=== PATIENT | male | born 1965 | race Caucasian/White ===

== ENCOUNTER 2020-04-14 11:29 | Outpatient (REF) | payer OTHER, SELFPAY ==
--- NOTE | 2020-04-14 12:11 | XR_ITS ---
EXAMINATION: XR LUMBOSACRAL SPINE WITH OBLIQUES CLINICAL INFORMATION: Lumbar spondylosis. COMPARISON: None. TECHNIQUE: AP, both oblique, and lateral views of the lumbar spine. Lateral view of the lumbosacral junction. FINDINGS: There is mild straightening of the lumbar lordosis. The vertebral heights and alignment is normal. There is significant loss of L3-L4 and L4-L5 disc heights with moderate ventral spondylosis. No lytic process seen. Visualized bilateral SI joints are normal. The paravertebral soft tissues are normal. XR/XR lumbar spine 4V min IMPRESSION: Degenerative disc changes L3-L4 and L4-L5 disc levels with moderate ventral spondylosis. No visible acute fracture, dislocation or lytic process seen.
[2020-04-14 13:00] LABS: MANUAL DIFF FLAG NO
[2020-04-14 13:06] LABS: Basophils Absolute Auto 0.1 X10*3/uL (0.0-0.2); Basophils Percent Auto 0.8 % (0-2); Eosinophils Absolute Auto 0.3 X10*3/uL (0.0-0.4); Eosinophils Percent Auto 4.2 % (0-4); Hemoglobin 15.2 g/dl (14.0-18.0); Imm Gran Abs Auto 0.03 X10*3/uL (0.00-0.03); Imm Gran Pct Auto 0.5 % (0.0-0.4); Lymphocytes Absolute Auto 2.9 X10*3/uL (1.2-4.9); Lymphocytes Percent Auto 49.2 % (20-40); Mean Corpuscular HGB Conc 33.8 g/dl (31.0-36.0); Mean Corpuscular Hemoglobin 29.8 pg (27.0-33.0); Mean Corpuscular Volume 88.2 fL (80-98); Mean Platelet Volume 10.3 fL (9.4-12.4); Monocytes Absolute Auto 0.6 X10*3/uL (0.1-1.2); Monocytes Percent Auto 10.8 % (2-11); Neutrophils Percent Auto 34.5 % (45-73); Platelet Count 147 X10*3/uL (160-400); Red Cell Distribution Width 13.1 % (11.0-16.0); White Blood Count 5.9 X10*3/uL (4.8-10.8)
[2020-04-14 13:41] LABS: Alanine Aminotransferase 33 U/L (0-40); Albumin Level 4.4 g/dL (3.5-5.0); Alkaline Phosphatase 61 U/L (39-117); Anion Gap 12 (12-20); Aspartate Amino Transferase 23 U/L (5-37); Bilirubin Total 0.8 mg/dL (0.0-1.0); Blood Urea Nitrogen 15 mg/dL (9-16); C Reactive Protein 0.02 mg/dL (< or = 0.50); Carbon Dioxide 30 mmol/L (22-29); Chloride 105 mmol/L (96-108); Estimated Glomerular Filt Rate > 60; Glucose Random 107 mg/dL (60-115); Potassium 4.8 mmol/l (3.3-5.1); Sodium 142 mmol/L (135-145); Total Protein 6.6 g/dL (6.5-8.0)
[2020-04-14 13:46] LABS: Erythrocyte Sedimentation Rate 1 MM/HR (0-15)
== END 2020-04-14 11:30 | disposition home or self-care (01) ==
LOC: HO.LAB 11:29
PROVIDERS: PCP Internal Medicine; Visit Provider Student in an Organized Health Care Education/Training Program
DX: M05.9 Rheumatoid arthritis with rheumatoid factor, unspecified (principal); M47.816 Spondylosis without myelopathy or radiculopathy, lumbar region
CPT/HCPCS: 36415; 72110; 80053; 85025; 85652; 86140

== ENCOUNTER → 2020-04-16 14:16 | Outpatient (BNVA) | payer OTHER, SELFPAY | PROVIDERS: PCP Internal Medicine; Visit Provider Anesthesiology | DX: M47.816 Spondylosis without myelopathy or radiculopathy, lumbar region (principal); M06.9 Rheumatoid arthritis, unspecified; M19.90 Unspecified osteoarthritis, unspecified site; Z79.899 Other long term (current) drug therapy | CPT/HCPCS: 99202 ==

== ENCOUNTER → 2020-04-23 09:42 | Outpatient (BNVA) | payer OTHER, SELFPAY | PROVIDERS: PCP Internal Medicine; Referring Provider Internal Medicine; Visit Provider Student in an Organized Health Care Education/Training Program | DX: M05.9 Rheumatoid arthritis with rheumatoid factor, unspecified (principal); M47.816 Spondylosis without myelopathy or radiculopathy, lumbar region; Z79.899 Other long term (current) drug therapy | CPT/HCPCS: 99212 ==

== ENCOUNTER → 2020-07-02 08:54 | Outpatient (BNVA) | payer OTHER, SELFPAY | PROVIDERS: Visit Provider Orthopaedic Surgery | DX: M67.919 Unspecified disorder of synovium and tendon, unspecified shoulder (principal) | CPT/HCPCS: 20610; 99212; J1100 ==

== ENCOUNTER 2020-07-22 08:36 | Outpatient (REF) | payer OTHER, SELFPAY ==
--- NOTE | ~2020-07-22 | MR_ITS ---
EXAMINATION: MRI LEFT SHOULDER WITHOUT CONTRAST CLINICAL INFORMATION: Left shoulder pain. Decreased range of motion. COMPARISON: 08/24/2018 TECHNIQUE: MR images of the shoulder were obtained on a 1.5 Lizzie high-field strength scanner without intravenous contrast material. FINDINGS: ROTATOR CUFF: A full-thickness tear of the supraspinatus tendon measures 1.9 cm AP with retraction of the torn fibers by 2.1 cm, corresponding to a U-shaped tear. This involves the far anterior fibers of the infraspinatus tendon with propagation of fluid medially along the myotendinous junction of the infraspinatus, though the majority of the infraspinatus tendon is intact. A few of the far anterior fibers of the supraspinatus tendon are intact. Subscapularis and teres minor are normal. No muscle atrophy or fatty infiltration. BICEPS: Mild biceps tendinosis. No tears or subluxation. CORACOACROMIAL ARCH: The undersurface of the acromion is curved with no subacromial spur. Moderate acromioclavicular osteoarthritis. Fluid in the subacromial-subdeltoid bursa and subcoracoid bursa likely extends from the glenohumeral joint through the full-thickness defect in the rotator cuff. LABRUM/CAPSULE: A tear of the glenoid labrum appears near-circumferential, potentially sparing a portion of the posterior labrum. There is significant degeneration of the labrum inferiorly. The joint capsule is intact with mild capsular edema. GLENOHUMERAL JOINT/MARROW: Moderate-sized glenoid osteophytes. A 1.5 x 1.3 cm area of articular cartilage loss is present at the anterior aspect of the glenoid with articular cortical irregularity and subchondral edema. No fracture or malalignment. Small glenohumeral joint effusion. MR/MR shoulder LT wo con IMPRESSION: 1. A 1.9 x 2.1 cm full-thickness insertional tear of the supraspinatus tendon with involvement of the anterior fibers of the infraspinatus. No muscle atrophy. 2. Moderate acromioclavicular osteoarthritis. 3. Mild glenohumeral osteoarthritis with a focal high-grade chondral defect of the anterior half of the glenoid and a near-circumferential tear of the glenoid labrum. 4. Mild biceps tendinosis.
--- NOTE | ~2020-07-22 | XR_ITS ---
EXAMINATION: XR SHOULDER, LEFT CLINICAL INFORMATION: Pain COMPARISON: None TECHNIQUE: AP external rotation, Grashey, scapular Y, and axillary views of the left shoulder. FINDINGS: Bone alignment is normal. No fracture or dislocation is seen. There is arthritis at the acromioclavicular joint with joint space narrowing and osteophyte formation. There is a small osteophyte at the inferior glenoid. There are degenerative changes of the greater tuberosity. Soft tissues are unremarkable. XR/XR shoulder LT min 2V IMPRESSION: Degenerative changes
[2020-07-22 10:27] LABS: Basophils Percent Auto 0.9 % (0-2); Hematocrit 41.3 % (42-52); Hemoglobin 13.9 g/dl (14.0-18.0); Imm Gran Abs Auto 0.01 X10*3/uL (0.00-0.03); Imm Gran Pct Auto 0.2 % (0.0-0.4); MANUAL DIFF FLAG SCAN; Mean Corpuscular HGB Conc 33.7 g/dl (31.0-36.0); Mean Corpuscular Hemoglobin 29.8 pg (27.0-33.0); Mean Corpuscular Volume 88.4 fL (80-98); PLT CLUMP 1; Red Blood Count 4.67 X10*6/uL (4.60-5.80); SCAN SMEAR FLAG 1
[2020-07-22 10:30] LABS: Eosinophils Absolute Auto 0.2 X10*3/uL (0.0-0.4); Eosinophils Percent Auto 3.5 % (0-4); Lymphocytes Absolute Auto 2.3 X10*3/uL (1.2-4.9); Lymphocytes Percent Auto 50.2 % (20-40); Monocytes Absolute Auto 0.5 X10*3/uL (0.1-1.2); Monocytes Percent Auto 10.6 % (2-11); Neutrophils Absolute Auto 1.6 X10*3/uL (2.0-8.3); Neutrophils Percent Auto 34.6 % (45-73); Platelet Count 124 X10*3/uL (160-400); Red Cell Distribution Width 12.9 % (11.0-16.0); White Blood Count 4.6 X10*3/uL (4.8-10.8)
[2020-07-22 10:51] LABS: Alanine Aminotransferase 25 U/L (0-40); Albumin Level 4.2 g/dL (3.5-5.0); Alkaline Phosphatase 54 U/L (39-117); Anion Gap 11 (12-20); Aspartate Amino Transferase 24 U/L (5-37); Bilirubin Total 0.6 mg/dL (0.0-1.0); Blood Urea Nitrogen 15 mg/dL (9-16); C Reactive Protein < 0.02 mg/dL (< or = 0.50); Calcium 8.7 mg/dL (8.4-10.2); Carbon Dioxide 30 mmol/L (22-29); Chloride 108 mmol/L (96-108); Cholesterol 119 mg/dL; Estimated Glomerular Filt Rate > 60; Glucose Random 104 mg/dL (60-115); HDL Cholesterol 48 mg/dL; LDL Cholesterol Calculated 56 mg/dl; Potassium 4.8 mmol/L (3.3-5.1); Sodium 144 mmol/L (135-145); Total Protein 6.2 g/dL (6.5-8.0); Triglycerides 77 mg/dL
[2020-07-22 11:04] LABS: Reflex LDLD? No
[2020-07-22 12:04] LABS: Erythrocyte Sedimentation Rate 2 MM/HR (0-15)
[2020-07-22 12:16] LABS: SLIDE REVIEW VERIFIED
== END 2020-07-22 08:37 | disposition home or self-care (01) ==
LOC: HO.MRI 08:36
PROVIDERS: Absent Provider Student in an Organized Health Care Education/Training Program; PCP Internal Medicine; Visit Provider Orthopaedic Surgery
DX: M25.512 Pain in left shoulder (principal); M05.9 Rheumatoid arthritis with rheumatoid factor, unspecified; M67.919 Unspecified disorder of synovium and tendon, unspecified shoulder
CPT/HCPCS: 36415; 73030; 73221; 80053; 80061; 85025; 85652; 86140

== ENCOUNTER → 2020-07-24 08:51 | Outpatient (BNVA) | payer OTHER, SELFPAY | PROVIDERS: PCP Internal Medicine; Visit Provider Orthopaedic Surgery | DX: M75.122 Complete rotator cuff tear or rupture of left shoulder, not specified as traumatic (principal) | CPT/HCPCS: 99212 ==

== ENCOUNTER → 2020-07-30 10:17 | Outpatient (BNVA) | payer OTHER, SELFPAY | PROVIDERS: PCP Internal Medicine; Referring Provider Internal Medicine; Visit Provider Student in an Organized Health Care Education/Training Program | DX: M05.9 Rheumatoid arthritis with rheumatoid factor, unspecified (principal); M47.816 Spondylosis without myelopathy or radiculopathy, lumbar region | CPT/HCPCS: 99212 ==

== ENCOUNTER 2020-08-12 06:10 | Day surgery (SDC) | payer OTHER, SELFPAY ==
[2020-08-06 12:17] VITALS: BMI 26.9
--- NOTE | 2020-08-11 08:34 | P.CONAN_ITS ---
Documented by User: Ernestina Chavez 08/11/20 11:09 HPI - Anesthesia Eval Consult details Narrative: 54yo M for L Shoulder Rotator Cuff Repair PMFSH Active Problems Active Problems: All Active Problems (Updated 08/06/20 @ 12:14 by Neda Snow) Gastritis determined by endoscopy (Acute) Constipation (Acute) Insomnia (Acute) Left rotator cuff tear (Acute) Anxiety (Acute) Coronary artery disease (Acute) GERD (gastroesophageal reflux disease) (Acute) Hypercholesterolemia (Acute) Hypertension (Acute) Impaired glucose tolerance (Acute) Seropositive rheumatoid arthritis (Acute) Spondylosis of lumbar region without myelopathy or radiculopathy (Acute) Osteoarthritis (Acute) Past Medical History Medical History Anxiety Atherosclerotic cardiovascular disease Cervical radiculopathy Coronary artery disease Degenerative disc disease, lumbar Erectile dysfunction GERD (gastroesophageal reflux disease) Horseshoe kidney Hypercholesterolemia Hypertension Impaired glucose tolerance Left rotator cuff tear Lip cancer Osteoarthritis 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 Family History Family History Father Lung cancer CAD (coronary artery disease) CVD (cardiovascular disease) Hx of CABG Mother Colon cancer Maternal Uncle Lung cancer Surgical History Surgical History H/O left knee surgery History of cervical spinal surgery History of coronary artery stent placement History of lip cancer History of shoulder surgery History of tonsillectomy Hx of colonoscopy Social History Social History Housing Other:: Rents a room in a house Are you a primary healthcare interpreter to a significant other at home: No Do you presently have visiting nurse or other home services: No Alcohol intake: current Alcohol intake frequency: holidays/special occasions only Alcohol type: beer and hard liquor Smoking Status: Former smoker Smoking Quit Date: 2004 Use of substances other than those prescribed or required for medical reasons: Yes Substance Use Type: Marijuana Substance Use Frequency: Occasionally Have you been hit, kicked, punched, or otherwise hurt by someone within the past year? If so, by whom?: No Advance Directives: No Advance Directives Information Provided: No Advance Directives on File: No Recently lost weight without trying: No Current occupational status: unemployed Current occupation: right handed Narrative Narrative: Per cardiac note 01/2020 - stable CAD with 1 year f/u Meds Allergies Allergy/AdvReac Type Severity Reaction Status Date / Time penicillin V Allergy Severe rash Verified 08/06/20 11:40 atorvastatin Allergy Intermediate leg pain Verified 08/06/20 11:40 Home Medications Medication Instructions Recorded Confirmed Last Taken Type aspirin 81 mg tablet,delayed 81 mg PO DAILY 04/23/20 08/12/20 08/10/20 History release sennosides 8.6 mg capsule 8.6 mg PO BEDTIME 04/23/20 08/06/20 Unknown History pantoprazole 40 mg tablet,delayed 40 mg PO DAILY 04/27/20 08/06/20 Unknown History release Exam Exam Date and Time: August 11, 2020 0834 Height,Weight and Vital Signs: Height 5 ft 10 in Weight 85.275 kg Pertinent Lab Results Pertinent Lab Results: Laboratory Tests 07/22/20 07/22/20 09:48 09:48 WBC 4.6 L Hgb 13.9 L Hct 41.3 L Plt Count 124 L Sodium 144 Potassium 4.8 Chloride 108 Carbon Dioxide 30 H BUN 15 Creatinine 0.85 Narrative Narrative: EKG 07/2019 (repeat DOS) NSR @ 72 ECHO 03/2018: LVEF 60-65%, No RWMA, No valve path MIBI 07/2019: Nml perfusion Gated EF 74% No transient ischemic dilation EKG nondiagnostic for ischemia Assessment and Plan Assessment Anesthesia Assessment: Chart Reviewed Documented by User: Eufemia Elizondo 08/12/20 08:16 [facility] Past Medical History Medical History Anxiety Atherosclerotic cardiovascular disease Cervical radiculopathy Coronary artery disease Degenerative disc disease, lumbar Erectile dysfunction GERD (gastroesophageal reflux disease) Horseshoe kidney Hypercholesterolemia Hypertension Impaired glucose tolerance Left rotator cuff tear Lip cancer Osteoarthritis 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 Family History Family History Father Lung cancer CAD (coronary artery disease) CVD (cardiovascular disease) Hx of CABG Mother Colon cancer Maternal Uncle Lung cancer Surgical History Surgical History H/O left knee surgery History of cervical spinal surgery History of coronary artery stent placement History of lip cancer History of shoulder surgery History of tonsillectomy Hx of colonoscopy Social History Social History Housing Other:: Rents a room in a house Are you a primary healthcare interpreter to a significant other at home: No Do you presently have visiting nurse or other home services: No Alcohol intake: current Alcohol intake frequency: holidays/special occasions only Alcohol type: beer and hard liquor Smoking Status: Former smoker Smoking Quit Date: 2004 Use of substances other than those prescribed or required for medical reasons: Yes Substance Use Type: Marijuana Substance Use Frequency: Occasionally Have you been hit, kicked, punched, or otherwise hurt by someone within the past year? If so, by whom?: No Advance Directives: No Advance Directives Information Provided: No Advance Directives on File: No Recently lost weight without trying: No Current occupational status: unemployed Current occupation: right handed Meds Allergies Allergy/AdvReac Type Severity Reaction Status Date / Time penicillin V Allergy Severe rash Verified 08/06/20 11:40 atorvastatin Allergy Intermediate leg pain Verified 08/06/20 11:40 Home Medications Medication Instructions Recorded Confirmed Last Taken Type aspirin 81 mg tablet,delayed 81 mg PO DAILY 04/23/20 08/12/20 08/10/20 History release sennosides 8.6 mg capsule 8.6 mg PO BEDTIME 04/23/20 08/06/20 Unknown History pantoprazole 40 mg tablet,delayed 40 mg PO DAILY 04/27/20 08/06/20 Unknown History release Exam Pertinent Lab Results Pertinent Lab Results: ecg normal 08/12/20 Airway Mallampati Class: II TM Dist: >3cm Neck ROM: Full Denture: Upper and Lower Assessment and Plan Assessment Anesthesia Assessment: Anesthesia Plan Discussed and Chart Reviewed Final Anesthetic Review NPO: Yes ASA Class: III Final Preanesthetic Review: No Changes in Pt Med Stat, Meds/Allgs Chart Reviewed, Consent Obtained/Reviewed and Anes Risks/Benef Reviewed Patient Risk: Intermediate Procedure Risk: Intermediate Assessment/Block/Sedation in SS: Assess/Block/Sedation-SS Anesthetic Plan Anesthetic Plan: GA and Regional Block Disposition: Standard PACU
[2020-08-12] VITALS (8 sets, daily range): BP systolic 123–142; BP diastolic 78–89; PULSE 58–67; RESP 16–18; TEMP 36.6; O2SAT 95–99
--- NOTE | 2020-08-12 | ECG_ITS ---
Test Reason : CAD s/p stenting Blood Pressure : / mmHG Vent. Rate : 059 BPM Atrial Rate : 059 BPM P-R Int : 146 ms QRS Dur : 096 ms QT Int : 412 ms P-R-T Axes : 011 -16 009 degrees QTc Int : 407 ms Sinus bradycardia Otherwise normal ECG When compared with ECG of 20-OCT-2017 06:47, No significant change was found Referred By: Ernestina Chavez Electronically Signed By:ROXANA FIELD
[2020-08-12] MEDS: Lactated Ringers 1,000 ML 100 ML IVCONT (06:52)
--- NOTE | 2020-08-12 07:38 | MHC.SHP ---
Pre-Procedural Eval Section A The patient is an INPATIENT: No Changes since office visit: Yes Patient answered all questions; No Cold of Flu in the past 2 weeks, No New Medical Problems and No Changes in Medication The History & Physical has been completed within 30 days and I have reviewed it.: Yes Section B Chief Complaint: Disorder of synovium and tendon Allergies: Allergies Allergy/AdvReac Type Severity Reaction Status Date / Time penicillin V Allergy Severe rash Verified 08/06/20 11:40 atorvastatin Allergy Intermediate leg pain Verified 08/06/20 11:40 Plan I have reviewed the history and physical and performed a pertinent physical examination on my patient. No changes have occurred unless specified.
--- NOTE | 2020-08-12 09:28 | PM.OP ---
Brief Operative Note Date of Service: 08/12/20 Pre-op diagnosis: left shoulder rtc tear Post-op diagnosis: other (1) same 2) gh OA 3) SLAP tear) Procedure: rtc repair with biceps tenotomy and chondroplasty Implants: romano and nephsebastián helacoil x4 Surgeon: Alex Bernal MD Anesthesia: GETA Induction Machine Setter: Ivette Pinto Estimated blood loss (mL): 25 IV fluids (mL): 700 Pathology: none sent Condition: stable Disposition: PACU
--- NOTE | 2020-08-12 09:51 | P.OP_ITS ---
Operative Note Operative Note Date of Service: 08/12/20 Narrative: Pre-op diagnosis: right rotator cuff tear Post-op diagnosis: same Procedure: right rotator cuff repair with sub-acromial decompression and biceps tenotomy Machine Tool Technician Instructor: Ivette Pinto___ Implants: Ying [employer] Nephew helacoil x4 Anesthesia: GETA and regional Estimated blood loss (mL): 20 IV fluids (mL): 700 Complications: none Condition: stable Disposition: PACU Indications: This is a 54 yo M with a full thickness right rtc tear consented to undergo repair Procedure in detail: Patient was brought to the operating room and placed the the beach chair position. All bony prominences were well padded and he was prepped and draped in standard sterile fashion. A time out was called to identify proper site, proper procedure and proper surgeon. IV antibiotics per weight were administered. I began by making a posterolateral stab incision with a 15 blade. A blunt trochar was placed into the glenohumeral joint and I insufflated the joint with saline and a 30 degree arthroscope was placed. I established an outside- in anterior portal just distal to the biceps tendon. I then began my inspection of the glenohumeral joint. The gutter was clean and there was g3 wear in the central and anterior protion of the glenoid. There was a large SLAP tear with intact bicpes anchor. There was full thickness RTC tear and a low grade partial thickness tear of the superior subscapularis at the humeral insertion. I de brided the labrum and tenotomized the biceps. I entered the subacromial space via a posterior portal and established 2 lateral portals under direct visualization. There was a tear of the supraspinatus and the infraspinatus that was full thickness without retraction. I began by placing 2 double loaded helacoil suture anchors medially, just adjacent to the humeral cartilage. I then passed these through the cuff tear and brought them to two lateral knotless anchor. There was excellent compression of the cuff and restorationist of the normal anatomy. Prior to this I burred the footprint down to bleeding bone. I also placed an additional looped suture anteriorly and brought it to the anterior lateral anchor. I was happy with th repair and turned my attention to the acromion. I performed a 6mm decompression. I removed all instrumentation. Portals were closed with nylon and sterile dressings were applied. Patient was extubated and brought to the recovery room is stable condition.
== END 2020-08-12 11:45 | disposition home or self-care (01) ==
PROVIDERS: PCP Internal Medicine; Visit Provider Orthopaedic Surgery
PROC: (CPT 29827; principal; 2020-08-12 07:30)
DX: M75.122 Complete rotator cuff tear or rupture of left shoulder, not specified as traumatic (principal); S43.432A Superior glenoid labrum lesion of left shoulder, initial encounter; X58.XXXA Exposure to other specified factors, initial encounter; Y93.9 Activity, unspecified; Y92.9 Unspecified place or not applicable; Y99.8 Other external cause status; M67.912 Unspecified disorder of synovium and tendon, left shoulder; M05.9 Rheumatoid arthritis with rheumatoid factor, unspecified; M19.90 Unspecified osteoarthritis, unspecified site; I25.10 Atherosclerotic heart disease of native coronary artery without angina pectoris; Z95.5 Presence of coronary angioplasty implant and graft; I10 Essential (primary) hypertension; R73.02 Impaired glucose tolerance (oral); F12.90 Cannabis use, unspecified, uncomplicated; Z79.82 Long term (current) use of aspirin; Z79.899 Other long term (current) drug therapy; Z88.0 Allergy status to penicillin; Z88.8 Allergy status to other drugs, medicaments and biological substances; Z87.891 Personal history of nicotine dependence
CPT/HCPCS: 29827; 29826; 29822; 93005; C1713; J0171; J0690; J1100; J2250; J2405; J3010

== ENCOUNTER → 2020-08-27 09:51 | Outpatient (BNVA) | payer OTHER, SELFPAY | PROVIDERS: PCP Internal Medicine; Visit Provider Physician Assistant | DX: Z98.890 Other specified postprocedural states (principal) | CPT/HCPCS: 99212 ==

== ENCOUNTER 2020-09-24 08:02 | Outpatient (REF) | payer OTHER, SELFPAY ==
--- NOTE | ~2020-09-24 | XR_ITS ---
EXAMINATION: XR SHOULDER, LEFT CLINICAL INFORMATION: Pain shoulder COMPARISON: X-ray left shoulder August 2018 TECHNIQUE: grashy AP projection of the shoulder.. FINDINGS: There are postoperative changes with metallic suture anchors noted within the humerus. There is arthrosis of glenohumeral joint with marginal osteophytes overall mild. Coracoclavicular joint not clearly assessed on this projection. XR/XR shoulder LT 1V IMPRESSION: Postoperative changes left shoulder. Stable arthrosis of glenohumeral joint.
== END 2020-09-24 08:03 | disposition home or self-care (01) ==
LOC: HO.HOSX 08:02
PROVIDERS: Visit Provider Orthopaedic Surgery
DX: M25.512 Pain in left shoulder (principal); Z98.890 Other specified postprocedural states
CPT/HCPCS: 73020; 99212

== ENCOUNTER 2020-10-14 09:11 | Outpatient (REF) | payer OTHER, SELFPAY ==
[2020-10-14 10:37] LABS: MANUAL DIFF FLAG NO
[2020-10-14 11:03] LABS: Basophils Absolute Auto 0.1 X10*3/uL (0.0-0.2); Basophils Percent Auto 0.7 % (0-2); Eosinophils Absolute Auto 0.2 X10*3/uL (0.0-0.4); Eosinophils Percent Auto 2.8 % (0-4); Hematocrit 42.6 % (42-52); Hemoglobin 13.9 g/dl (14.0-18.0); Imm Gran Abs Auto 0.02 X10*3/uL (0.00-0.03); Imm Gran Pct Auto 0.3 % (0.0-0.4); Lymphocytes Absolute Auto 2.9 X10*3/uL (1.2-4.9); Lymphocytes Percent Auto 37.9 % (20-40); Mean Corpuscular HGB Conc 32.6 g/dl (31.0-36.0); Mean Corpuscular Hemoglobin 29.1 pg (27.0-33.0); Mean Corpuscular Volume 89.3 fL (80-98); Monocytes Absolute Auto 0.5 X10*3/uL (0.1-1.2); Monocytes Percent Auto 7.1 % (2-11); Neutrophils Absolute Auto 3.9 X10*3/uL (2.0-8.3); Neutrophils Percent Auto 51.2 % (45-73); Platelet Count 190 X10*3/uL (160-400); Red Blood Count 4.77 X10*6/uL (4.60-5.80); Red Cell Distribution Width 12.6 % (11.0-16.0); White Blood Count 7.6 X10*3/uL (4.8-10.8)
[2020-10-14 11:05] LABS: Alanine Aminotransferase 17 U/L (0-40); Alkaline Phosphatase 81 U/L (39-117); Anion Gap 11 (12-20); Aspartate Amino Transferase 17 U/L (5-37); Bilirubin Total 0.5 mg/dL (0.0-1.0); Blood Urea Nitrogen 14 mg/dL (9-16); C Reactive Protein 0.14 mg/dL (< or = 0.50); Calcium 9.1 mg/dL (8.4-10.2); Carbon Dioxide 28 mmol/L (22-29); Chloride 108 mmol/L (96-108); Estimated Glomerular Filt Rate > 60; Glucose Random 111 mg/dL (60-115); Potassium 4.5 mmol/L (3.3-5.1); Sodium 142 mmol/L (135-145); Total Protein 6.4 g/dL (6.5-8.0)
[2020-10-14 12:30] LABS: Erythrocyte Sedimentation Rate 7 MM/HR (0-15)
== END 2020-10-14 09:12 | disposition home or self-care (01) ==
LOC: HO.LAB 09:11
PROVIDERS: Absent Provider Internal Medicine; PCP Internal Medicine; Visit Provider Student in an Organized Health Care Education/Training Program
DX: M05.9 Rheumatoid arthritis with rheumatoid factor, unspecified (principal); R73.02 Impaired glucose tolerance (oral)
CPT/HCPCS: 36415; 80053; 85025; 85652; 86140

== ENCOUNTER → 2020-10-29 08:45 | Outpatient (BNVA) | payer OTHER, SELFPAY | PROVIDERS: PCP Internal Medicine; Visit Provider Nurse Practitioner | DX: Z13.89 Encounter for screening for other disorder (principal) | CPT/HCPCS: Q3014 ==

== ENCOUNTER → 2020-11-05 09:04 | Outpatient (BNVA) | payer OTHER, SELFPAY | PROVIDERS: Visit Provider Orthopaedic Surgery | DX: Z98.890 Other specified postprocedural states (principal) | CPT/HCPCS: 99212 ==

== ENCOUNTER → 2020-12-10 15:14 | Outpatient (BNVA) | payer OTHER, SELFPAY | PROVIDERS: PCP Internal Medicine; Visit Provider Student in an Organized Health Care Education/Training Program | DX: M05.9 Rheumatoid arthritis with rheumatoid factor, unspecified (principal); M47.816 Spondylosis without myelopathy or radiculopathy, lumbar region | CPT/HCPCS: 99212 ==

== ENCOUNTER 2020-12-24 10:00 | Outpatient (RCR) | payer OTHER, SELFPAY ==
--- NOTE | 2020-09-08 19:58 | MHC.PT.EP ---
[facility] [place] Office [place] Office [place] Office [address] Cuong Lombardi [address] [phone] F: [phone] F: [phone] F: [phone] F: [phone] Physical Therapy Plan of Care Date of Evaluation: 09/08/20 Date of Surgery: 08/12/20 Diagnosis: s/p L RTC repair with biceps tenotomy. Assessment: Pt is a 54 y/o male referred to PT s/p L RTC repair with biceps tenotomy for management of long Hx of L shoulder pain performed on 08/12/20 resulting in decreased ability for reaching high shelves, carrying objects of weight, dressing pullovers, performing heavy HH chores secondary to decreased L shoulder ROM and strength, decreased posture, healing process and pain. Pt is deemed an appropriate candidate to receive skilled PT in order to address his physical limitations to improve his functional ability. Frequency and Duration: The patient will be seen 2 x / wk x 10 wks. Short Term Goals: in 2 weeks: initiate HEP with evidence of compliance. In 7 weeks: full ROM achieved. Long-Term Goals: In 10 weeks: I with HEP. In 10 weeks: Pt will be able top place objects on high shelf with managed Sx. Treatment Plan: Modalities to reduce pain, spasms and effusion. Manual therapy to restore motion and function. Therapeutic exercise to improve strength and flexibility. Neuromuscular re-education for posture and balance. Therapeutic activities to return to functional activities of daily living. Electronically signed by: Milton Jones PT. Please sign and return to therapist. Thank you for your referral.
--- NOTE | 2020-12-24 19:14 | MHC.PT.DC ---
[facility] [place] Office [place] Office [place] Office [address] Cuong Lombardi [address] [phone] F: [phone] F: [phone] F: [phone] F: [phone] Physical Therapy Discharge Report Diagnosis: s/p L RTC repair with biceps tenotomy. Date of Surgery: 08/12/20 Date of Evaluation: 09/08/20 Date of Discharge: Treatments to Date: 27 Cancellations to Date: 0 No Shows to Date: 0 Discharge Status: Discharge Summary: Issa has been an active participant in his therapy in his therapy in and out of the clinic. He has achieved all of his therapeutic goals and is in agreement with Dc at this time. Pt's AROM is roughly 90% compared to contra-lateral side. Electronically signed by: Milton Jones PT. Please sign and return to therapist. Thank you for your referral.
--- NOTE | 2020-12-24 19:16 | MHC.PT.DC ---
[facility] [place] Office [place] Office [place] Office [address] Cuong Lombardi [address] [phone] F: [phone] F: [phone] F: [phone] F: [phone] Physical Therapy Discharge Report Diagnosis: s/p L RTC repair with biceps tenotomy. Date of Surgery: 08/12/20 Date of Evaluation: 09/08/20 Date of Discharge: 12/24/20 Treatments to Date: 27 Cancellations to Date: 0 No Shows to Date: 0 Discharge Status: Achieved Goals Improved Function Independent with HEP Discharge Summary: Issa has been an active participant in his therapy in his therapy in and out of the clinic. He has achieved all of his therapeutic goals and is in agreement with Dc at this time. Pt's AROM is roughly 90% compared to contra-lateral side. Electronically signed by: Milton Jones PT. Please sign and return to therapist. Thank you for your referral.
== END 2020-12-24 19:17 | disposition home or self-care (01) ==
LOC: HO.PTCHIC 10:00
PROVIDERS: PCP Internal Medicine; Visit Provider Physician Assistant
DX: Z98.890 Other specified postprocedural states (principal)
CPT/HCPCS: 97110; 97140; 97161

== ENCOUNTER 2021-01-18 08:22 | Outpatient (REF) | payer OTHER, SELFPAY ==
[2021-01-18 09:44] LABS: MANUAL DIFF FLAG NO
[2021-01-18 09:55] LABS: Basophils Percent Auto 0.7 % (0-2); Eosinophils Absolute Auto 0.2 X10*3/uL (0.0-0.4); Eosinophils Percent Auto 2.7 % (0-4); Hematocrit 40.7 % (42-52); Hemoglobin 13.5 g/dl (14.0-18.0); Imm Gran Abs Auto 0.02 X10*3/uL (0.00-0.03); Imm Gran Pct Auto 0.4 % (0.0-0.4); Lymphocytes Absolute Auto 2.3 X10*3/uL (1.2-4.9); Lymphocytes Percent Auto 40.4 % (20-40); Mean Corpuscular HGB Conc 33.2 g/dl (31.0-36.0); Mean Corpuscular Volume 87.3 fL (80-98); Mean Platelet Volume 10.2 fL (9.4-12.4); Monocytes Absolute Auto 0.6 X10*3/uL (0.1-1.2); Monocytes Percent Auto 10.7 % (2-11); Neutrophils Absolute Auto 2.5 X10*3/uL (2.0-8.3); Neutrophils Percent Auto 45.1 % (45-73); Platelet Count 149 X10*3/uL (160-400); Red Blood Count 4.66 X10*6/uL (4.60-5.80); Red Cell Distribution Width 13.7 % (11.0-16.0); White Blood Count 5.6 X10*3/uL (4.8-10.8)
[2021-01-18 10:06] LABS: Alanine Aminotransferase 18 U/L (0-40); Albumin Level 4.1 g/dL (3.5-5.0); Alkaline Phosphatase 76 U/L (39-117); Anion Gap 14 (12-20); Aspartate Amino Transferase 25 U/L (5-37); Bilirubin Total 0.3 mg/dL (0.0-1.0); Blood Urea Nitrogen 16 mg/dL (9-16); C Reactive Protein 0.27 mg/dL (< or = 0.50); Calcium 8.9 mg/dL (8.4-10.2); Carbon Dioxide 26 mmol/L (22-29); Chloride 108 mmol/L (96-108); Estimated Glomerular Filt Rate > 60; Glucose Random 96 mg/dL (60-115); Potassium 4.6 mmol/L (3.3-5.1); Sodium 143 mmol/L (135-145); Total Protein 6.4 g/dL (6.5-8.0)
[2021-01-18 10:55] LABS: Erythrocyte Sedimentation Rate 6 MM/HR (0-15)
== END 2021-01-18 08:23 | disposition home or self-care (01) ==
LOC: HO.LAB 08:22
PROVIDERS: PCP Internal Medicine; Visit Provider Student in an Organized Health Care Education/Training Program
DX: M05.9 Rheumatoid arthritis with rheumatoid factor, unspecified (principal)
CPT/HCPCS: 36415; 80053; 85025; 85652; 86140

== ENCOUNTER → 2021-01-19 09:29 | Outpatient (BNVA) | payer OTHER, SELFPAY | PROVIDERS: PCP Internal Medicine; Referring Provider Internal Medicine; Visit Provider Internal Medicine | DX: I25.10 Atherosclerotic heart disease of native coronary artery without angina pectoris (principal); I10 Essential (primary) hypertension | CPT/HCPCS: 93005; 99212 ==

== ENCOUNTER 2021-02-01 13:41 | Outpatient (REF) | payer OTHER, SELFPAY | END 2021-02-01 13:42 | disposition home or self-care (01) | LOC: HO.LNP 13:41 | PROVIDERS: Visit Provider Hospitalist | DX: Z20.822 Contact with and (suspected) exposure to COVID-19 (principal); J01.90 Acute sinusitis, unspecified | CPT/HCPCS: U0003; U0005 ==

== ENCOUNTER 2021-03-18 14:05 | Outpatient (REF) | payer OTHER, SELFPAY ==
--- NOTE | ~2021-03-18 | XR_ITS ---
EXAMINATION: XR HIP, RIGHT CLINICAL INFORMATION: Right hip pain. COMPARISON: 04/29/2018 TECHNIQUE: Two views of the right hip. FINDINGS: There is no evidence of acute fracture or dislocation of the right hip. Right hip joint space is maintained. There is minimal superior marginal spurring present about the acetabulum and femoral head with some superior femoral neck sclerosis which may be related to impingement. XR/XR hip RT min 2V IMPRESSION: Mild degenerative change of the right hip as described.
== END 2021-03-18 14:06 | disposition home or self-care (01) ==
LOC: HO.XRAY 14:05
PROVIDERS: PCP Internal Medicine; Visit Provider Nurse Practitioner Family
DX: M05.9 Rheumatoid arthritis with rheumatoid factor, unspecified (principal); M25.551 Pain in right hip; M47.816 Spondylosis without myelopathy or radiculopathy, lumbar region; F41.9 Anxiety disorder, unspecified
CPT/HCPCS: 73502; 99212

== ENCOUNTER 2021-04-09 05:09 | Outpatient (REF) | payer OTHER, SELFPAY | END 2021-04-09 05:10 | disposition home or self-care (01) | LOC: HO.HOSX 05:09 | PROVIDERS: Visit Provider Physician Assistant | DX: Z13.89 Encounter for screening for other disorder (principal) ==

== ENCOUNTER 2021-04-15 08:59 | Outpatient (REF) | payer OTHER, SELFPAY ==
[2021-04-15 09:12] LABS: MANUAL DIFF FLAG NO
[2021-04-15 10:09] LABS: Basophils Absolute Auto 0.1 X10*3/uL (0.0-0.2); Basophils Percent Auto 0.9 % (0-2); Eosinophils Absolute Auto 0.1 X10*3/uL (0.0-0.4); Eosinophils Percent Auto 2.6 % (0-4); Hematocrit 41.6 % (42.0-52.0); Imm Gran Abs Auto 0.01 X10*3/uL (0.00-0.03); Imm Gran Pct Auto 0.2 % (0.0-0.4); Immature Retic Fraction 12.2 % (2.3-13.4); Lymphocytes Absolute Auto 2.4 X10*3/uL (1.2-4.9); Lymphocytes Percent Auto 43.4 % (20-40); Mean Corpuscular HGB Conc 33.7 g/dl (31.0-36.0); Mean Corpuscular Hemoglobin 29.6 pg (27.0-33.0); Mean Corpuscular Volume 87.9 fL (80.0-98.0); Mean Platelet Volume 9.7 fL (9.4-12.4); Monocytes Absolute Auto 0.5 X10*3/uL (0.1-1.2); Monocytes Percent Auto 8.9 % (2-11); Neutrophils Absolute Auto 2.41 x10*3/uL (2.0-8.3); Platelet Count 167 X10*3/uL (160-400); Red Blood Count 4.73 X10*6/uL (4.60-5.80); Red Cell Distribution Width 13.2 % (11.0-16.0); Retic HGB Equivalent 33.7 pg (30.0-35.0); Reticulocyte Percent 1.8 % (0.5-1.8); Reticulocytes Absolute 0.083 X10*6/uL (0.026-0.095); White Blood Count 5.5 X10*3/uL (4.8-10.8)
[2021-04-15 10:26] LABS: Estimated Average Glucose 123 mg/dL; Hemoglobin A1c % 5.9 %
[2021-04-15 10:42] LABS: Alanine Aminotransferase 16 U/L (0-40); Alkaline Phosphatase 75 U/L (39-117); Anion Gap 10 (12-20); Aspartate Amino Transferase 16 U/L (5-37); Bilirubin Total 0.2 mg/dL (0.0-1.0); Blood Urea Nitrogen 11 mg/dL (9-16); Calcium 8.7 mg/dL (8.4-10.2); Carbon Dioxide 29 mmol/L (22-29); Chloride 108 mmol/L (96-108); Cholesterol 120 mg/dL; Estimated Glomerular Filt Rate > 60; Glucose Random 122 mg/dL (60-115); HDL Cholesterol 55 mg/dL; Iron 84 mcg/dL (45-160); LDL Cholesterol Calculated 54 mg/dl; Percent Iron Saturation 27 % (15-50); Potassium 4.7 mmol/L (3.3-5.1); Sodium 142 mmol/L (135-145); Total Iron Binding Capacity 314 mcg/dL (228-428); Total Protein 6.3 g/dL (6.5-8.0); Triglycerides 58 mg/dL; Unsaturated Iron Binding 230 ug/dL
[2021-04-15 10:56] LABS: Ferritin 112 ng/mL (20-250); Prostate Specific Antigen Scr 0.29 ng/mL (<0.05-4.0); Thyroid Stimulating Hormone 1.19 uIU/mL (0.32-4.0)
[2021-04-15 11:43] LABS: Free T4 (Free Thyroxine) 0.86 ng/dL (0.71-1.85)
[2021-04-15 13:17] LABS: Folate 7.3 ng/mL (> or = 4.0); Vitamin B12 345 pg/mL (200-900)
== END 2021-04-15 09:00 | disposition home or self-care (01) ==
LOC: HO.LAB 08:59
PROVIDERS: PCP Internal Medicine; Visit Provider Internal Medicine
DX: Z12.5 Encounter for screening for malignant neoplasm of prostate (principal); I25.10 Atherosclerotic heart disease of native coronary artery without angina pectoris; E78.00 Pure hypercholesterolemia, unspecified; R73.02 Impaired glucose tolerance (oral)
CPT/HCPCS: 36415; 80053; 80061; 82607; 82728; 82746; 83036; 83540; 84153; 84439; 84443; 85025; 85045

== ENCOUNTER → 2021-04-22 15:34 | Outpatient (BNVA) | payer OTHER, SELFPAY | PROVIDERS: Visit Provider Orthopaedic Surgery | DX: M24.559 Contracture, unspecified hip (principal) | CPT/HCPCS: 99212 ==

== ENCOUNTER → 2021-04-27 09:36 | Outpatient (BNVA) | payer OTHER, SELFPAY | PROVIDERS: PCP Internal Medicine; Referring Provider Internal Medicine; Visit Provider Internal Medicine | DX: I25.10 Atherosclerotic heart disease of native coronary artery without angina pectoris (principal); I10 Essential (primary) hypertension; R07.2 Precordial pain; E78.00 Pure hypercholesterolemia, unspecified; Z87.891 Personal history of nicotine dependence; Z95.5 Presence of coronary angioplasty implant and graft; Z98.890 Other specified postprocedural states; Z82.49 Family history of ischemic heart disease and other diseases of the circulatory system; Z80.0 Family history of malignant neoplasm of digestive organs; Z80.1 Family history of malignant neoplasm of trachea, bronchus and lung; Z88.1 Allergy status to other antibiotic agents; Z88.0 Allergy status to penicillin; Z88.8 Allergy status to other drugs, medicaments and biological substances; Z79.899 Other long term (current) drug therapy | CPT/HCPCS: 93005; 99212 ==

== ENCOUNTER → 2021-04-30 11:57 | Outpatient (BNVA) | payer OTHER, SELFPAY | PROVIDERS: PCP Internal Medicine; Visit Provider Nurse Practitioner ==

== ENCOUNTER → 2021-05-14 08:03 | Outpatient (BNVA) | payer OTHER, SELFPAY | PROVIDERS: PCP Internal Medicine; Visit Provider Nurse Practitioner | CPT/HCPCS: Q3014 ==

== ENCOUNTER 2021-05-20 07:51 | Outpatient (RCR) | payer OTHER, SELFPAY ==
--- NOTE | 2021-05-20 14:26 | MHC.PT.EP ---
[facility] [place] Office [place] Office [place] Office [address] Cuong Lombardi [address] [phone] F: [phone] F: [phone] F: [phone] F: [phone] Physical Therapy Plan of Care Date of Evaluation: Date of Surgery: n/a Diagnosis: R hip contracture - hip flex stretching, gluteal/core strengthening Assessment: Patient is a 55 year old R handed male who presents with s/s consistent with R hip contracture, R hip pain. He does not work but does enjoy being active and taking care of grandkids. Patient past medical history includes includes rotator cuff surgery this calendar year, GERD, CAD, knee surgery and cervical surgery. Current impairments include pain, ROM, strength, balance, independence, activity tolerance and functional mobility. Functional limitations include decreased ability to walk, transfer, stand, negotiate stairs, and perform more strenuous activities, and perform weight bearing activities.. Patient is motivated with good rehab potential. Skilled PT will address impairments and functional limitations in order to achieve goals. Frequency and Duration: The patient will be seen 2x/week for 5 weeks Short Term Goals: I with HEP -2 weeks Hip flex flex normal - 3 weeks ER to 44 on R - 3 weeks Driver Recruiter Goals: 90/90 lacking < 20 - 5 weeks Hip strength 4+/5 grossly - 5 weeks LEFS 62/80 - 5 weeks Treatment Plan: Modalities to reduce pain, spasms and effusion. Manual therapy to restore motion and function. Therapeutic exercise to improve strength and flexibility. Neuromuscular re-education for posture and balance. Therapeutic activities to return to functional activities of daily living. Electronically signed by: Please sign and return to therapist. Thank you for your referral.
--- NOTE | 2021-07-16 09:28 | MHC.PT.DC ---
[facility] [place] Office [place] Office [place] Office [address] [phone] F: [phone] F: [phone] F: [phone] F: [phone] Physical Therapy Discharge Report Diagnosis: R hip contracture - hip flex stretching, gluteal/core strengthening Date of Surgery: n/a Date of Evaluation: 05/20/21 Date of Discharge: 05/22/21 Treatments to Date: 1 Cancellations to Date: No Shows to Date: Discharge Status: Patient Elected to Stop Discharge Summary: Patient is a 55 year old R handed male who presents with s/s consistent with R hip contracture, R hip pain. He does not work but does enjoy being active and taking care of grandkids. Patient past medical history includes includes rotator cuff surgery this calendar year, GERD, CAD, knee surgery and cervical surgery. Current impairments include pain, ROM, strength, balance, independence, activity tolerance and functional mobility. Functional limitations include decreased ability to walk, transfer, stand, negotiate stairs, and perform more strenuous activities, and perform weight bearing activities.. Patient is motivated with good rehab potential. Skilled PT will address impairments and functional limitations in order to achieve goals. Electronically signed by: Mikael Moore, PT Please sign and return to therapist. Thank you for your referral.
== END 2021-05-22 07:00 | disposition home or self-care (01) ==
LOC: HO.PTCHIC 07:51
PROVIDERS: PCP Internal Medicine; Visit Provider Orthopaedic Surgery
DX: M24.551 Contracture, right hip (principal)
CPT/HCPCS: 97110; 97163

== ENCOUNTER → 2021-06-21 13:52 | Outpatient (BNVA) | payer OTHER, SELFPAY | PROVIDERS: PCP Internal Medicine; Visit Provider Nurse Practitioner Family | DX: M05.9 Rheumatoid arthritis with rheumatoid factor, unspecified (principal); M47.816 Spondylosis without myelopathy or radiculopathy, lumbar region | CPT/HCPCS: 99212 ==

== ENCOUNTER 2021-06-22 11:02 | Outpatient (REF) | payer OTHER, SELFPAY ==
--- NOTE | ~2021-06-22 | XR_ITS ---
EXAMINATION: XR HAND, RIGHT CLINICAL INFORMATION: Rheumatoid arthritis COMPARISON: Right hand radiograph on 10/21/2019 TECHNIQUE: PA, lateral, and oblique views of the right hand. FINDINGS: The bones and soft tissues are normal. No fracture. Joint spaces are maintained. Redemonstration of small bony fragment adjacent to the ulnar styloid. There is joint space narrowing and osteophyte formation at the first proximal interphalangeal joint, second distal interphalangeal joint, and fifth distal interphalangeal joint. There is osteophyte formation at the third distal metacarpal. XR/XR hand RT min 3V IMPRESSION: Redemonstration of osteoarthritic degenerative changes.
--- NOTE | ~2021-06-22 | XR_ITS ---
EXAMINATION: XR HAND, LEFT CLINICAL INFORMATION: Rheumatoid arthritis COMPARISON: Left hand radiograph on 10/21/2019 TECHNIQUE: PA, lateral, and oblique views of the left hand. FINDINGS: The bones and soft tissues are normal. No fracture. Joint spaces are maintained. Redemonstration of small bony fragment adjacent to the ulnar styloid. There is joint space narrowing and osteophyte formation at the first proximal interphalangeal joint, third proximal interphalangeal joint, and fifth distal interphalangeal joint. There is osteophyte formation at the third distal metacarpal. XR/XR hand LT min 3V IMPRESSION: Redemonstration of osteoarthritic degenerative changes of the left hand.
[2021-06-22 11:32] LABS: MANUAL DIFF FLAG NO
[2021-06-22 11:53] LABS: Basophils Percent Auto 0.5 % (0-2); Eosinophils Absolute Auto 0.1 X10*3/uL (0.0-0.4); Eosinophils Percent Auto 2.1 % (0-4); Hematocrit 43.2 % (42.0-52.0); Hemoglobin 14.2 g/dl (14.0-18.0); Imm Gran Abs Auto 0.03 X10*3/uL (0.00-0.03); Imm Gran Pct Auto 0.5 % (0.0-0.4); Lymphocytes Absolute Auto 2.2 X10*3/uL (1.2-4.9); Lymphocytes Percent Auto 37.2 % (20-40); Mean Corpuscular HGB Conc 32.9 g/dl (31.0-36.0); Mean Corpuscular Volume 88.3 fL (80.0-98.0); Mean Platelet Volume 9.6 fL (9.4-12.4); Monocytes Absolute Auto 0.4 X10*3/uL (0.1-1.2); Monocytes Percent Auto 7.6 % (2-11); Neutrophils Percent Auto 52.1 % (45-73); Platelet Count 170 X10*3/uL (160-400); Red Blood Count 4.89 X10*6/uL (4.60-5.80); Red Cell Distribution Width 12.5 % (11.0-16.0); White Blood Count 5.8 X10*3/uL (4.8-10.8)
[2021-06-22 12:26] LABS: Alanine Aminotransferase 18 U/L (0-40); Albumin Level 3.9 g/dL (3.5-5.0); Alkaline Phosphatase 73 U/L (39-117); Anion Gap 9 (12-20); Aspartate Amino Transferase 15 U/L (5-37); Bilirubin Total 0.5 mg/dL (0.0-1.0); Blood Urea Nitrogen 21 mg/dL (9-16); C Reactive Protein 0.21 mg/dL (< or = 0.50); Calcium 9.2 mg/dL (8.4-10.2); Carbon Dioxide 29 mmol/L (22-29); Chloride 107 mmol/L (96-108); Estimated Glomerular Filt Rate > 60; Glucose Random 174 mg/dL (60-115); Potassium 4.8 mmol/L (3.3-5.1); Sodium 140 mmol/L (135-145); Total Protein 6.4 g/dL (6.5-8.0)
[2021-06-22 13:00] LABS: Erythrocyte Sedimentation Rate 4 MM/HR (0-15)
== END 2021-06-22 11:03 | disposition home or self-care (01) ==
LOC: HO.XRAY 11:02
PROVIDERS: PCP Internal Medicine; Visit Provider Nurse Practitioner Family
DX: M05.9 Rheumatoid arthritis with rheumatoid factor, unspecified (principal)
CPT/HCPCS: 36415; 73130; 80053; 85025; 85652; 86140

== ENCOUNTER 2021-07-29 14:30 | Outpatient (RCR) | payer OTHER, SELFPAY ==
--- NOTE | 2021-07-02 15:21 | MHC.OT.OEV ---
[address] [phone] F: [phone] Occupational Therapy Evaluation Diagnosis: B/L hand pain Date of Onset: 06/12/18 Attending Provider: CHHAYA Escalona Prescribed Treatment: Eval and Treat History of Current Condition: 55 yo male w/ hx of OA and RA, presents w/ persistent pain in both hands. He reports pain in hands has gotten some what worse since starting medications for RA. X-RAY FINDINGS: The bones and soft tissues are normal. No fracture. Joint spaces are maintained. Redemonstration of small bony fragment adjacent to the ulnar styloid. There is joint space narrowing and osteophyte formation at the first proximal interphalangeal joint, second distal interphalangeal joint, and fifth distal interphalangeal joint. There is osteophyte formation at the third distal metacarpal. IMPRESSION: Redemonstration of osteoarthritic degenerative changes. 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 Enjoys watching music videos, attempts to play guitar but very limited and get discouraged Sleep: Some difficulties, occasional relief w/ Ambien Difficulty due to cervical pain and numbness in hands Pain Assessment Pain Score: 3 Pain Scale Used: Numeric (0 - 10) Pain Location and Description: 3-4/10 resting pain 10/10 occasionally in digits and thumb base, hot searing/burning pain unbearing locks up and you can't move them Aggravating Factors: Any movement/use/activity Alleviating Factors: Aleve at times w/ some relief Has prefab B/L resting wrist orthoses Skin and Soft Tissue Assessment Skin and Soft Tissue: Comments: Several Gloria's and Herberden's nodes through both hands Nerve assessment Ulnar Nerve: B/L Impaired Median Nerve: B/L Impaired Radial Nerve: B/L Impaired Comments: Grossly 3/5 for nerve assessments Sensory Assessment Temperature: WFL Light Touch: WFL Proprioception: WFL Edema Assessment Comments: No significant edema at time of assessment, pt reports intermittent edema in hands/wrists Dexterity Assessment Comments: Frequently drops items Special Tests Comments: (+) Grind test B/L'ly AROM(PROM) Strength Cervical Cervical Flexion: Cervical Extension: Cervical Lateral Flexion: Cervical Rotation: Comments: Pt w/ hx of c-spine fusion w/ limited AROM Shoulder Flexion: Extension: Abduction: Internal Rotation: External Rotation: Comments: Grossly WFL, impaired internal rotation Flexion: Extension: Abduction: Internal Rotation: External Rotation: Comments: Elbow Flexion: Extension: Pronation: Supination: Comments: WFL, decreased end range R elbow ext due to old injury Flexion: Extension: Pronation: Supination: Comments: Wrist Flexion: Extension: Ulnar Deviation: Radial Deviation: Comments: Flexion: R 74 L 70 Extension: R 70 L 70 Ulnar Deviation: Radial Deviation: Comments: Thumb Thumb CMC Flexion: Thumb MCP Flexion: Thumb IP Flexion: Radial Abduction: Palmar Abduction: [place] (Kapandji 0-10): Comments: WFL Digits Index MCP: PIP: DIP: Long MCP: PIP: DIP: Ring MCP: PIP: DIP: Small MCP: PIP: DIP: Comments: Grossly WFL, with decreased end range and intrinsic tightness B/L. Gross Grasp: R 36lb L 38lb Lateral Pinch: Two-Point Pinch: Three-Jaw Milo: Comments: Increasing pain at end of aging room hand Patient Education Primary Language: Montenegrin Installation Technician Required: No Current Knowledge: Understands information with skills for self-management Teaching Method: Demonstration Handouts Verbal Education Needs Identified on Evaluation: ADL's Disease Information Equipment Use Exercise Pain How did patient/family demonstrate learning? Patient demonstrates Patient verbalizes Barriers to Learning: None Readiness for Learning: Accepting Who was educated? Patient Comments: Flat affect, receptive to education Plan of Care Assessment: 55 yo male w/ hx of rheumatoid arthritis and osteoarthritis, with worsening hand pain over the past couple years. 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 He reports intermittent hand edema, worse at nighttime, and fluctuating hand pain, ranging 3/10 to 10/10 w/ occasional locking of digits in extension. On assessment, he has several nodules on PIPs/DIPs and (+) CMC grind test, also noting tenderness in MCPs. He has low, but functional, aging room hand strength and decreased end range in D2-D4. He will benefit from cont'd therapy services to address pain, range, strength and modification for joint protection. STG Duration: 1 week Short Term Goals: Ind w/ HEP for AROM Ind w/ use of warm modalities for comfort Pt to report good understanding of adaptive strategies for pain management w/ sleep and every day tasks LTG Duration: 3 weeks Field Trainer Goals: Full active tip-prox palmar crease Pt to report <3/10 w/ light daily activities Quickdash score <40 Frequency and Duration: The patient will be seen 2x/wk for 3 weeks Treatment Plan: Therapeutic Exercise Therapeutic Activity Home Exercise Program Splinting Patient Education Edema Control ADL Training Paraffin Fluidotherapy MHP Cold Packs Joint Mobilization Soft Tissue Mobilization Kinesiotaping ? resting hand orthosis Electronically Signed By: Vero Ruiz OTR/L CHT Please sign and return to therapist, Thank you for your referral.
--- NOTE | 2021-07-29 15:12 | MHC.OT.DC ---
[address] [phone] F: [phone] Occupational Therapy Discharge Note Provider: CHHAYA Gann Diagnosis: B/L hand pain Date of Evaluation: 07/02/21 Date of Discharge: 07/29/21 Treatments to Date: 6 Discharge Status: Improved Function Independent with HEP Discharge Summary: Issa presents w/ hx of arthritis and B/L hand pain w/ impaired function. He has good understanding of HEP, remains interested in purchase of home paraffin unit for self management strategies. Pt has had decreased pain in general since initial OT assessment and has increased daily activities, including starting to play guitar again. Today has more pain again after playing his guitar, but overall Ind w/ self management. Electronically Signed By: Vero Ruiz OTR/L CHT Reviewed/agree with student documentation: N/A Therapist: Please Sign and return to therapist, thank you for your referral.
== END 2021-07-29 15:12 | disposition home or self-care (01) ==
LOC: HO.OT 14:30
PROVIDERS: PCP Internal Medicine; Visit Provider Nurse Practitioner Family
DX: M79.641 Pain in right hand (principal); M79.642 Pain in left hand
CPT/HCPCS: 97110; 97140; 97166

== ENCOUNTER → 2021-09-22 14:29 | Outpatient (BNVA) | payer OTHER, SELFPAY | PROVIDERS: PCP Internal Medicine; Visit Provider Nurse Practitioner Family | DX: M05.9 Rheumatoid arthritis with rheumatoid factor, unspecified (principal); M47.816 Spondylosis without myelopathy or radiculopathy, lumbar region; Z79.899 Other long term (current) drug therapy | CPT/HCPCS: 99212 ==

== ENCOUNTER 2021-12-01 14:12 | Outpatient (REF) | payer OTHER, SELFPAY ==
[2021-12-01 14:24] LABS: MANUAL DIFF FLAG NO
[2021-12-01 14:53] LABS: Basophils Absolute Auto 0.1 X10*3/uL (0.0-0.2); Basophils Percent Auto 0.7 % (0-2); Eosinophils Absolute Auto 0.2 X10*3/uL (0.0-0.4); Eosinophils Percent Auto 2.2 % (0-4); Hematocrit 38.3 % (42.0-52.0); Hemoglobin 12.4 g/dl (14.0-18.0); Imm Gran Abs Auto 0.03 X10*3/uL (0.00-0.03); Imm Gran Pct Auto 0.4 % (0.0-0.4); Lymphocytes Percent Auto 44.7 % (20-40); Mean Corpuscular HGB Conc 32.4 g/dl (31.0-36.0); Mean Corpuscular Hemoglobin 28.3 pg (27.0-33.0); Mean Corpuscular Volume 87.4 fL (80.0-98.0); Mean Platelet Volume 9.9 fL (9.4-12.4); Monocytes Absolute Auto 0.6 X10*3/uL (0.1-1.2); Monocytes Percent Auto 8.5 % (2-11); Neutrophils Absolute Auto 2.9 x10*3/uL (2.0-8.3); Neutrophils Percent Auto 43.5 % (45-73); Platelet Count 154 X10*3/uL (160-400); Red Blood Count 4.38 X10*6/uL (4.60-5.80); White Blood Count 6.7 X10*3/uL (4.8-10.8)
[2021-12-01 15:37] LABS: Alanine Aminotransferase 23 U/L (0-40); Albumin Level 3.9 g/dL (3.5-5.0); Alkaline Phosphatase 67 U/L (39-117); Anion Gap 9 (12-20); Aspartate Amino Transferase 23 U/L (5-37); Bilirubin Total 0.4 mg/dL (0.0-1.0); Blood Urea Nitrogen 17 mg/dL (9-16); C Reactive Protein 0.09 mg/dL (< or = 0.50); Carbon Dioxide 31 mmol/L (22-29); Chloride 106 mmol/L (96-108); Estimated Glomerular Filt Rate > 60; Glucose Random 115 mg/dL (60-115); Potassium 4.5 mmol/L (3.3-5.1); Sodium 141 mmol/L (135-145); Total Protein 6.1 g/dL (6.5-8.0)
[2021-12-01 15:43] LABS: Erythrocyte Sedimentation Rate 6 MM/HR (0-15)
== END 2021-12-01 14:13 | disposition home or self-care (01) ==
LOC: HO.LAB 14:12
PROVIDERS: PCP Internal Medicine; Visit Provider Nurse Practitioner Family
DX: M05.9 Rheumatoid arthritis with rheumatoid factor, unspecified (principal)
CPT/HCPCS: 36415; 80053; 85025; 85652; 86140

== ENCOUNTER → 2021-12-16 14:03 | Outpatient (BNVA) | payer OTHER, SELFPAY | PROVIDERS: PCP Internal Medicine; Visit Provider Internal Medicine | DX: I25.10 Atherosclerotic heart disease of native coronary artery without angina pectoris (principal); I10 Essential (primary) hypertension; R07.2 Precordial pain; E11.65 Type 2 diabetes mellitus with hyperglycemia; Z79.84 Long term (current) use of oral hypoglycemic drugs; Z79.899 Other long term (current) drug therapy; Z95.5 Presence of coronary angioplasty implant and graft | CPT/HCPCS: 93005; 99212 ==

== ENCOUNTER → 2021-12-24 14:23 | Outpatient (BNVA) | payer OTHER, SELFPAY | PROVIDERS: PCP Internal Medicine; Visit Provider Nurse Practitioner Family | DX: M05.9 Rheumatoid arthritis with rheumatoid factor, unspecified (principal); M47.816 Spondylosis without myelopathy or radiculopathy, lumbar region | CPT/HCPCS: 99212 ==

== ENCOUNTER 2022-01-28 11:26 | Outpatient (REF) | payer OTHER, SELFPAY ==
[2022-01-28 11:57] LABS: MANUAL DIFF FLAG NO
[2022-01-28 12:43] LABS: Basophils Percent Auto 0.8 % (0-2); Eosinophils Absolute Auto 0.1 X10*3/uL (0.0-0.4); Eosinophils Percent Auto 1.7 % (0-4); Hematocrit 40.7 % (42.0-52.0); Hemoglobin 13.9 g/dl (14.0-18.0); Imm Gran Abs Auto 0.02 X10*3/uL (0.00-0.03); Imm Gran Pct Auto 0.4 % (0.0-0.4); Lymphocytes Absolute Auto 2.1 X10*3/uL (1.2-4.9); Lymphocytes Percent Auto 40.2 % (20-40); Mean Corpuscular HGB Conc 34.2 g/dl (31.0-36.0); Mean Corpuscular Hemoglobin 29.8 pg (27.0-33.0); Mean Corpuscular Volume 87.2 fL (80.0-98.0); Mean Platelet Volume 9.8 fL (9.4-12.4); Monocytes Absolute Auto 0.4 X10*3/uL (0.1-1.2); Monocytes Percent Auto 7.2 % (2-11); Neutrophils Absolute Auto 2.6 x10*3/uL (2.0-8.3); Neutrophils Percent Auto 49.7 % (45-73); Platelet Count 181 X10*3/uL (160-400); Red Blood Count 4.67 X10*6/uL (4.60-5.80); Red Cell Distribution Width 13.9 % (11.0-16.0); White Blood Count 5.2 X10*3/uL (4.8-10.8)
[2022-01-28 13:04] LABS: Alanine Aminotransferase 19 U/L (0-40); Albumin Level 3.9 g/dL (3.5-5.0); Alkaline Phosphatase 76 U/L (39-117); Anion Gap 14 (12-20); Aspartate Amino Transferase 18 U/L (5-37); Bilirubin Total 0.6 mg/dL (0.0-1.0); Blood Urea Nitrogen 12 mg/dL (9-16); C Reactive Protein 0.27 mg/dL (< or = 0.50); Calcium 8.9 mg/dL (8.4-10.2); Carbon Dioxide 27 mmol/L (22-29); Chloride 105 mmol/L (96-108); Cholesterol 144 mg/dL; Estimated Glomerular Filt Rate > 60; Glucose Fasting 123 mg/dL (60-99); HDL Cholesterol 41 mg/dL; LDL Cholesterol Calculated 82 mg/dl; Potassium 4.3 mmol/L (3.3-5.1); Sodium 142 mmol/L (135-145); Total Protein 6.4 g/dL (6.5-8.0); Triglycerides 108 mg/dL
[2022-01-28 13:24] LABS: Creatinine Urine 211.83 mg/dL; Microalbum/Creatinine Ratio Ur 3.3 ug/mg cr
[2022-01-28 13:26] LABS: Prostate Specific Antigen 0.36 ng/mL (<0.05-4.0); Vitamin D 25-OH Total 22.5 ng/mL (>30)
[2022-01-28 13:33] LABS: Folate 9.6 ng/mL (> or = 4.0); Vitamin B12 277 pg/mL (200-900)
[2022-01-28 13:59] LABS: Erythrocyte Sedimentation Rate 8 MM/HR (0-15)
== END 2022-01-28 11:27 | disposition home or self-care (01) ==
LOC: HO.LAB 11:26
PROVIDERS: Absent Provider Nurse Practitioner Family; PCP Internal Medicine; Visit Provider Nurse Practitioner Family
DX: Z00.00 Encounter for general adult medical examination without abnormal findings (principal); Z12.5 Encounter for screening for malignant neoplasm of prostate; E11.9 Type 2 diabetes mellitus without complications; E78.00 Pure hypercholesterolemia, unspecified; M05.9 Rheumatoid arthritis with rheumatoid factor, unspecified; Z79.899 Other long term (current) drug therapy
CPT/HCPCS: 36415; 80053; 80061; 82043; 82306; 82607; 82746; 84153; 85025; 85652; 86140

== ENCOUNTER → 2022-02-04 07:20 | Outpatient (REF) | payer OTHER, SELFPAY ==
--- NOTE | 2022-02-04 07:24 | CA_ITS ---
Transthoracic Echocardiogram Patient (Last, First, Middle): Issa Cerna L Gender: Male Date of : 1965 Age: 56 Procedure Date: 02/04/2022 Procedure Type: Transthoracic Echocardiogram Location: OP Height: 177.8 cm Weight: 98.88 kg BSA: 2.17 m2 Heart Rate: 62 bpm BP: 150 / 90 mmHg Shelver: EMILIE Referring MD: Fernando Goins MD Symptoms: I25.10 - Atherosclerotic heart disease of [place] coronary artery without... Study Quality: Adequate ECG Rhythm: Sinus Conclusions: - The left ventricular systolic function is normal. The calculated ejection fraction is 67% by biplane method. - No obvious valvular pathology seen on this study. Findings Left Ventricle Normal left ventricular cavity size. The left ventricular systolic function is normal. The calculated ejection fraction is 67% by biplane method. There is no evidence of regional wall motion abnormalities. Diastolic function is normal for age. There is mild septal asymmetric hypertrophy. Right Ventricle Normal right ventricular cavity size and systolic function. Atria Both atria are normal in size. Aortic Valve There is a normal trileaflet aortic valve. There is no aortic valve stenosis. There is no aortic valve regurgitation. Mitral Valve The mitral valve appears normal. There is mild mitral annular calcification. There is no mitral valve regurgitation. There is no mitral valve stenosis. Pulmonic Valve The pulmonic valve is likely normal. Tricuspid Valve There is no tricuspid valve regurgitation. Tricuspid regurgitation envelope is inadequate for calculation of right ventricular systolic pressure. Great Vessels The aortic annulus, sinuses of valsalva, and asc aorta are normal in size. Venous The inferior vena cava is normal in size and collapses greater than 50% with inspiration. Pericardium/Pleural There is no evidence of pericardial effusion. Prior Study Comparison No significant change compared to prior study dated: 08/02/2019. Recommendations, Care & Conclusions No obvious valvular pathology seen on this study. Measurements 2D Linear Measurements IVSd: 1.28 0.6-0.9/0.6-1.0 cm LVIDd: 4.73 3.9-5.3/4.2-5.9 cm LVIDd Index: 2.18 2.4-3.2/2.2-3.1 cm/m2 LVIDs: 2.83 2.0-3.6 cm LVPWd: 0.93 0.7-1.1 cm LA Diam: 3.60 2.7-3.8/3.0-4.0 cm LAIDs Index: 1.66 1.5-2.3 cm/m2 LV Mass: 237.12 67-162/88-224 g LV Mass Index: 109.27 43-95/49-115 g/m2 LVOT Diam: 2.10 3.0+(-)1.3 cm 2D Systolic Function EF 4C: 67.60 >55% EF 2C: 63.10 >55% EF BiP: 67.10 >55% Mitral Valve MV Pk E: 0.84 MV PK A: 1.08 MV Decel Time: 252.00 E/A: 0.80 E'Lateral: 10.80 E'Medial: 6.74 E/E' Med: 12.50 E/E' Lat: 7.80 PHT: 74.00 MVA PHT: 2.97 Decel [place]: 3.33 Aortic Valve AoV Pk Gabe: 1.52 AoV Mn Gabe: 1.01 AoV VTI: 0.35 AoV Pk Grad: 9.00 Aov Mn Grad: 5.00 ANNIE Cont.VTI: 2.28 LVOT LVOT Pk Gabe: 1.06 LVOT Mn Gabe: 0.68 LVOT VTI: 0.23 LVOT Pk Grad: 4.00 LVOT Mn Grad: 2.00 LVOT Diam: 2.10 LVOT Area: 3.46 Diastolic Function MV Pk E: 0.84 MV Pk A: 1.08 E/A: 0.80 E'Medial: 6.74 E/E' Med: 12.50 E' Laterial: 10.80 E/E' Lat: 7.80 Right Ventricle TAPSE (mm): 22.30 TVS' Gabe: 11.20 Tricuspid Valve TR Pk Gabe: 2.00 TR Pk Grad: 16.00 RA Press: 3.00 Great Vessels Aorta Sinus of Valsalva: 3.20 2.0-3.5 cm Ao Asc: 3.30 2.1-3.4 cm Pulmonary Valve PV Pk Gabe: 0.98 Peak PV Grad: 4.00 Updated in Other Vendor System with Status of Final Fernando Goins MD electronically signed on 02/06/2022 12:53:06 PM with status of Final
== END ==
LOC: HO.CARD 07:20
PROVIDERS: Visit Provider Internal Medicine
DX: I25.10 Atherosclerotic heart disease of native coronary artery without angina pectoris (principal)
CPT/HCPCS: 93306

== ENCOUNTER → 2022-02-08 07:47 | Outpatient (REF) | payer OTHER, SELFPAY ==
--- NOTE | ~2022-02-08 | NM_ITS ---
Lexiscan Myocardial perfusion study Indication: Chest pain, coronary artery disease, assess for ischemia Technique: The patient was brought in for a Lexiscan perfusion study on 02/08/2022 and was injected 0.4 mg of Lexiscan intravenously. Within a minute of this injection 35 mCi of sestamibi was given intravenously. Images were obtained using the SPECT gamma camera interlaced with the gating device. Images were obtained in supine position. Resting perfusion study was performed on 02/09/2022. Patient was administered 35 mCi of sestamibi intravenously at rest. Images were then obtained in supine position. Total DLP 96mGy-cm. Images were processed with the software and compared side to side in short axis, horizontal long axis and vertical long axis views. Findings: Raw acquisition reviewed. The stress perfusion study showed mildly diminished tracer uptake along the inferior wall. There is improvement with CT attenuation correction and hence suggestive of diaphragmatic attenuation artifact. The gated study shows normal LV systolic function with calculated LVEF of 57%. LV cavity is normal in size. The gated study shows normal wall thickening and contraction of segments. Resting study shows mildly diminished tracer uptake along the inferior wall. There is improvement with CT attenuation correction and hence suggestive of diaphragmatic attenuation artifact. Gating at rest reveals normal wall motion with ejection fraction at 66%. The findings are consistent with no clear reversible or fixed perfusion defects. NM/NM cardiolite stress test Impression: 1. Myocardial perfusion imaging study shows likely normal myocardial perfusion. No clear evidence of any ischemia or infarction. 2. Gated LVEF is 57% during stress and 66% during rest. 3. Transient ischemic dilatation not present. EKG component of the test reported separately.
--- NOTE | 2022-02-08 07:51 | CA_ITS ---
Acquisition Time: 2022-02-08 08:05:30 Total Exercise Time: 00:02:05 Test Indications: CP Medications: SEE CHART Protocol: ARNOLDO Max HR: 112 BPM 69% of Pred: 162 BPM Max BP: 200/090 mmHG Max Work Load: 4.6 METS Exercise stress test with exercise 2 min 5 sec of Arnoldo protocol, with report of back pain and need to stop exercise, with BP max 200/90. Pt assisted to sitting position and when BP improved, testing changed to pharmacological stress test with Lexiscan injection, without anginal symptoms, with isolated PAC, with nondiagnostic EKG for ischemia. Post injection and in recovery he had shortness of breath, headache, nausea, vomiting which was treated with Aminophylline 75mg IVP to reverse Lexiscan with gradual improvement in symptoms. Nuclear images pending. Test reviewed with Dr Archibald. Referred By: Fernando Goins Overread By: MAGDALENA HAWKINS
== END ==
LOC: HO.CARD 07:47
PROVIDERS: Visit Provider Internal Medicine
DX: I25.10 Atherosclerotic heart disease of native coronary artery without angina pectoris (principal); R07.2 Precordial pain
CPT/HCPCS: 78452; 93017; A9500; J0280; J2785

== ENCOUNTER → 2022-02-17 13:12 | Outpatient (BNVA) | payer OTHER, SELFPAY | PROVIDERS: PCP Internal Medicine; Referring Provider Internal Medicine; Visit Provider Internal Medicine | DX: I25.10 Atherosclerotic heart disease of native coronary artery without angina pectoris (principal); I10 Essential (primary) hypertension; E11.65 Type 2 diabetes mellitus with hyperglycemia | CPT/HCPCS: 99212 ==

== ENCOUNTER → 2022-03-24 11:54 | Outpatient (BNVA) | payer OTHER, SELFPAY | PROVIDERS: PCP Internal Medicine; Visit Provider Nurse Practitioner Family | DX: M47.816 Spondylosis without myelopathy or radiculopathy, lumbar region (principal); M05.9 Rheumatoid arthritis with rheumatoid factor, unspecified; R20.0 Anesthesia of skin; R20.2 Paresthesia of skin | CPT/HCPCS: 99212 ==

== ENCOUNTER 2022-04-11 09:14 | Outpatient (REF) | payer OTHER, SELFPAY ==
[2022-04-11 09:22] LABS: MANUAL DIFF FLAG NO
[2022-04-11 09:39] LABS: Basophils Percent Auto 0.6 % (0-2); Eosinophils Absolute Auto 0.1 X10*3/uL (0.0-0.4); Eosinophils Percent Auto 2.1 % (0-4); Hematocrit 42.7 % (42.0-52.0); Hemoglobin 14.1 g/dl (14.0-18.0); Imm Gran Abs Auto 0.01 X10*3/uL (0.00-0.03); Imm Gran Pct Auto 0.2 % (0.0-0.4); Lymphocytes Absolute Auto 2.6 X10*3/uL (1.2-4.9); Lymphocytes Percent Auto 41.9 % (20-40); Mean Corpuscular Hemoglobin 29.1 pg (27.0-33.0); Mean Platelet Volume 9.4 fL (9.4-12.4); Monocytes Absolute Auto 0.6 X10*3/uL (0.1-1.2); Monocytes Percent Auto 8.9 % (2-11); Neutrophils Absolute Auto 2.9 x10*3/uL (2.0-8.3); Neutrophils Percent Auto 46.3 % (45-73); Platelet Count 177 X10*3/uL (160-400); Red Blood Count 4.85 X10*6/uL (4.60-5.80); Red Cell Distribution Width 13.1 % (11.0-16.0); White Blood Count 6.2 X10*3/uL (4.8-10.8)
[2022-04-11 10:09] LABS: Alanine Aminotransferase 19 U/L (0-40); Aspartate Amino Transferase 18 U/L (5-37); Blood Urea Nitrogen 15 mg/dL (9-16); C Reactive Protein 0.15 mg/dL (< or = 0.50); Estimated Glomerular Filt Rate > 60
[2022-04-11 10:26] LABS: Erythrocyte Sedimentation Rate 7 MM/HR (0-15)
== END 2022-04-11 09:15 | disposition home or self-care (01) ==
LOC: HO.LAB 09:14
PROVIDERS: Absent Provider Internal Medicine; PCP Internal Medicine; Visit Provider Nurse Practitioner Family
DX: M05.9 Rheumatoid arthritis with rheumatoid factor, unspecified (principal); Z79.899 Other long term (current) drug therapy
CPT/HCPCS: 36415; 82565; 84450; 84460; 84520; 85025; 85652; 86140

== ENCOUNTER → 2022-05-23 10:51 | Outpatient (BNVA) | payer OTHER, SELFPAY | PROVIDERS: PCP Internal Medicine; Visit Provider Internal Medicine | DX: M47.816 Spondylosis without myelopathy or radiculopathy, lumbar region (principal); M25.851 Other specified joint disorders, right hip | CPT/HCPCS: 99212 ==

== ENCOUNTER 2022-05-26 10:38 | Outpatient (REF) | payer OTHER, SELFPAY ==
--- NOTE | 2022-05-26 08:00 | EMG_ITS ---
Bilateral median and ulnar motor and sensory studies were performed. Bilateral radial sensory studies were performed, and paraspinal muscles were tested with a needle. Needle examination also was quite difficult for him. IMPRESSION: 1. [id number] bilateral ulnar neuropathy across cubital tunnel. 2. [id number] bilateral median neuropathy across carpal tunnel. 3. No obvious indication of cervical radiculopathy. MD FELA Das/DEIDRA / [id number]
== END 2022-05-26 10:39 | disposition home or self-care (01) ==
LOC: HO.NEURO 10:38
PROVIDERS: Visit Provider Nurse Practitioner Family
DX: R20.0 Anesthesia of skin (principal); R20.2 Paresthesia of skin
CPT/HCPCS: 95886; 95911

== ENCOUNTER → 2022-06-24 11:54 | Outpatient (BNVA) | payer OTHER, SELFPAY | PROVIDERS: PCP Internal Medicine; Visit Provider Nurse Practitioner Family | DX: M05.9 Rheumatoid arthritis with rheumatoid factor, unspecified (principal); G56.03 Carpal tunnel syndrome, bilateral upper limbs; M47.816 Spondylosis without myelopathy or radiculopathy, lumbar region; Z79.899 Other long term (current) drug therapy | CPT/HCPCS: 99212 ==

== ENCOUNTER 2022-07-05 16:57 | Outpatient (REF) | payer OTHER, SELFPAY ==
--- NOTE | ~2022-07-05 | XR_ITS ---
EXAMINATION: XR CHEST CLINICAL INFORMATION: Chest pain COMPARISON: 10/19/2017 TECHNIQUE: 2 views of the chest were obtained. FINDINGS: No significant abnormality is noted involving the heart, lungs, mediastinum, bony thorax or soft tissues. Cervical spine hardware is present and there is an old healed right clavicular fracture XR/XR chest 2V IMPRESSION: No acute intrathoracic disease.
== END 2022-07-05 16:58 | disposition home or self-care (01) ==
LOC: HO.HMGCX 16:57
PROVIDERS: PCP Internal Medicine; Visit Provider Internal Medicine
DX: R07.9 Chest pain, unspecified (principal)
CPT/HCPCS: 71046

== ENCOUNTER 2022-07-05 17:55 | Emergency (ER) | payer OTHER, SELFPAY ==
--- NOTE | ~2022-07-05 | CT_ITS ---
EXAMINATION: CT ANGIOGRAM OF THE CHEST WITH AND WITHOUT CONTRAST (CT PULMONARY ANGIOGRAM FOR PE) CLINICAL INFORMATION: Reason for Exam Left-sided pain etiology?? COMPARISON: CT abdomen pelvis 04/24/2018 TECHNIQUE: Prior to contrast administration, noncontrast localization images were obtained. Subsequently, multidetector volumetric imaging was performed from the thoracic inlet to below the diaphragms following the administration of 65 mL Omnipaque 350 intravenous contrast. No contrast reaction reported Sagittal, coronal, and MIP oblique sagittal reformatted images were obtained on the CT workstation, uploaded to PACS, and reviewed. This CT examination was performed using dose optimization techniques as appropriate, variously including the following: *Automated exposure control *Adjustment of mA and/or kV according to patient size (this includes techniques or standardized protocols for targeted exams where dose is matched to indication/reason for exam; i.e. extremities or head) *Use of iterative reconstruction technique Total exam dose-length product 378 mGy-cm FINDINGS: QUALITY OF STUDY/CONTRAST BOLUS: Satisfactory. PULMONARY ARTERIES: No central pulmonary embolus. Slightly limited assessment of a few segmental pulmonary arterial branches in the lingula and left lower lobe due to mild motion artifact. Allowing for this, no segmental pulmonary embolus is identified. Linear hypoattenuation within a segmental branch of the left lower lobe on image 290/562 is favored artifactual. THORACIC AORTA: No aneurysm or dissection. LUNG: No airspace consolidation. There are couple small 4 mm subpleural pulmonary nodules in the right lower lobe on image 347/562 and image 325, unchanged since abdomen CT 04/24/2018 consistent with benign etiology. 4 mm pleural-based nodule in the posterior right lower lobe on image 256, area not imaged on the comparison CT. No other pulmonary nodules. Central airways are clear. PLEURA: No pleural effusion or pneumothorax. MEDIASTINUM: Normal heart size. No pericardial effusion. No hilar or mediastinal lymphadenopathy. No evidence of septal bowing or right heart strain. CORONARY ARTERY CALCIFICATION: None visualized on this study. CHEST WALL/AXILLA: No axillary or internal mammary lymphadenopathy. OSSEOUS STRUCTURES: No acute or suspicious osseous abnormality. Mild multilevel degenerative disc disease. Status post ACDF in the visualized lower cervical spine with plate and screw fixation. UPPER ABDOMEN: Unremarkable. No reflux of contrast into the hepatic veins to suggest elevated right heart pressures. CT/CT angio chest PE protocol IMPRESSION: 1. No evidence of central or segmental pulmonary embolus allowing for slight limitation as above. 2. No airspace consolidation or effusions. 3. There are couple small 4 mm subpleural pulmonary nodules in the right lower lobe, 2 of which are unchanged since 2018 consistent with benign etiology. If the patient is high risk for primary pulmonary malignancy, suggest optional follow-up CT in 12 months per Fleischner Society guidelines. If low risk, no further follow-up required. VTE: Negative with slight limitation as above.
--- NOTE | ~2022-07-05 | XR_ITS ---
EXAMINATION: XR CHEST CLINICAL INFORMATION: Chest pain COMPARISON: Chest x-ray on 07/05/2022 TECHNIQUE: 2 views of the chest were obtained. FINDINGS: No significant abnormality is noted involving the heart, lungs, mediastinum, bony thorax or soft tissues. XR/XR chest 2V IMPRESSION: Unremarkable examination.
--- NOTE | 2022-07-05 18:02 | ECG_ITS ---
Test Reason : ABNORMAL EKG Blood Pressure : / mmHG Vent. Rate : 065 BPM Atrial Rate : 065 BPM P-R Int : 124 ms QRS Dur : 100 ms QT Int : 408 ms P-R-T Axes : 030 -17 029 degrees QTc Int : 424 ms Normal sinus rhythm Normal ECG When compared with ECG of 12-AUG-2020 06:27, No significant change was found Referred By: Generic ED Physician Electronically Signed By:ROXANA FIELD
--- NOTE | 2022-07-05 18:05 | ED_ITS ---
HPI - Chest Pain General Chief Complaint: Chest Pain <UMM Hunter - Last Filed: 07/05/22 18:11> Stated Complaint: ?Abnormal EKG at urgent care <UMM Hunter - Last Filed: 07/05/22 18:11> Time Seen by Provider: 07/05/22 21:27 <UMM Hunter - Last Filed: 07/05/22 18:11> Source: patient <Ruben Black MD - Last Filed: 07/06/22 00:34> Mode of arrival: ambulatory <Ruben Black MD - Last Filed: 07/06/22 00:34> Limitations: no limitations <Ruben Black MD - Last Filed: 07/06/22 00:34> History of Present Illness HPI narrative: Patient 56 years old with history of coronary disease status post PTCA 2018 in [facility], diabetes, hypertension complaining of left shoulder blade pain for last 3 weeks and left breast tenderness radiate to the right side patient had the lab workup done during triage which showed normal high sensitive troponin and EKG without any ischemic changes. Patient feels sharp pain increases on local palpation no rash noticed no shortness of breath no leg swelling or pain <Ruben Black MD - Last Filed: 07/06/22 00:34> Related Data Home Medications: Home Medications Medication Instructions Recorded Confirmed aspirin 81 mg tablet,delayed 81 mg PO DAILY 04/23/20 06/24/22 release sennosides 8.6 mg capsule (senna) 8.6 mg PO BEDTIME 04/23/20 06/24/22 sertraline 100 mg tablet 100 mg PO DAILY 06/24/22 06/24/22 Previous Rx's Medication Instructions Recorded diclofenac sodium 1 % topical gel 2 g topical QID #100 grams 04/23/20 (Voltaren) nitroglycerin 0.4 mg sublingual 0.4 mg sublingual Q5M PRN chest 04/27/21 tablet pain #30 tabs blood sugar diagnostic (FreeStyle #100 ea 12/10/21 Lite Strips) blood-glucose meter (FreeStyle #1 ea 12/10/21 Lite Meter kit) lancets 28 gauge (FreeStyle #100 ea 12/10/21 Lancets) carvedilol 6.25 mg tablet 6.25 mg PO BID #180 tabs 02/08/22 rosuvastatin 40 mg tablet 40 mg PO DAILY #90 tabs 02/08/22 zolpidem 10 mg tablet (Ambien) 10 mg PO BEDTIME PRN sleep #14 tabs 03/03/22 pregabalin 75 mg capsule (Lyrica) 75 mg PO BID #180 caps 04/06/22 abatacept 125 mg/mL subcutaneous 125 mg subcut QWEEK #4 mL 05/11/22 auto-injector (Orencia ClickJect) wrist cock up splint #2 ea 06/24/22 cyclobenzaprine 10 mg tablet 10 mg PO Q8H #20 tabs 07/06/22 ibuprofen 600 mg tablet 600 mg PO Q6H PRN fever or pain 07/06/22 #30 tabs <UMM Hunter - Last Filed: 07/05/22 18:11> Allergies/Adverse Reactions: Allergies Allergy/AdvReac Type Severity Reaction Status Date / Time penicillin V Allergy Severe rash Verified 07/05/22 16:41 adalimumab [From Humira] Allergy Intermediate leg pain Verified 07/05/22 16:41 atorvastatin Allergy Intermediate leg pain Verified 07/05/22 16:41 leflunomide Allergy Intermediate kidney Verified 07/05/22 16:41 failure tocilizumab [From Actemra] Allergy Intermediate frequent Verified 07/05/22 16:41 nail infection <UMM Hunter - Last Filed: 07/05/22 18:11> Review of Systems Review of Systems: Yes all other systems are reviewed and are negative <Ruben Black MD - Last Filed: 07/06/22 00:34> [facility] Past Medical History Medical History: Medical History Acute sinusitis Adult general medical exam Annual physical exam Anxiety Atherosclerotic cardiovascular disease Cervical radiculopathy Coronary artery disease Degenerative disc disease, lumbar Depression Erectile dysfunction Gastritis determined by endoscopy GERD (gastroesophageal reflux disease) Horseshoe kidney Hypercholesterolemia Left rotator cuff tear Lip cancer New onset type 2 diabetes mellitus Osteoarthritis Precordial chest pain Right hip pain Right rotator cuff tear Screening for colon cancer Screening for prostate cancer 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 <UMM Hunter - Last Filed: 07/05/22 18:11> Surgical History: Surgical History H/O left knee surgery History of cervical spinal surgery History of coronary artery stent placement History of lip cancer History of rotator cuff surgery History of shoulder surgery History of tonsillectomy Hx of colonoscopy S/P left rotator cuff repair <UMM Hunter - Last Filed: 07/05/22 18:11> Family History Family History: Family History Father Lung cancer CAD (coronary artery disease) CVD (cardiovascular disease) Hx of CABG Mother Colon cancer Mental health disorder Maternal Uncle Lung cancer Maternal Uncle Substance abuse Substance use disorder <UMM Hunter - Last Filed: 07/05/22 18:11> Social History Social History: Social History Housing: Other Housing Other:: Rents a room in a house Are you a primary farm or ranch animal caretaker to a significant other at home: No Do you presently have visiting nurse or other home services: No Alcohol intake: current Alcohol intake frequency: holidays/special occasions only Alcohol type: beer and hard liquor Patient Tobacco Use Status: Former Tobacco user Tobacco use type: Cigarette Smoked in Last 30 Days: No e-Cigarette/Vaping Use: Never Used Second Hand Smoke Exposure: No Use of substances other than those prescribed or required for medical reasons: No Substance Use Type: Marijuana Advance Directives: No Advance Directives Information Provided: No service: No Current occupational status: unemployed Current occupation: right handed Cognitive needs: No Hearing needs: No Vision needs: Yes <UMM Hunter - Last Filed: 07/05/22 18:11> Physical Exam Vital Signs: Vital Signs: Last Vital Signs Temp 97.8 F 07/05/22 23:31 Pulse 58 07/05/22 23:31 Resp 13 07/05/22 23:31 BP 130/65 07/05/22 23:31 Pulse Ox 98 07/05/22 23:31 O2 Del Method 07/05/22 23:31 BMI result Body Mass Index 29.0 <UMM Hunter - Last Filed: 07/05/22 18:11> Vital Signs: Last Vital Signs Temp 97.8 F 07/05/22 23:31 Pulse 58 07/05/22 23:31 Resp 13 07/05/22 23:31 BP 130/65 07/05/22 23:31 Pulse Ox 98 07/05/22 23:31 O2 Del Method 07/05/22 23:31 BMI result Body Mass Index 29.0 <Ruben Black MD - Last Filed: 07/06/22 00:34> Appearance: Alert. Oriented X3. No acute distress. Eyes: No pallor or icterus ENT: Pharynx normal. Oral Mucosa moist Neck: Normal inspection. Neck supple. CVS: Normal heart rate and rhythm. Pulses normal. Respiratory: No respiratory distress. Equal air entry bilateral, no wheezing/rales/rhonchi local tenderness at left rhomboids Abdomen: Soft and nontender. Bowel sounds are present, no mass palpable, no CVA tenderness Skin: Skin warm and dry. Normal skin color. Normal skin turgor. No rash Extremities: No lower extremity edema. No calf tenderness Neuro: Oriented X 3. No motor deficit. No sensory deficit.No cerebellar signs , cranial nerves II-XII intact <Ruben Black MD - Last Filed: 07/06/22 00:34> Course Course Course Narrative: RME - 56 yo male with history of CAD s/p stent, HTN, DM2, RA, esophageal dysphagia, constipation, insomnia, arthritis presenting with left sided chest pain that radiates to the right side. Pain initially started out a knot in my left upper back 3 weeks ago. Now soreness and tenderness of the skin that radiates under the axilla, left breast to the right chest. No rashes or skin c hanges. He states area is swollen. Seen at Urgent Care today and had abnormal EKG told to come to the ER. Does have left breast swelling on exam, he reports improved from prior. No rash. Hypertensive 180/90 in triage, HR 60s and saturating well. CXR, EKG, labs ordered. <UMM Hunter - Last Filed: 07/05/22 18:11> Hypertensive 180/90 in triage, HR 60s and saturating well. CXR, EKG, labs ordered. <Ruben Black MD - Last Filed: 07/06/22 00:34> Medications Administered Discontinued Medications Generic Name Dose Route Start Last Admin Trade Name Freq PRN Reason Stop Dose Admin Iohexol 100 ml 07/05/22 22:45 07/05/22 22:46 Iohexol 350 Mg/Ml 100 Ml Infus..Btl IV 07/05/22 22:46 65 ml ONCE ONE Administration Ketorolac Tromethamine 30 mg 07/05/22 21:59 07/05/22 22:17 Ketorolac Tromethamine 30 Mg/Ml Vial IVPUSH 07/05/22 22:00 30 mg ONCE ONE Administration <UMM Hunter - Last Filed: 07/05/22 18:11> Medications Administered Discontinued Medications Generic Name Dose Route Start Last Admin Trade Name Freq PRN Reason Stop Dose Admin Iohexol 100 ml 07/05/22 22:45 07/05/22 22:46 Iohexol 350 Mg/Ml 100 Ml Infus..Btl IV 07/05/22 22:46 65 ml ONCE ONE Administration Ketorolac Tromethamine 30 mg 07/05/22 21:59 07/05/22 22:17 Ketorolac Tromethamine 30 Mg/Ml Vial IVPUSH 07/05/22 22:00 30 mg ONCE ONE Administration <Ruben Black MD - Last Filed: 07/06/22 00:34> Medical Decision Making Medical Decision Making [facility] Narrative: Patient with local muscular pain left rhomboids area CTA chest was done to rule out PE which was negative discharge patient home on ibuprofen and Flexeril labs are stable <Ruben Black MD - Last Filed: 07/06/22 00:34> Lab Data [facility] Lab Attestation statement: I reviewed the patient's lab results. <Ruben Black MD - Last Filed: 07/06/22 00:34> Result Diagrams: 07/05/22 18:29 07/05/22 18:29 <UMM Hunter - Last Filed: 07/05/22 18:11> Labs: Lab Results 07/05/22 07/05/22 07/05/22 Range/Units 18:29 18:29 18:29 WBC 6.9 (4.8-10.8) X10*3/uL RBC 4.55 L (4.60-5.80) X10*6/uL Hgb 13.3 L (14.0-18.0) g/dl Hct 39.9 L (42.0-52.0) % MCV 87.7 (80.0-98.0) fL MCH 29.2 (27.0-33.0) pg MCHC 33.3 (31.0-36.0) g/dl RDW 13.2 (11.0-16.0) % Plt Count 172 (160-400) X10*3/uL MPV 9.7 (9.4-12.4) fL Immature Gran % (Auto) 0.3 (0.0-0.4) % Neut % (Auto) 47.0 (45-73) % Lymph % (Auto) 41.9 H (20-40) % [place] % (Auto) 8.3 (2-11) % Eos % (Auto) 1.9 (0-4) % Baso % (Auto) 0.6 (0-2) % Lymph # (Auto) 2.9 (1.2-4.9) X10*3/uL [place] # (Auto) 0.6 (0.1-1.2) X10*3/uL Eos # (Auto) 0.1 (0.0-0.4) X10*3/uL Baso # (Auto) 0.0 (0.0-0.2) X10*3/uL Abs Immat Gran (auto) 0.02 (0.00-0.03) X10*3/uL Absolute Neuts (auto) 3.2 (2.0-8.3) x10*3/uL Absolute Nucleated RBC 0.000 (0.0-0.012) X10*3/uL Nucleated RBC % (auto) 0.0 (0.0-0.2) /100WBC Sodium 141 (135-145) mmol/L Potassium 4.1 (3.3-5.1) mmol/L Chloride 105 (96-108) mmol/L Carbon Dioxide 28 (22-29) mmol/L Anion Gap 12 (12-20) BUN 14 (9-16) mg/dL Creatinine 0.85 (0.5-1.4) mg/dL Estim Creat Clear Calc 107.7 Estimated GFR > 60 Random Glucose 118 H (60-115) mg/dL Calcium 8.7 (8.4-10.2) mg/dL Magnesium 2.2 (1.6-2.6) mg/dL Total Bilirubin 0.3 (0.0-1.0) mg/dL Direct Bilirubin < 0.2 (0.0-0.5) mg/dL AST 18 (5-37) U/L ALT 15 (0-40) U/L Alkaline Phosphatase 87 (39-117) U/L Troponin I High Sens < 3.5 (<3.5-35.0) ng/L Total Protein 6.2 L (6.5-8.0) g/dL Albumin 3.9 (3.5-5.0) g/dL COVID-19 ([facility]) (Negative) COVID-19 Clin Com 07/05/22 Range/Units 18:29 WBC (4.8-10.8) X10*3/uL RBC (4.60-5.80) X10*6/uL Hgb (14.0-18.0) g/dl Hct (42.0-52.0) % MCV (80.0-98.0) fL MCH (27.0-33.0) pg MCHC (31.0-36.0) g/dl RDW (11.0-16.0) % Plt Count (160-400) X10*3/uL MPV (9.4-12.4) fL Immature Gran % (Auto) (0.0-0.4) % Neut % (Auto) (45-73) % Lymph % (Auto) (20-40) % [place] % (Auto) (2-11) % Eos % (Auto) (0-4) % Baso % (Auto) (0-2) % Lymph # (Auto) (1.2-4.9) X10*3/uL [place] # (Auto) (0.1-1.2) X10*3/uL Eos # (Auto) (0.0-0.4) X10*3/uL Baso # (Auto) (0.0-0.2) X10*3/uL Abs Immat Gran (auto) (0.00-0.03) X10*3/uL Absolute Neuts (auto) (2.0-8.3) x10*3/uL Absolute Nucleated RBC (0.0-0.012) X10*3/uL Nucleated RBC % (auto) (0.0-0.2) /100WBC Sodium (135-145) mmol/L Potassium (3.3-5.1) mmol/L Chloride (96-108) mmol/L Carbon Dioxide (22-29) mmol/L Anion Gap (12-20) BUN (9-16) mg/dL Creatinine (0.5-1.4) mg/dL Estim Creat Clear Calc Estimated GFR Random Glucose (60-115) mg/dL Calcium (8.4-10.2) mg/dL Magnesium (1.6-2.6) mg/dL Total Bilirubin (0.0-1.0) mg/dL Direct Bilirubin (0.0-0.5) mg/dL AST (5-37) U/L ALT (0-40) U/L Alkaline Phosphatase (39-117) U/L Troponin I High Sens (<3.5-35.0) ng/L Total Protein (6.5-8.0) g/dL Albumin (3.5-5.0) g/dL COVID-19 ([facility]) Negative (Negative) COVID-19 Clin Com See Note <UMM Hunter - Last Filed: 07/05/22 18:11> Lab Results 07/05/22 07/05/22 07/05/22 Range/Units 18:29 18:29 18:29 WBC 6.9 (4.8-10.8) X10*3/uL RBC 4.55 L (4.60-5.80) X10*6/uL Hgb 13.3 L (14.0-18.0) g/dl Hct 39.9 L (42.0-52.0) % MCV 87.7 (80.0-98.0) fL MCH 29.2 (27.0-33.0) pg MCHC 33.3 (31.0-36.0) g/dl RDW 13.2 (11.0-16.0) % Plt Count 172 (160-400) X10*3/uL MPV 9.7 (9.4-12.4) fL Immature Gran % (Auto) 0.3 (0.0-0.4) % Neut % (Auto) 47.0 (45-73) % Lymph % (Auto) 41.9 H (20-40) % [place] % (Auto) 8.3 (2-11) % Eos % (Auto) 1.9 (0-4) % Baso % (Auto) 0.6 (0-2) % Lymph # (Auto) 2.9 (1.2-4.9) X10*3/uL [place] # (Auto) 0.6 (0.1-1.2) X10*3/uL Eos # (Auto) 0.1 (0.0-0.4) X10*3/uL Baso # (Auto) 0.0 (0.0-0.2) X10*3/uL Abs Immat Gran (auto) 0.02 (0.00-0.03) X10*3/uL Absolute Neuts (auto) 3.2 (2.0-8.3) x10*3/uL Absolute Nucleated RBC 0.000 (0.0-0.012) X10*3/uL Nucleated RBC % (auto) 0.0 (0.0-0.2) /100WBC Sodium 141 (135-145) mmol/L Potassium 4.1 (3.3-5.1) mmol/L Chloride 105 (96-108) mmol/L Carbon Dioxide 28 (22-29) mmol/L Anion Gap 12 (12-20) BUN 14 (9-16) mg/dL Creatinine 0.85 (0.5-1.4) mg/dL Estim Creat Clear Calc 107.7 Estimated GFR > 60 Random Glucose 118 H (60-115) mg/dL Calcium 8.7 (8.4-10.2) mg/dL Magnesium 2.2 (1.6-2.6) mg/dL Total Bilirubin 0.3 (0.0-1.0) mg/dL Direct Bilirubin < 0.2 (0.0-0.5) mg/dL AST 18 (5-37) U/L ALT 15 (0-40) U/L Alkaline Phosphatase 87 (39-117) U/L Troponin I High Sens < 3.5 (<3.5-35.0) ng/L Total Protein 6.2 L (6.5-8.0) g/dL Albumin 3.9 (3.5-5.0) g/dL COVID-19 ([facility]) (Negative) COVID-19 Clin Com 07/05/22 Range/Units 18:29 WBC (4.8-10.8) X10*3/uL RBC (4.60-5.80) X10*6/uL Hgb (14.0-18.0) g/dl Hct (42.0-52.0) % MCV (80.0-98.0) fL MCH (27.0-33.0) pg MCHC (31.0-36.0) g/dl RDW (11.0-16.0) % Plt Count (160-400) X10*3/uL MPV (9.4-12.4) fL Immature Gran % (Auto) (0.0-0.4) % Neut % (Auto) (45-73) % Lymph % (Auto) (20-40) % [place] % (Auto) (2-11) % Eos % (Auto) (0-4) % Baso % (Auto) (0-2) % Lymph # (Auto) (1.2-4.9) X10*3/uL [place] # (Auto) (0.1-1.2) X10*3/uL Eos # (Auto) (0.0-0.4) X10*3/uL Baso # (Auto) (0.0-0.2) X10*3/uL Abs Immat Gran (auto) (0.00-0.03) X10*3/uL Absolute Neuts (auto) (2.0-8.3) x10*3/uL Absolute Nucleated RBC (0.0-0.012) X10*3/uL Nucleated RBC % (auto) (0.0-0.2) /100WBC Sodium (135-145) mmol/L Potassium (3.3-5.1) mmol/L Chloride (96-108) mmol/L Carbon Dioxide (22-29) mmol/L Anion Gap (12-20) BUN (9-16) mg/dL Creatinine (0.5-1.4) mg/dL Estim Creat Clear Calc Estimated GFR Random Glucose (60-115) mg/dL Calcium (8.4-10.2) mg/dL Magnesium (1.6-2.6) mg/dL Total Bilirubin (0.0-1.0) mg/dL Direct Bilirubin (0.0-0.5) mg/dL AST (5-37) U/L ALT (0-40) U/L Alkaline Phosphatase (39-117) U/L Troponin I High Sens (<3.5-35.0) ng/L Total Protein (6.5-8.0) g/dL Albumin (3.5-5.0) g/dL COVID-19 ([facility]) Negative (Negative) COVID-19 Clin Com See Note <Ruben Black MD - Last Filed: 07/06/22 00:34> Independent Interpretation I performed an independent interpretation of an: EKG <Ruben Black MD - Last Filed: 07/06/22 00:34> Interpretation: Normal sinus rhythm heart rate 65 beats per minute normal interval normal axis no acute ST T wave changes no acute ischemia <Ruben Black MD - Last Filed: 07/06/22 00:34> Discharge Plan Discharge Clinical Impression: Acute thoracic back pain <UMM Hunter - Last Filed: 07/05/22 18:11> Patient Disposition: Home, Self-Care <UMM Hunter - Last Filed: 07/05/22 18:11> Instructions: Thoracic Pain (ED) <UMM Hunter - Last Filed: 07/05/22 18:11> Additional Instructions: Cause of pain is not very clear likely musculoskeletal Take pain medication and muscle relaxant as advised Apply ice pack Report to the ER/PCP if you notice any rash <UMM Hunter Last Filed: 07/05/22 18:11> Prescriptions: New cyclobenzaprine 10 mg tablet 10 mg PO Q8H Qty: 20 0RF ibuprofen 600 mg tablet 600 mg PO Q6H PRN (Reason: fever or pain) Qty: 30 0RF No Action rosuvastatin 40 mg tablet 40 mg PO DAILY Qty: 90 2RF carvedilol 6.25 mg tablet 6.25 mg PO BID Qty: 180 2RF pregabalin [Lyrica] 75 mg capsule 75 mg PO BID Qty: 180 0RF Orencia ClickJect 125 mg/mL auto-injector 125 mg subcut QWEEK Qty: 4 2RF (DME) lancets [FreeStyle Lancets] 28 gauge misc See Rx Instructions .MEDSUPPLY Qty: 100 2RF Rx Instructions: test daily (DME) FreeStyle Lite Strips Strip See Rx Instructions .MEDSUPPLY Qty: 100 2RF Rx Instructions: test daily (DME) blood-glucose meter [FreeStyle Lite Meter] Kit See Rx Instructions .MEDSUPPLY Qty: 1 0RF Rx Instructions: test daily zolpidem [Ambien] 10 mg tablet 10 mg PO BEDTIME PRN (Reason: sleep) Qty: 14 1RF senna 8.6 mg capsule 8.6 mg PO BEDTIME aspirin 81 mg tablet,delayed release (DR/EC) 81 mg PO DAILY diclofenac sodium [Voltaren] 1 % gel 2 g topical QID Qty: 100 3RF Rx Instructions: apply to single elbow, wrist or hand; for hand includes palm/fingers/back of hand nitroglycerin 0.4 mg tablet, sublingual 0.4 mg sublingual Q5M PRN (Reason: chest pain) Qty: 30 5RF Rx Instructions: do not exceed 3 doses per episode sertraline 100 mg tablet 100 mg PO DAILY (DME) wrist cock up splint See Rx Instructions .Route .MEDSUPPLY Qty: 2 0RF Rx Instructions: Wear on each wrist at night. <UMM Hunter - Last Filed: 07/05/22 18:11>
[2022-07-05 18:07] VITALS: BP 180/86; PULSE 65; RESP 20; TEMP 36.1; O2SAT 95; BMI 29.0
[2022-07-05 18:36] LABS: MANUAL DIFF FLAG NO
[2022-07-05 18:37] LABS: Basophils Percent Auto 0.6 % (0-2); Eosinophils Absolute Auto 0.1 X10*3/uL (0.0-0.4); Eosinophils Percent Auto 1.9 % (0-4); Hematocrit 39.9 % (42.0-52.0); Hemoglobin 13.3 g/dl (14.0-18.0); Imm Gran Abs Auto 0.02 X10*3/uL (0.00-0.03); Imm Gran Pct Auto 0.3 % (0.0-0.4); Lymphocytes Absolute Auto 2.9 X10*3/uL (1.2-4.9); Lymphocytes Percent Auto 41.9 % (20-40); Mean Corpuscular HGB Conc 33.3 g/dl (31.0-36.0); Mean Corpuscular Hemoglobin 29.2 pg (27.0-33.0); Mean Corpuscular Volume 87.7 fL (80.0-98.0); Mean Platelet Volume 9.7 fL (9.4-12.4); Monocytes Absolute Auto 0.6 X10*3/uL (0.1-1.2); Monocytes Percent Auto 8.3 % (2-11); Neutrophils Absolute Auto 3.2 x10*3/uL (2.0-8.3); Platelet Count 172 X10*3/uL (160-400); Red Blood Count 4.55 X10*6/uL (4.60-5.80); Red Cell Distribution Width 13.2 % (11.0-16.0); White Blood Count 6.9 X10*3/uL (4.8-10.8)
[2022-07-05 18:50] LABS: COVID-19 Test Negative (Negative); IDNOW Serial# 9DB6401D
[2022-07-05 18:58] LABS: Alanine Aminotransferase 15 U/L (0-40); Albumin Level 3.9 g/dL (3.5-5.0); Alkaline Phosphatase 87 U/L (39-117); Anion Gap 12 (12-20); Aspartate Amino Transferase 18 U/L (5-37); Bilirubin Direct < 0.2 mg/dL (0.0-0.5); Bilirubin Total 0.3 mg/dL (0.0-1.0); Blood Urea Nitrogen 14 mg/dL (9-16); Calcium 8.7 mg/dL (8.4-10.2); Carbon Dioxide 28 mmol/L (22-29); Chloride 105 mmol/L (96-108); Creatinine Clr Calc Pharmacy 107.7; Estimated Glomerular Filt Rate > 60; Glucose Random 118 mg/dL (60-115); Magnesium 2.2 mg/dL (1.6-2.6); Potassium 4.1 mmol/L (3.3-5.1); Sodium 141 mmol/L (135-145); Total Protein 6.2 g/dL (6.5-8.0)
[2022-07-05 19:04] LABS: Troponin-I High Sensitivity < 3.5 ng/L (<3.5-35.0)
[2022-07-05 21:07] VITALS: BP 144/79; PULSE 56; RESP 17; TEMP 36.7; O2SAT 97
[2022-07-05] MEDS: Ketorolac Tromethamine 30 MG/ML VIAL IVPUSH (22:17)
--- NOTE | 2022-07-05 22:23 | PC.NURSE ---
IV access 20 g to L forearm est; CT to be done ketorolac administered per mAR no apparent distress urine obtained
[2022-07-05] MEDS: iohexoL 350 MG/ML 100 ML INFUS..BTL IV (22:46)
[2022-07-05 23:31] VITALS: BP 130/65; PULSE 58; RESP 13; TEMP 36.6; O2SAT 98
--- NOTE | 2022-07-06 00:41 | PC.NURSE ---
d/c instructions given, no sob, no respiratory distress, ambulates safely/independently IV cath tip intact upon removal, all questions answered
== END 2022-07-06 00:41 | disposition home or self-care (01) ==
PROVIDERS: Physician Assistant; Emergency Provider Internal Medicine; PCP Internal Medicine
DX: R07.89 Other chest pain (principal); M54.6 Pain in thoracic spine; Z20.822 Contact with and (suspected) exposure to COVID-19; Z20.828 Contact with and (suspected) exposure to other viral communicable diseases; Z79.899 Other long term (current) drug therapy
CPT/HCPCS: 71046; 71275; 80048; 80076; 83735; 84484; 85025; 87635; 93005; 96374; 99284; 99285; J1885; Q9967

== ENCOUNTER 2022-07-06 09:00 | Outpatient (RCR) | payer OTHER, SELFPAY ==
--- NOTE | 2022-06-15 09:55 | MHC.PT.EP ---
[facility] [place] Office [place] Office [place] [facility] [address] [phone] F: [phone] F: [phone] F: [phone] F: [phone] Physical Therapy Plan of Care Date of Evaluation: Date of Surgery: n/a Diagnosis: lumbar spondylosis, R hip pain Assessment: Patient is a 56 year old male presenting to PT with complaints of pain in his low back and R hip. Pt reports onset of pain began 6-7 months ago due to insidious onset. He presents today with impairments in pain, lumbar ROM, hip strength, core strength, posture. Pt's current occupation is none, with baseline physical activities including ADLs, bending, lifting, sitting. Pt expresses fpc goal of strengthening, and is motivated to work towards this in PT. Clinical presentation today is most consistent with signs and sx associated with chronic low back and R hip pain and pt will benefit from skilled PT to address the following problems and impairments noted upon evaluation: pain, lumbar ROM, hip strength, core strength, posture. These problems limit the patient with the following functional activities: ADLs, bending, lifting, sitting. The prescribed treatment plan of care is medically necessary. Co-morbidities of rheumatoid arthritis, T2DM, hx lip cancer, CAD were identified and taken into considerations of plan of care. Pt was educated on HEP, role of PT, prognosis, POC. Frequency and Duration: The patient will be seen 2 x week x 4 weeks Short Term Goals: Pt will demonstrate hip MMT strength at least 4/5 B in 2 weeks to demonstrate good lumbopelvic stability. Pt will demonstrate ability to perform PPT with good TA recruitment in 2 weeks for improved core strength. Pt will demonstrate improved postural awareness by sitting with biomechanically correct posture without cues throughout session to improve overall postural function in 2 weeks. American History Professor Goals: Pt will demonstrate improved LEFI score by 9 points in 4 weeks for improved functional mobility. Pt will demonstrate improved Zay score by 10% in 4 weeks for improved functional mobility. Pt will demonstrate ability to transition in out of various positions with less spasm and pain in 4 weeks for return to PLOF. Treatment Plan: Modalities to reduce pain, spasms and effusion. Manual therapy to restore motion and function. Therapeutic exercise to improve strength and flexibility. Neuromuscular re-education for posture and balance. Therapeutic activities to return to functional activities of daily living. Electronically signed by: Usha Ellington PT, DPT, ATC Please sign and return to therapist. Thank you for your referral.
--- NOTE | 2022-07-08 08:26 | MHC.PT.DC ---
[facility] [place] Office [place] Office [place] Office [address] Cuong Lombardi [address] [phone] F: [phone] F: [phone] F: [phone] F: [phone] Physical Therapy Discharge Report Diagnosis: lumbar spondylosis, R hip pain Date of Surgery: n/a Date of Evaluation: 06/15/22 Date of Discharge: 07/08/22 Treatments to Date: 6 Cancellations to Date: 1 No Shows to Date: 1 Discharge Status: Recommend MD Follow-up Discharge Summary: Pt called to cancel his last scheduled appointment due to too much pain. This was planned to be his last visit as he is not making progress with skilled PT. Max benefits of PT have been provided and pt still with very high pain levels. Recommend he follows up with MD. Electronically signed by: Usha Ellington, PT, DPT, ATC Please sign and return to therapist. Thank you for your referral.
== END 2022-07-08 08:27 | disposition home or self-care (01) ==
LOC: HO.PTCHIC 09:00
PROVIDERS: PCP Internal Medicine; Visit Provider Internal Medicine
DX: M25.851 Other specified joint disorders, right hip (principal); M47.816 Spondylosis without myelopathy or radiculopathy, lumbar region
CPT/HCPCS: 97110; 97162

== ENCOUNTER → 2022-07-08 12:51 | Outpatient (BNVA) | payer OTHER, SELFPAY | PROVIDERS: Visit Provider Orthopaedic Surgery | DX: G56.03 Carpal tunnel syndrome, bilateral upper limbs (principal); G56.23 Lesion of ulnar nerve, bilateral upper limbs; M25.531 Pain in right wrist; M51.36 Other intervertebral disc degeneration, lumbar region; E11.65 Type 2 diabetes mellitus with hyperglycemia | CPT/HCPCS: 99202 ==

== ENCOUNTER 2022-08-15 08:51 | Day surgery (SDC) | payer OTHER, SELFPAY ==
[2022-08-15 10:24] VITALS: BMI 29.0
--- NOTE | 2022-08-15 12:22 | MHC.SHP ---
Pre-Procedural Eval Section A Date of Service: 08/15/22 The patient is an INPATIENT: No Changes since office visit: No Cold of Flu in the past 2 weeks, No New Medical Problems, No Changes in Medication and No Patient answered all questions The History & Physical has been completed within 30 days and I have reviewed it.: Yes Section B Chief Complaint: Carpal tunnel syndrome, right upper limb Allergies: Allergies Allergy/AdvReac Type Severity Reaction Status Date / Time penicillin V Allergy Severe rash Verified 07/08/22 13:06 adalimumab [From Humira] Allergy Intermediate leg pain Verified 07/08/22 13:06 atorvastatin Allergy Intermediate leg pain Verified 07/08/22 13:06 leflunomide Allergy Intermediate kidney Verified 07/08/22 13:06 failure tocilizumab [From Actemra] Allergy Intermediate frequent Verified 07/08/22 13:06 nail infection Plan I have reviewed the history and physical and performed a pertinent physical examination on my patient. No changes have occurred unless specified. Time Spent With Patient Time: Total time managing care of this patient today ____ minutes.
--- NOTE | 2022-08-15 12:22 | W.PM.OPN ---
Operative Note Operative Note Date of Service: 08/15/22 Narrative: Preop diagnosis: 1. Right Carpal tunnel syndrome Postop diagnosis: same Procedure: 1. Right Carpal tunnel release Surgeon: Tia Huynh MD Anesthesia: local block using 1% lidocaine with epinephrine Findings: Thickened transverse carpal ligament. EBL: Less than 5 mL Specimens: None Complications: None Disposition: Brought to recovery room in stable condition Plan: Follow-up for 10-14 days for wound check and suture removal Indications: The patient is 56 years old, with right carpal tunnel syndrome that has been unresponsive to nonoperative management. The risks and benefits of operative treatment including but not limited to risk of damage to blood vessels, nerves, tendons, infection, persistent pain, persistent symptoms, or possible need for additional surgery were discussed with the patient and the patient wishes to proceed with surgery. Procedure: Once consent was obtained a local block was performed using a combination of 1% lidocaine with epinephrine. The patient was then brought back to the operating suite and placed on the operative table in supine position. The right upper extremity was prepped and draped in a standard surgical fashion. Once assured that we had a good block, a 2.0 cm longitudinal incision was made centered over the carpal tunnel. The incision was made through the skin to the subcutaneous tissues using a #15 blade. Dissection was made down to the level of the transverse carpal ligament with care being taken to protect the palmar cutaneous nerve. Once the transverse carpal ligament was clearly visualized, a longitudinal incision was made in the transverse carpal ligament 1st using a #15 blade, then using tenotomy scissors under direct visualization. Care was taken to look for and protect the motor branch of the median nerve when seen in this area. Once satisfied with our carpal tunnel release the wound was copiously irrigated with normal saline and hemostasis was obtained with a brief period of local pressure. The skin edges were reapproximated with some 5.0 nylon suture material and a sterile dressing was applied. The patient appears to have tolerated the procedure well and with no complications. All digits were well vascularized at the conclusion of the case.
== END 2022-08-15 13:00 | disposition home or self-care (01) ==
PROVIDERS: PCP Internal Medicine; Visit Provider Orthopaedic Surgery
PROC: (CPT 64721; principal; 2022-08-15 10:30)
DX: G56.01 Carpal tunnel syndrome, right upper limb (principal); R20.0 Anesthesia of skin; R20.2 Paresthesia of skin; M25.531 Pain in right wrist; M05.9 Rheumatoid arthritis with rheumatoid factor, unspecified; M15.1 Heberden's nodes (with arthropathy); K21.9 Gastro-esophageal reflux disease without esophagitis; I25.10 Atherosclerotic heart disease of native coronary artery without angina pectoris; Z95.5 Presence of coronary angioplasty implant and graft; E11.65 Type 2 diabetes mellitus with hyperglycemia; Z79.84 Long term (current) use of oral hypoglycemic drugs; Z79.899 Other long term (current) drug therapy; Z88.0 Allergy status to penicillin; Z88.8 Allergy status to other drugs, medicaments and biological substances; Z98.890 Other specified postprocedural states; Z87.891 Personal history of nicotine dependence
CPT/HCPCS: 64721; J0171

== ENCOUNTER → 2022-08-30 09:23 | Outpatient (BNVA) | payer OTHER, SELFPAY | PROVIDERS: PCP Internal Medicine; Visit Provider Orthopaedic Surgery | DX: G56.02 Carpal tunnel syndrome, left upper limb (principal); G56.23 Lesion of ulnar nerve, bilateral upper limbs; Z86.69 Personal history of other diseases of the nervous system and sense organs; E11.65 Type 2 diabetes mellitus with hyperglycemia; M25.531 Pain in right wrist | CPT/HCPCS: 99212 ==

== ENCOUNTER → 2022-10-05 13:13 | Outpatient (BNVA) | payer OTHER, SELFPAY | PROVIDERS: PCP Internal Medicine; Referring Provider Internal Medicine; Visit Provider Internal Medicine | DX: I25.10 Atherosclerotic heart disease of native coronary artery without angina pectoris (principal); I10 Essential (primary) hypertension; E11.65 Type 2 diabetes mellitus with hyperglycemia | CPT/HCPCS: 99212 ==

== ENCOUNTER → 2022-10-20 11:22 | Outpatient (BNVA) | payer OTHER, SELFPAY | PROVIDERS: PCP Internal Medicine; Visit Provider Nurse Practitioner Family | DX: M05.9 Rheumatoid arthritis with rheumatoid factor, unspecified (principal); M47.816 Spondylosis without myelopathy or radiculopathy, lumbar region | CPT/HCPCS: 99212 ==

== ENCOUNTER 2022-10-20 12:39 | Outpatient (REF) | payer OTHER, SELFPAY ==
[2022-10-20 13:30] LABS: MANUAL DIFF FLAG NO
[2022-10-20 13:39] LABS: Basophils Percent Auto 0.4 % (0-2); Eosinophils Absolute Auto 0.2 X10*3/uL (0.0-0.4); Eosinophils Percent Auto 2.5 % (0-4); Hematocrit 39.3 % (42.0-52.0); Hemoglobin 13.3 g/dl (14.0-18.0); Imm Gran Abs Auto 0.03 X10*3/uL (0.00-0.03); Imm Gran Pct Auto 0.4 % (0.0-0.4); Lymphocytes Absolute Auto 2.5 X10*3/uL (1.2-4.9); Lymphocytes Percent Auto 36.4 % (20-40); Mean Corpuscular HGB Conc 33.8 g/dl (31.0-36.0); Mean Corpuscular Hemoglobin 29.3 pg (27.0-33.0); Mean Corpuscular Volume 86.6 fL (80.0-98.0); Monocytes Absolute Auto 0.6 X10*3/uL (0.1-1.2); Monocytes Percent Auto 8.7 % (2-11); Neutrophils Absolute Auto 3.5 x10*3/uL (2.0-8.3); Neutrophils Percent Auto 51.6 % (45-73); Platelet Count 191 X10*3/uL (160-400); Red Blood Count 4.54 X10*6/uL (4.60-5.80); Red Cell Distribution Width 13.5 % (11.0-16.0); White Blood Count 6.8 X10*3/uL (4.8-10.8)
[2022-10-20 14:24] LABS: Erythrocyte Sedimentation Rate 7 MM/HR (0-15)
[2022-10-20 14:28] LABS: Alanine Aminotransferase 18 U/L (0-40); Albumin Level 3.9 g/dL (3.5-5.0); Alkaline Phosphatase 82 U/L (39-117); Anion Gap 13 (12-20); Aspartate Amino Transferase 19 U/L (5-37); Bilirubin Total 0.4 mg/dL (0.0-1.0); Blood Urea Nitrogen 11 mg/dL (9-16); C Reactive Protein 0.33 mg/dL (< or = 0.50); Calcium 8.8 mg/dL (8.4-10.2); Carbon Dioxide 28 mmol/L (22-29); Chloride 107 mmol/L (96-108); Estimated Glomerular Filt Rate > 60; Glucose Random 94 mg/dL (60-115); Potassium 4.5 mmol/L (3.3-5.1); Sodium 143 mmol/L (135-145)
== END 2022-10-20 12:40 | disposition home or self-care (01) ==
LOC: HO.10HDL 12:39
PROVIDERS: Visit Provider Nurse Practitioner Family
DX: M05.9 Rheumatoid arthritis with rheumatoid factor, unspecified (principal); M47.816 Spondylosis without myelopathy or radiculopathy, lumbar region
CPT/HCPCS: 36415; 80053; 85025; 85652; 86140

== ENCOUNTER 2023-01-24 09:36 | Outpatient (REF) | payer OTHER, SELFPAY ==
[2023-01-24 09:58] LABS: MANUAL DIFF FLAG NO
[2023-01-24 10:16] LABS: Basophils Percent Auto 0.6 % (0-2); Eosinophils Absolute Auto 0.1 X10*3/uL (0.0-0.4); Eosinophils Percent Auto 1.8 % (0-4); Hematocrit 42.4 % (42.0-52.0); Hemoglobin 14.2 g/dl (14.0-18.0); Imm Gran Abs Auto 0.02 X10*3/uL (0.00-0.03); Imm Gran Pct Auto 0.3 % (0.0-0.4); Lymphocytes Absolute Auto 2.5 X10*3/uL (1.2-4.9); Lymphocytes Percent Auto 36.6 % (20-40); Mean Corpuscular HGB Conc 33.5 g/dl (31.0-36.0); Mean Corpuscular Hemoglobin 29.4 pg (27.0-33.0); Mean Corpuscular Volume 87.8 fL (80.0-98.0); Mean Platelet Volume 9.8 fL (9.4-12.4); Monocytes Absolute Auto 0.5 X10*3/uL (0.1-1.2); Monocytes Percent Auto 7.9 % (2-11); Neutrophils Absolute Auto 3.6 x10*3/uL (2.0-8.3); Neutrophils Percent Auto 52.8 % (45-73); Platelet Count 190 X10*3/uL (160-400); Red Blood Count 4.83 X10*6/uL (4.60-5.80); Red Cell Distribution Width 13.4 % (11.0-16.0); White Blood Count 6.8 X10*3/uL (4.8-10.8)
[2023-01-24 10:41] LABS: Estimated Average Glucose 126 mg/dL
[2023-01-24 11:11] LABS: Alanine Aminotransferase 20 U/L (0-40); Albumin Level 4.1 g/dL (3.5-5.0); Alkaline Phosphatase 81 U/L (39-117); Anion Gap 9 (12-20); Aspartate Amino Transferase 22 U/L (5-37); Bilirubin Total 0.4 mg/dL (0.0-1.0); Blood Urea Nitrogen 15 mg/dL (9-16); Calcium 9.3 mg/dL (8.4-10.2); Carbon Dioxide 29 mmol/L (22-29); Chloride 108 mmol/L (96-108); Cholesterol 108 mg/dL; Estimated Glomerular Filt Rate > 60; Glucose Random 115 mg/dL (60-115); HDL Cholesterol 38 mg/dL; LDL Cholesterol Calculated 51 mg/dl; Potassium 4.3 mmol/L (3.3-5.1); Sodium 142 mmol/L (135-145); Total Protein 6.8 g/dL (6.5-8.0); Triglycerides 97 mg/dL
[2023-01-24 11:22] LABS: Creatinine Urine 168.69 mg/dL; Microalbum/Creatinine Ratio Ur 3.5 ug/mg cr
[2023-01-24 11:27] LABS: Folate 8.8 ng/mL (> or = 4.0); Prostate Specific Antigen Scr 0.26 ng/mL (<0.05-4.0); Vitamin B12 315 pg/mL (200-900)
[2023-01-24 11:33] LABS: Free T4 (Free Thyroxine) 0.91 ng/dL (0.71-1.85); Thyroid Stimulating Hormone 0.77 uIU/mL (0.32-4.0)
== END 2023-01-24 09:37 | disposition home or self-care (01) ==
LOC: HO.LAB 09:36
PROVIDERS: Absent Provider Internal Medicine; PCP Internal Medicine; Visit Provider Nurse Practitioner Family
DX: Z12.5 Encounter for screening for malignant neoplasm of prostate (principal); E11.65 Type 2 diabetes mellitus with hyperglycemia; E78.00 Pure hypercholesterolemia, unspecified
CPT/HCPCS: 36415; 80053; 80061; 82043; 82607; 82746; 83036; 84153; 84439; 84443; 85025

== ENCOUNTER 2023-01-25 12:04 | Outpatient (AMB) | payer OTHER, SELFPAY ==
--- NOTE | 2023-01-25 12:12 | A.OFFVIS_ITS ---
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: No Allergies penicillin V Allergy (Severe, Verified 01/25/23 12:13) rash adalimumab [From Humira] Allergy (Intermediate, Verified 01/25/23 12:13) leg pain atorvastatin Allergy (Intermediate, Verified 01/25/23 12:13) leg pain leflunomide Allergy (Intermediate, Verified 01/25/23 12:13) kidney failure tocilizumab [From Actemra] Allergy (Intermediate, Verified 01/25/23 12:13) frequent nail infection Medication List - Last Reconciled 01/25/23 by Jaylene Liang MD abatacept (Orencia ClickJect) 125 mg subcut QWEEK aspirin 81 mg PO DAILY blood sugar diagnostic (FreeStyle Lite Strips) test daily blood-glucose meter (FreeStyle Lite Meter kit) test daily carvedilol 6.25 mg PO BID cyclobenzaprine 10 mg PO Q8H diclofenac sodium 1% (Voltaren) 2 grams topical QID lancets (FreeStyle Lancets) test daily nitroglycerin 0.4 mg sublingual Q5M PRN pregabalin (Lyrica) 75 mg PO BID rosuvastatin 40 mg PO DAILY sennosides (senna) 8.6 mg PO BEDTIME sertraline 100 mg PO DAILY [wrist cock up splint Wear on each wrist at night. ] HPI HPI Comments History of Present Illness Details 57 year old male presents for follow-up of seropositive rheumatoid arthritis (RF++ CCP-). Last seen by Tia Manzano 11/01 Continues to take Orencia 125 mg subcutaneous every week. Patient underwent right carpal tunnel release on 08/15/2022. Mentions that carpal tunnel symptoms of his right hand are better and he is now considering doing the surgery for the left hand. Continues to have generalized body stiffness. He has stiffness on his fingers. Difficulty bending them. He also has alternating low back pain with intermittent sciatica. [facility] Medical History Acute sinusitis Adult general medical exam Annual physical exam Anxiety Atherosclerotic cardiovascular disease Bilateral carpal tunnel syndrome Cervical radiculopathy Coronary artery disease Degenerative disc disease, lumbar Depression Erectile dysfunction Gastritis determined by endoscopy GERD (gastroesophageal reflux disease) Horseshoe kidney Hypercholesterolemia Left rotator cuff tear Lip cancer New onset type 2 diabetes mellitus Osteoarthritis Precordial chest pain Right hip pain Right rotator cuff tear Screening for colon cancer Screening for prostate cancer 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 Surgical History H/O left knee surgery History of carpal tunnel surgery of right wrist History of cervical spinal surgery History of coronary artery stent placement History of lip cancer History of rotator cuff surgery History of shoulder surgery History of tonsillectomy Hx of colonoscopy S/P left rotator cuff repair Family History Father Lung cancer CAD (coronary artery disease) CVD (cardiovascular disease) Hx of CABG Mother Colon cancer Mental health disorder Maternal Uncle Lung cancer Maternal Uncle Substance abuse Substance use disorder Social History Housing: Other Housing Other:: Rents a room in a house Are you a primary field care advocate to a significant other at home: No Do you presently have visiting nurse or other home services: No Alcohol intake: current Alcohol intake frequency: holidays/special occasions only Alcohol type: beer and hard liquor Patient Tobacco Use Status: Former Tobacco user Years Smoked: quit 2004 e-Cigarette/Vaping Use: Never Used Second Hand Smoke Exposure: No Substance Use Type: Marijuana service: No Current occupational status: unemployed Current occupation: right handed Cognitive needs: No Hearing needs: No Vision needs: Yes Review of Systems Musc Reports back pain, Reports arthralgias, Reports numbness and Reports stiffness Neuro Reports numbness Physical Exam Vital Signs: Last Vital Signs Temp 97 F 01/25/23 12:13 Pulse 76 01/25/23 12:13 BP 134/78 01/25/23 12:13 Pulse Ox 98 01/25/23 12:13 Oxygen Delivery Method Room Air 01/25/23 12:13 BMI result Body Mass Index 27.1 Const General: cooperative, healthy appearing and comfortable Nutritional Appearance: overweight Orientation/consciousness: patient oriented x3 Limitations: no limitations HEENT Head: Yes normocephalic and Yes atraumatic Mouth: moist mucous membranes Resp Effort & Inspection: normal respiratory effort and able to speak in complete sentences Auscultation: clear to auscultation bilaterally Cardio Rate: regular rate Neuro General: patient oriented x3 Extrem Other: Osteoarthritic changes of both hands with no active synovitis Few fibromyalgia tender points Assessment & Plan Assessment & Plan (1) Seropositive rheumatoid arthritis: Comment: ++RF -ve CCP Orenica: March 2021- present Leflunomide: December 2020 - March 2021 urinary frequency Actemra: January 2020- December 2020 -Had surgery did not want to restart after, frequent nail infections. Enbrel: January- denied by insurance Humira: October 2019- January 2020 - active disease on exam/ listed with allergy leg pain Code(s): M05.9 - Rheumatoid arthritis with rheumatoid factor, unspecified Plan: Patient with seropositive rheumatoid arthritis (RF++ CCP-). ? Patient's rheumatoid arthritis is well controlled on Orencia. Patient's symptoms are likely a combination of osteoarthritis and fibromyalgia. Continue Orencia 125 mg subcutaneously once weekly. Advised patient to hold Orencia 1 month before carpal tunnel release surgery if he decides to go through with the surgery Labs before next visit in 3 months Plan I spent 26 minutes reviewing patient's chart, evaluating patient, ordering diagnostic workup, counseling patient and documenting in the chart Orders: Orders Comprehensive Met. Panel 3 Months M05.9 - Rheumatoid arthritis with rheumatoid factor, unspecified C Reactive Protein 3 Months M05.9 - Rheumatoid arthritis with rheumatoid factor, unspecified Complete Blood Count Auto Diff 3 Months M05.9 - Rheumatoid arthritis with rheumatoid factor, unspecified Erythrocyte Sedimentation Rate 3 Months M05.9 - Rheumatoid arthritis with rheumatoid factor, unspecified Hepatitis A,B,C Profile 3 Months Z11.59 - Encounter for screening for other viral diseases T Spot TB 3 Months Z11.7 - Encounter for testing for latent tuberculosis infection Coding Level of Care Code Est Pt Level 4 (33233) Diagnoses Seropositive rheumatoid arthritis M05.9
[2023-01-25 12:13] VITALS: BP 134/78; PULSE 76; TEMP 36.1; O2SAT 98; BMI 27.1
== END 2023-01-25 12:43 | disposition home or self-care (01) ==
PROVIDERS: PCP Internal Medicine; Visit Provider Student in an Organized Health Care Education/Training Program
DX: M05.89 Other rheumatoid arthritis with rheumatoid factor of multiple sites (principal)
CPT/HCPCS: 99214

== ENCOUNTER → 2023-01-25 12:04 | Outpatient (BNVA) | payer OTHER, SELFPAY | PROVIDERS: PCP Internal Medicine; Visit Provider Student in an Organized Health Care Education/Training Program | DX: M05.9 Rheumatoid arthritis with rheumatoid factor, unspecified (principal); M19.90 Unspecified osteoarthritis, unspecified site; M79.7 Fibromyalgia | CPT/HCPCS: 99212 ==

== ENCOUNTER 2023-04-03 11:17 | Outpatient (AMB) | payer OTHER, SELFPAY ==
[2023-04-03 11:22] VITALS: BP 134/82; PULSE 63; O2SAT 98; BMI 27.0
--- NOTE | 2023-04-03 11:22 | A.OFFPC_ITS ---
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 Allergies penicillin V Allergy (Severe, Verified 04/03/23 11:23) rash adalimumab [From Humira] Allergy (Intermediate, Verified 04/03/23 11:23) leg pain atorvastatin Allergy (Intermediate, Verified 04/03/23 11:23) leg pain leflunomide Allergy (Intermediate, Verified 04/03/23 11:23) kidney failure tocilizumab [From Actemra] Allergy (Intermediate, Verified 04/03/23 11:23) frequent nail infection Tobacco use date assessed: 04/03/23 Dental Screening Dental Screen Date: 04/03/23 Did you have a dental visit in the last 12 months?: Yes Did you have a dental problem in the last 6 months where you did not have access to dental care?: No Was dental information given to patient?: Patient has dentist HPI f/u CAD HPI Details 57-year-old overweight male with control led diabetes mellitus hypertension coronary artery disease GERD hypercholesterolemia rheumatoid arthritis lumbar radiculopathy coming in for follow-up. Last seen in December 2022. Patient's colonoscopy is up-to-date 2018. Patient continues to follow-up with Rheumatology on Orencia 125 mg subcutaneous every week. Patient is being bothered by the carpal tunnel syndrome on the left hand. has frequency no fevers, no nausea and no vomiting. sees dermatology, pending podiatry schedule [facility] Medical History Acute sinusitis Adult general medical exam Annual physical exam Anxiety Atherosclerotic cardiovascular disease Bilateral carpal tunnel syndrome Cervical radiculopathy Coronary artery disease Degenerative disc disease, lumbar Depression Erectile dysfunction Gastritis determined by endoscopy GERD (gastroesophageal reflux disease) Horseshoe kidney Hypercholesterolemia Left rotator cuff tear Lip cancer New onset type 2 diabetes mellitus Osteoarthritis Precordial chest pain Right hip pain Right rotator cuff tear Screening for colon cancer Screening for prostate cancer 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 Surgical History H/O left knee surgery History of carpal tunnel surgery of right wrist History of cervical spinal surgery History of coronary artery stent placement History of lip cancer History of rotator cuff surgery History of shoulder surgery History of tonsillectomy Hx of colonoscopy S/P left rotator cuff repair Family History Father Lung cancer CAD (coronary artery disease) CVD (cardiovascular disease) Hx of CABG Mother Colon cancer Mental health disorder Maternal Uncle Lung cancer Maternal Uncle Substance abuse Substance use disorder Social History Housing: Other Housing Other:: Rents a room in a house Are you a primary post acute care registered nurse to a significant other at home: No Do you presently have visiting nurse or other home services: No Alcohol intake: current Alcohol intake frequency: holidays/special occasions only Alcohol type: beer and hard liquor Patient Tobacco Use Status: Former Tobacco user Years Smoked: quit 2004 e-Cigarette/Vaping Use: Never Used Second Hand Smoke Exposure: No Substance Use Type: Marijuana service: No Current occupational status: unemployed Current occupation: right handed Cognitive needs: No Hearing needs: No Vision needs: Yes Questionnaire Thrive Questionnaire Date Thrive assessed: 12/15/22 AUDIT C Alcohol Use Questionnaire (AUDIT-C) 1. How often do you have a drink containing alcohol?: Monthly or less 2. How many drinks containing alcohol do you have on a typical day when you are drinking?: 1 or 2 3. How often do you have six or more drinks on one occasion?: Never Total Score: 1 Score Reviewed/Action Taken: No SARAI-7 AMB Questionnaire SARAI-7 Date SARAI - 7 assessed: 12/15/22 Source: Developed by Drs. Souleymane Cox, Aline Kay, Damion Lieberman and colleagues, with an educational zulema from [employer]. Physical exam (Primary Care) Vital Signs: Last Vital Signs Pulse 63 04/03/23 11:22 BP 134/82 04/03/23 11:22 Pulse Ox 98 04/03/23 11:22 Oxygen Delivery Method Room Air 04/03/23 11:22 BMI result Body Mass Index 27.0 Tobacco/Smoking Status: Tobacco use Status Tobacco use date assessed 04/03/23 04/03/23 11:23 Patient Tobacco Use Status Former Tobacco user 04/03/23 11:23 Tobacco use type 10/05/22 13:31 e-Cigarette/Vaping Use Never Used 04/03/23 11:23 Thrive Assessment: Date of Thrive Assessment Date Thrive assessed 12/15/22 04/03/23 11:23 Const General: alert; No acute distress Eyes Conjunctivae: conjunctivae normal Resp Auscultation: clear to auscultation bilaterally Cardio Rate: regular rate Rhythm: regular rhythm GI Inspection: Yes normal to inspection Extrem General: Yes normal to inspection and No edema Assessment and Plan Assessment & Plan (1) Type 2 diabetes mellitus with hyperglycemia: Comment: DR. Larry Code(s): E11.65 - Type 2 diabetes mellitus with hyperglycemia Plan: Decrease the amount of carbohydrate intake, pasta, bread, rice and potatoes are all sugar and that is aside from all the sweet stuff, remember that fruits are good but they are Sweet also. Hemoglobin A1c goal of less than 6.5 patient is diet controlled (2) Essential hypertension: Code(s): I10 - Essential (primary) hypertension Plan: Continue with blood pressure medication. Decrease salt intake and exercise patient takes carvedilol 6.25 mg twice a day (3) Atherosclerotic cardiovascular disease: Code(s): I25.10 - Atherosclerotic heart disease of [place] coronary artery without angina pectoris Plan: Control the cholesterol, weight, blood pressure, diabetes continue with aspirin (4) Hypercholesterolemia: Code(s): E78.00 - Pure hypercholesterolemia, unspecified Plan: Avoid fried foods, chicken skin, eggs, butter margarine, pastries and meat. Be it pork or beef they have a lot of cholesterol LDL goal of less than 70 and triglyceride of less than 150 patient on rosuvastatin 40 mg once a day (5) Seropositive rheumatoid arthritis: Comment: ++RF -ve CCP [place]: March 2021- present Leflunomide: December 2020 - March 2021 urinary frequency Actemra: January 2020- December 2020 -Had surgery did not want to restart after, frequent nail infections. Enbrel: January- denied by insurance Humira: October 2019- January 2020 - active disease on exam/ listed with allergy leg pain Code(s): M05.9 - Rheumatoid arthritis with rheumatoid factor, unspecified Plan: Continue to follow-up with rheumatology patient is on Orencia (6) Cubital tunnel syndrome, bilateral: Comment: Right carpal tunnel release August 2022 Code(s): G56.23 - Lesion of ulnar nerve, bilateral upper limbs Plan: Status post repair right and the left is pending (7) Frequency of micturition: Code(s): R35.0 - Frequency of micturition Plan: US to request Orders: Orders US bladder Today R35.0 - Frequency of micturition UA CC w/rflx Micro + Cult Today R30.0 - Dysuria, R35.0 - Frequency of micturition Coding Level of Care Code Est Pt Level 4 (86956) Diagnoses Type 2 diabetes mellitus with hyperglycemia E11.65 Essential hypertension I10 Atherosclerotic cardiovascular disease I25.10 Hypercholesterolemia E78.00 Seropositive rheumatoid arthritis M05.9 Cubital tunnel syndrome, bilateral G56.23 Frequency of micturition R35.0
== END 2023-04-03 12:11 | disposition home or self-care (01) ==
PROVIDERS: PCP Internal Medicine; Visit Provider Internal Medicine
DX: E11.65 Type 2 diabetes mellitus with hyperglycemia (principal); M05.9 Rheumatoid arthritis with rheumatoid factor, unspecified; I10 Essential (primary) hypertension; I25.10 Atherosclerotic heart disease of native coronary artery without angina pectoris; E78.00 Pure hypercholesterolemia, unspecified; G56.23 Lesion of ulnar nerve, bilateral upper limbs; R35.0 Frequency of micturition
CPT/HCPCS: 99214

== ENCOUNTER 2023-04-12 10:29 | Outpatient (REF) | payer OTHER, SELFPAY ==
--- NOTE | ~2023-04-12 | US_ITS ---
EXAMINATION: US PELVIS LIMITED (BLADDER) CLINICAL INFORMATION: Frequency of micturition. COMPARISON: None available. TECHNIQUE: Real-time imaging of the bladder. FINDINGS: BLADDER: Well distended and normal. Bilateral ureteral jets are demonstrated. Prevoid bladder volume is 171 mL. Postvoid bladder volume is 12.5 mL. PROSTATE: Prostate volume 44.4 mL. US/US bladder IMPRESSION: 1. Postvoid bladder volume of 12.5 mL with visualization of the bilateral ureteral jets. 2. Enlarged prostate measuring 44.4 mL.
== END 2023-04-12 10:30 | disposition home or self-care (01) ==
LOC: HO.HMGCX 10:29
PROVIDERS: PCP Internal Medicine; Visit Provider Internal Medicine
DX: R35.0 Frequency of micturition (principal)
CPT/HCPCS: 76857

== ENCOUNTER 2023-04-21 09:15 | Outpatient (REF) | payer OTHER, SELFPAY ==
[2023-04-21 09:40] LABS: MANUAL DIFF FLAG NO
[2023-04-21 10:05] LABS: Basophils Absolute Auto 0.1 X10*3/uL (0.0-0.2); Basophils Percent Auto 1.2 % (0-2); Eosinophils Absolute Auto 0.1 X10*3/uL (0.0-0.4); Eosinophils Percent Auto 2.2 % (0-4); Hemoglobin 13.9 g/dl (14.0-18.0); Imm Gran Abs Auto 0.02 X10*3/uL (0.00-0.03); Imm Gran Pct Auto 0.3 % (0.0-0.4); Lymphocytes Absolute Auto 2.2 X10*3/uL (1.2-4.9); Lymphocytes Percent Auto 37.3 % (20-40); Mean Corpuscular HGB Conc 33.1 g/dl (31.0-36.0); Mean Corpuscular Hemoglobin 29.3 pg (27.0-33.0); Mean Corpuscular Volume 88.4 fL (80.0-98.0); Mean Platelet Volume 9.9 fL (9.4-12.4); Monocytes Absolute Auto 0.4 X10*3/uL (0.1-1.2); Neutrophils Absolute Auto 3.1 x10*3/uL (2.0-8.3); Platelet Count 189 X10*3/uL (160-400); Red Blood Count 4.75 X10*6/uL (4.60-5.80); Red Cell Distribution Width 13.2 % (11.0-16.0)
[2023-04-21 10:25] LABS: Alanine Aminotransferase 16 U/L (0-40); Alkaline Phosphatase 77 U/L (39-117); Anion Gap 8 (12-20); Aspartate Amino Transferase 18 U/L (5-37); Bilirubin Total 0.4 mg/dL (0.0-1.0); Blood Urea Nitrogen 14 mg/dL (9-16); C Reactive Protein 0.11 mg/dL (< or = 0.50); Calcium 8.8 mg/dL (8.4-10.2); Carbon Dioxide 31 mmol/L (22-29); Chloride 109 mmol/L (96-108); Estimated Glomerular Filt Rate > 60; Glucose Random 113 mg/dL (60-115); Potassium 4.5 mmol/L (3.3-5.1); Sodium 143 mmol/L (135-145); Total Protein 6.6 g/dL (6.5-8.0)
[2023-04-21 10:48] LABS: HBc Num1 0.07 S/CO (0.00-0.79); HBsAGNum1 0.29 S/CO (0.00-0.99); Hepatitis A Antibody IgM 0.22 Index (0-0.79); Hepatitis B Core Antibody Nonreactive (Nonreactive); Hepatitis B Surface Antigen Negative (Negative); ~HepC Num1 0.06 S/CO (0.00-0.79); ~Hepatitis A Antibody IgM Nonreactive (Nonreactive); ~Hepatitis B Surface Antibody NONREACTIVE (Nonreactive); ~Hepatitis C Antibody Nonreactive (Nonreactive)
[2023-04-21 11:02] LABS: Erythrocyte Sedimentation Rate 7 MM/HR (0-15)
[2023-04-24 12:08] LABS: TS Negative Control Passed; TS Panel A 0; TS Panel B 0; TS Positive Control Passed; TSpotTB Negative (Negative)
== END 2023-04-21 09:16 | disposition home or self-care (01) ==
LOC: HO.LAB 09:15
PROVIDERS: PCP Internal Medicine; Visit Provider Student in an Organized Health Care Education/Training Program
DX: Z11.59 Encounter for screening for other viral diseases (principal); Z11.7 Encounter for testing for latent tuberculosis infection; M05.9 Rheumatoid arthritis with rheumatoid factor, unspecified; Z72.89 Other problems related to lifestyle
CPT/HCPCS: 36415; 80053; 85025; 85652; 86140; 86481; 86704; 86706; 86709; 86803; 87340

== ENCOUNTER 2023-04-25 09:33 | Outpatient (AMB) | payer OTHER, SELFPAY ==
--- NOTE | 2023-04-25 09:45 | MHC.PC.OV ---
Vital Signs 04/25/23 09:46 Height 5 ft 10 in Weight 190 lb BMI 27.3 BP 120/70 Blood Pressure Location Lt brachial Position Sitting Pulse 68 Pulse Source Pulse Oximeter Pulse Oximetry (%) 98 Oxygen Delivery Method Room Air Intake Visit Reasons: champ form Intake Note: Patient is here today for [facility] forms Senior Process Analyst Required: No Tennis Court Attendant: Not Required per policy Accompanied by: Self / Same As Patient Allergies penicillin V Allergy (Severe, Verified 04/25/23 13:50) rash adalimumab [From Humira] Allergy (Intermediate, Verified 04/25/23 13:50) leg pain atorvastatin Allergy (Intermediate, Verified 04/25/23 13:50) leg pain leflunomide Allergy (Intermediate, Verified 04/25/23 13:50) kidney failure tocilizumab [From Actemra] Allergy (Intermediate, Verified 04/25/23 13:50) frequent nail infection Tobacco use date assessed: 04/25/23 Dental Screening Dental Screen Date: 04/25/23 Did you have a dental visit in the last 12 months?: No Did you have a dental problem in the last 6 months where you did not have access to dental care?: No Was dental information given to patient?: No (dentures) HPI champ form HPI Details 57-year-old overweight male with controlled diabetes mellitus hypertension coronary artery disease hypercholesterol E rheumatoid arthritis coming in for follow-up. Last seen March 2023 having frequency of micturition patient is here for follow-up patient's colonoscopy is up-to-date. Ultrasound of the bladder was done in April 2023 showing no urinary retention but has an enlarged prostate patient's form for verification of serious medical problems filled up using coronary artery disease. Patient does have diabetes mellitus which is controlled, rheumatoid arthritis. Patient also has some problem of overactive bladder and BPH was on Detrol before and will start on this. [facility] Medical History Bilateral carpal tunnel syndrome Screening for colon cancer Screening for prostate cancer New onset type 2 diabetes mellitus Depression Adult general medical exam Precordial chest pain Right hip pain Acute sinusitis Annual physical exam Right rotator cuff tear Atherosclerotic cardiovascular disease Left rotator cuff tear Gastritis determined by endoscopy Lip cancer Erectile dysfunction Anxiety Degenerative disc disease, lumbar Horseshoe kidney Coronary artery disease GERD (gastroesophageal reflux disease) Hypercholesterolemia Cervical radiculopathy 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 Osteoarthritis Surgical History History of carpal tunnel surgery of right wrist History of rotator cuff surgery S/P left rotator cuff repair Hx of colonoscopy History of coronary artery stent placement History of cervical spinal surgery History of shoulder surgery History of lip cancer H/O left knee surgery History of tonsillectomy Family History Father Lung cancer CAD (coronary artery disease) CVD (cardiovascular disease) Hx of CABG Mother Colon cancer Mental health disorder Maternal Uncle Lung cancer Maternal Uncle Substance abuse Substance use disorder Social History Housing: Other Housing Other:: Rents a room in a house Are you a primary care advocate to a significant other at home: No Do you presently have visiting nurse or other home services: No Alcohol intake: current Alcohol intake frequency: holidays/special occasions only Alcohol type: beer and hard liquor Patient Tobacco Use Status: Former Tobacco user Years Smoked: quit 2004 e-Cigarette/Vaping Use: Never Used Second Hand Smoke Exposure: No Substance Use Type: Marijuana service: No Current occupational status: unemployed Current occupation: right handed Cognitive needs: No Hearing needs: No Vision needs: Yes Questionnaire Thrive Questionnaire Date Thrive assessed: 12/15/22 SARAI-7 AMB Questionnaire SARAI-7 Date SARAI - 7 assessed: 12/15/22 Source: Developed by Drs. Souleymane Cox, Aline Kay, Damion Lieberman and colleagues, with an educational zulema from [employer]. Physical exam (Primary Care) Vital Signs: Last Vital Signs Pulse 68 04/25/23 09:46 BP 120/70 04/25/23 09:46 Pulse Ox 98 04/25/23 09:46 Oxygen Delivery Method Room Air 04/25/23 09:46 BMI result Body Mass Index 27.3 Tobacco/Smoking Status: Tobacco use Status Tobacco use date assessed 04/25/23 04/25/23 09:54 Patient Tobacco Use Status Former Tobacco user 04/25/23 09:54 Tobacco use type 10/05/22 13:31 e-Cigarette/Vaping Use Never Used 04/25/23 09:54 Thrive Assessment: Date of Thrive Assessment Date Thrive assessed 12/15/22 04/25/23 09:54 Const General: alert; No acute distress Eyes Conjunctivae: conjunctivae normal Resp Auscultation: clear to auscultation bilaterally Cardio Rate: regular rate Rhythm: regular rhythm GI Inspection: Yes normal to inspection Extrem General: Yes normal to inspection and No edema Results AMB Hemoglobin A1c AMB Hemoglobin A1c 6.3 % Last Edit by KRISTIN Cintron on 04/25/23 09:56 Results Reviewed Results Reviewed: Laboratory Last Values Hgb A1c (Clinic) 6.3 % (4.0-6.0) H 04/25/23 09:45 Assessment and Plan Assessment & Plan (1) Hypercholesterolemia: Code(s): E78.00 - Pure hypercholesterolemia, unspecified Plan: Avoid fried foods, chicken skin, eggs, butter margarine, pastries and meat. Be it pork or beef they have a lot of cholesterol LDL goal of less than 70 last blood work is January 2020 (2) Seropositive rheumatoid arthritis: Comment: ++RF -ve CCP Orencia: March 2021- present Leflunomide: December 2020 - March 2021 urinary frequency Actemra: January 2020- December 2020 -Had surgery did not want to restart after, frequent nail infections. Enbrel: January- denied by insurance Humira: October 2019- January 2020 - active disease on exam/ listed with allergy leg pain Code(s): M05.9 - Rheumatoid arthritis with rheumatoid factor, unspecified Plan: Continue to follow-up with Rheumatology (3) GERD (gastroesophageal reflux disease): Code(s): K21.9 - Gastro-esophageal reflux disease without esophagitis Qualifiers: Esophagitis presence: without esophagitis Qualified Code(s): K21.9 - Gastro-esophageal reflux disease without esophagitis Plan: Avoid the foods that causes that usually spicy foods, tomato products, juices, coffee, soda and foods that your sensitive to. After eating do not lie down, allow 3-4 hours before in lie down. And keep the head of bed above 30 degrees to avoid the acid from going up. (4) Coronary artery disease: Comment: 10/20/2017 angioplasty YESSICA, stent placement Dr. Tomeka Araya March 2018 echo 60-65% normal LV, Brilinta October 2018, nuclear stress ejection fraction 74% echo July 2019 60-65% Code(s): I25.10 - Atherosclerotic heart disease of [place] coronary artery without angina pectoris Qualifiers: Associated angina: without angina Coronary Disease-Associated Artery/Lesion type: [place] artery [place] vs. transplanted heart: [place] heart Qualified Code(s): I25.10 - Atherosclerotic heart disease of [place] coronary artery without angina pectoris Plan: Control the cholesterol, weight, blood pressure, diabetes continue with aspirin (5) Essential hypertension: Code(s): I10 - Essential (primary) hypertension Plan: Continue with blood pressure medication. Decrease salt intake and exercise (6) Type 2 diabetes mellitus with hyperglycemia: Comment: DR. Larry Code(s): E11.65 - Type 2 diabetes mellitus with hyperglycemia Plan: Decrease the amount of carbohydrate intake, pasta, bread, rice and potatoes are all sugar and that is aside from all the sweet stuff, remember that fruits are good but they are Sweet also. Hemoglobin A1c goal of less than 6.5. (7) BPH (benign prostatic hyperplasia): Comment: 04/2023 44 cc Code(s): N40.0 - Benign prostatic hyperplasia without lower urinary tract symptoms Plan: Ultrasound done recently Orders: Orders AMB Hemoglobin A1c Today E11.65 - Type 2 diabetes mellitus with hyperglycemia Referrals Urology Referral N40.0 - Benign prostatic hyperplasia without lower urinary tract symptoms Medications: New tolterodine ER (Detrol LA) 2 mg PO Q24H 30 caps 1RF N40.0 - Benign prostatic hyperplasia without lower urinary tract symptoms Refilled lancets (FreeStyle Lancets) test daily 100 ea 2RF E11.65 - Type 2 diabetes mellitus with hyperglycemia blood sugar diagnostic (FreeStyle Lite Strips) test daily 100 ea 2RF E11.65 - Type 2 diabetes mellitus with hyperglycemia Coding Level of Care Code Est Pt Level 4 (94645) Diagnoses Hypercholesterolemia E78.00 Seropositive rheumatoid arthritis M05.9 Gastroesophageal reflux disease without esophagitis K21.9 Esophagitis presence: without esophagitis Coronary artery disease involving [place] coronary artery of [place] heart without angina pectoris I25.10 Associated angina: without angina Coronary Disease-Associated Artery/Lesion type: [place] artery [place] vs. transplanted heart: [place] heart Essential hypertension I10 Type 2 diabetes mellitus with hyperglycemia E11.65 BPH (benign prostatic hyperplasia) N40.0
[2023-04-25 09:46] VITALS: BP 120/70; PULSE 68; O2SAT 98; BMI 27.3
== END 2023-04-25 10:20 | disposition home or self-care (01) ==
PROVIDERS: PCP Internal Medicine; Visit Provider Internal Medicine
DX: E11.65 Type 2 diabetes mellitus with hyperglycemia (principal); M05.9 Rheumatoid arthritis with rheumatoid factor, unspecified; E78.00 Pure hypercholesterolemia, unspecified; K21.9 Gastro-esophageal reflux disease without esophagitis; I25.10 Atherosclerotic heart disease of native coronary artery without angina pectoris; I10 Essential (primary) hypertension; N40.0 Benign prostatic hyperplasia without lower urinary tract symptoms
CPT/HCPCS: 83036; 99214

== ENCOUNTER 2023-04-25 13:46 | Outpatient (AMB) | payer OTHER, SELFPAY ==
[2023-04-25 13:47] VITALS: BP 136/64; PULSE 61; TEMP 35.7; O2SAT 97; BMI 27.5
--- NOTE | 2023-04-25 13:47 | A.OFFVIS_ITS ---
Intake Vital Signs 04/25/23 13:47 Height 5 ft 10 in Weight 191 lb 12.835 oz BMI 27.5 BP 136/64 Blood Pressure Location Rt brachial Position Sitting Pulse 61 Pulse Source Pulse Oximeter Temp 96.3 F L Temp Source Skin Pulse Oximetry (%) 97 Oxygen Delivery Method Room Air Intake Visit Reasons: RA Intake Note: Pt last seen 01/25/23, presents today for follow up and test results. [employer] qwk Ophthalmic Photographer Required: No Accompanied by: Self / Same As Patient Allergies penicillin V Allergy (Severe, Verified 04/25/23 13:50) rash adalimumab [From Humira] Allergy (Intermediate, Verified 04/25/23 13:50) leg pain atorvastatin Allergy (Intermediate, Verified 04/25/23 13:50) leg pain leflunomide Allergy (Intermediate, Verified 04/25/23 13:50) kidney failure tocilizumab [From Actemra] Allergy (Intermediate, Verified 04/25/23 13:50) frequent nail infection Medication List - Last Reconciled 04/25/23 by Jaylene Liang MD abatacept (Orencia ClickJect) 125 mg subcut QWEEK aspirin 81 mg PO DAILY blood sugar diagnostic (FreeStyle Lite Strips) test daily blood-glucose meter (FreeStyle Lite Meter kit) test daily carvedilol 6.25 mg PO BID cyclobenzaprine 10 mg PO Q8H diclofenac sodium 1% (Voltaren) 2 grams topical QID lancets (FreeStyle Lancets) test daily nitroglycerin 0.4 mg sublingual Q5M PRN pregabalin 75 mg PO BID rosuvastatin 40 mg PO DAILY sennosides (senna) 8.6 mg PO BEDTIME sertraline 100 mg PO DAILY tolterodine ER (Detrol LA) 2 mg PO Q24H [wrist cock up splint Wear on each wrist at night. ] HPI HPI Comments History of Present Illness Details 57 year old male presents for follow-up of seropositive rheumatoid arthritis (RF++ CCP-). Last seen 01/2023 Continues to take Orencia 125 mg subcutaneous every week. Well tolerated Patient states that he believes his RA is doing well. States that he has been getting alternating pain in his hips. Pain in his buttocks area with sciatica symptoms as well as pain in the anterior groin. States that he work with a chiropractor that helped relieve his left and sciatica symptoms before, knees thinking about going back to the chiropractor. States that continues to get intermittent pain in his left wrist and he is now ready to schedule carpal tunnel release surgery for the left hand. He will call hand surgery. States he is interested in doing occupational therapy for both hands. Mentions that he lives in his car and is unable to have housing. He is unable to get a paraffin wax machine [facility] Medical History Bilateral carpal tunnel syndrome Screening for colon cancer Screening for prostate cancer New onset type 2 diabetes mellitus Depression Adult general medical exam Precordial chest pain Right hip pain Acute sinusitis Annual physical exam Right rotator cuff tear Atherosclerotic cardiovascular disease Left rotator cuff tear Gastritis determined by endoscopy Lip cancer Erectile dysfunction Anxiety Degenerative disc disease, lumbar [place]orseshoe kidney Coronary artery disease GERD (gastroesophageal reflux disease) Hypercholesterolemia Cervical radiculopathy 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 Osteoarthritis Surgical History History of carpal tunnel surgery of right wrist History of rotator cuff surgery S/P left rotator cuff repair Hx of colonoscopy History of coronary artery stent placement History of cervical spinal surgery History of shoulder surgery History of lip cancer H/O left knee surgery History of tonsillectomy Family History Father Lung cancer CAD (coronary artery disease) CVD (cardiovascular disease) Hx of CABG Mother Colon cancer Mental health disorder Maternal Uncle Lung cancer Maternal Uncle Substance abuse Substance use disorder Social History Housing: Other Housing Other:: Rents a room in a house Are you a primary transitional care nurse to a significant other at home: No Do you presently have visiting nurse or other home services: No Alcohol intake: current Alcohol intake frequency: holidays/special occasions only Alcohol type: beer and hard liquor Patient Tobacco Use Status: Former Tobacco user Years Smoked: quit 2004 e-Cigarette/Vaping Use: Never Used Second Hand Smoke Exposure: No Substance Use Type: Marijuana service: No Current occupational status: unemployed Current occupation: right handed Cognitive needs: No Hearing needs: No Vision needs: Yes Review of Systems Musc Reports arthralgias, Reports numbness and Reports stiffness Neuro Reports numbness Physical Exam Vital Signs: Last Vital Signs Temp 96.3 F L 04/25/23 13:47 Pulse 61 04/25/23 13:47 BP 136/64 04/25/23 13:47 Pulse Ox 97 04/25/23 13:47 Oxygen Delivery Method Room Air 04/25/23 13:47 BMI result Body Mass Index 27.5 Const General: cooperative, healthy appearing and comfortable Nutritional Appearance: overweight Orientation/consciousness: patient oriented x3 Limitations: no limitations HEENT Head: Yes normocephalic and Yes atraumatic Resp Effort & Inspection: normal respiratory effort and able to speak in complete sentences Auscultation: clear to auscultation bilaterally Cardio Rate: regular rate Neuro General: patient oriented x3 Extrem Other: Osteoarthritic changes of both hands with no active synovitis Few fibromyalgia tender points Results AMB Hemoglobin A1c AMB Hemoglobin A1c 6.3 % Last Edit by KRISTIN Cintron on 04/25/23 09:56 Assessment & Plan Assessment & Plan (1) Seropositive rheumatoid arthritis: Comment: ++RF -ve CCP Orencia: March 2021- present Leflunomide: December 2020 - March 2021 urinary frequency Actemra: January 2020- December 2020 -Had surgery did not want to restart after, frequent nail infections. Enbrel: January- denied by insurance Humira: October 2019- January 2020 - active disease on exam/ listed with allergy leg pain Code(s): M05.9 - Rheumatoid arthritis with rheumatoid factor, unspecified Plan: Patient with seropositive rheumatoid arthritis (RF++ CCP-). ? Patient's rheumatoid arthritis is well controlled on Orencia. Patient's symptoms are likely a combination of osteoarthritis and fibromyalgia. Continue Orencia 125 mg subcutaneously once weekly. Advised patient to hold Orencia 2 weeks before carpal tunnel release surgery if he decides to go through with the surgery and resume 2 weeks after Labs before next visit in 4 months (2) Osteoarthritis of hands, bilateral: Code(s): M19.041 - Primary osteoarthritis, right hand; M19.042 - Primary osteoarthritis, left hand Qualifiers: Osteoarthritis type: primary Qualified Code(s): M19.041 - Primary osteoarthritis, right hand; M19.042 - Primary osteoarthritis, left hand Plan: Referred to Occupational therapy (3) Immunization counseling: Code(s): Z71.85 - Encounter for immunization safety counseling Plan: Discussed ACR vaccination guidelines for all those with autoimmune rheumatic disease. I explained that flu vaccine and COVID vaccination are recommended. Patient states that he generally does not get vaccines and he has not had any infections in recent years. Plan I spent 26 minutes reviewing patient's chart, evaluating patient, ordering diagnostic workup, counseling patient and documenting in the chart Orders: Orders Comprehensive Met. Panel 4 Months M05.9 - Rheumatoid arthritis with rheumatoid factor, unspecified OT Evaluation and Treatment Today M19.041 - Primary osteoarthritis, right hand, M19.042 - Primary osteoarthritis, left hand Complete Blood Count Auto Diff 4 Months M05.9 - Rheumatoid arthritis with rheumatoid factor, unspecified C Reactive Protein 4 Months M05.9 - Rheumatoid arthritis with rheumatoid factor, unspecified Erythrocyte Sedimentation Rate 4 Months M05.9 - Rheumatoid arthritis with rheumatoid factor, unspecified Coding Level of Care Code Est Pt Level 4 (44340) Diagnoses Seropositive rheumatoid arthritis M05.9 Primary osteoarthritis of both hands M19.041; M19.042 Osteoarthritis type: primary Immunization counseling Z71.85
== END 2023-04-25 14:15 | disposition home or self-care (01) ==
PROVIDERS: PCP Internal Medicine; Visit Provider Student in an Organized Health Care Education/Training Program
DX: M05.79 Rheumatoid arthritis with rheumatoid factor of multiple sites without organ or systems involvement (principal); M19.041 Primary osteoarthritis, right hand; M19.042 Primary osteoarthritis, left hand; Z71.85 Encounter for immunization safety counseling
CPT/HCPCS: 99214

== ENCOUNTER → 2023-04-25 13:46 | Outpatient (BNVA) | payer OTHER, SELFPAY | PROVIDERS: PCP Internal Medicine; Visit Provider Student in an Organized Health Care Education/Training Program | DX: M05.9 Rheumatoid arthritis with rheumatoid factor, unspecified (principal); M19.041 Primary osteoarthritis, right hand; M19.042 Primary osteoarthritis, left hand; Z71.85 Encounter for immunization safety counseling | CPT/HCPCS: 99212 ==

== ENCOUNTER 2023-06-26 10:49 | Outpatient (AMB) | payer OTHER, SELFPAY ==
--- NOTE | 2023-06-26 11:26 | A.OFFVIS_ITS ---
Intake Intake Visit Reasons: BPH Intake Note: New Patient is Present for BPH Urology Medication: Tolterodine ( Prescribed by PCP) Antibiotic Allergies: Penicillins Blood Thinners: Aspirin PVR: Allergies penicillin V Allergy (Severe, Verified 06/26/23 11:48) rash adalimumab [From Humira] Allergy (Intermediate, Verified 06/26/23 11:48) leg pain atorvastatin Allergy (Intermediate, Verified 06/26/23 11:48) leg pain leflunomide Allergy (Intermediate, Verified 06/26/23 11:48) kidney failure tocilizumab [From Actemra] Allergy (Intermediate, Verified 06/26/23 11:48) frequent nail infection Medication List - Last Reconciled 06/26/23 by CHHAYA Haynes-RICHIE abatacept (Orencia ClickJect) 125 mg subcut QWEEK aspirin 81 mg PO DAILY blood sugar diagnostic (FreeStyle Lite Strips) test daily blood-glucose meter (FreeStyle Lite Meter kit) test daily carvedilol 6.25 mg PO BID diclofenac sodium 1% (Voltaren) 2 grams topical QID lancets (FreeStyle Lancets) test daily nitroglycerin 0.4 mg sublingual Q5M PRN pregabalin 75 mg PO BID rosuvastatin 40 mg PO DAILY sennosides (senna) 8.6 mg PO BEDTIME sertraline 150 mg PO DAILY tolterodine ER (Detrol LA) 2 mg PO Q24H [wrist cock up splint Wear on each wrist at night. ] HPI HPI Comments History of Present Illness Details Issa is a very pleasant 57-year-old male patient of Dr. Chaidez. He has a past medical history of bilateral carpal tunnel syndrome, type 2 diabetes, depression, gastritis, lip cancer, ED, anxiety, degenerative disc disease, horseshoe kidney, coronary artery disease, GERD, hypercholesteremia, rheumatoid arthritis, and osteoarthritis. He presents to the office today as a new patient for ongoing lower urinary tract symptoms. In discussion with the patient today he reports having follow-up with his PCP for urinary urgency, urinary frequency, and nocturia. He reports having since started tolterodine 2 mg and feels this is helping him immensely. In review of patient's chart it appears PSA and bladder ultrasound was ordered and performed. These results we re reviewed with the patient today. The bladder is well distended and normal. Bilateral ureteral jets are demonstrated. Pre void bladder volume is approximately 175 mL. Postvoid bladder volume is approximately 10 mL. Prostate volume is approximately 45 mL. PSA 02/01--0.3. Discussed at length potential causes for lower urinary tract symptoms patient is experiencing. Discussed possible near future in office cystoscopy for further assessment evaluation. In office urinalysis results reviewed with the patient today. PVR 0 mL. He otherwise reports to be happy with current voiding parameters on 2 mg of tolterodine. He currently denies urinary urgency, urinary frequency, incontinence, hematuria, dysuria, foul smelling urine, changes to urinary stream, flank pain, fever, and or chills. He does report nocturia times to however this is much more improved on tolterodine as he had previously been experiencing episodes of nocturia up to 6 times per night. He otherwise offers no other issues or concerns at this time. [facility] Medical History Bilateral carpal tunnel syndrome Screening for colon cancer Screening for prostate cancer New onset type 2 diabetes mellitus Depression Adult general medical exam Precordial chest pain Right hip pain Acute sinusitis Annual physical exam Right rotator cuff tear Atherosclerotic cardiovascular disease Left rotator cuff tear Gastritis determined by endoscopy Lip cancer Erectile dysfunction Anxiety Degenerative disc disease, lumbar Horseshoe kidney Coronary artery disease GERD (gastroesophageal reflux disease) Hypercholesterolemia Cervical radiculopathy 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 Osteoarthritis Surgical History History of carpal tunnel surgery of right wrist History of rotator cuff surgery S/P left rotator cuff repair Hx of colonoscopy History of coronary artery stent placement History of cervical spinal surgery History of shoulder surgery History of lip cancer H/O left knee surgery History of tonsillectomy Family History Father Lung cancer CAD (coronary artery disease) CVD (cardiovascular disease) Hx of CABG Mother Colon cancer Mental health disorder Maternal Uncle Lung cancer Maternal Uncle Substance abuse Substance use disorder Social History Housing: Other Housing Other:: Rents a room in a house Are you a primary child care lead teacher to a significant other at home: No Do you presently have visiting nurse or other home services: No Alcohol intake: current Alcohol intake frequency: holidays/special occasions only Alcohol type: beer and hard liquor Patient Tobacco Use Status: Former Tobacco user Years Smoked: quit 2004 e-Cigarette/Vaping Use: Never Used Second Hand Smoke Exposure: No Substance Use Type: Marijuana service: No Current occupational status: unemployed Current occupation: right handed Cognitive needs: No Hearing needs: No Vision needs: Yes Review of Systems Const Reports as per [facility] Eyes Reports no additional complaints ENT Reports no additional complaints Card Reports as per [facility] Resp Reports as per [facility] GI Reports as per HPI Reports as per [facility] Musc Reports as per [facility] Neuro Reports no additional complaints Psych Reports as per [facility] Endo Reports as per [facility] Physical Exam Const General: cooperative, comfortable, no acute distress, well developed, alert and awake Orientation/consciousness: patient oriented x3 Limitations: no limitations HEENT Head: Yes normal to inspection, Yes normocephalic and Yes atraumatic Ears: hearing grossly normal bilaterally Eyes General: appearance normal, both eyes and all related structures Neck Neck: Yes normal visual inspection and Yes trachea midline Chest Chest palpation & inspection: normal inspection of the chest Resp Effort & Inspection: normal respiratory effort and able to speak in complete s entences Cardio Rate: regular rate GI Inspection: Yes normal to inspection General: Yes no CVA tenderness Back/Spine/Pelvis Back: no CVA tenderness Skin General skin exam: no rashes or lesions noted Neuro General: patient oriented x3 Extrem General: Yes normal to inspection Psych Appearance: grossly normal and well kempt Mental Status: mental status grossly normal Speech and movement: Normal speech and movement present and Clear speech present Affect: normal affect Attitude: cooperative Thought process: Normal thought process present Thought content: Normal thought content present Insight: Fair insight present (Psych) Judgement: Fair judgement present (Psych) Office Procedures Post Void Residual Post Residual Void Post Void Residual (PVR): 0 [id number]-[id number] Void Residual by ultrasound Results AMB Urinalysis, Automated UA Leukoctes 0 Papito/uL Last Edit by Pranav Galvan LPN on 06/26/23 11:51 UA Nitrite Negative Last Edit by Pranav Galvan LPN on 06/26/23 11:51 UA Urobilinogen 0 mg/dL Last Edit by Pranav Galvan LPN on 06/26/23 11:51 UA Protein 15 mg/dL Last Edit by Pranav Galvan LPN on 06/26/23 11:51 UA pH 7.0 Last Edit by Pranav Galvan LPN on 06/26/23 11:51 UA Blood 0 Jame/uL Last Edit by Pranav Galvan LPN on 06/26/23 11:51 UA Specific [place] 1.015 Last Edit by Pranav Galvan LPN on 06/26/23 11:51 UA Ketone Negative Last Edit by Pranav Galvan LPN on 06/26/23 11:51 UA Bilirubin 0 mg/dL Last Edit by Pranav Galvan LPN on 06/26/23 11:51 UA Glucose 0 mg/dL Last Edit by Pranav Galvan LPN on 06/26/23 11:51 Results Reviewed Results Reviewed: Laboratory Last Values Urine pH (Auto) 7.0 06/26/23 11:49 Specific [place] (Auto) 1.015 06/26/23 11:49 Urine Protein (Auto) 15 mg/dL 06/26/23 11:49 Glucose (UA)(Auto) 0 mg/dL 06/26/23 11:49 Urine Ketones (Auto) Negative 06/26/23 11:49 Urine Blood (Auto) 0 Jame/uL 06/26/23 11:49 Urine Nitrite (Auto) Negative 06/26/23 11:49 Urine Bilirubin (Auto) 0 mg/dL 06/26/23 11:49 Urine Urobilinogen (Auto) 0 mg/dL 06/26/23 11:49 Leukocyte Esterase (Auto) 0 Papito/uL 06/26/23 11:49 Date of Service: 04/12/23 EXAMINATION: US PELVIS LIMITED (BLADDER) TECHNIQUE: Real-time imaging of the bladder. FINDINGS: BLADDER: Well distended and normal. Bilateral ureteral jets are demonstrated. Prevoid bladder volume is 171 mL. Postvoid bladder volume is 12.5 mL. PROSTATE: Prostate volume 44.4 mL. IMPRESSION: 1. Postvoid bladder volume of 12.5 mL with visualization of the bilateral ureteral jets. 2. Enlarged prostate measuring 44.4 mL. Assessment & Plan Assessment & Plan (1) Frequency of micturition: Code(s): R35.0 - Frequency of micturition (2) Nocturia: Code(s): R35.1 - Nocturia (3) Lower urinary tract symptoms: Code(s): R39.9 - Unspecified symptoms and signs involving the genitourinary system Plan In office urinalysis results reviewed with the patient today; as noted above. PVR 0 mL. Continue tolterodine 2 mg as prescribed. Discussed at length potential causes for lower urinary tract symptoms patient is experiencing. Discussed lifestyle modifications with limiting fluids 3-4 hours prior to bed to decreasing episodes of nocturia. Discussed bladder triggers/irritants. Discussed importance of managing diabetes for improvement lower urinary tract symptoms as well as overall health and well-being. Recent PSA and bladder ultrasound results reviewed with the patient today; as noted above. Discussed possible near future in office cystoscopy if symptoms worsen and or persist. Follow-up in 3 months with PVR; or sooner with any issues, concerns, and or questions. Orders: Orders AMB Post Void Residual by ultrasound Today N40.0 - Benign prostatic hyperplasia without lower urinary tract symptoms AMB Urinalysis Automated Today Z13.9 - Encounter for screening, unspecified Patient Instructions: The patient had an opportunity to ask questions regarding the treatment plan. All questions were answered. Physical exam, labs, and imaging were discussed and reviewed in detail. As well as risks, benefits, and discussion of treatment choices. No major barriers to understanding were identified. The patient expressed understanding and agreement with the above treatment plan. The patient was made aware they should contact our office by phone for worsening of their current condition, the appearance of new symptoms, or with any questions or concerns. Compliance is encouraged with any medications and follow up testing that is ordered. It is a privilege to be allowed the opportunity to participate in? your urological care.? Again, if you have any questions or concerns If you have any questions or concerns please do not hesitate to contact me. The office is [phone]. This note is constructed using voice recognition software. While every effort has been made to ensure accuracy lining marker errors may have been included. Yours sincerely, REBEKAH Haynes Coding Level of Care Code New Pt Level 3 (99395) Diagnoses Frequency of micturition R35.0 Nocturia R35.1 Lower urinary tract symptoms R39.9 CPT Codes Post Residual Void - PVR CPT Code: 97138-[id number] Void Residual by ultrasound ([id number])
== END 2023-06-26 12:08 | disposition home or self-care (01) ==
PROVIDERS: PCP Internal Medicine; Visit Provider Nurse Practitioner Family
DX: R35.0 Frequency of micturition (principal); R35.1 Nocturia; R39.9 Unspecified symptoms and signs involving the genitourinary system; Z13.9 Encounter for screening, unspecified
CPT/HCPCS: 99203

== ENCOUNTER → 2023-06-26 10:49 | Outpatient (BNVA) | payer OTHER, SELFPAY | PROVIDERS: PCP Internal Medicine; Visit Provider Nurse Practitioner Family | DX: R35.0 Frequency of micturition (principal); R35.1 Nocturia; R39.9 Unspecified symptoms and signs involving the genitourinary system | CPT/HCPCS: 51798; 81003; 99202 ==

== ENCOUNTER 2023-07-18 09:51 | Outpatient (AMB) | payer OTHER, SELFPAY ==
[2023-07-18 09:52] VITALS: BP 138/82; PULSE 58; O2SAT 98; BMI 27.4
--- NOTE | 2023-07-18 09:52 | A.OFFPC_ITS ---
Vital Signs 07/18/23 09:52 Height 5 ft 10 in Weight 191 lb 0.4 oz BMI 27.4 BP 138/82 Blood Pressure Location Lt brachial Position Sitting Pulse 58 Pulse Source Pulse Oximeter Pulse Oximetry (%) 98 Oxygen Delivery Method Room Air Intake Visit Reasons: DM , RA frequency Intake Note: Patient is here to follow up on DM, RA frequency Supervisor Drying And Softening Required: No Allergies penicillin V Allergy (Severe, Verified 07/18/23 09:53) rash adalimumab [From Humira] Allergy (Intermediate, Verified 07/18/23 09:53) leg pain atorvastatin Allergy (Intermediate, Verified 07/18/23 09:53) leg pain leflunomide Allergy (Intermediate, Verified 07/18/23 09:53) kidney failure tocilizumab [From Actemra] Allergy (Intermediate, Verified 07/18/23 09:53) frequent nail infection Medication List - Last Reconciled 07/18/23 by Clive Chaidez MD abatacept (Orencia ClickJect) 125 mg subcut QWEEK aspirin 81 mg PO DAILY blood sugar diagnostic (FreeStyle Lite Strips) test daily blood-glucose meter (FreeStyle Lite Meter kit) test daily carvedilol 6.25 mg PO BID diclofenac sodium 1% (Voltaren) 2 grams topical QID lancets (FreeStyle Lancets) test daily nitroglycerin 0.4 mg sublingual Q5M PRN pregabalin 75 mg PO BID rosuvastatin 40 mg PO DAILY sennosides (senna) 8.6 mg PO BEDTIME sertraline 150 mg PO DAILY tolterodine ER (Detrol LA) 2 mg PO Q24H [wrist cock up splint Wear on each wrist at night. ] Tobacco use date assessed: 07/18/23 Dental Screening Dental Screen Date: 07/18/23 HPI DM , RA frequency HPI Details 57-year-old overweight male with rheumat oid arthritis hypercholesterolemia GERD coronary artery disease controlled diabetes mellitus hypertension BPH coming in for follow-up last seen in April 2023. Patient's colonoscopy is December 2018. Review of the notes has seen urology for BPH on tolterodine. Rheumatology follow-up with RA on Orencia patient does have the osteoarthritis and fibromyalgia. Planned carpal tunnel surgery and advised to stop Orencia 2 weeks before. problem with trigger finger and CTS. had R surgery already a nd L will be having surgery. has hand OA and advised to use diclofenac gel PFSH Medical History Bilateral carpal tunnel syndrome Screening for colon cancer Screening for prostate cancer New onset type 2 diabetes mellitus Depression Adult general medical exam Precordial chest pain Right hip pain Acute sinusitis Annual physical exam Right rotator cuff tear Atherosclerotic cardiovascular disease Left rotator cuff tear Gastritis determined by endoscopy Lip cancer Erectile dysfunction Anxiety Degenerative disc disease, lumbar Horseshoe kidney Coronary artery disease GERD (gastroesophageal reflux disease) Hypercholesterolemia Cervical radiculopathy 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 Osteoarthritis Surgical History History of carpal tunnel surgery of right wrist History of rotator cuff surgery S/P left rotator cuff repair Hx of colonoscopy History of coronary artery stent placement History of cervical spinal surgery History of shoulder surgery History of lip cancer H/O left knee surgery History of tonsillectomy Family History Father Lung cancer CAD (coronary artery disease) CVD (cardiovascular disease) Hx of CABG Mother Colon cancer Mental health disorder Maternal Uncle Lung cancer Maternal Uncle Substance abuse Substance use disorder Social History Housing: Other Housing Other:: Rents a room in a house Are you a primary field care manager to a significant other at home: No Do you presently have visiting nurse or other home services: No Alcohol intake: current Alcohol intake frequency: holidays/special occasions only Alcohol type: beer and hard liquor Patient Tobacco Use Status: Former Tobacco user Years Smoked: quit 2004 e-Cigarette/Vaping Use: Never Used Second Hand Smoke Exposure: No Substance Use Type: Marijuana service: No Current occupational status: unemployed Current occupation: right handed Cognitive needs: No Hearing needs: No Vision needs: Yes Questionnaire Thrive Questionnaire Date Thrive assessed: 07/18/23 AUDIT C Alcohol Use Questionnaire (AUDIT-C) 1. How often do you have a drink containing alcohol?: Monthly or less 2. How many drinks containing alcohol do you have on a typical day when you are drinking?: 1 or 2 3. How often do you have six or more drinks on one occasion?: Never Total Score: 1 Score Reviewed/Action Taken: No SARAI-7 AMB Questionnaire SARAI-7 Date SARAI - 7 assessed: 07/18/23 Source: Developed by Drs. Souleymane Cox, Aline Kay, Dmaion Lieberman and colleagues, with an educational zulema from [employer]. Physical exam (Primary Care) Vital Signs: Last Vital Signs Pulse 58 07/18/23 09:52 BP 138/82 07/18/23 09:52 Pulse Ox 98 07/18/23 09:52 Oxygen Delivery Method Room Air 07/18/23 09:52 BMI result Body Mass Index 27.4 Tobacco/Smoking Status: Tobacco use Status Tobacco use date assessed 07/18/23 07/18/23 09:54 Patient Tobacco Use Status Former Tobacco user 07/18/23 09:54 Tobacco use type 10/05/22 13:31 e-Cigarette/Vaping Use Never Used 07/18/23 09:54 Thrive Assessment: Date of Thrive Assessment Date Thrive assessed 07/18/23 07/18/23 09:54 Const General: alert; No acute distress Eyes Conjunctivae: conjunctivae normal Resp Auscultation: clear to auscultation bilaterally Cardio Rate: regular rate Rhythm: regular rhythm GI Inspection: Yes normal to inspection Extrem General: Yes normal to inspection and No edema Results AMB Hemoglobin A1c AMB Hemoglobin A1c 6.1 % Last Edit by KRISTIN Barrientos on 07/18/23 10:09 Results Reviewed Results Reviewed: Laboratory Last Values Hgb A1c (Clinic) 6.1 % (4.0-6.0) H 07/18/23 09:26 Assessment and Plan Assessment & Plan (1) Type 2 diabetes mellitus with hyperglycemia: Comment: DR. Larry Code(s): E11.65 - Type 2 diabetes mellitus with hyperglycemia Plan: Decrease the amount of carbohydrate intake, pasta, bread, rice and potatoes are all sugar and that is aside from all the sweet stuff, remember that fruits are good but they are Sweet also. Hemoglobin A1c goal of less than 6.5 patient presently diet controlled (2) Essential hypertension: Code(s): I10 - Essential (primary) hypertension Plan: Continue with blood pressure medication. Decrease salt intake and exercise on carvedilol 6.25 mg twice a day (3) Atherosclerotic cardiovascular disease: Code(s): I25.10 - Atherosclerotic heart disease of eagle coronary artery without angina pectoris Plan: Control the cholesterol, weight, blood pressure, diabetes continue with aspirin 81 mg once a day blood work (4) Hypercholesterolemia: Code(s): E78.00 - Pure hypercholesterolemia, unspecified Plan: Avoid fried foods, chicken skin, eggs, butter margarine, pastries and meat. Be it pork or beef they have a lot of cholesterol LDL goal of less than 70 and triglyceride of less than 150 on rosuvastatin 40 mg once a day January 2023 last blood work (5) Seropositive rheumatoid arthritis: Comment: ++RF -ve CCP Orencia: March 2021- present Leflunomide: December 2020 - March 2021 urinary frequency Actemra: January 2020- December 2020 -Had surgery did not want to restart after, frequent nail infections. Enbrel: January- denied by insurance Humira: October 2019- January 2020 - active disease on exam/ listed with allergy leg pain Code(s): M05.9 - Rheumatoid arthritis with rheumatoid factor, unspecified Plan: Continued to follow-up with Rheumatology on Orencia (6) GERD (gastroesophageal reflux disease): Code(s): K21.9 - Gastro-esophageal reflux disease without esophagitis Qualifiers: Esophagitis presence: without esophagitis Qualified Code(s): K21.9 - Gastro-esophageal reflux disease without esophagitis Plan: Avoid the foods that causes that usually spicy foods, tomato products, juices, coffee, soda and foods that your sensitive to. After eating do not lie down, allow 3-4 hours before in lie down. And keep the head of bed above 30 degrees to avoid the acid from going up. (7) Tubular adenoma of colon: Code(s): D12.6 - Benign neoplasm of colon, unspecified Plan: Discussed about colon cancer screening- referral done Orders: Orders AMB Hemoglobin A1c Today E11.65 - Type 2 diabetes mellitus with hyperglycemia Referrals Gastroenterology Referral D12.6 - Benign neoplasm of colon, unspecified Medications: Refilled nitroglycerin do not exceed 3 doses per episode 0.4 mg sublingual Q5M PRN 30 tabs 5RF chest pain D12.6 - Benign neoplasm of colon, unspecified Coding Level of Care Code Est Pt Level 4 (28505) Diagnoses Type 2 diabetes mellitus with hyperglycemia E11.65 Essential hypertension I10 Atherosclerotic cardiovascular disease I25.10 Hypercholesterolemia E78.00 Seropositive rheumatoid arthritis M05.9 Gastroesophageal reflux disease without esophagitis K21.9 Esophagitis presence: without esophagitis Tubular adenoma of colon D12.6
== END 2023-07-18 10:43 | disposition home or self-care (01) ==
PROVIDERS: PCP Internal Medicine; Visit Provider Internal Medicine
DX: E11.65 Type 2 diabetes mellitus with hyperglycemia (principal); M05.9 Rheumatoid arthritis with rheumatoid factor, unspecified; I10 Essential (primary) hypertension; I25.10 Atherosclerotic heart disease of native coronary artery without angina pectoris; E78.00 Pure hypercholesterolemia, unspecified; K21.9 Gastro-esophageal reflux disease without esophagitis; D12.6 Benign neoplasm of colon, unspecified
CPT/HCPCS: 83036; 99214

== ENCOUNTER 2023-08-01 13:30 | Outpatient (RCR) | payer OTHER, SELFPAY ==
--- NOTE | 2023-06-15 16:04 | MHC.OT.OEV ---
[address] [phone] F: [phone] Occupational Therapy Evaluation Patient Name: Issa Cerna Diagnosis: OA of (B) hands Date of Onset: Date of Surgery: Attending Provider: Jaylene Liang Prescribed Treatment: Follow Up Appointment: History of Current Condition: Patient is a 57 year old (R) hand dominate male who was referred for chronic OA of (B) hands by Jaylene Liang MD. He has stated he has had previous OT for his hands but is having pain and would like to control it. He reported will be scheduling carpal tunnel release surgery for the left for his symptoms. Significant Medical History: Precautions/Contraindications: rheumatoid arthritis, T2DM, hx lip cancer 5 years ago, CAD NO ULTRASOUND, JOINT MOBS Patient Goals: To decrease pain Hand Dominance: Right Observations: QuickDASH Score: 56.8% Prior Level of Function and Occupation Self Care, Employment, Leisure: Retired. 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 (I)ADLs/IADLs Living Situation, Family and/or Social Support: Lives on the 1st floor of a house with his son Current Level of Function and Occupation Self Care, Employment, Leisure: min(A) ADLs/IADLs Sleep: Driving: (I) Vision: Balance: Pain Assessment Pain Score: 10/10 during activity Pain Scale Used: Numeric (0 - 10) Pain Location and Description: (B) hands Aggravating Factors: Activity, cold Alleviating Factors: Skin and Soft Tissue Assessment Skin and Soft Tissue: Other Comments: WNL Nerve assessment Ulnar Nerve: Median Nerve: Right Impaired Left Impaired Radial Nerve: Comments: Will have Carpal Tunnel release surgery for (L) Has had Carpal Tunnel release for his (R) Sensory Assessment Temperature: WNL Light Touch: WNL Proprioception: WNL Vibration: Comments: Edema Assessment Upper Extremity: WNL Lower Extremity: Comments: Dexterity Assessment Dexterity: Left Impaired Comments: Finger opposition- impaired Special Tests Comments: AROM(PROM) Strength Cervical Cervical Flexion: Cervical Extension: Cervical Lateral Flexion: Cervical Rotation: Comments: Shoulder Flexion: WFL Extension: WFL Abduction: WFL Internal Rotation: External Rotation: Comments: Patient presents with pain Flexion: 3/5 Extension:3/5 Abduction: 3/5 Internal Rotation: 3/5 External Rotation: 3/5 Comments: Elbow Flexion: WFL Extension: WFL Pronation: WFL Supination: WFL Comments: Flexion: 3/5 Extension: 3/5 Pronation: Supination: Comments: Wrist Flexion: Extension: Ulnar Deviation: Radial Deviation: Comments: Flexion: 3/5 Extension: 3/5 Ulnar Deviation: Radial Deviation: Comments: Thumb Thumb CMC Flexion: Thumb MCP Flexion: Thumb IP Flexion: Radial Abduction: Palmar Abduction: [place] (Kapandji 0-10): Comments: Digits Index MCP: PIP: DIP: Long MCP: PIP: DIP: Ring MCP: PIP: DIP: Small MCP: PIP: DIP: Comments: (R) PIP: 2nd 80*, 3rd 60*, 4th 80*,5th 40*; DIP 2nd 10*, 3rd 10*,4th 1*, 5th 39* (L) PIP 2nd 90, 3rd 79, 4th 90, 5th 70; DIP: 2nd 30*, 3rd 10*, 4th 8*, 5th unable due to trigger finger. Trigger finger of the (L) 5th digit noted. Gross Grasp: 23lbs., 39lbs. Lateral Pinch: 5, 6 Two-Point Pinch: 2, 3 Three-Jaw Milo: 4, 4 Comments: (R) dolphin trainer strength= 23lbs. (L) dolphin trainer strength= 39lbs. Patient Education Primary Language: Product Technician Required: No Current Knowledge: Teaching Method: Education Needs Identified on Evaluation: How did patient/family demonstrate learning? Barriers to Learning: Readiness for Learning: Who was educated? Comments: Plan of Care Assessment: Patient is a 57 year old (R) hand dominate male who was referred for chronic OA of (B) hands. Patient has had previous Occupational Therapy treatment for OA, however he stated his hands feel tight and the pain has increased. Patient on initial evaluation patient's presents with pain, impaired coordination/ dexterity, and impaired range of motion in hands (B'ly). It was also found during evaluation patient present with trigger finger of the (L) 5th digit. Quick DASH score= 56.8% perceived impairment of performance during ADLs. Due to the documented impairments it is recommended that patient receive skilled occupational therapy in order for patient to achieve his prior level of function of (I) during ADLs, and to be (I) with home maintenance program. Thank you for your referral. STG Duration: 2 weeks Short Term Goals: Patient will report decreased pain (B'ly) from 10/10 pain during activity to 5/10 Patient will be (I) with pain management techniques LTG Duration: 4 weeks Analyzer Sales Goals: Patient will report 1/10 pain in (B) hands Patient will be (I) with home exercise program Frequency and Duration: The patient will be seen 1x a week for 4 weeks Treatment Plan: Therapeutic Exercise Therapeutic Activity Home Exercise Program Patient Education Edema Control ADL Training Paraffin MHP Cold Packs Kinesiotaping 1x a week for 4 weeks. Electronically Signed By: JOHNY Atkinson/Sharmila, CLT Reviewed/agree with student documentation: Therapist: Please sign and return to therapist, Thank you for your referral.
--- NOTE | 2023-08-01 16:23 | MHC.OT.DC ---
[address] [phone] F: [phone] Occupational Therapy Discharge Note Patient Name: Issa Cerna Provider: Jaylene Liang Diagnosis: OA of (B) hands Date of Surgery: Date of Evaluation: 06/15/23 Date of Discharge: Treatments to Date: 4 Cancellations to Date: No Shows to Date: Discharge Status: Independent with HEP Discharge Summary: Patient has actively participated in skilled OT. Prior to this session patient had previous therapy for (B) OA. This session was to review and reestablish a home maintenance program for pain management. During his short session patient had decreased his pain from a 10/10 to a 4/10 pain and demonstrated (I) with HEP. At today's session patient reported his hands were painful as he was using them all weekend moving furniture. Patient and therapist reviewed HEP and pain management techniques. As patient is (I) with HEP and pain management techniques patient is d/c from skilled OT. Should patient require further skilled OT intervention, OT will reevaluate. Thank you for your referral he was a pleasure to work with. Electronically Signed By: JOHNY Atkinson/Sharmila, CLT Reviewed/agree with student documentation: Therapist: Please Sign and return to therapist, thank you for your referral.
== END 2023-08-01 16:24 | disposition home or self-care (01) ==
LOC: HO.OT 13:30
PROVIDERS: PCP Internal Medicine; Visit Provider Student in an Organized Health Care Education/Training Program
DX: M19.041 Primary osteoarthritis, right hand (principal); M19.042 Primary osteoarthritis, left hand
CPT/HCPCS: 97110; 97165; 97535

== ENCOUNTER 2023-08-23 11:55 | Outpatient (REF) | payer OTHER, SELFPAY ==
[2023-08-23 12:28] LABS: MANUAL DIFF FLAG NO
[2023-08-23 12:54] LABS: Basophils Absolute Auto 0.1 X10*3/uL (0.0-0.2); Basophils Percent Auto 0.6 % (0-2); Eosinophils Absolute Auto 0.1 X10*3/uL (0.0-0.4); Eosinophils Percent Auto 1.5 % (0-4); Hematocrit 40.7 % (42.0-52.0); Hemoglobin 13.7 g/dl (14.0-18.0); Imm Gran Abs Auto 0.03 X10*3/uL (0.00-0.03); Imm Gran Pct Auto 0.4 % (0.0-0.4); Lymphocytes Absolute Auto 3.3 X10*3/uL (1.2-4.9); Lymphocytes Percent Auto 41.3 % (20-40); Mean Corpuscular HGB Conc 33.7 g/dl (31.0-36.0); Mean Corpuscular Volume 86.2 fL (80.0-98.0); Mean Platelet Volume 9.8 fL (9.4-12.4); Monocytes Absolute Auto 0.7 X10*3/uL (0.1-1.2); Monocytes Percent Auto 9.2 % (2-11); Neutrophils Absolute Auto 3.8 x10*3/uL (2.0-8.3); Platelet Count 169 X10*3/uL (160-400); Red Blood Count 4.72 X10*6/uL (4.60-5.80); Red Cell Distribution Width 13.7 % (11.0-16.0)
[2023-08-23 13:29] LABS: Alanine Aminotransferase 19 U/L (0-40); Albumin Level 4.2 g/dL (3.5-5.0); Alkaline Phosphatase 77 U/L (39-117); Anion Gap 11 (12-20); Aspartate Amino Transferase 20 U/L (5-37); Bilirubin Total 0.5 mg/dL (0.0-1.0); Blood Urea Nitrogen 14 mg/dL (9-16); C Reactive Protein 0.82 mg/dL (< or = 0.50); Calcium 9.4 mg/dL (8.4-10.2); Carbon Dioxide 29 mmol/L (22-29); Chloride 107 mmol/L (96-108); Estimated Glomerular Filt Rate > 60; Glucose Random 89 mg/dL (60-115); Sodium 143 mmol/L (135-145)
[2023-08-23 13:43] LABS: Erythrocyte Sedimentation Rate 7 MM/HR (0-15)
== END 2023-08-23 11:56 | disposition home or self-care (01) ==
LOC: HO.LAB 11:55
PROVIDERS: PCP Internal Medicine; Visit Provider Student in an Organized Health Care Education/Training Program
DX: M05.9 Rheumatoid arthritis with rheumatoid factor, unspecified (principal)
CPT/HCPCS: 36415; 80053; 85025; 85652; 86140

== ENCOUNTER 2023-08-24 13:42 | Outpatient (AMB) | payer OTHER, SELFPAY ==
[2023-08-24 13:49] VITALS: BP 114/68; PULSE 79; O2SAT 98; BMI 27.6
--- NOTE | 2023-08-24 13:49 | MHC.OFFVIS ---
Intake Vital Signs 08/24/23 13:49 Height 5 ft 10 in Weight 192 lb 10.944 oz BMI 27.6 BP 114/68 Blood Pressure Location Rt brachial Position Sitting Pulse 79 Pulse Source Pulse Oximeter Pulse Oximetry (%) 98 Oxygen Delivery Method Room Air Intake Visit Reasons: RA Intake Note: Patient last seen 04/25/23 presents today for follow up and test results. Lots of pain today, very uncomfortable. Also reports swelling Afloat Cryptologic Manager Required: No Accompanied by: Self / Same As Patient Allergies penicillin V Allergy (Severe, Verified 08/24/23 13:53) rash adalimumab [From Humira] Allergy (Intermediate, Verified 08/24/23 13:53) leg pain atorvastatin Allergy (Intermediate, Verified 08/24/23 13:53) leg pain leflunomide Allergy (Intermediate, Verified 08/24/23 13:53) kidney failure tocilizumab [From Actemra] Allergy (Intermediate, Verified 08/24/23 13:53) frequent nail infection Medication List - Last Reconciled 08/24/23 by Jaylene Liang MD abatacept (Orencia ClickJect) 125 mg subcut QWEEK aspirin 81 mg PO DAILY blood sugar diagnostic (FreeStyle Lite Strips) test daily blood-glucose meter (FreeStyle Lite Meter kit) test daily carvedilol 6.25 mg PO BID diclofenac sodium 1% (Voltaren) 2 grams topical QID lancets (FreeStyle Lancets) test daily nitroglycerin 0.4 mg sublingual Q5M PRN pregabalin 75 mg PO BID rosuvastatin 40 mg PO DAILY sennosides (senna) 8.6 mg PO BEDTIME sertraline 150 mg PO DAILY tolterodine ER (Detrol LA) 2 mg PO Q24H [wrist cock up splint Wear on each wrist at night. ] HPI HPI Comments History of Present Illness Details 57 year old male presents for follow-up of seropositive rheumatoid arthritis (RF++ CCP-). Last seen 04/2023 Continues to take Orencia 125 mg subcutaneous every week. Well tolerated Patient states that he is doing terrible. A few days ago he was moving light aneudy around his apartment and since then he has been having significant joint pains. He is having bilateral hand pain and stiffness, difficulty making a fist. Also he believes he pulled a muscle in his back and feels that his left breast is swollen. He also has left-sided paraspinal muscle pain. He stated that he had a flu-like illness 4 weeks ago that rapidly resolved. He is s/p right carpal tunnel release a few months ago and planning to do the left hand soon [facility] Medical History Bilateral carpal tunnel syndrome Screening for colon cancer Screening for prostate cancer New onset type 2 diabetes mellitus Depression Adult general medical exam Precordial chest pain Right hip pain Acute sinusitis Annual physical exam Right rotator cuff tear Atherosclerotic cardiovascular disease Left rotator cuff tear Gastritis determined by endoscopy Lip cancer Erectile dysfunction Anxiety Degenerative disc disease, lumbar Horseshoe kidney Coronary artery disease GERD (gastroesophageal reflux disease) Hypercholesterolemia Cervical radiculopathy 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 Osteoarthritis Surgical History History of carpal tunnel surgery of right wrist History of rotator cuff surgery S/P left rotator cuff repair Hx of colonoscopy History of coronary artery stent placement History of cervical spinal surgery History of shoulder surgery History of lip cancer H/O left knee surgery History of tonsillectomy Family History Father Lung cancer CAD (coronary artery disease) CVD (cardiovascular disease) Hx of CABG Mother Colon cancer Mental health disorder Maternal Uncle Lung cancer Maternal Uncle Substance abuse Substance use disorder Social History Housing: Other Housing Other:: Rents a room in a house Are you a primary landcare facilitator to a significant other at home: No Do you presently have visiting nurse or other home services: No Alcohol intake: current Alcohol intake frequency: holidays/special occasions only Alcohol type: beer and hard liquor Patient Tobacco Use Status: Former Tobacco user Years Smoked: quit 2004 e-Cigarette/Vaping Use: Never Used Second Hand Smoke Exposure: No Substance Use Type: Marijuana service: No Current occupational status: unemployed Current occupation: right handed Cognitive needs: No Hearing needs: No Vision needs: Yes Review of Systems Musc Reports back pain, Reports arthralgias, Reports joint swelling and Reports stiffness Physical Exam Vital Signs: Last Vital Signs Pulse 79 08/24/23 13:49 BP 114/68 08/24/23 13:49 Pulse Ox 98 08/24/23 13:49 Oxygen Delivery Method Room Air 08/24/23 13:49 BMI result Body Mass Index 27.6 Const General: cooperative, healthy appearing and comfortable Nutritional Appearance: overweight Orientation/consciousness: patient oriented x3 Limitations: no limitations HEENT Head: Yes normocephalic and Yes atraumatic Chest Other: No noticeable breast swelling No palpable masses both breasts No specific chest wall tenderness Chest palpation & inspection: normal inspection of the chest Resp Effort & Inspection: normal respiratory effort and able to speak in complete sentences Auscultation: clear to auscultation bilaterally Cardio Rate: regular rate Neuro General: patient oriented x3 Extrem Other: Osteoarthritic changes of both hands with prominent Heberden's and Gloria's nodes Few tender MCPs and PIP is bilaterally Bilateral positive MCP squeeze test Bilateral flexor tendon tenderness Assessment & Plan Assessment & Plan (1) Seropositive rheumatoid arthritis: Comment: ++RF -ve CCP Orencia: March 2021- present Leflunomide: December 2020 - March 2021 urinary frequency Actemra: January 2020- December 2020 -Had surgery did not want to restart after, frequent nail infections. Enbrel: January- denied by insurance Humira: October 2019- January 2020 - active disease on exam/ listed with allergy leg pain Code(s): M05.9 - Rheumatoid arthritis with rheumatoid factor, unspecified Plan: This is a 57-year-old male with seropositive RA who presents for follow-up. On Orencia 125 mg weekly. On exam patient is having diffuse pain. Likely mild RA flare in addition to degenerative arthritis and fibromyalgia. Labs show mildly elevated CRP Will give a prednisone taper. Continue with Orencia 125 mg weekly. Labs before next visit in 4 months (2) Osteoarthritis of hands, bilateral: Code(s): M19.041 - Primary osteoarthritis, right hand; M19.042 - Primary osteoarthritis, left hand Qualifiers: Osteoarthritis type: primary Qualified Code(s): M19.041 - Primary osteoarthritis, right hand; M19.042 - Primary osteoarthritis, left hand Plan: Patient completed occupational therapy (3) High risk medication use: Code(s): Z79.899 - Other longterm (current) drug therapy Plan: Advised patient to hold medication for any signs of fever or infection Plan I spent 26 minutes reviewing patient's chart, evaluating patient, ordering diagnostic workup, counseling patient and documenting in the chart Orders: Orders Comprehensive Met. Panel 4 Months M05.9 - Rheumatoid arthritis with rheumatoid factor, unspecified C Reactive Protein 4 Months M05.9 - Rheumatoid arthritis with rheumatoid factor, unspecified Complete Blood Count Auto Diff 4 Months M05.9 - Rheumatoid arthritis with rheumatoid factor, unspecified Erythrocyte Sedimentation Rate 4 Months M05.9 - Rheumatoid arthritis with rheumatoid factor, unspecified Medications: New prednisone Take 3 tabs daily for 1 week, 2 tabs daily for 1 week then 1 tab daily for 1 week then stop 42 tabs 0RF Coding Level of Care Code Est Pt Level 4 (96572) Diagnoses Seropositive rheumatoid arthritis M05.9 Primary osteoarthritis of both hands M19.041; M19.042 Osteoarthritis type: primary High risk medication use Z79.899
== END 2023-08-24 14:25 | disposition home or self-care (01) ==
PROVIDERS: PCP Internal Medicine; Visit Provider Student in an Organized Health Care Education/Training Program
DX: M05.79 Rheumatoid arthritis with rheumatoid factor of multiple sites without organ or systems involvement (principal); M19.041 Primary osteoarthritis, right hand; M19.042 Primary osteoarthritis, left hand; Z79.899 Other long term (current) drug therapy
CPT/HCPCS: 99214

== ENCOUNTER → 2023-08-24 13:42 | Outpatient (BNVA) | payer OTHER, SELFPAY | PROVIDERS: PCP Internal Medicine; Visit Provider Student in an Organized Health Care Education/Training Program | DX: M05.9 Rheumatoid arthritis with rheumatoid factor, unspecified (principal); M19.041 Primary osteoarthritis, right hand; M19.042 Primary osteoarthritis, left hand; Z79.899 Other long term (current) drug therapy | CPT/HCPCS: 99212 ==

== ENCOUNTER 2023-09-12 09:45 | Outpatient (AMB) | payer OTHER, SELFPAY ==
[2023-09-12 09:47] VITALS: BP 144/87; PULSE 57; BMI 28.0
--- NOTE | 2023-09-12 09:47 | A.OFFVIS_ITS ---
Vital Signs 09/12/23 09:47 Height 5 ft 10 in Weight 195 lb 5.273 oz BMI 28.0 BP 144/87 H Blood Pressure Location Lt brachial Position Sitting Pulse 57 Intake Visit Reasons: Colonoscopy screening Intake Note: Issa presents to in office follow up today for colonoscopy screening. CC: Patient reports abdominal cramping when having BMs. Denies other GI symptoms today. Billing Coordinator Required: No Accompanied by: Self / Same As Patient Allergies penicillin V Allergy (Severe, Verified 09/12/23 10:01) rash adalimumab [From Humira] Allergy (Intermediate, Verified 09/12/23 10:01) leg pain atorvastatin Allergy (Intermediate, Verified 09/12/23 10:01) leg pain leflunomide Allergy (Intermediate, Verified 09/12/23 10:01) kidney failure tocilizumab [From Actemra] Allergy (Intermediate, Verified 09/12/23 10:01) frequent nail infection HPI HPI Colonoscopy screening: Details: Assessment & Plan (1) GERD (gastroesophageal reflux disease): ?Code(s): K21.9 - Gastro-esophageal reflux disease without esophagitis ?Qualifiers: ?Esophagitis presence:?without esophagitis? Qualified Code(s):?K21.9 - Gastro-esophageal reflux disease without esophagitis ?Plan: 06/30 1:00 no ans, LVM, 1:56 no ans He is doing however he stopped the pantoprazole for a bit because he was having muscle aches and stomach discomfort and he was not sure was this medication or his Actibra.? In the end it seems it was the ladder.? He has gone through quite a few of the new biologics for his autoimmune arthritis and so far he has not had much luck.? At this point he wants to restart his pantoprazole particularly since he is having heartburn and I will provide a new prescription.? He is moving his bowels okay and the senna works well for his occasional constipation.? His colonoscopy was in 2019 and a repeat is not due for 3-5 years.? He is agreeable to six-month follow-up (2) Constipation: ?Code(s): K59.00 - Constipation, unspecified ? ? ? Medications:?New pantoprazole (Protonix) 40 mg PO DAILY 30 days 30 tabs 6RF K21.9 - Gastro- esophageal reflux disease without esophagitis COLONOSCOPY 2018-[facility] Findings: Terminal Ileum ? Not evaluated Cecum ? Normal Ascending Colon ? Normal Transverse Colon - A 10-12 mm polyp removed by a hot snare Descending Colon ? Moderate diverticulosis Sigmoid Colon ? Multiple 7-9 mm diminutive polyps - two removed by cold snare and moderate diverticulosis Rectum ? Normal Ano-rectum - Normal Colon preparation: Good after some irrigation Impression and Post Procedure Diagnosis: Colonoscopy Findings: Three polyps removed Moderate diverticulosis seen in the left colon Plan: Await pathology results Patient has an appointment on 02/07/19 in the [facility] with Dorothea Avila NP. Repeat Colonoscopy interval based on path results ? in 3-5 years if polyps are adenomatous and 10 years if polyps are hyperplastic. Above findings were reviewed with the patient and colon polyps and diverticulosis handouts were given in the discharge area Addendum: Biopsies showed: A. Colon, transverse polyp, polypectomy: Fragments of tubular adenoma. B. Colon, sigmoid polyps, polypectomy Fragments of hyperplastic polyp. Laboratory Tests 08/23/23 12:27 WBC 8.0 Hgb 13.7 L Hct 40.7 L MCV 86.2 MCH 29.0 Plt Count 169 Estimated GFR > 60 Total Bilirubin 0.5 AST 20 ALT 19 Alkaline Phosphatase 77 C-Reactive Protein 0.82 H TODAY'S VISIT Patient has been lost to follow-up since 05/2021. He had a large TA in 2020. He really struggled with the PEG prep and used Suprep last time with better results. His GERD and CIC resolved after stopping the metformin. His only new problem is urinary incontinence and he is now on an OAB medication. This is only partially effective. He denies breathing problems, he had an episode of pre syncope 6 mos ago that he thinks was r/t dehydration It was hot and I was over exerting myself. He sees Dr. Goins. NO anes or sed problems. NO ID problems. [facility] Medical History Bilateral carpal tunnel syndrome Screening for colon cancer Screening for prostate cancer New onset type 2 diabetes mellitus Depression Adult general medical exam Precordial chest pain Right hip pain Acute sinusitis Annual physical exam Right rotator cuff tear Atherosclerotic cardiovascular disease Left rotator cuff tear Gastritis determined by endoscopy Lip cancer Erectile dysfunction Anxiety Degenerative disc disease, lumbar Horseshoe kidney Coronary artery disease GERD (gastroesophageal reflux disease) Hypercholesterolemia Cervical radiculopathy 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 Osteoarthritis Surgical History History of carpal tunnel surgery of right wrist History of rotator cuff surgery S/P left rotator cuff repair Hx of colonoscopy History of coronary artery stent placement History of cervical spinal surgery History of shoulder surgery History of lip cancer H/O left knee surgery History of tonsillectomy Family History Father Lung cancer CAD (coronary artery disease) CVD (cardiovascular disease) Hx of CABG Mother Colon cancer Mental health disorder Maternal Uncle Lung cancer Maternal Uncle Substance abuse Substance use disorder Social History Housing: Other Housing Other:: Rents a room in a house Are you a primary health care administrator to a significant other at home: No Do you presently have visiting nurse or other home services: No Alcohol intake: current Alcohol intake frequency: holidays/special occasions only Alcohol type: beer and hard liquor Patient Tobacco Use Status: Former Tobacco user Years Smoked: quit 2004 e-Cigarette/Vaping Use: Never Used Second Hand Smoke Exposure: No Substance Use Type: Marijuana service: No Current occupational status: unemployed Current occupation: right handed Cognitive needs: No Hearing needs: No Vision needs: Yes Review of Systems Const Denies fatigue, Denies fever(s), Denies night sweats, Denies poor appetite and Denies weight loss ENT Reports Normal hearing present, Denies dental pain, Denies dysphagia, Denies hearing loss, Denies mouth pain, Denies odynophagia, Denies throat swelling, Denies tongue swelling and Reports other (Dentition adequate) Card Reports no additional complaints Resp Reports no additional complaints GI Details: Denies abdominal pain, Denies melena, Denies bloating, Denies hematochezia, Denies constipation, Denies GI cramping, Denies dysphagia, Denies excessive flatus, Denies early satiety, Denies heartburn, Denies diarrhea, Denies nausea, Denies odynophagia, Denies vomiting and Denies hematemesis Skin/Breast Denies pruritus, Denies lesions, Denies rash and Denies jaundice Neuro Reports Normal hearing present and Denies Abnormal speech present Endo Denies fatigue Aller/Immun Denies throat swelling and Denies tongue swelling Physical Exam Vital Signs: Last Vital Signs Pulse 57 09/12/23 09:47 BP 144/87 H 09/12/23 09:47 BMI result Body Mass Index 28.0 Const General: cooperative, no acute distress, well developed and well groomed Nutritional Appearance: well nourished and obese centrally obese Orientation/consciousness: oriented to person, oriented to place and oriented to time Limitations: No language barrier HEENT Head: Yes normocephalic and Yes atraumatic Eyes General: appearance normal, both eyes and all related structures Pupils: Equal, round and reactive pupils present Neck Neck: Yes normal visual inspection and Yes no lymphadenopathy Thyroid: Thyroid normal Resp Effort & Inspection: normal respiratory effort and able to speak in complete sentences Auscultation: clear to auscultation bilaterally Cardio Rate: regular rate Rhythm: regular rhythm Heart sounds: Normal, physiologic split S2 sound present Peripheral pulses: radial pulses present and posterior tibial pulses present GI Inspection: No distended, No Abdominal panniculus present and Yes obesity Palpation (GI): Soft to palpation, nontender, no guarding, not rigid and No hepatosplenomegaly present Percussion: Yes normal to percussion Auscultation: normal bowel sounds Rectal Exam - Male: Yes deferred Skin General skin exam: no rashes or lesions noted, turgor normal, skin not dry, no jaundice, No spider nevi and no striae Rashes: no rashes Nails: normal Neuro General: oriented to person, oriented to place and oriented to time Cranial nerves: Yes Equal, round and reactive pupils present and Yes Normal hearing present Speech: No Abnormal speech present Extrem General: Yes normal to inspection, No clubbing, No cyanosis and No edema Psych Appearance: grossly normal and well kempt Mental Status: mental status grossly normal Speech and movement: Normal speech and movement present Affect: normal affect Attitude: cooperative Thought process: Normal thought process present and not confabulating Thought content: Normal thought content present Insight: Limited insight present (Psych) Judgement: Limited judgement present (Psych) Assessment & Plan Assessment & Plan (1) Tubular adenoma of colon: Code(s): D12.6 - Benign neoplasm of colon, unspecified Category: Medical (2) GERD (gastroesophageal reflux disease): Code(s): K21.9 - Gastro-esophageal reflux disease without esophagitis Category: Medical Qualifiers: Esophagitis presence: without esophagitis Qualified Code(s): K21.9 - Gastro-esophageal reflux disease without esophagitis (3) Pre-op examination: Code(s): Z01.818 - Encounter for other preprocedural examination Category: Medical Plan Patient has been lost to follow-up since 05/2021. He had a large TA in 2020. He really struggled with the PEG prep and used Suprep last time with better results. His GERD and CIC resolved after stopping the metformin. His only new problem is urinary incontinence and he is now on an OAB medication. This is only partially effective. He denies breathing problems, he had an episode of pre syncope 6 mos ago that he thinks was r/t dehydration It was hot and I was over exerting myself. He sees Dr. Goins. NO anes or sed problems. NO ID problems. Orders: Orders Colonoscopy - GI Use Only 09/12/23 D12.6 - Benign neoplasm of colon, unspecified, Z01.818 - Encounter for other preprocedural examination Medications: New bisacodyl (Dulcolax (bisacodyl)) 10 mg (2 x 5 mg) PO BEDTIME 4 tabs 0RF 2 days sodium,potassium,mag sulfates 17.5-3.13-1.6 gram (Suprep Bowel Prep Kit) 480 mL orally; FOR COLONOSCOPY PREP 354 mL 0RF Coding Level of Care Code New Pt Level 3 (41236) Diagnoses Tubular adenoma of colon D12.6 Gastroesophageal reflux disease without esophagitis K21.9 Esophagitis presence: without esophagitis Pre-op examination Z01.818
== END 2023-09-12 10:55 | disposition home or self-care (01) ==
PROVIDERS: PCP Internal Medicine; Visit Provider Nurse Practitioner
DX: K21.9 Gastro-esophageal reflux disease without esophagitis (principal); Z01.818 Encounter for other preprocedural examination; Z12.11 Encounter for screening for malignant neoplasm of colon; Z86.010 Personal history of colon polyps
CPT/HCPCS: 99213

== ENCOUNTER → 2023-09-12 09:45 | Outpatient (BNVA) | payer OTHER, SELFPAY | PROVIDERS: PCP Internal Medicine; Visit Provider Nurse Practitioner | DX: Z01.818 Encounter for other preprocedural examination (principal); K21.9 Gastro-esophageal reflux disease without esophagitis; D12.6 Benign neoplasm of colon, unspecified | CPT/HCPCS: 99212 ==

== ENCOUNTER 2023-10-05 12:46 | Outpatient (AMB) | payer OTHER, SELFPAY ==
[2023-10-05 12:58] VITALS: BP 120/64; PULSE 63; BMI 28.0
--- NOTE | 2023-10-05 12:58 | A.OFFVIS_ITS ---
Vital Signs 10/05/23 12:58 Height 5 ft 10 in Weight 195 lb 5.273 oz BMI 28.0 BP 120/64 Blood Pressure Location Rt brachial Position Sitting Pulse 63 Intake Visit Reasons: 1 yr f/up Allergies penicillin V Allergy (Severe, Verified 09/12/23 10:01) rash adalimumab [From Humira] Allergy (Intermediate, Verified 09/12/23 10:01) leg pain atorvastatin Allergy (Intermediate, Verified 09/12/23 10:01) leg pain leflunomide Allergy (Intermediate, Verified 09/12/23 10:01) kidney failure tocilizumab [From Actemra] Allergy (Intermediate, Verified 09/12/23 10:01) frequent nail infection Medication List - Last Reconciled 10/05/23 by Fernando Goins MD abatacept (Orencia ClickJect) 125 mg subcut QWEEK aspirin 81 mg PO DAILY blood sugar diagnostic (FreeStyle Lite Strips) test daily blood-glucose meter (FreeStyle Lite Meter kit) test daily carvedilol 6.25 mg PO BID diclofenac sodium 1% (Voltaren) 2 grams topical QID lancets (FreeStyle Lancets) test daily nitroglycerin 0.4 mg sublingual Q5M PRN pregabalin 75 mg PO BID rosuvastatin 40 mg PO DAILY sennosides (senna) 8.6 mg PO BEDTIME sertraline 150 mg PO DAILY sodium,potassium,mag sulfates 17.5-3.13-1.6 gram (Suprep Bowel Prep Kit) 480 mL orally; FOR COLONOSCOPY PREP tolterodine ER (Detrol LA) 2 mg PO Q24H [wrist cock up splint Wear on each wrist at night. ] HPI Comments Details: Issa returns for follow-up regarding coronary artery disease. To recall, in 2018, he was admitted for unstable angina type symptoms and underwent cardiac catheterization and right coronary artery stenting. He also had moderate circumflex disease and 40% mid LAD disease. Since last seen, no specific complaints like angina. Possibly some orthostatic hypotension, but vague description. Otherwise, doing fine. FORMERLY [facility] Medical History Bilateral carpal tunnel syndrome Screening for colon cancer Screening for prostate cancer New onset type 2 diabetes mellitus Depression Adult general medical exam Precordial chest pain Right hip pain Acute sinusitis Annual physical exam Right rotator cuff tear Atherosclerotic cardiovascular disease Left rotator cuff tear Gastritis determined by endoscopy Lip cancer Erectile dysfunction Anxiety Degenerative disc disease, lumbar Horseshoe kidney Coronary artery disease GERD (gastroesophageal reflux disease) Hypercholesterolemia Cervical radiculopathy 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 Osteoarthritis Surgical History History of carpal tunnel surgery of right wrist History of rotator cuff surgery S/P left rotator cuff repair Hx of colonoscopy History of coronary artery stent placement History of cervical spinal surgery History of shoulder surgery History of lip cancer H/O left knee surgery History of tonsillectomy Family History Father Lung cancer CAD (coronary artery disease) CVD (cardiovascular disease) Hx of CABG Mother Colon cancer Mental health disorder Maternal Uncle Lung cancer Maternal Uncle Substance abuse Substance use disorder Social History Housing: Other Housing Other:: Rents a room in a house Are you a primary primary care nurse practitioner to a significant other at home: No Do you presently have visiting nurse or other home services: No Alcohol intake: current Alcohol intake frequency: holidays/special occasions only Alcohol type: beer and hard liquor Patient Tobacco Use Status: Former Tobacco user Years Smoked: quit 2004 e-Cigarette/Vaping Use: Never Used Second Hand Smoke Exposure: No Substance Use Type: Marijuana service: No Current occupational status: unemployed Current occupation: right handed Cognitive needs: No Hearing needs: No Vision needs: Yes Review of Systems Const Denies chills, Denies fatigue, Denies fever(s), Denies frequent falls, Denies weakness, Denies weight gain and Denies weight loss ENT Denies dizziness Card Denies chest pain, Denies leg edema, Denies lightheadedness, Denies palpitations, Denies dyspnea and Denies dyspnea on exertion Resp Denies cough, Denies dyspnea and Denies dyspnea on exertion GI Denies hematochezia Musc Denies abnormal gait, Denies muscle weakness, Denies numbness, Denies radiating pain into limb and Denies tingling Neuro Denies abnormal gait, Denies dizziness, Denies frequent falls, Denies numbness, Denies tingling and Denies weakness Endo Denies fatigue and Denies palpitations Physical Exam Vital Signs: Last Vital Signs Pulse 63 10/05/23 12:58 BP 120/64 10/05/23 12:58 BMI result Body Mass Index 28.0 Const General: comfortable and no acute distress Orientation/consciousness: patient oriented x3 HEENT Other: Unremarkable Head: Yes normal to inspection Neck Neck: Yes normal visual inspection Chest Chest palpation & inspection: normal inspection of the chest Resp Auscultation: clear to auscultation bilaterally Cardio Palpation: normal PMI Heart sounds: S1 normal heart sound present, S2 normal heart sound present, no gallops, no murmurs and no rubs GI Palpation (GI): Soft to palpation Back/Spine/Pelvis Other: unremarkable Skin General skin exam: no rashes or lesions noted Neuro General: patient oriented x3 Extrem General: Yes normal to inspection Psych Mental Status: mental status grossly normal Office Procedures EKG Details: EKG with sinus rhythm at 63/Min; borderline ST elevation versus nonspecific finding in lead 1/aVL. Reciprocal changes in inferior leads. Similar to prior EKG from August 2020. [id number], Complete Assessment & Plan Assessment & Plan (1) Atherosclerotic cardiovascular disease: Code(s): I25.10 - Atherosclerotic heart disease of [place] coronary artery without angina pectoris Category: Medical Plan: Cardiac catheterization 2017. Severe 95% mid RCA stenosis status post drug- eluting stenting; moderate circumflex disease; 40% mid LAD disease. Myocardial perfusion imaging 2021 unremarkable without any clear evidence of ischemia or infarction. Echocardiogram 2021 with LVEF 67%. No significant valvular issues. Continue medical therapy for stable coronary disease including aspirin beta- blockers and statins. Cholesterol is well controlled. (2) Essential hypertension: Code(s): I10 - Essential (primary) hypertension Category: Medical Plan: Stable. (3) Type 2 diabetes mellitus with hyperglycemia: Comment: DR. Larry Code(s): E11.65 - Type 2 diabetes mellitus with hyperglycemia Category: Medical Plan: Most recently, hemoglobin A1c 6.1%. Does not seem to be on any medications. Coding Level of Care Code Est Pt Level 4 (13537) Diagnoses Atherosclerotic cardiovascular disease I25.10 Essential hypertension I10 Type 2 diabetes mellitus with hyperglycemia E11.65 CPT Codes EKG - CPT: [id number]-[id number], Complete ([id number])
== END 2023-10-05 13:18 | disposition home or self-care (01) ==
PROVIDERS: Visit Provider Internal Medicine
DX: I25.10 Atherosclerotic heart disease of native coronary artery without angina pectoris (principal); I10 Essential (primary) hypertension; E11.65 Type 2 diabetes mellitus with hyperglycemia
CPT/HCPCS: 93010; 99214

== ENCOUNTER → 2023-10-05 12:46 | Outpatient (BNVA) | payer OTHER, SELFPAY | PROVIDERS: Visit Provider Internal Medicine | DX: I25.10 Atherosclerotic heart disease of native coronary artery without angina pectoris (principal); I10 Essential (primary) hypertension; E11.65 Type 2 diabetes mellitus with hyperglycemia | CPT/HCPCS: 93005; 99212 ==

== ENCOUNTER 2023-11-01 09:53 | Outpatient (AMB) | payer OTHER, SELFPAY ==
[2023-11-01 10:03] VITALS: BP 144/80; PULSE 78; O2SAT 97; BMI 28.7
--- NOTE | 2023-11-01 10:03 | MHC.PC.OV ---
Vital Signs 11/01/23 10:03 Height 5 ft 10 in Weight 200 lb BMI 28.7 BP 144/80 H Blood Pressure Location Lt brachial Position Sitting Pulse 78 Pulse Source Pulse Oximeter Pulse Oximetry (%) 97 Oxygen Delivery Method Room Air Intake Visit Reasons: CAD, GERD, HTN Intake Note: Hip pain, urgency Allergies penicillin V Allergy (Severe, Verified 11/01/23 10:04) rash adalimumab [From Humira] Allergy (Intermediate, Verified 11/01/23 10:04) leg pain atorvastatin Allergy (Intermediate, Verified 11/01/23 10:04) leg pain leflunomide Allergy (Intermediate, Verified 11/01/23 10:04) kidney failure tocilizumab [From Actemra] Allergy (Intermediate, Verified 11/01/23 10:04) frequent nail infection Medication List - Last Reconciled 11/01/23 by Clive Chaidez MD abatacept (Orencia ClickJect) 125 mg subcut QWEEK aspirin 81 mg PO DAILY blood sugar diagnostic (FreeStyle Lite Strips) test daily blood-glucose meter (FreeStyle Lite Meter kit) test daily carvedilol 6.25 mg PO BID diclofenac sodium 1% (Voltaren) 2 grams topical QID lancets (FreeStyle Lancets) test daily nitroglycerin 0.4 mg sublingual Q5M PRN pregabalin 75 mg PO BID rosuvastatin 40 mg PO DAILY sennosides (senna) 8.6 mg PO BEDTIME sertraline 150 mg PO DAILY sodium,potassium,mag sulfates 17.5-3.13-1.6 gram (Suprep Bowel Prep Kit) 480 mL orally; FOR COLONOSCOPY PREP tolterodine ER (Detrol LA) 2 mg PO Q24H [wrist cock up splint Wear on each wrist at night. ] Tobacco use date assessed: 07/18/23 Dental Screening Dental Screen Date: 07/18/23 HPI CAD, GERD, HTN HPI Details 58-year-old overweight male with controlled diabetes mellitus hypertension coronary artery disease hypercholesterolemia rheumatoid arthritis GERD coming in for follow-up. Last seen in July 2023 patient had colonoscopy done in December 2018 revealing tubular adenoma and has been reminded about colonoscopy. Review of the notes has seen Cardiology in October 04 patient is scheduled for colonoscopy in January 2024. Patient also follows up with Rheumatology seen in 08/24/2023 presently on Orencia 125 mg weekly as for the joint pains mild RA flare in addition to degenerative arthritis and fibromyalgia was given prednisone taper. L breast swelling pain 1 year and has not changed but does bother him FORMERLY [facility] Medical History Bilateral carpal tunnel syndrome Screening for colon cancer Screening for prostate cancer New onset type 2 diabetes mellitus Depression Adult general medical exam Precordial chest pain Right hip pain Acute sinusitis Annual physical exam Right rotator cuff tear Atherosclerotic cardiovascular disease Left rotator cuff tear Gastritis determined by endoscopy Lip cancer Erectile dysfunction Anxiety Degenerative disc disease, lumbar Horseshoe kidney Coronary artery disease GERD (gastroesophageal reflux disease) Hypercholesterolemia Cervical radiculopathy 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 Osteoarthritis Surgical History History of carpal tunnel surgery of right wrist History of rotator cuff surgery S/P left rotator cuff repair Hx of colonoscopy History of coronary artery stent placement History of cervical spinal surgery History of shoulder surgery History of lip cancer H/O left knee surgery History of tonsillectomy Family History Father Lung cancer CAD (coronary artery disease) CVD (cardiovascular disease) Hx of CABG Mother Colon cancer Mental health disorder Maternal Uncle Lung cancer Maternal Uncle Substance abuse Substance use disorder Social History Housing: Other Housing Other:: Rents a room in a house Are you a primary careers adviser to a significant other at home: No Do you presently have visiting nurse or other home services: No Alcohol intake: current Alcohol intake frequency: holidays/special occasions only Alcohol type: beer and hard liquor Patient Tobacco Use Status: Former Tobacco user Tobacco use type: Cigarette Years Smoked: quit 2004 e-Cigarette/Vaping Use: Never Used Second Hand Smoke Exposure: No Substance Use Type: Marijuana service: No Current occupational status: unemployed Current occupation: right handed Cognitive needs: No Hearing needs: No Vision needs: Yes Questionnaire PHQ-9 Over the last 2 weeks, how often have you been bothered by any of the following problems? 1. Little interest or pleasure in doing things: not at all 2. Feeling down, depressed, or hopeless: not at all 3. Trouble falling or staying asleep, or sleeping too much: not at all 4. Feeling tired or having little energy: not at all 5. Poor appetite or overeating: not at all 6. Feeling bad about yourself - or that you are a failure or have let yourself or your family down: not at all 7. Trouble concentrating on things, such as reading the newspaper or watching television: not at all 8. Moving or speaking so slowly that other people could have noticed. Or the opposite - being so fidgety or restless that you have been moving around a lot more than usual: not at all 9. Thoughts that you would be better off or of hurting yourself in some way: not at all Total score: 0 Depression Screening Interpretation: Negative Depression Screening Done: Yes Source: Developed by Drs. Souleymane Cox, Aline Kay, Damion Lieberman and colleagues, with an educational zulema from [employer]. Thrive Questionnaire Date Thrive assessed: 07/18/23 AUDIT C Alcohol Use Questionnaire (AUDIT-C) 1. How often do you have a drink containing alcohol?: Monthly or less 2. How many drinks containing alcohol do you have on a typical day when you are drinking?: 1 or 2 3. How often do you have six or more drinks on one occasion?: Never Total Score: 1 Score Reviewed/Action Taken: No SARAI-7 AMB Questionnaire SARAI-7 Date SARAI - 7 assessed: 07/18/23 Source: Developed by Drs. Souleymane Cox, Aline Kay, Damion Lieberman and colleagues, with an educational zulema from [employer]. Physical exam (Primary Care) Vital Signs: Last Vital Signs Pulse 78 11/01/23 10:03 BP 144/80 H 11/01/23 10:03 Pulse Ox 97 11/01/23 10:03 Oxygen Delivery Method Room Air 11/01/23 10:03 BMI result Body Mass Index 28.7 Tobacco/Smoking Status: Tobacco use Status Tobacco use date assessed 07/18/23 11/01/23 10:05 Patient Tobacco Use Status Former Tobacco user 11/01/23 10:05 Tobacco use type Cigarette 11/01/23 10:05 e-Cigarette/Vaping Use Never Used 11/01/23 10:05 PHQ-9: PHQ-9 Score PHQ-9: Total score 0 11/01/23 10:23 Depression Screening Interpretation: Negative Thrive Assessment: Date of Thrive Assessment Date Thrive assessed 07/18/23 11/01/23 10:05 Const General: alert; No acute distress Eyes Conjunctivae: conjunctivae normal Resp Auscultation: clear to auscultation bilaterally Cardio Rate: regular rate Rhythm: regular rhythm GI Inspection: Yes normal to inspection Extrem General: Yes normal to inspection and No edema Results AMB Hemoglobin A1c AMB Hemoglobin A1c 6.3 % Last Edit by Yanira Escobedo CMA on 11/01/23 10:25 Results Reviewed Results Reviewed: Laboratory Last Values Hgb A1c (Clinic) 6.3 % (4.0-6.0) H 11/01/23 10:05 Assessment and Plan Assessment & Plan (1) Type 2 diabetes mellitus with hyperglycemia: Comment: DR. Larry Code(s): E11.65 - Type 2 diabetes mellitus with hyperglycemia Plan: Decrease the amount of carbohydrate intake, pasta, bread, rice and potatoes are all sugar and that is aside from all the sweet stuff, remember that fruits are good but they are Sweet also. Diet Controlled (2) Essential hypertension: Code(s): I10 - Essential (primary) hypertension Plan: Continue with blood pressure medication. Decrease salt intake and exercise carvedilol 6.25 mg twice a day. monitor the BP - elevated here today (3) Coronary artery disease: Comment: 10/20/2017 angioplasty YESSICA, stent placement Dr. Tomeka Araya March 2018 echo 60-65% normal LV, Brilinta October 2018, nuclear stress ejection fraction 74% echo July 2019 60-65% Code(s): I25.10 - Atherosclerotic heart disease of [place] coronary artery without angina pectoris Qualifiers: Coronary Disease-Associated Artery/Lesion type: [place] artery [place] vs. transplanted heart: [place] heart Associated angina: without angina Qualified Code(s): I25.10 - Atherosclerotic heart disease of [place] coronary artery without angina pectoris Plan: Control the cholesterol, weight, blood pressure, diabetes continue with aspirin 81 mg once a day (4) Hypercholesterolemia: Code(s): E78.00 - Pure hypercholesterolemia, unspecified Plan: Avoid fried foods, chicken skin, eggs, butter margarine, pastries and meat. Be it pork or beef they have a lot of cholesterol on rosuvastatin 40 mg once a day January 2023 last blood work. Will request for new blood work (5) GERD (gastroesophageal reflux disease): Code(s): K21.9 - Gastro-esophageal reflux disease without esophagitis Qualifiers: Esophagitis presence: without esophagitis Qualified Code(s): K21.9 - Gastro-esophageal reflux disease without esophagitis Plan: Avoid the foods that causes that usually spicy foods, tomato products, juices, coffee, soda and foods that your sensitive to. After eating do not lie down, allow 3-4 hours before in lie down. And keep the head of bed above 30 degrees to avoid the acid from going up. (6) Seropositive rheumatoid arthritis: Comment: ++RF -ve CCP Orencia: March 2021- present Leflunomide: December 2020 - March 2021 urinary frequency Actemra: January 2020- December 2020 -Had surgery did not want to restart after, frequent nail infections. Enbrel: January- denied by insurance Humira: October 2019- January 2020 - active disease on exam/ listed with allergy leg pain Code(s): M05.9 - Rheumatoid arthritis with rheumatoid factor, unspecified Plan: Patient follows up with Rheumatology on dc. Was given medication for flare up recently with steroids sed rate is normal (7) Osteoarthritis of hands, bilateral: Code(s): M19.041 - Primary osteoarthritis, right hand; M19.042 - Primary osteoarthritis, left hand Qualifiers: Osteoarthritis type: primary Qualified Code(s): M19.041 - Primary osteoarthritis, right hand; M19.042 - Primary osteoarthritis, left hand Plan: Keep active patient placed on pregabalin for the pain (8) Tubular adenoma of colon: Code(s): D12.6 - Benign neoplasm of colon, unspecified Plan: Colon test scheduled for January 2024 (9) Breast swelling: Code(s): N63.0 - Unspecified lump in unspecified breast (10) Spondylosis of lumbar region without myelopathy or radiculopathy: Code(s): M47.816 - Spondylosis without myelopathy or radiculopathy, lumbar region Orders: Orders Complete Blood Count Auto Diff 3 Months E11.65 - Type 2 diabetes mellitus with hyperglycemia Comprehensive Met. Panel 3 Months E11.65 - Type 2 diabetes mellitus with hyperglycemia Free T4 (Free Thyroxine) 3 Months E11.65 - Type 2 diabetes mellitus with hyperglycemia Reticulocyte Count 3 Months E11.65 - Type 2 diabetes mellitus with hyperglycemia Vitamin B12 and Folate 3 Months E11.65 - Type 2 diabetes mellitus with hyperglycemia Hemoglobin A1c 3 Months E11.65 - Type 2 diabetes mellitus with hyperglycemia IRON PROFILE 3 Months E11. - Type 2 diabetes mellitus with hyperglycemia Thyroid Stimulating Hormone 3 Months E11. - Type 2 diabetes mellitus with hyperglycemia Microalbumin, Random (w Creat) 3 Months E11. - Type 2 diabetes mellitus with hyperglycemia Creatinine Urine 3 Months E11.65 - Type 2 diabetes mellitus with hyperglycemia MM tomosynthesis diagnostic BI Today N63.0 - Unspecified lump in unspecified breast XR lumbar spine 2-3V Today M47.816 - Spondylosis without myelopathy or radiculopathy, lumbar region AMB Hemoglobin A1c Today Z13.9 - Encounter for screening, unspecified Ferritin 3 Months E11. - Type 2 diabetes mellitus with hyperglycemia Lipid Panel 3 Months E11. - Type 2 diabetes mellitus with hyperglycemia, E78.00 - Pure hypercholesterolemia, unspecified Prostate Specific Antigen Scr 3 Months E11. - Type 2 diabetes mellitus with hyperglycemia US breast LT limited Today N63.0 - Unspecified lump in unspecified breast PT Evaluation and Treatment Today M47.816 - Spondylosis without myelopathy or radiculopathy, lumbar region Medications: Refilled blood sugar diagnostic (FreeStyle Lite Strips) test daily 100 ea 2RF .65 - Type 2 diabetes mellitus with hyperglycemia Coding Level of Care Code Est Pt Level 4 (81634) Diagnoses Type 2 diabetes mellitus with hyperglycemia . Essential hypertension I10 Coronary artery disease involving [place] coronary artery of [place] heart without angina pectoris I25.10 Coronary Disease-Associated Artery/Lesion type: [place] artery [place] vs. transplanted heart: [place] heart Associated angina: without angina Hypercholesterolemia E78.00 Gastroesophageal reflux disease without esophagitis K21.9 Esophagitis presence: without esophagitis Seropositive rheumatoid arthritis M05.9 Primary osteoarthritis of both hands M19.041; M19.042 Osteoarthritis type: primary Tubular adenoma of colon D12.6 Breast swelling N63.0 Spondylosis of lumbar region without myelopathy or radiculopathy M47.816 Additional Codes PHQ-9 - 94237 - PHQ-9 Billing: ([id number])
== END 2023-11-01 10:47 | disposition home or self-care (01) ==
PROVIDERS: PCP Internal Medicine; Visit Provider Internal Medicine
DX: E11.65 Type 2 diabetes mellitus with hyperglycemia (principal); M05.9 Rheumatoid arthritis with rheumatoid factor, unspecified; I10 Essential (primary) hypertension; I25.10 Atherosclerotic heart disease of native coronary artery without angina pectoris; E78.00 Pure hypercholesterolemia, unspecified; K21.9 Gastro-esophageal reflux disease without esophagitis; M19.041 Primary osteoarthritis, right hand; M19.042 Primary osteoarthritis, left hand; D12.6 Benign neoplasm of colon, unspecified; M47.816 Spondylosis without myelopathy or radiculopathy, lumbar region
CPT/HCPCS: 83036; 99214

== ENCOUNTER 2023-11-20 13:55 | Outpatient (REF) | payer OTHER, SELFPAY ==
--- NOTE | ~2023-11-20 | MM_ITS ---
EXAMINATION: MM DIAGNOSTIC DIGITAL BREAST TOMOSYNTHESIS, bilateral. US BREAST LIMITED, LEFT CLINICAL INFORMATION: 58-year-old male, Unspecified lump, palpable mass left breast 10:00 axis. COMPARISON: Mammography: No prior. Baseline exam. TECHNIQUE: Digital breast tomosynthesis is performed in both the craniocaudal and mediolateral oblique views along with computer-aided detection (CAD). Synthesized 2D images are generated from the tomosynthesis. In addition, full-field left 3-D mediolateral view was obtained, as well as 3-D spot compression left CC and MLO views. FINDINGS: The breasts are almost entirely fatty (ACR BI-RADS breast composition Category a). There is trace left gynecomastia. In the region of palpable concern at 10:00, a BB marker has been placed. There is no underlying mammographic abnormality. There is no left axillary or skin abnormality. There is no mammographic abnormality in the right breast. No axillary or skin abnormality. ULTRASOUND: CLINICAL INFORMATION: 58-year-old male with palpable focus left breast 11:00 axis. COMPARISON: None TECHNIQUE: Targeted sonographic evaluation was performed using a high frequency linear transducer. Attention given to the left breast 10:00 axis and retroareolar region. Selected archived documentation. FINDINGS: LEFT BREAST: There is trace gynecomastia. No suspicious mass is seen. There is no pathologic acoustic shadowing. There is no cystic abnormality. -There is a 10 mm slightly echogenic circumscribed wider than tall lipomatous nodule, likely correlating to the palpable focus of concern. This is benign and can be related to fatty contusion, lipoma, or lipomatous nodule, all benign. -There are no suspicious abnormalities left breast. MM/MM tomosynthesis diagnostic BI IMPRESSION: -There are no findings suspicious for malignancy in either breast. -There is minimal left male gynecomastia. -There is a 10 mm lipomatous nodule in the area of palpable concern left breast 11:00 axis, 8 cm from the nipple. This is benign, and may be related to a fatty contusion or benign lipomatous nodule. No further follow-up recommended. Recommend clinical management of follow-up. OVERALL ASSESSMENT: Mammography: BI-RADS 2 - Benign Findings Ultrasound: BI-RADS 2 - Benign Findings RECOMMENDATION: 1. Patient should be managed based on the clinical impression.
== END 2023-11-20 13:56 | disposition home or self-care (01) ==
LOC: HO.MAMMO 13:55
PROVIDERS: PCP Internal Medicine; Visit Provider Internal Medicine
DX: N63.22 Unspecified lump in the left breast, upper inner quadrant (principal)
CPT/HCPCS: 76642; 77062; 77066

== ENCOUNTER → 2023-11-20 14:00 | Outpatient (BNV) | payer OTHER, SELFPAY | PROVIDERS: PCP Internal Medicine; Visit Provider Radiology Diagnostic Radiology | DX: N63.22 Unspecified lump in the left breast, upper inner quadrant (principal) | CPT/HCPCS: 76642; 77066; G0279 ==

== ENCOUNTER 2023-12-18 08:26 | Outpatient (REF) | payer OTHER, SELFPAY ==
--- NOTE | ~2023-12-18 | XR_ITS ---
EXAMINATION: XR LUMBOSACRAL SPINE CLINICAL INFORMATION: Spondylosis without myelopathy or radiculopathy lumbar region, patient states low back pain for about 4 years, now worsening. COMPARISON: 04/14/2020. TECHNIQUE: Three views of the lumbosacral spine. FINDINGS: Mild S-shaped thoracolumbar scoliosis. Advanced multilevel lumbar spondylosis with marked degenerative changes and loss of disc space height at L3-L4 and L4-L5. Straightening of the normal lumbar lordosis. Facet arthritis in the lower spine. XR/XR lumbar spine 2-3V IMPRESSION: Advanced multilevel lumbar spondylosis with marked degenerative changes and loss of disc space height at L3-L4 and L4-L5. This study was presented today, January 10, 2024, for interpretation. Stat results provided at this time as requested by referring provider.
[2023-12-18 08:42] LABS: MANUAL DIFF FLAG NO
[2023-12-18 09:01] LABS: Basophils Absolute Auto 0.1 X10*3/uL (0.0-0.2); Basophils Percent Auto 0.7 % (0-2); Eosinophils Absolute Auto 0.2 X10*3/uL (0.0-0.4); Eosinophils Percent Auto 3.2 % (0-4); Imm Gran Abs Auto 0.02 X10*3/uL (0.00-0.03); Imm Gran Pct Auto 0.3 % (0.0-0.4); Immature Retic Fraction 23.3 % (2.3-13.4); Lymphocytes Absolute Auto 2.8 X10*3/uL (1.2-4.9); Lymphocytes Percent Auto 37.4 % (20-40); Mean Corpuscular HGB Conc 33.3 g/dl (31.0-36.0); Mean Corpuscular Hemoglobin 29.5 pg (27.0-33.0); Mean Corpuscular Volume 88.4 fL (80.0-98.0); Mean Platelet Volume 9.5 fL (9.4-12.4); Monocytes Absolute Auto 0.6 X10*3/uL (0.1-1.2); Neutrophils Absolute Auto 3.8 x10*3/uL (2.0-8.3); Neutrophils Percent Auto 50.4 % (45-73); Platelet Count 181 X10*3/uL (160-400); Red Blood Count 4.75 X10*6/uL (4.60-5.80); Red Cell Distribution Width 13.4 % (11.0-16.0); Retic HGB Equivalent 33.8 pg (30.0-35.0); Reticulocyte Percent 1.9 % (0.5-1.8); White Blood Count 7.5 X10*3/uL (4.8-10.8)
[2023-12-18 09:16] LABS: Estimated Average Glucose 137 mg/dL; Hemoglobin A1c % 6.4 % (<6.0)
[2023-12-18 09:17] LABS: Appearance Urine Clear; Color Urine Yellow; Glucose Urine UA Negative (Negative); Leukocyte Esterase Urine Negative (Negative); Nitrite Urine Negative (Negative); PH 5.5 (5.0-9.0); Specific Gravity - Urine 1.015 (1.005-1.025); Urine Blood Negative (Negative); Urine Ketones Negative (Negative); Urine Protein Negative (Neg-Trace)
[2023-12-18 09:36] LABS: Creatinine Urine 97.48 mg/dL; Microalbumin Urine < 5.0 mg/L
[2023-12-18 09:48] LABS: Alanine Aminotransferase 27 U/L (0-40); Albumin Level 4.1 g/dL (3.5-5.0); Alkaline Phosphatase 78 U/L (39-117); Anion Gap 11 (12-20); Aspartate Amino Transferase 22 U/L (5-37); Bilirubin Total 0.3 mg/dL (0.0-1.0); Blood Urea Nitrogen 15 mg/dL (9-16); Calcium 8.8 mg/dL (8.4-10.2); Carbon Dioxide 29 mmol/L (22-29); Chloride 107 mmol/L (96-108); Cholesterol 133 mg/dL (<200); Estimated Glomerular Filt Rate > 60; Glucose Random 127 mg/dL (60-115); HDL Cholesterol 54 mg/dL (>40); Iron 97 mcg/dL (45-160); LDL Cholesterol Calculated 54 mg/dL (<100); Percent Iron Saturation 34 % (15-50); Potassium 4.6 mmol/L (3.3-5.1); Sodium 142 mmol/L (135-145); Total Iron Binding Capacity 286 mcg/dL (228-428); Total Protein 6.8 g/dL (6.5-8.0); Triglycerides 128 mg/dL (<150); Unsaturated Iron Binding 189 ug/dL
[2023-12-18 09:59] LABS: Ferritin 139 ng/mL (20-250); Thyroid Stimulating Hormone 1.92 uIU/mL (0.32-4.0)
[2023-12-18 11:14] LABS: Folate 7.9 ng/mL (> or = 4.0); Prostate Specific Antigen Scr 0.25 ng/mL (<0.05-4.0); Vitamin B12 317 pg/mL (200-900)
== END 2023-12-18 08:27 | disposition home or self-care (01) ==
LOC: HO.XRAY 08:26
PROVIDERS: Absent Provider Student in an Organized Health Care Education/Training Program; PCP Internal Medicine; Visit Provider Internal Medicine
DX: R30.0 Dysuria (principal); R35.0 Frequency of micturition; E11.65 Type 2 diabetes mellitus with hyperglycemia; E78.00 Pure hypercholesterolemia, unspecified; M47.816 Spondylosis without myelopathy or radiculopathy, lumbar region; Z12.5 Encounter for screening for malignant neoplasm of prostate
CPT/HCPCS: 36415; 72100; 80053; 80061; 81003; 82043; 82570; 82607; 82728; 82746; 83036; 83540; 84153; 84439; 84443; 85025; 85045

== ENCOUNTER 2023-12-21 12:24 | Outpatient (AMB) | payer OTHER, SELFPAY ==
[2023-12-21 12:38] VITALS: BP 114/72; PULSE 64; O2SAT 93; BMI 29.7
--- NOTE | 2023-12-21 12:38 | MHC.PC.OV ---
Vital Signs 12/21/23 12:38 Height 5 ft 10 in Weight 207 lb BMI 29.7 BP 114/72 Blood Pressure Location Lt brachial Position Sitting Pulse 64 Pulse Source Pulse Oximeter Pulse Oximetry (%) 93 Oxygen Delivery Method Room Air Intake Visit Reasons: Annual exam Allergies penicillin V Allergy (Severe, Verified 12/21/23 12:39) rash adalimumab [From Humira] Allergy (Intermediate, Verified 12/21/23 12:39) leg pain atorvastatin Allergy (Intermediate, Verified 12/21/23 12:39) leg pain leflunomide Allergy (Intermediate, Verified 12/21/23 12:39) kidney failure tocilizumab [From Actemra] Allergy (Intermediate, Verified 12/21/23 12:39) frequent nail infection Medication List - Last Reconciled 12/21/23 by Clive Chaidez MD aspirin 81 mg PO DAILY blood sugar diagnostic (FreeStyle Lite Strips) test daily blood-glucose meter (FreeStyle Lite Meter kit) test daily carvedilol 6.25 mg PO BID diclofenac sodium 1% (Voltaren) 2 grams topical QID lancets (FreeStyle Lancets) test daily nitroglycerin 0.4 mg sublingual Q5M PRN Orencia ClickJect (abatacept) 125 mg subcut QWEEK NS pregabalin 75 mg PO BID rosuvastatin 40 mg PO DAILY sennosides (senna) 8.6 mg PO BEDTIME sertraline 150 mg PO DAILY sodium,potassium,mag sulfates 17.5-3.13-1.6 gram (Suprep Bowel Prep Kit) 480 mL orally; FOR COLONOSCOPY PREP tolterodine ER (Detrol LA) 2 mg PO Q24H [wrist cock up splint Wear on each wrist at night. ] Tobacco use date assessed: 07/18/23 Dental Screening Dental Screen Date: 07/18/23 HPI Annual exam HPI Details 58-year-old overweight male with a history of controlled diabetes mellitus hypertension coronary artery disease hypercholesterolemia GERD seropositive rheumatoid arthritis and history of lumbar spondylosis coming in for physical exam last seen in October 2023. Patient's last colonoscopy was done in December 2018 with tubular adenoma and has been reminded about this. Last seen having left palpable lump on the breast and an ultrasound and mammogram done revealing a 10 mm lipomatous nodule in the area of the breast 11:00 o'clock 8 cm from the nipple benign and no further follow-up requested.. Patient has seen Cardiology in October 04 stable coronary artery disease sent to continue with present management. [facility] Medical History (Updated 12/21/23 @ 13:11 by Clive Chaidez MD) Annual physical exam Bilateral carpal tunnel syndrome Screening for colon cancer Screening for prostate cancer New onset type 2 diabetes mellitus Depression Adult general medical exam Precordial chest pain Right hip pain Acute sinusitis Right rotator cuff tear Atherosclerotic cardiovascular disease Left rotator cuff tear Gastritis determined by endoscopy Lip cancer Erectile dysfunction Anxiety Degenerative disc disease, lumbar [place]orseshoe kidney Coronary artery disease GERD (gastroesophageal reflux disease) Hypercholesterolemia Cervical radiculopathy 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 Osteoarthritis Surgical History History of carpal tunnel surgery of right wrist History of rotator cuff surgery S/P left rotator cuff repair Hx of colonoscopy History of coronary artery stent placement History of cervical spinal surgery History of shoulder surgery History of lip cancer H/O left knee surgery History of tonsillectomy Family History Father Lung cancer CAD (coronary artery disease) CVD (cardiovascular disease) Hx of CABG Mother Colon cancer Mental health disorder Maternal Uncle Lung cancer Maternal Uncle Substance abuse Substance use disorder Social History (Updated 12/21/23 @ 12:53 by Clive Chaidez MD) Housing: Other Housing Other:: Rents a room in a house Are you a primary long term care pharmacist to a significant other at home: No Do you presently have visiting nurse or other home services: No Alcohol intake: current Alcohol intake frequency: holidays/special occasions only Alcohol type: beer and hard liquor Comment: once a month glass Patient Tobacco Use Status: Former Tobacco user Tobacco use type: Cigarette Years Smoked: quit 2005 smokes marijuana e-Cigarette/Vaping Use: Never Used Second Hand Smoke Exposure: No Substance Use Type: Marijuana service: No Current occupational status: unemployed Current occupation: right handed Cognitive needs: No Hearing needs: No Vision needs: Yes Questionnaire PHQ-9 Over the last 2 weeks, how often have you been bothered by any of the following problems? 1. Little interest or pleasure in doing things: not at all 2. Feeling down, depressed, or hopeless: not at all 3. Trouble falling or staying asleep, or sleeping too much: not at all 4. Feeling tired or having little energy: not at all 5. Poor appetite or overeating: not at all 6. Feeling bad about yourself - or that you are a failure or have let yourself or your family down: not at all 7. Trouble concentrating on things, such as reading the newspaper or watching television: not at all 8. Moving or speaking so slowly that other people could have noticed. Or the opposite - being so fidgety or restless that you have been moving around a lot more than usual: not at all 9. Thoughts that you would be better off or of hurting yourself in some way: not at all Total score: 0 Depression Screening Interpretation: Negative Depression Screening Done: Yes Source: Developed by Drs. Souleymane Cox, Damion Cote and colleagues, with an educational zulema from [employer]. Thrive Questionnaire Date Thrive assessed: 07/18/23 AUDIT C Alcohol Use Questionnaire (AUDIT-C) 1. How often do you have a drink containing alcohol?: Monthly or less 2. How many drinks containing alcohol do you have on a typical day when you are drinking?: 1 or 2 3. How often do you have six or more drinks on one occasion?: Never Total Score: 1 Score Reviewed/Action Taken: No SARAI-7 AMB Questionnaire SARAI-7 Date SARAI - 7 assessed: 07/18/23 Source: Developed by Drs. Souleymane Cox, Aline Kay, Damion Lieberman and colleagues, with an educational zulema from [employer]. Review of Systems Const Denies poor appetite and Denies weakness Eyes Denies no additional complaints ENT Reports Normal hearing present, Denies dizziness, Denies nasal congestion, Denies tinnitus and Denies sore throat Card Denies chest pain, Denies syncope, Denies rapid heart rate and Denies dyspnea Resp Denies cough and Denies dyspnea GI Denies change in stool character, Reports constipation, Denies diarrhea, Denies nausea and Denies vomiting Denies dysuria and Denies urinary frequency Neuro Reports Normal hearing present, Denies confusion, Denies dizziness, Denies syncope and Denies weakness Psych Denies confusion Physical exam (Primary Care) Vital Signs: Last Vital Signs Pulse 64 12/21/23 12:38 BP 114/72 12/21/23 12:38 Pulse Ox 93 12/21/23 12:38 Oxygen Delivery Method Room Air 12/21/23 12:38 BMI result Body Mass Index 29.7 Tobacco/Smoking Status: Tobacco use Status Tobacco use date assessed 07/18/23 12/21/23 12:41 Patient Tobacco Use Status Former Tobacco user 12/21/23 12:53 Tobacco use type Cigarette 12/21/23 12:53 e-Cigarette/Vaping Use Never Used 12/21/23 12:53 PHQ-9: PHQ-9 Score PHQ-9: Total score 0 12/21/23 18:24 Depression Screening Interpretation: Negative Thrive Assessment: Date of Thrive Assessment Date Thrive assessed 07/18/23 12/21/23 12:41 Const Other: impacted cerumen R ear- will need irrigaiton General: No confusion Orientation/consciousness: No confusion HENMT Head: Yes normocephalic Ears: external ears normal Face and sinus: Yes normal facial exam Mouth: moist mucous membranes Throat: Yes tonsils normal Eyes Conjunctivae: conjunctivae normal Pupils: Equal, round and reactive pupils present and Pupil accommodation reflex normal Direct Ophthalmoscopy: normal light reflex Neck Neck: No lymphadenopathy Thyroid: Thyroid normal Chest Chest palpation & inspection: normal inspection of the chest Resp Effort & Inspection: normal respiratory effort and no audible wheezes Auscultation: clear to auscultation bilaterally, no crackles, no wheezes and lung sounds not diminished Cardio Rate: regular rate Rhythm: regular rhythm Peripheral pulses: radial pulses present and dorsalis pedis present GI Other: colon test normal Palpation (GI): no masses Auscultation: normal bowel sounds and normoactive bowel sounds Rectal Exam - Male: Yes deferred Male General Exam: Yes normal external exam Skin General skin exam: no rashes or lesions noted Rashes: no rashes Neuro General: No confusion Cranial nerves: Yes Equal, round and reactive pupils present and Yes Normal hearing present Cognition (Neuro): normal cognition Gait exam (Neuro): Normal gait present Motor exam (neuro): 5/5 motor strength present throughout Deep tendon reflexes (DTR's): Right brachioradialis reflex intensity grade: 2+, Left brachioradialis reflex intensity grade: 2+, Right patellar reflex intensity grade: 2+ and Left patellar reflex intensity grade: 2+ Extrem General: No edema Assessment and Plan Assessment & Plan (1) Annual physical exam: Code(s): Z00.00 - Encounter for general adult medical examination without abnormal findings Plan: Patient is advised to eat healthy, keep well hydrated, keep active and have adequate sleep. (2) Coronary artery disease: Comment: 10/20/2017 angioplasty YESSICA, stent placement Dr. Tomeka Araya March 2018 echo 60-65% normal LV, Brilinta October 2018, nuclear stress ejection fraction 74% echo July 2019 60-65% Code(s): I25.10 - Atherosclerotic heart disease of [place] coronary artery without angina pectoris Qualifiers: Associated angina: without angina Coronary Disease-Associated Artery/Lesion type: [place] artery [place] vs. transplanted heart: [place] heart Qualified Code(s): I25.10 - Atherosclerotic heart disease of [place] coronary artery without angina pectoris Plan: Control the cholesterol, weight, blood pressure, diabetes continue with aspirin 81 mg once a day (3) Hypercholesterolemia: Code(s): E78.00 - Pure hypercholesterolemia, unspecified Plan: Avoid fried foods, chicken skin, eggs, butter margarine, pastries and meat. Be it pork or beef they have a lot of cholesterol LDL goal of less than 70 and triglyceride of less than 150 on rosuvastatin 40 mg once a day (4) Essential hypertension: Code(s): I10 - Essential (primary) hypertension Plan: Continue with blood pressure medication. Decrease salt intake and exercise patient takes carvedilol 6.25 mg twice a day (5) GERD (gastroesophageal reflux disease): Code(s): K21.9 - Gastro-esophageal reflux disease without esophagitis Qualifiers: Esophagitis presence: without esophagitis Qualified Code(s): K21.9 - Gastro-esophageal reflux disease without esophagitis Plan: Avoid the foods that causes that usually spicy foods, tomato products, juices, coffee, soda and foods that your sensitive to. After eating do not lie down, allow 3-4 hours before in lie down. And keep the head of bed above 30 degrees to avoid the acid from going up. (6) Type 2 diabetes mellitus with hyperglycemia: Comment: DR. Larry Code(s): E11.65 - Type 2 diabetes mellitus with hyperglycemia Plan: Decrease the amount of carbohydrate intake, pasta, bread, rice and potatoes are all sugar and that is aside from all the sweet stuff, remember that fruits are good but they are Sweet also. Hemoglobin A1c goal of less than 6.5. Patient is controlled through diet (7) Spondylosis of lumbar region without myelopathy or radiculopathy: Code(s): M47.816 - Spondylosis without myelopathy or radiculopathy, lumbar region Plan: PAtient is prescribed pregabalin (8) Tubular adenoma of colon: Code(s): D12.6 - Benign neoplasm of colon, unspecified Plan: reminded about the upcoming schedule for colon joe (9) Hearing difficulty: Code(s): H91.90 - Unspecified hearing loss, unspecified ear (10) Right ear impacted cerumen: Code(s): H61.21 - Impacted cerumen, right ear Plan: Patient needs to schedule if he wants to get this irrigated Orders: Referrals Podiatry Referral E11.65 - Type 2 diabetes mellitus with hyperglycemia Speech and Hearing Referral H91.90 - Unspecified hearing loss, unspecified ear Medications: New lancets (FreeStyle Lancets) As directed check BS QD 100 ea 3RF E11.65 - Type 2 diabetes mellitus with hyperglycemia Coding Level of Care Code Est Pt Prev Care 40-64y(58861) Diagnoses Annual physical exam Z00.00 Coronary artery disease involving [place] coronary artery of [place] heart without angina pectoris I25.10 Associated angina: without angina Coronary Disease-Associated Artery/Lesion type: [place] artery [place] vs. transplanted heart: [place] heart Hypercholesterolemia E78.00 Essential hypertension I10 Gastroesophageal reflux disease without esophagitis K21.9 Esophagitis presence: without esophagitis Type 2 diabetes mellitus with hyperglycemia E11.65 Spondylosis of lumbar region without myelopathy or radiculopathy M47.816 Tubular adenoma of colon D12.6 Hearing difficulty H91.90 Right ear impacted cerumen H61.21 Additional Codes PHQ-9 - 61474 - PHQ-9 Billing: ([id number])
== END 2023-12-21 13:13 | disposition home or self-care (01) ==
PROVIDERS: PCP Internal Medicine; Visit Provider Internal Medicine
DX: Z00.00 Encounter for general adult medical examination without abnormal findings (principal); E11.65 Type 2 diabetes mellitus with hyperglycemia; I25.10 Atherosclerotic heart disease of native coronary artery without angina pectoris; E78.00 Pure hypercholesterolemia, unspecified; I10 Essential (primary) hypertension; K21.9 Gastro-esophageal reflux disease without esophagitis; H61.21 Impacted cerumen, right ear; M47.816 Spondylosis without myelopathy or radiculopathy, lumbar region; D12.6 Benign neoplasm of colon, unspecified
CPT/HCPCS: 99396

== ENCOUNTER 2023-12-26 13:38 | Outpatient (AMB) | payer OTHER, SELFPAY ==
--- NOTE | 2023-12-26 13:39 | A.OFFVIS_ITS ---
Vital Signs 12/26/23 13:44 Height 5 ft 10 in Weight 209 lb 3.499 oz BMI 30.0 BP 132/80 Blood Pressure Location Lt brachial Position Sitting Pulse 67 Pulse Source Pulse Oximeter Pulse Oximetry (%) 97 Oxygen Delivery Method Room Air Intake Visit Reasons: RA/cm Intake Note: Patient presents for RA. Allergies penicillin V Allergy (Severe, Verified 12/26/23 13:43) rash adalimumab [From Humira] Allergy (Intermediate, Verified 12/26/23 13:43) leg pain atorvastatin Allergy (Intermediate, Verified 12/26/23 13:43) leg pain leflunomide Allergy (Intermediate, Verified 12/26/23 13:43) kidney failure tocilizumab [From Actemra] Allergy (Intermediate, Verified 12/26/23 13:43) frequent nail infection Medication List - Last Reconciled 12/26/23 by Jaylene Liang MD aspirin 81 mg PO DAILY blood sugar diagnostic (FreeStyle Lite Strips) test daily blood-glucose meter (FreeStyle Lite Meter kit) test daily carvedilol 6.25 mg PO BID diclofenac sodium 1% (Voltaren) 2 grams topical QID lancets (FreeStyle Lancets) test daily lancets (FreeStyle Lancets) As directed check BS QD nitroglycerin 0.4 mg sublingual Q5M PRN Orencia ClickJect (abatacept) 125 mg subcut QWEEK NS pregabalin 75 mg PO BID rosuvastatin 40 mg PO DAILY sennosides (senna) 8.6 mg PO BEDTIME sertraline 150 mg PO DAILY sodium,potassium,mag sulfates 17.5-3.13-1.6 gram (Suprep Bowel Prep Kit) 480 mL orally; FOR COLONOSCOPY PREP tolterodine ER (Detrol LA) 2 mg PO Q24H [wrist cock up splint Wear on each wrist at night. ] HPI Comments Details: 58 year old male presents for follow-up of seropositive rheumatoid arthritis (RF++ CCP-). Last seen Continues to take Orencia 125 mg subcutaneous every week. Well tolerated Patient states that he has doing about the same overall. Ongoing aches and pains. Difficulties with certain activities. Recently has been having triggering of his left 3rd 4th and 5th fingers. He was advised by his PCP to speak to his hand surgeon. Denies any recent infections [facility] Medical History Annual physical exam Bilateral carpal tunnel syndrome Screening for colon cancer Screening for prostate cancer New onset type 2 diabetes mellitus Depression Adult general medical exam Precordial chest pain Right hip pain Acute sinusitis Right rotator cuff tear Atherosclerotic cardiovascular disease Left rotator cuff tear Gastritis determined by endoscopy Lip cancer Erectile dysfunction Anxiety Degenerative disc disease, lumbar [place] kidney Coronary artery disease GERD (gastroesophageal reflux disease) Hypercholesterolemia Cervical radiculopathy 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 Osteoarthritis Surgical History History of carpal tunnel surgery of right wrist History of rotator cuff surgery S/P left rotator cuff repair Hx of colonoscopy History of coronary artery stent placement History of cervical spinal surgery History of shoulder surgery History of lip cancer H/O left knee surgery History of tonsillectomy Family History Father Lung cancer CAD (coronary artery disease) CVD (cardiovascular disease) Hx of CABG Mother Colon cancer Mental health disorder Maternal Uncle Lung cancer Maternal Uncle Substance abuse Substance use disorder Social History Housing: Other Housing Other:: Rents a room in a house Are you a primary manager intensive care unit to a significant other at home: No Do you presently have visiting nurse or other home services: No Alcohol intake: current Alcohol intake frequency: holidays/special occasions only Alcohol type: beer and hard liquor Comment: once a month glass Patient Tobacco Use Status: Former Tobacco user Tobacco use type: Cigarette Years Smoked: quit 2005 smokes marijuana e-Cigarette/Vaping Use: Never Used Second Hand Smoke Exposure: No Substance Use Type: Marijuana service: No Current occupational status: unemployed Current occupation: right handed Cognitive needs: No Hearing needs: No Vision needs: Yes Review of Systems Musc Reports back pain, Reports arthralgias and Reports stiffness Physical Exam Vital Signs: Last Vital Signs Pulse 67 12/26/23 13:44 BP 132/80 12/26/23 13:44 Pulse Ox 97 12/26/23 13:44 Oxygen Delivery Method Room Air 12/26/23 13:44 BMI result Body Mass Index 30.0 Const General: cooperative, healthy appearing and comfortable Nutritional Appearance: overweight Orientation/consciousness: patient oriented x3 Limitations: no limitations HEENT Head: Yes normocephalic and Yes atraumatic Resp Effort & Inspection: normal respiratory effort and able to speak in complete sentences Auscultation: clear to auscultation bilaterally Cardio Rate: regular rate Neuro General: patient oriented x3 Extrem Other: Significant osteoarthritic changes of both hands with no active synovitis Triggering of left 3rd 4th and 5th fingers Assessment & Plan Assessment & Plan (1) Seropositive rheumatoid arthritis: Comment: ++RF -ve CCP Orencia: March 2021- present Leflunomide: December 2020 - March 2021 urinary frequency Actemra: January 2020- December 2020 -Had surgery did not want to restart after, frequent nail infections. Enbrel: January- denied by insurance Humira: October 2019- January 2020 - active disease on exam/ listed with allergy leg pain Code(s): M05.9 - Rheumatoid arthritis with rheumatoid factor, unspecified Category: Medical Plan: This is a 57-year-old male with seropositive RA who presents for follow-up. On Orencia 125 mg weekly. On exam patient is having diffuse pain. Likely mild RA flare in addition to degenerative arthritis and fibromyalgia. Labs show mildly elevated CRP Will give a prednisone taper. Continue with Orencia 125 mg weekly. Labs before next visit in 4 months (2) Osteoarthritis of hands, bilateral: Code(s): M19.041 - Primary osteoarthritis, right hand; M19.042 - Primary osteoarthritis, left hand Category: Medical Qualifiers: Osteoarthritis type: primary Qualified Code(s): M19.041 - Primary osteoarthritis, right hand; M19.042 - Primary osteoarthritis, left hand Plan: Patient completed occupational therapy (3) High risk medication use: Code(s): Z79.899 - Other superintendent terminal (current) drug therapy Category: Medical Plan: Advised patient to hold medication for any signs of fever or infection (4) Trigger finger of left hand: Code(s): M65.30 - Trigger finger, unspecified finger Category: Medical Qualifiers: Trigger finger location: ring finger Qualified Code(s): M65.342 - Trigger finger, left ring finger Plan: Multiple trigger fingers especially of the left 3rd 4th and 5th fingers. We discussed steroid injections. Patient would like to hold off. He had side effe cts with steroid injections in the past. Advised patient to to his hand surgeon. I suggested occupational therapy for custom finger splints. He has not interested. He will consider buying [id number] ring splints Plan I spent 36 minutes reviewing patient's chart, evaluating patient, ordering diagnostic workup, counseling patient and documenting in the chart Orders: Orders C Reactive Protein 6 Months M05.9 - Rheumatoid arthritis with rheumatoid factor, unspecified Complete Blood Count Auto Diff 6 Months M05.9 - Rheumatoid arthritis with rheumatoid factor, unspecified Comprehensive Met. Panel 6 Months M05.9 - Rheumatoid arthritis with rheumatoid factor, unspecified Erythrocyte Sedimentation Rate 6 Months M05.9 - Rheumatoid arthritis with rheum atoid factor, unspecified Coding Level of Care Code Est Pt Level 5 (97205) Diagnoses Seropositive rheumatoid arthritis M05.9 Primary osteoarthritis of both hands M19.041; M19.042 Osteoarthritis type: primary High risk medication use Z79.899 Trigger ring finger of left hand M65.342 Trigger finger location: ring finger
[2023-12-26 13:44] VITALS: BP 132/80; PULSE 67; O2SAT 97
== END 2023-12-26 14:15 | disposition home or self-care (01) ==
LOC: HO.RHE 13:38
PROVIDERS: PCP Internal Medicine; Visit Provider Student in an Organized Health Care Education/Training Program
DX: M05.79 Rheumatoid arthritis with rheumatoid factor of multiple sites without organ or systems involvement (principal); M19.041 Primary osteoarthritis, right hand; M19.042 Primary osteoarthritis, left hand; Z79.899 Other long term (current) drug therapy; M65.342 Trigger finger, left ring finger
CPT/HCPCS: 99214

== ENCOUNTER → 2023-12-26 13:38 | Outpatient (BNVA) | payer OTHER, SELFPAY | PROVIDERS: PCP Internal Medicine; Visit Provider Student in an Organized Health Care Education/Training Program | DX: M05.9 Rheumatoid arthritis with rheumatoid factor, unspecified (principal); M19.041 Primary osteoarthritis, right hand; M19.042 Primary osteoarthritis, left hand; M65.30 Trigger finger, unspecified finger; M65.342 Trigger finger, left ring finger; Z79.899 Other long term (current) drug therapy | CPT/HCPCS: 99212 ==

== ENCOUNTER 2024-01-10 09:51 | Outpatient (RCR) | payer OTHER, SELFPAY ==
--- NOTE | 2024-01-10 10:55 | MHC.PT.EP ---
[facility] [place] [facility] [place] [facility] [place] [facility] [address] Cuong Lombardi [address] [phone] F: [phone] F: [phone] F: [phone] F: [phone] Physical Therapy Plan of Care Date of Evaluation: 01/10/24 Date of Surgery: n/a Diagnosis: spondylosis of lumbar region Assessment: Patient is a 58 year old male presenting to PT with complaints of pain in his low back. Pt reports onset of pain began 5 years ago due to insidious onset. He presents today with impairments in pain, lumbar ROM, hip strength, core strength, posture. Pt's current occupation is none, with baseline physical activities including ambulating, stair negotiation, standing, ADLs. Pt expresses correction goal of reducing pain, and is motivated to work towards this in PT. Clinical presentation today is most consistent with signs and sx associated with low back pain and pt will benefit from skilled PT 2 week x 4 weeks to address the following problems and impairments noted upon evaluation: pain, lumbar ROM, hip strength, core strength, posture. These problems limit the patient with the following functional activities: ambulating, stair negotiation, standing, ADLs. The prescribed treatment plan of care is medically necessary. Co-morbidities of T2DM, hx cancer, RA, stent were identified and taken into considerations of plan of care. Pt was educated on HEP, role of PT, prognosis, POC. Frequency and Duration: The patient will be seen 2 x week x 4 weeks Short Term Goals: Pt will demonstrate compliance with avoiding provoking positions in 2 weeks. Pt will demonstrate improved hip MMT strength by 1/3 grade in 2 weeks for improved lumbopelvic stability. Custodial Goals: Pt will demonstrate ability to transfer from multiple positions STS, supine<>sit, with less effort and pain in 4 weeks. Pt will demonstrate ability to complete ADLs with min to no pain in 4 weeks for return to PLOF. Treatment Plan: Modalities to reduce pain, spasms and effusion. Manual therapy to restore motion and function. Therapeutic exercise to improve strength and flexibility. Neuromuscular re-education for posture and balance. Therapeutic activities to return to functional activities of daily living. Electronically signed by: Usha Rakel, PT, DPT, ATC Please sign and return to therapist. Thank you for your referral.
--- NOTE | 2024-01-25 10:29 | MHC.PT.DC ---
[facility] [place] Office [place] Office [place] Office [address] [phone] F: [phone] F: [phone] F: [phone] F: [phone] Physical Therapy Discharge Report Diagnosis: spondylosis of lumbar region Date of Surgery: n/a Date of Evaluation: 01/10/24 Date of Discharge: 01/25/24 Treatments to Date: 1 Cancellations to Date: 0 No Shows to Date: 2 Discharge Status: Visit Non-compliance Discharge Summary: Pt has failed to comply [place] [facility] [place] and no showed 2 appointments. Pt to be d/c at this time. Electronically signed by: Usha Ellington PT, DPT, ATC Please sign and return to therapist. Thank you for your referral.
== END 2024-01-25 10:29 | disposition home or self-care (01) ==
LOC: HO.PTCHIC 09:51
PROVIDERS: PCP Internal Medicine; Visit Provider Internal Medicine
DX: M47.816 Spondylosis without myelopathy or radiculopathy, lumbar region (principal)
CPT/HCPCS: 97110; 97161

== ENCOUNTER 2024-01-24 08:37 | Day surgery (SDC) | payer OTHER, SELFPAY ==
--- NOTE | 2024-01-23 11:23 | HO.ANESPROP2 ---
Documented by User: Ernestina Chavez NP 01/23/24 11:29 HPI - Anesthesia Eval Consult details Narrative: 58yo M for Colonoscopy Follows [facility] [place] cardiology for CAD. Last office visit 09/2023. Stable, no change to regimen, routine f/u in 2018, he was admitted for unstable angina type symptoms and underwent cardiac catheterization and right coronary artery stenting. He also had moderate circumflex disease and 40% mid LAD disease. PENDING SALE TO [facility] Active Problems Active Problems: All Active Problems Trigger finger of left hand (Acute) Right ear impacted cerumen (Acute) Hearing difficulty (Acute) Annual physical exam (Acute) Breast swelling (Acute) Pre-op examination (Acute) High risk medication use (Acute) Tubular adenoma of colon (Acute) Lower urinary tract symptoms (Acute) Nocturia (Acute) Immunization counseling (Acute) Osteoarthritis of hands, bilateral (Acute) BPH (benign prostatic hyperplasia) (Acute) Frequency of micturition (Acute) Screening for viral disease (Acute) Right wrist pain (Acute) Cubital tunnel syndrome, bilateral (Acute) Upper back pain (Acute) Right hip impingement syndrome (Acute) Low vitamin D level (Acute) Type 2 diabetes mellitus with hyperglycemia (Acute) Hip flexor tendon tightness (Acute) Essential hypertension (Acute) Atherosclerotic cardiovascular disease (Acute) Constipation (Acute) Insomnia (Acute) Coronary artery disease (Acute) GERD (gastroesophageal reflux disease) (Acute) Hypercholesterolemia (Acute) Seropositive rheumatoid arthritis (Acute) Spondylosis of lumbar region without myelopathy or radiculopathy (Acute) Osteoarthritis (Acute) Past Medical History Medical History Annual physical exam Bilateral carpal tunnel syndrome Screening for colon cancer Screening for prostate cancer New onset type 2 diabetes mellitus Depression Adult general medical exam Precordial chest pain Right hip pain Acute sinusitis Right rotator cuff tear Atherosclerotic cardiovascular disease Left rotator cuff tear Gastritis determined by endoscopy Lip cancer Erectile dysfunction Anxiety Degenerative disc disease, lumbar Horseshoe kidney Coronary artery disease GERD (gastroesophageal reflux disease) Hypercholesterolemia Cervical radiculopathy 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 Osteoarthritis Family History Family History Father Lung cancer CAD (coronary artery disease) CVD (cardiovascular disease) Hx of CABG Mother Colon cancer Mental health disorder Maternal Uncle Lung cancer Maternal Uncle Substance abuse Substance use disorder Surgical History Surgical History History of carpal tunnel surgery of right wrist History of rotator cuff surgery S/P left rotator cuff repair Hx of colonoscopy History of coronary artery stent placement History of cervical spinal surgery History of shoulder surgery History of lip cancer H/O left knee surgery History of tonsillectomy Social History Social History Housing: Other Housing Other:: Rents a room in a house Are you a primary rn intensive care unit to a significant other at home: No Do you presently have visiting nurse or other home services: No Alcohol intake: current Alcohol intake frequency: holidays/special occasions only Alcohol type: beer and hard liquor Comment: once a month glass Patient Tobacco Use Status: Former Tobacco user Tobacco use type: Cigarette Years Smoked: quit 2004 smoke marijuana e-Cigarette/Vaping Use: Never Used Second Hand Smoke Exposure: No Use of substances other than those prescribed or required for medical reasons: Yes Substance Use Type: Marijuana Are you DNR?: No Advance Directives: No Advance Directives Information Provided: Yes service: No Current occupational status: unemployed Current occupation: right handed Cognitive needs: No Hearing needs: No Vision needs: Yes Meds Allergies Allergy/AdvReac Type Severity Reaction Status Date / Time penicillin V Allergy Severe rash Verified 12/26/23 13:43 adalimumab [From Humira] Allergy Intermediate leg pain Verified 12/26/23 13:43 atorvastatin Allergy Intermediate leg pain Verified 12/26/23 13:43 leflunomide Allergy Intermediate kidney Verified 12/26/23 13:43 failure tocilizumab [From Actemra] Allergy Intermediate frequent Verified 12/26/23 13:43 nail infection Home Medications ?Medication ?Instructions ?Recorded ?Confirmed ?Last Taken ?Type aspirin 81 mg tablet,delayed 81 mg PO DAILY 04/23/20 12/26/23 08/10/20 History release sennosides 8.6 mg capsule (senna) 8.6 mg PO BEDTIME 04/23/20 12/26/23 Unknown History sertraline 100 mg tablet 150 mg PO DAILY 06/26/23 12/26/23 Unknown History Exam Pertinent Lab Results Pertinent Lab Results: Laboratory Tests 12/18/23 08:41 WBC 7.5 Hgb 14.0 Hct 42.0 Plt Count 181 Sodium 142 Potassium 4.6 Chloride 107 Carbon Dioxide 29 BUN 15 Creatinine 0.87 Narrative Narrative: EKG 09/2023 sinus rhythm at 63/Min; borderline ST elevation versus nonspecific finding in lead 1/aVL. Reciprocal changes in inferior leads. Similar to prior EKG from August 2020. Cardiac catheterization 2017. Severe 95% mid RCA stenosis status post drug-eluting stenting; moderate circumflex disease; 40% mid LAD disease. Myocardial perfusion imaging 2021 unremarkable without any clear evidence of ischemia or infarction. Echocardiogram 2021 with LVEF 67%. No significant valvular issues. Assessment and Plan Assessment Anesthesia Assessment: Chart Reviewed Documented by User: Emilee Donis MD 01/24/24 09:15 PENDING SALE TO [facility] Past Medical History Medical History Annual physical exam Bilateral carpal tunnel syndrome Screening for colon cancer Screening for prostate cancer New onset type 2 diabetes mellitus Depression Adult general medical exam Precordial chest pain Right hip pain Acute sinusitis Right rotator cuff tear Atherosclerotic cardiovascular disease Left rotator cuff tear Gastritis determined by endoscopy Lip cancer Erectile dysfunction Anxiety Degenerative disc disease, lumbar Horseshoe kidney Coronary artery disease GERD (gastroesophageal reflux disease) Hypercholesterolemia Cervical radiculopathy 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 Osteoarthritis Family History Family History Father Lung cancer CAD (coronary artery disease) CVD (cardiovascular disease) Hx of CABG Mother Colon cancer Mental health disorder Maternal Uncle Lung cancer Maternal Uncle Substance abuse Substance use disorder Family history of problems with anesthesia: No Surgical History Surgical History History of carpal tunnel surgery of right wrist History of rotator cuff surgery S/P left rotator cuff repair Hx of colonoscopy History of coronary artery stent placement History of cervical spinal surgery History of shoulder surgery History of lip cancer H/O left knee surgery History of tonsillectomy History of Problems with Anesthesia: No Social History Social History Housing: Other Housing Other:: Rents a room in a house Are you a primary rn intensive care unit to a significant other at home: No Do you presently have visiting nurse or other home services: No Alcohol intake: current Alcohol intake frequency: holidays/special occasions only Alcohol type: beer and hard liquor Comment: once a month glass Patient Tobacco Use Status: Former Tobacco user Tobacco use type: Cigarette Years Smoked: quit 2004 smoke marijuana e-Cigarette/Vaping Use: Never Used Second Hand Smoke Exposure: No Use of substances other than those prescribed or required for medical reasons: Yes Substance Use Type: Marijuana Are you DNR?: No Advance Directives: No Advance Directives Information Provided: Yes service: No Current occupational status: unemployed Current occupation: right handed Cognitive needs: No Hearing needs: No Vision needs: Yes Meds Allergies Allergy/AdvReac Type Severity Reaction Status Date / Time penicillin V Allergy Severe rash Verified 12/26/23 13:43 adalimumab [From Humira] Allergy Intermediate leg pain Verified 12/26/23 13:43 atorvastatin Allergy Intermediate leg pain Verified 12/26/23 13:43 leflunomide Allergy Intermediate kidney Verified 12/26/23 13:43 failure tocilizumab [From Actemra] Allergy Intermediate frequent Verified 12/26/23 13:43 nail infection Home Medications ?Medication ?Instructions ?Recorded ?Confirmed ?Last Taken ?Type aspirin 81 mg tablet,delayed 81 mg PO DAILY 04/23/20 12/26/23 08/10/20 History release sennosides 8.6 mg capsule (senna) 8.6 mg PO BEDTIME 04/23/20 12/26/23 Unknown History sertraline 100 mg tablet 150 mg PO DAILY 06/26/23 12/26/23 Unknown History Exam Airway Mallampati Class: II TM Dist: >3cm Neck ROM: Full Heart: rrr Lungs: cta Assessment and Plan Assessment Anesthesia Assessment: Anesthesia Plan Discussed Final Anesthetic Review Family History of Problems with Anesthesia: No History of Problems with Anesthesia: No NPO: Yes ASA Class: II Final Preanesthetic Review: No Changes in Pt Med Stat, Meds/Allgs Chart Reviewed and Consent Obtained/Reviewed Patient Risk: Low Procedure Risk: Low Anesthetic Plan Anesthetic Plan: MAC: Disposition: Standard PACU
[2024-01-24 09:03] VITALS: BMI 29.4
--- NOTE | 2024-01-24 09:09 | MHC.SHP ---
Pre-Procedural Eval Section A - 24 Hr Update-Section A only Date of Service: 01/24/24 Section B - Complete if H&P > 30 days Chief Complaint: Benign neoplasm of colon, unspecified Relevant Family History (Specify if Yes): No Relevant Social History: Other (specify) (occ alcohol, THC use ) Present Medications: see Short Stay Collaborative assessment Medical History: Significant History (New onset type 2 diabetes mellitus Depression Precordial chest pain Right hip pain Acute sinusitis Right rotator cuff tear Atherosclerotic cardiovascular disease Left rotator cuff tear Gastritis determined by endoscopy Lip cancer Erectile dysfunction Anxiety Degenerative disc disease, lumbar Horses) History of Previous Operations: Relevant previous surgery/procedure and date(s) (History of carpal tunnel surgery of right wrist History of rotator cuff surgery S/P left rotator cuff repair Hx of colonoscopy History of coronary artery stent placement History of cervical spinal surgery History of shoulder surgery History of lip cancer H/O left knee surgery History of tonsillectom) Allergies: Allergies Allergy/AdvReac Type Severity Reaction Status Date / Time penicillin V Allergy Severe rash Verified 12/26/23 13:43 adalimumab [From Humira] Allergy Intermediate leg pain Verified 12/26/23 13:43 atorvastatin Allergy Intermediate leg pain Verified 12/26/23 13:43 leflunomide Allergy Intermediate kidney Verified 12/26/23 13:43 failure tocilizumab [From Actemra] Allergy Intermediate frequent Verified 12/26/23 13:43 nail infection Review of Systems Sugical H&P ROS: Negative: Constitution, Cardiovascular, Respiratory, Neurological, Psychiatric, Hem-Onc, Allergic/Immunologic, Gastrointestinal, Genitourinary, Musculoskeletal, Integumentary, Endocrine and Eyes/Ears/Nose/Throat Exam Surgical H&P Exam: Normal: HEENT, Normal: Heart, Normal: Lungs, Normal: Extremities, Normal: Abdomen, Normal: Skin and Normal: Neurological Plan Diagnosis/Plan: Unchanged I have reviewed the history and physical and performed a pertinent physical examination on my patient. No changes have occurred unless specified. Time Spent With Patient Time: Total time managing care of this patient today ____ minutes.
[2024-01-24 09:12] VITALS: BP 146/82; PULSE 80; RESP 16; TEMP 36.7; O2SAT 97
[2024-01-24] MEDS: Lactated Ringers 1,000 ML 100 ML IVCONT (09:21)
[2024-01-24 10:19] VITALS: BP 132/72; PULSE 62; RESP 16; TEMP 36.2; O2SAT 93
[2024-01-24 10:34] VITALS: BP 125/80; PULSE 56; RESP 16; O2SAT 95
[2024-01-24 10:49] VITALS: BP 149/83; PULSE 54; RESP 16; TEMP 36.3; O2SAT 99
--- NOTE | 2024-01-24 10:51 | HO.OPN-COLON ---
Colonoscopy Operative Note Operative Note Date of Service: 01/24/24 Narrative: Operative Information Procedure Description: Colonoscopy Indication: hx of colon polyps Anesthesia: MAC COLONOSCOPY Instrument: Olympus variable stiffness pediatric scope 190L Colonoscopy Monitoring: Vital signs and clinical assessment, continuous EKG monitoring, Pulse oximetry, Carbon Dioxide monitoring and blood pressure monitoring were done throughout the procedure. Colon withdrawal time was 13 minutes. Procedure: The patient was placed in the left lateral decubitis position and pre-procedure medications were administered. After a digital rectal examination of the ano-rectum, the video colonoscope was inserted into the rectum and advanced through the colon to the cecum/TI. The colonoscope was slowly withdrawn in a retrograde panoramic fashion and the colon mucosa was carefully examined including a retroflexed view of the rectum. Findings and interventions are described below. Procedure Difficulty: easy Findings: Terminal Ileum-normal Cecum:normal Ascending Colon: normal Transverse Colon -normal Descending Colon: x 1 sessile polyp 7-8 mm removed with cold snare, x1 sessile polyp 6-7 mm removed with cold forceps Sigmoid Colon: x 1 sessile polyp removed with cold snare, mild to moderate diverticulosis noted Rectum: Retroflexion with small internal hemorrhoids seen, grade I Anorectum - normal Intervention: cold snare and cold forceps Colon preparation: [place] Bowel Preparation Scale Right colon; 2 Transverse colon: 2 Left colon; 2 (0 = Unprepared colon segment with mucosa not seen due to solid stool that cannot be cleared. 1 = Portion of mucosa of the colon segment seen, but other areas of the colon segment not well seen due to staining, residual stool and/or opaque liquid. 2 = Minor amount of residual staining, small fragments of stool and/or opaque liquid, but mucosa of colon segment seen well. 3 = Entire mucosa of colon segment seen well with no residual staining, small fragments of stool or opaque liquid) Impression and Post Procedure Diagnosis: diverticulosis colon polyps internal hemorrhoids Plan: High fiber diet leaflet Avoid straining at stool, epsom salts and sitz bath, anusol supps or cream Repeat Colonoscopy in 5 years due to polyp history or earlier if clinically indicated Above findings were reviewed with the patient and relevant handouts were provided if indicated.
== END 2024-01-24 11:45 | disposition home or self-care (01) ==
PROVIDERS: PCP Internal Medicine; Visit Provider Internal Medicine Gastroenterology
PROC: 0DJD8ZZ Inspection of Lower Intestinal Tract, Via Natural or Artificial Opening Endoscopic (ICD-10-PCS; CPT 45378; principal; 2024-01-24 10:20)
DX: Z12.11 Encounter for screening for malignant neoplasm of colon (principal); Z86.010 Personal history of colon polyps; D12.4 Benign neoplasm of descending colon; K63.5 Polyp of colon; K57.30 Diverticulosis of large intestine without perforation or abscess without bleeding; K64.0 First degree hemorrhoids; K21.9 Gastro-esophageal reflux disease without esophagitis; K59.00 Constipation, unspecified; K29.70 Gastritis, unspecified, without bleeding; E11.9 Type 2 diabetes mellitus without complications; I25.10 Atherosclerotic heart disease of native coronary artery without angina pectoris; Z95.5 Presence of coronary angioplasty implant and graft; C00.9 Malignant neoplasm of lip, unspecified; M05.9 Rheumatoid arthritis with rheumatoid factor, unspecified; Q63.1 Lobulated, fused and horseshoe kidney; N52.9 Male erectile dysfunction, unspecified; F32.A Depression, unspecified; Z79.82 Long term (current) use of aspirin; Z79.899 Other long term (current) drug therapy; Z88.0 Allergy status to penicillin; Z88.8 Allergy status to other drugs, medicaments and biological substances; Z98.890 Other specified postprocedural states; Z56.0 Unemployment, unspecified
CPT/HCPCS: 45385; 45380; 88305; J2704

== ENCOUNTER → 2024-01-24 08:37 | Outpatient (BNV) | payer OTHER, SELFPAY | PROVIDERS: PCP Internal Medicine; Visit Provider Internal Medicine Gastroenterology | DX: Z12.11 Encounter for screening for malignant neoplasm of colon (principal); Z86.010 Personal history of colon polyps; D12.4 Benign neoplasm of descending colon; K63.5 Polyp of colon; K57.30 Diverticulosis of large intestine without perforation or abscess without bleeding; K64.0 First degree hemorrhoids | CPT/HCPCS: 45380; 45385 ==

== ENCOUNTER 2024-02-07 08:55 | Outpatient (AMB) | payer OTHER, SELFPAY ==
--- NOTE | 2024-02-07 08:57 | A.OFFVIS_ITS ---
Vital Signs 02/07/24 09:00 Height 5 ft 10 in Weight 208 lb 1.862 oz BMI 29.9 BP 183/93 H Blood Pressure Location Lt brachial Position Sitting Pulse 62 Intake Visit Reasons: s/p colon Intake Note: Issa presents to in office follow up s/p colonoscopy. CC: Patient reports dark stools, nausea sometimes and an episode of vomiting. 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: No Accompanied by: Self / Same As Patient Allergies penicillin V Allergy (Severe, Verified 02/07/24 09:07) rash adalimumab [From Humira] Allergy (Intermediate, Verified 02/07/24 09:07) leg pain atorvastatin Allergy (Intermediate, Verified 02/07/24 09:07) leg pain leflunomide Allergy (Intermediate, Verified 02/07/24 09:07) kidney failure tocilizumab [From Actemra] Allergy (Intermediate, Verified 02/07/24 09:07) frequent nail infection HPI HPI s/p colon: Details: Assessment & Plan (1) Tubular adenoma of colon: Code(s): D12.6 - Benign neoplasm of colon, unspecified Category: Medical (2) GERD (gastroesophageal reflux disease): Code(s): K21.9 - Gastro-esophageal reflux disease without esophagitis Category: Medical Qualifiers: Esophagitis presence: without esophagitis Qualified Code(s): K21.9 - Gastro-esophageal reflux disease without esophagitis (3) Pre-op examination: Code(s): Z01.818 - Encounter for other preprocedural examination Category: Medical Plan Patient has been lost to follow-up since 05/2021. He had a large TA in 2020. He really struggled with the PEG prep and used Suprep last time with better results. His GERD and CIC resolved after stopping the metformin. His only new problem is urinary incontinence and he is now on an OAB medication. This is only partially effective. He denies breathing problems, he had an episode of pre syncope 6 mos ago that he thinks was r/t dehydration It was hot and I was over exerting myself. He sees Dr. Goins. NO anes or sed problems. NO ID problems. Orders: Orders Colonoscopy - GI Use Only 09/12/23 D12.6 - Benign neoplasm of colon, unspecified, Z01.818 - Encounter for other preprocedural examination Medications: New bisacodyl (Dulcolax (bisacodyl)) 10 mg (2 x 5 mg) PO BEDTIME 4 tabs 0RF 2 days sodium,potassium,mag sulfates 17.5-3.13-1.6 gram (Suprep Bowel Prep Kit) 480 mL orally; FOR COLONOSCOPY PREP 354 mL 0RF COLONOSCOPY 01/24/24 Findings: Terminal Ileum-normal Cecum:normal Ascending Colon: normal Transverse Colon -normal Descending Colon: x 1 sessile polyp 7-8 mm removed with cold snare, x1 sessile polyp 6-7 mm removed with cold forceps Sigmoid Colon: x 1 sessile polyp removed with cold snare, mild to moderate diverticulosis noted Rectum: Retroflexion with small internal hemorrhoids seen, grade I Anorectum - normal Intervention: cold snare and cold forceps Impression and Post Procedure Diagnosis: diverticulosis colon polyps internal hemorrhoids Plan: High fiber diet leaflet Avoid straining at stool, epsom salts and sitz bath, anusol supps or cream Repeat Colonoscopy in 5 years due to polyp history or earlier if clinically indicated BIOPSY Received: 01/24/24 Diagnosis A. Colon, descending, polyp: Tubular adenoma; negative for high-grade dysplasia and carcinoma. B. Colon, sigmoid, polyp: Hyperplastic polyp. TODAY'S VISIT He is agreeable to a 5 year recall. The procedure was well tolerated. The results were explained and the patient is agreeable to the follow-up interval as stated. Education was provided to tell any 1st degree relatives about their findings to be sure that they are screened by age 45. Educated that they will be put on a recall list when it is time for their repeat scope but should they move out of state or away from the hospital they will need to remember along with their primary to repeat the procedure in a timely fashion to avoid any adverse complications. He had some black stools and uses senna for CIC but only prn. I suggest he try using it qod since he has hard stools followed by watery stools. He has always had nervous stomach, his mother of stomach cancer. Will get HP breath test and consider if PPI or EGD needed. IT is really set off by emotional issues, acidy foods and when his stomach is empty. ROV 6 weeks. PFSH Medical History Pre-op examination Frequency of micturition Right wrist pain Annual physical exam Lower urinary tract symptoms Immunization counseling Screening for viral disease Bilateral carpal tunnel syndrome Screening for colon cancer Screening for prostate cancer New onset type 2 diabetes mellitus Depression Adult general medical exam Precordial chest pain Right hip pain Acute sinusitis Right rotator cuff tear Atherosclerotic cardiovascular disease Left rotator cuff tear Gastritis determined by endoscopy Lip cancer Erectile dysfunction Anxiety Degenerative disc disease, lumbar Horseshoe kidney Coronary artery disease GERD (gastroesophageal reflux disease) Hypercholesterolemia Cervical radiculopathy 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 Osteoarthritis Surgical History History of carpal tunnel surgery of right wrist History of rotator cuff surgery S/P left rotator cuff repair Hx of colonoscopy History of coronary artery stent placement History of cervical spinal surgery History of shoulder surgery History of lip cancer H/O left knee surgery History of tonsillectomy Family History Father Lung cancer CAD (coronary artery disease) CVD (cardiovascular disease) Hx of CABG Mother Colon cancer Mental health disorder Maternal Uncle Lung cancer Maternal Uncle Substance abuse Substance use disorder Social History Housing: Other Housing Other:: Rents a room in a house Are you a primary manager intensive care unit to a significant other at home: No Do you presently have visiting nurse or other home services: No Alcohol intake: current Alcohol intake frequency: holidays/special occasions only Alcohol type: beer and hard liquor Comment: once a month glass Patient Tobacco Use Status: Former Tobacco user Tobacco use type: Cigarette Years Smoked: quit 2005 smokes marijuana e-Cigarette/Vaping Use: Never Used Second Hand Smoke Exposure: No Substance Use Type: Marijuana service: No Current occupational status: unemployed Current occupation: right handed Cognitive needs: No Hearing needs: No Vision needs: Yes Review of Systems Const Denies fatigue, Denies fever(s), Denies night sweats, Denies poor appetite and Denies weight loss ENT Reports Normal hearing present, Denies dental pain, Denies dysphagia, Denies hearing loss, Denies mouth pain, Denies odynophagia, Denies throat swelling, Denies tongue swelling and Reports other (Dentition adequate) Card Reports no additional complaints Resp Reports no additional complaints GI Details: Denies abdominal pain, Denies melena, Denies bloating, Denies hematochezia, Denies constipation, Denies GI cramping, Denies dysphagia, Denies excessive flatus, Denies early satiety, Reports dyspepsia, Denies heartburn, Reports diarrhea, Denies nausea, Denies odynophagia, Denies vomiting and Denies hematemesis Skin/Breast Denies pruritus, Denies lesions, Denies rash and Denies jaundice Neuro Reports Normal hearing present and Denies Abnormal speech present Psych Reports anxiety Endo Denies fatigue Aller/Immun Denies throat swelling and Denies tongue swelling Physical Exam Vital Signs: Last Vital Signs Pulse 62 02/07/24 09:00 BP 183/93 H 02/07/24 09:00 BMI result Body Mass Index 29.9 Const General: cooperative, no acute distress, well developed and well groomed Nutritional Appearance: well nourished and overweight Orientation/consciousness: oriented to person, oriented to place and oriented to time Limitations: No language barrier HEENT Head: Yes normocephalic and Yes atraumatic Eyes General: appearance normal, both eyes and all related structures Pupils: Equal, round and reactive pupils present Neck Neck: Yes normal visual inspection and Yes no lymphadenopathy Thyroid: Thyroid normal Resp Effort & Inspection: normal respiratory effort and able to speak in complete sentences Auscultation: clear to auscultation bilaterally Cardio Rate: regular rate Rhythm: regular rhythm Heart sounds: Normal, physiologic split S2 sound present Peripheral pulses: radial pulses present and posterior tibial pulses present GI Inspection: No distended, No Abdominal panniculus present and Yes obesity Palpation (GI): Soft to palpation, nontender, no guarding, not rigid and No hepatosplenomegaly present Percussion: Yes normal to percussion Auscultation: normal bowel sounds Rectal Exam - Male: Yes deferred Skin General skin exam: no rashes or lesions noted, turgor normal, skin not dry, no jaundice, No spider nevi and no striae Rashes: no rashes Nails: normal Neuro General: oriented to person, oriented to place and oriented to time Cranial nerves: Yes Equal, round and reactive pupils present and Yes Normal hearing present Speech: No Abnormal speech present Extrem General: Yes normal to inspection, No clubbing, No cyanosis and No edema Psych Appearance: grossly normal and well kempt Mental Status: mental status grossly normal Speech and movement: Normal speech and movement present Affect: normal affect Attitude: cooperative Thought process: Normal thought process present and not confabulating Thought content: Normal thought content present Insight: Fair insight present (Psych) Judgement: Fair judgement present (Psych) Results Reviewed Results Reviewed: COLONOSCOPY 01/24/24 Findings: Terminal Ileum-normal Cecum:normal Ascending Colon: normal Transverse Colon -normal Descending Colon: x 1 sessile polyp 7-8 mm removed with cold snare, x1 sessile polyp 6-7 mm removed with cold forceps Sigmoid Colon: x 1 sessile polyp removed with cold snare, mild to moderate diverticulosis noted Rectum: Retroflexion with small internal hemorrhoids seen, grade I Anorectum - normal Intervention: cold snare and cold forceps Impression and Post Procedure Diagnosis: diverticulosis colon polyps internal hemorrhoids Plan: High fiber diet leaflet Avoid straining at stool, epsom salts and sitz bath, anusol supps or cream Repeat Colonoscopy in 5 years due to polyp history or earlier if clinically indicated BIOPSY Received: 01/24/24 Diagnosis A. Colon, descending, polyp: Tubular adenoma; negative for high-grade dysplasia and carcinoma. B. Colon, sigmoid, polyp: Hyperplastic polyp. Assessment & Plan Assessment & Plan (1) Tubular adenoma of colon: Code(s): D12.6 - Benign neoplasm of colon, unspecified Category: Medical (2) GERD (gastroesophageal reflux disease): Code(s): K21.9 - Gastro-esophageal reflux disease without esophagitis Category: Medical Qualifiers: Esophagitis presence: without esophagitis Qualified Code(s): K21.9 - Gastro-esophageal reflux disease without esophagitis (3) Constipation: Code(s): K59.00 - Constipation, unspecified Category: Medical (4) Dyspepsia: Code(s): R10.13 - Epigastric pain Category: Medical Plan He is agreeable to a 5 year recall. The procedure was well tolerated. The results were explained and the patient is agreeable to the follow-up interval as stated. Education was provided to tell any 1st degree relatives about their findings to be sure that they are screened by age 45. Educated that they will be put on a recall list when it is time for their repeat scope but should they move out of state or away from the hospital they will need to remember along with their primary to repeat the procedure in a timely fashion to avoid any adverse complications. He had some black stools and uses senna for CIC but only prn. I suggest he try using it qod since he has hard stools followed by watery stools. He has always had nervous stomach, his mother of stomach cancer. Will get HP breath test and consider if PPI or EGD needed. IT is really set off by emotional issues, acidy foods and when his stomach is empty. ROV 6 weeks. Orders: Orders H Pylori Breath Test Today R10.13 - Epigastric pain Coding Level of Care Code Est Pt Level 4 (66840) Diagnoses Tubular adenoma of colon D12.6 Gastroesophageal reflux disease without esophagitis K21.9 Esophagitis presence: without esophagitis Constipation K59.00 Dyspepsia R10.13 Time Spent (min) 34
[2024-02-07 09:00] VITALS: BP 183/93; PULSE 62; BMI 29.9
== END 2024-02-07 10:04 | disposition home or self-care (01) ==
PROVIDERS: PCP Internal Medicine; Visit Provider Nurse Practitioner
DX: D12.6 Benign neoplasm of colon, unspecified (principal); K21.9 Gastro-esophageal reflux disease without esophagitis; K59.00 Constipation, unspecified; R10.13 Epigastric pain
CPT/HCPCS: 99214

== ENCOUNTER 2024-02-07 08:55 | Outpatient (REF) | payer OTHER, SELFPAY ==
[2024-02-08 11:44] LABS: H Pylori Breath Test Negative (Negative)
== END 2024-02-07 08:56 | disposition home or self-care (01) ==
LOC: HO.LNP 08:55
PROVIDERS: PCP Internal Medicine; Visit Provider Nurse Practitioner
DX: R10.13 Epigastric pain (principal)
CPT/HCPCS: 83013; 99212

== ENCOUNTER 2024-03-18 10:02 | Outpatient (AMB) | payer OTHER, SELFPAY ==
--- NOTE | 2024-03-18 10:06 | A.OFFPC_ITS ---
Vital Signs 03/18/24 10:08 Height 5 ft 10 in Weight 209 lb 4 oz BMI 30.0 BP 130/60 Blood Pressure Location Lt brachial Position Sitting Pulse 64 Pulse Source Pulse Oximeter Pulse Oximetry (%) 98 Oxygen Delivery Method Room Air Intake Visit Reasons: RA, cad, L breast pain Intake Note: Patient is here to follow up on RA, CAD, L breast pain. Pt decline flu shot International Tax Manager Required: No Stretch Box Tender: Not Required per policy Accompanied by: Self / Same As Patient Allergies penicillin V Allergy (Severe, Verified 03/18/24 10:08) rash adalimumab [From Humira] Allergy (Intermediate, Verified 03/18/24 10:08) leg pain atorvastatin Allergy (Intermediate, Verified 03/18/24 10:08) leg pain leflunomide Allergy (Intermediate, Verified 03/18/24 10:08) kidney failure tocilizumab [From Actemra] Allergy (Intermediate, Verified 03/18/24 10:08) frequent nail infection Tobacco use date assessed: 03/18/24 Dental Screening Dental Screen Date: 07/18/23 HPI RA, cad, L breast pain HPI Details 58-year-old obese male with coronary art susan disease hypercholesterolemia hypertension GERD diabetes mellitus lumbar spondylosis coming in for follow-up. Patient was last seen for physical exam in December 2023. Patient's colonoscopy is up-to-date. Review of the notes has seen gastroenterology in February 06 status post colonoscopy advised high-fiber diet has a history of tubular adenoma 5 year recall. Has chronic idiopathic constipation uses senna patient has also seen Rheumatology in December 25 for the rheumatoid arthritis Orencia 125 mg weekly advised prednisone treatment. PAtient stopped orencia and due to frequency. [facility] Medical History Pre-op examination Frequency of micturition Right wrist pain Annual physical exam Lower urinary tract symptoms Immunization counseling Screening for viral disease Bilateral carpal tunnel syndrome Screening for colon cancer Screening for prostate cancer New onset type 2 diabetes mellitus Depression Adult general medical exam Precordial chest pain Right hip pain Acute sinusitis Right rotator cuff tear Atherosclerotic cardiovascular disease Left rotator cuff tear Gastritis determined by endoscopy Lip cancer Erectile dysfunction Anxiety Degenerative disc disease, lumbar Horseshoe kidney Coronary artery disease GERD (gastroesophageal reflux disease) Hypercholesterolemia Cervical radiculopathy 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 Osteoarthritis Surgical History History of carpal tunnel surgery of right wrist History of rotator cuff surgery S/P left rotator cuff repair Hx of colonoscopy History of coronary artery stent placement History of cervical spinal surgery History of shoulder surgery History of lip cancer H/O left knee surgery History of tonsillectomy Family History Father Lung cancer CAD (coronary artery disease) CVD (cardiovascular disease) Hx of CABG Mother Colon cancer Mental health disorder Maternal Uncle Lung cancer Maternal Uncle Substance abuse Substance use disorder Social History Housing: Other Housing Other:: Rents a room in a house Are you a primary career center director to a significant other at home: No Do you presently have visiting nurse or other home services: No Alcohol intake: current Alcohol intake frequency: holidays/special occasions only Alcohol type: beer and hard liquor Comment: once a month glass Patient Tobacco Use Status: Former Tobacco user Tobacco use type: Cigarette Years Smoked: quit 2005 smokes marijuana e-Cigarette/Vaping Use: Never Used Second Hand Smoke Exposure: No Substance Use Type: Marijuana service: No Current occupational status: unemployed Current occupation: right handed Cognitive needs: No Hearing needs: No Vision needs: Yes Questionnaire Thrive Questionnaire Date Thrive assessed: 07/18/23 Are you currently unemployed and looking for a job?: No SARAI-7 AMB Questionnaire SARAI-7 Date SARAI - 7 assessed: 07/18/23 Source: Developed by Drs. Souleymane Cox, Aline Kay, Damion Lieberman and colleagues, with an educational zulema from [employer]. Physical exam (Primary Care) Vital Signs: Last Vital Signs Pulse 64 03/18/24 10:08 BP 130/60 03/18/24 10:08 Pulse Ox 98 03/18/24 10:08 Oxygen Delivery Method Room Air 03/18/24 10:08 BMI result Body Mass Index 30.0 Tobacco/Smoking Status: Tobacco use Status Tobacco use date assessed 03/18/24 03/18/24 10:11 Patient Tobacco Use Status Former Tobacco user 03/18/24 10:11 Tobacco use type Cigarette 03/18/24 10:11 e-Cigarette/Vaping Use Never Used 03/18/24 10:11 Thrive Assessment: Date of Thrive Assessment Date Thrive assessed 07/18/23 03/18/24 10:11 Const General: alert; No acute distress Eyes Conjunctivae: conjunctivae normal Resp Auscultation: clear to auscultation bilaterally Cardio Rate: regular rate Rhythm: regular rhythm GI Inspection: Yes normal to inspection Extrem General: Yes normal to inspection and No edema Results AMB Hemoglobin A1c AMB Hemoglobin A1c 6.8 % Last Edit by KRISTIN Cintron on 03/18/24 10:19 Results Reviewed Results Reviewed: Laboratory Last Values Hgb A1c (Clinic) 6.8 % (4.0-6.0) H 03/18/24 10:06 Coding Level of Care Code Est Pt Level 4 (26337) Complex EM visit Add On G2211 Diagnoses Seropositive rheumatoid arthritis M05.9 Hypercholesterolemia E78.00 Gastroesophageal reflux disease without esophagitis K21.9 Esophagitis presence: without esophagitis Coronary artery disease involving [place] coronary artery of [place] heart without angina pectoris I25.10 Coronary Disease-Associated Artery/Lesion type: [place] artery [place] vs. transplanted heart: [place] heart Associated angina: without angina Essential hypertension I10 Type 2 diabetes mellitus with hyperglycemia E11.65 Tubular adenoma of colon D12.6 Assessment & Plan Assessment & Plan (1) Seropositive rheumatoid arthritis: Comment: ++RF -ve CCP Orencia: March 2021- present Leflunomide: December 2020 - March 2021 urinary frequency Actemra: January 2020- December 2020 -Had surgery did not want to restart after, frequent nail infections. Enbrel: January- denied by insurance Humira: October 2019- January 2020 - active disease on exam/ listed with allergy leg pain Code(s): M05.9 - Rheumatoid arthritis with rheumatoid factor, unspecified Category: Medical Plan: Patient continues to be followed up by Rheumatology on Orencia but was stopped ? frequency (2) Hypercholesterolemia: Code(s): E78.00 - Pure hypercholesterolemia, unspecified Category: Medical Plan: Avoid fried foods, chicken skin, eggs, butter margarine, pastries and meat. Be it pork or beef they have a lot of cholesterol LDL goal of less than 70 and triglyceride of less than 150 December 2023 last blood work on rosuvastatin 40 mg once a day (3) GERD (gastroesophageal reflux disease): Code(s): K21.9 - Gastro-esophageal reflux disease without esophagitis Category: Medical Qualifiers: Esophagitis presence: without esophagitis Qualified Code(s): K21.9 - Gastro-esophageal reflux disease without esophagitis Plan: Avoid the foods that causes that usually spicy foods, tomato products, juices, coffee, soda and foods that your sensitive to. After eating do not lie down, allow 3-4 hours before in lie down. And keep the head of bed above 30 degrees to avoid the acid from going up. (4) Coronary artery disease: Comment: 10/20/2017 angioplasty YESSICA, stent placement Dr. Tomeka Araya March 2018 echo 60-65% normal LV, Brilinta October 2018, nuclear stress ejection fraction 74% echo July 2019 60-65% Code(s): I25.10 - Atherosclerotic heart disease of [place] coronary artery without angina pectoris Category: Medical Qualifiers: Coronary Disease-Associated Artery/Lesion type: [place] artery [place] vs. transplanted heart: [place] heart Associated angina: without angina Qualified Code(s): I25.10 - Atherosclerotic heart disease of [place] coronary artery without angina pectoris Plan: Control the cholesterol, weight, blood pressure, diabetes on aspirin 81 mg once a day (5) Essential hypertension: Code(s): I10 - Essential (primary) hypertension Category: Medical Plan: Continue with blood pressure medication. Decrease salt intake and exercise takes carvedilol 6.25 mg twice a day (6) Type 2 diabetes mellitus with hyperglycemia: Comment: DR. Larry Code(s): E11.65 - Type 2 diabetes mellitus with hyperglycemia Category: Medical Plan: Decrease the amount of carbohydrate intake, pasta, bread, rice and potatoes are all sugar and that is aside from all the sweet stuff, remember that fruits are good but they are Sweet also. Hemoglobin A1c goal of less than 6.5 presently diet controlled. Patient decline new med for DM and would like to do diet (7) Tubular adenoma of colon: Comment: 01/30/2024 tubular adenoma Code(s): D12.6 - Benign neoplasm of colon, unspecified Category: Medical Plan: Continue to follow-up with Gastroenterology and 5 year recall Orders: Orders AMB Hemoglobin A1c Today E11.65 - Type 2 diabetes mellitus with hyperglycemia Referrals Ophthalmology Referral E11.65 - Type 2 diabetes mellitus with hyperglycemia Speech and Hearing Referral H91.90 - Unspecified hearing loss, unspecified ear Medications: Refilled rosuvastatin 40 mg PO DAILY 90 tabs 2RF
[2024-03-18 10:08] VITALS: BP 130/60; PULSE 64; O2SAT 98
== END 2024-03-18 11:21 | disposition home or self-care (01) ==
PROVIDERS: PCP Internal Medicine; Visit Provider Internal Medicine
DX: E11.65 Type 2 diabetes mellitus with hyperglycemia (principal); M05.9 Rheumatoid arthritis with rheumatoid factor, unspecified; E78.00 Pure hypercholesterolemia, unspecified; K21.9 Gastro-esophageal reflux disease without esophagitis; I25.10 Atherosclerotic heart disease of native coronary artery without angina pectoris; I10 Essential (primary) hypertension; D12.6 Benign neoplasm of colon, unspecified

== ENCOUNTER → 2024-03-18 10:02 | Outpatient (BNVA) | payer OTHER, SELFPAY | PROVIDERS: PCP Internal Medicine; Visit Provider Internal Medicine | DX: E11.65 Type 2 diabetes mellitus with hyperglycemia (principal); M05.9 Rheumatoid arthritis with rheumatoid factor, unspecified; E78.00 Pure hypercholesterolemia, unspecified; K21.9 Gastro-esophageal reflux disease without esophagitis; I25.10 Atherosclerotic heart disease of native coronary artery without angina pectoris; I10 Essential (primary) hypertension; D21.6 Benign neoplasm of connective and other soft tissue of trunk, unspecified | CPT/HCPCS: 83036; 99212 ==

== ENCOUNTER 2024-04-11 15:15 | Outpatient (REF) | payer OTHER, SELFPAY | END 2024-04-11 15:16 | disposition home or self-care (01) | LOC: HO.SH 15:15 | PROVIDERS: Visit Provider Internal Medicine | DX: Z01.118 Encounter for examination of ears and hearing with other abnormal findings (principal); H90.3 Sensorineural hearing loss, bilateral | CPT/HCPCS: 92557 ==

== ENCOUNTER 2024-05-02 13:46 | Outpatient (RCR) | payer OTHER, SELFPAY ==
[2024-03-13 10:07] VITALS: BP 179/87; PULSE 79
--- NOTE | 2024-03-13 12:27 | MHC.PT.EP ---
[facility] [place] Office [place] Office [place] Office [address] Cuong Lombardi [address] [phone] F: [phone] F: [phone] F: [phone] F: [phone] Physical Therapy Plan of Care Date of Evaluation: 03/13/24 Date of Surgery: Diagnosis: spondylosis without myeolopathy or radiculopathy ( Dx) (RS) Assessment: Issa is a 58 y.o. male with complex medical history who is referred to PT by Dr. Dm MD, with Dx of spondylosis without myeolopathy or radiculopathy. His rehabilitation is complicated by his MedHx including; cervical fusion C4-C5 (he notes failing however I do not have access to imaging of cervical spine to indicate this), Type II Diabetes, HTN, rheumatoid arthritis, Hx of head and neck cancer (remission), cardiac/CAD with stent placement. Patient impairments include poor posture, poor body mechanics, limited lumbar ROM, weakness in bilateral LEs, pain, weak core musculature, antalgic gait, Hx of falls, intermittent AD use. Patient current functional limitations are leaning forward, bending, moving into lumbar extension, prolonged standing, prolonged walking, turning to clean, sit to stand. Patient will benefit from skilled PT to address aforementioned impairments and functional limitations to meet established goals. Frequency and Duration: The patient will be seen 1-2x/week for 4 weeks Short Term Goals: 2 weeks Patient demonstrates consistency and independence with HEP to self manage symptoms. Job Setter Honing Goals: 4 weeks Patient presents with increased bilateral hip flexion 4+/5 to be able to perform sit to stand from chair with minimal use of hands and good control. Patient presents with increased bilateral glute med strength 4/5 to be able to stand for prolonged period of time for shower/cleaning. Treatment Plan: Modalities to reduce pain, spasms and effusion. Manual therapy to restore motion and function. Therapeutic exercise to improve strength and flexibility. Neuromuscular re-education for posture and balance. Therapeutic activities to return to functional activities of daily living. Electronically signed by: Ivory Shah, PT, DPT Please sign and return to therapist. Thank you for your referral.
--- NOTE | 2024-05-02 16:31 | MHC.PT.DC ---
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 He also presents with improved lumbar AROM and LE strength, only remaining weak in R proximal hip. 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 Electronically signed by: Ivory Shah, PT, DPT Please sign and return to therapist. Thank you for your referral.
== END 2024-05-02 16:31 | disposition home or self-care (01) ==
LOC: HO.PT 13:46
PROVIDERS: PCP Internal Medicine; Visit Provider Internal Medicine
DX: M47.816 Spondylosis without myelopathy or radiculopathy, lumbar region (principal)
CPT/HCPCS: 97110; 97162; 97530

== ENCOUNTER 2024-05-03 10:00 | Outpatient (AMB) | payer OTHER, SELFPAY ==
[2024-05-03 10:02] VITALS: BP 146/82; PULSE 65; O2SAT 96; BMI 30.4
--- NOTE | 2024-05-03 10:02 | MHC.PC.OV ---
Vital Signs 05/03/24 10:02 Height 5 ft 10 in Weight 212 lb BMI 30.4 BP 146/82 H Blood Pressure Location Lt brachial Position Sitting Pulse 65 Pulse Source Pulse Oximeter Pulse Oximetry (%) 96 Oxygen Delivery Method Room Air Intake Visit Reasons: DM Allergies penicillin V Allergy (Severe, Verified 05/03/24 10:03) rash adalimumab [From Humira] Allergy (Intermediate, Verified 05/03/24 10:03) leg pain atorvastatin Allergy (Intermediate, Verified 05/03/24 10:03) leg pain leflunomide Allergy (Intermediate, Verified 05/03/24 10:03) kidney failure tocilizumab [From Actemra] Allergy (Intermediate, Verified 05/03/24 10:03) frequent nail infection Tobacco use date assessed: 03/18/24 Dental Screening Dental Screen Date: 07/18/23 HPI DM HPI Details 58-year-old obese male with rheumatoid arthritis, hypercholesterolemia GERD coronary artery disease hypertension diabetes mellitus coming in for follow-up. Last seen in 03/31/2024. Review of the notes has been having physical therapy for the back pain, has seen Podiatry and has had hearing test. [facility] Medical History Pre-op examination Frequency of micturition Right wrist pain Annual physical exam Lower urinary tract symptoms Immunization counseling Screening for viral disease Bilateral carpal tunnel syndrome Screening for colon cancer Screening for prostate cancer New onset type 2 diabetes mellitus Depression Adult general medical exam Precordial chest pain Right hip pain Acute sinusitis Right rotator cuff tear Atherosclerotic cardiovascular disease Left rotator cuff tear Gastritis determined by endoscopy Lip cancer Erectile dysfunction Anxiety Degenerative disc disease, lumbar Horseshoe kidney Coronary artery disease GERD (gastroesophageal reflux disease) Hypercholesterolemia Cervical radiculopathy 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 Osteoarthritis Surgical History History of carpal tunnel surgery of right wrist History of rotator cuff surgery S/P left rotator cuff repair Hx of colonoscopy History of coronary artery stent placement History of cervical spinal surgery History of shoulder surgery History of lip cancer H/O left knee surgery History of tonsillectomy Family History Father Lung cancer CAD (coronary artery disease) CVD (cardiovascular disease) Hx of CABG Mother Colon cancer Mental health disorder Maternal Uncle Lung cancer Maternal Uncle Substance abuse Substance use disorder Social History Housing: Other Housing Other:: Rents a room in a house Are you a primary cattle care worker to a significant other at home: No Do you presently have visiting nurse or other home services: No Alcohol intake: current Alcohol intake frequency: holidays/special occasions only Alcohol type: beer and hard liquor Comment: once a month glass Patient Tobacco Use Status: Former Tobacco user Tobacco use type: Cigarette Years Smoked: quit 2004 smoke marijuana e-Cigarette/Vaping Use: Never Used Second Hand Smoke Exposure: No Substance Use Type: Marijuana service: No Current occupational status: unemployed Current occupation: right handed Cognitive needs: No Hearing needs: No Vision needs: Yes Questionnaire PHQ-9 Over the last 2 weeks, how often have you been bothered by any of the following problems? 1. Little interest or pleasure in doing things: not at all 2. Feeling down, depressed, or hopeless: not at all 3. Trouble falling or staying asleep, or sleeping too much: not at all 4. Feeling tired or having little energy: not at all 5. Poor appetite or overeating: not at all 6. Feeling bad about yourself - or that you are a failure or have let yourself or your family down: not at all 7. Trouble concentrating on things, such as reading the newspaper or watching television: not at all 8. Moving or speaking so slowly that other people could have noticed. Or the opposite - being so fidgety or restless that you have been moving around a lot more than usual: not at all 9. Thoughts that you would be better off or of hurting yourself in some way: not at all Total score: 0 Depression Screening Interpretation: Negative Depression Screening Done: Yes Source: Developed by Drs. Souleymane Cox, Aline Kay, Damion Lieberman and colleagues, with an educational zulema from [employer]. Thrive Questionnaire Date Thrive assessed: 07/18/23 Are you currently unemployed and looking for a job?: No AUDIT C Alcohol Use Questionnaire (AUDIT-C) 1. How often do you have a drink containing alcohol?: Monthly or less 2. How many drinks containing alcohol do you have on a typical day when you are drinking?: 1 or 2 3. How often do you have six or more drinks on one occasion?: Never Total Score: 1 Score Reviewed/Action Taken: No SARAI-7 AMB Questionnaire SARAI-7 Date SARAI - 7 assessed: 07/18/23 Source: Developed by Drs. Souleymane Cox, Aline Kay, Damion Lieberman and colleagues, with an educational zulema from [employer]. Physical exam (Primary Care) Vital Signs: Last Vital Signs Pulse 65 05/03/24 10:02 BP 146/82 H 05/03/24 10:02 Pulse Ox 96 05/03/24 10:02 Oxygen Delivery Method Room Air 05/03/24 10:02 BMI result Body Mass Index 30.4 Tobacco/Smoking Status: Tobacco use Status Tobacco use date assessed 03/18/24 05/03/24 10:03 Patient Tobacco Use Status Former Tobacco user 05/03/24 10:03 Tobacco use type Cigarette 05/03/24 10:03 e-Cigarette/Vaping Use Never Used 05/03/24 10:03 PHQ-9: PHQ-9 Score PHQ-9: Total score 0 05/03/24 10:09 Depression Screening Interpretation: Negative Thrive Assessment: Date of Thrive Assessment Date Thrive assessed 07/18/23 05/03/24 10:03 Const General: alert; No acute distress Eyes Conjunctivae: conjunctivae normal Resp Auscultation: clear to auscultation bilaterally Cardio Rate: regular rate Rhythm: regular rhythm GI Inspection: Yes normal to inspection Extrem General: Yes normal to inspection and No edema Coding Level of Care Code Est Pt Level 4 (51089) Diagnoses Type 2 diabetes mellitus with hyperglycemia E11.65 Essential hypertension I10 Atherosclerotic cardiovascular disease I25.10 Hypercholesterolemia E78.00 Gastroesophageal reflux disease without esophagitis K21.9 Esophagitis presence: without esophagitis Assessment & Plan Assessment & Plan (1) Type 2 diabetes mellitus with hyperglycemia: Comment: DR. Larry Code(s): E11.65 - Type 2 diabetes mellitus with hyperglycemia Category: Medical Plan: Decrease the amount of carbohydrate intake, pasta, bread, rice and potatoes are all sugar and that is aside from all the sweet stuff, remember that fruits are good but they are Sweet also. Hemoglobin A1c goal of less than 6.5. Patient is on diet control concern about the hemoglobin A1c to be elevated today (2) Essential hypertension: Code(s): I10 - Essential (primary) hypertension Category: Medical Plan: Continue with blood pressure medication. Decrease salt intake and exercise continue with carvedilol 6.25 mg twice a day (3) Atherosclerotic cardiovascular disease: Code(s): I25.10 - Atherosclerotic heart disease of [place] coronary artery without angina pectoris Category: Medical Plan: Control the cholesterol, weight, blood pressure, diabetes on aspirin 81 mg once a day (4) Hypercholesterolemia: Code(s): E78.00 - Pure hypercholesterolemia, unspecified Category: Medical Plan: Avoid fried foods, chicken skin, eggs, butter margarine, pastries and meat. Be it pork or beef they have a lot of cholesterol December 2023 last blood work LDL goal of less than 70 and triglyceride of less than 150 on rosuvastatin 40 mg once a day (5) GERD (gastroesophageal reflux disease): Code(s): K21.9 - Gastro-esophageal reflux disease without esophagitis Category: Medical Qualifiers: Esophagitis presence: without esophagitis Qualified Code(s): K21.9 - Gastro-esophageal reflux disease without esophagitis Plan: Avoid the foods that causes that usually spicy foods, tomato products, juices, coffee, soda and foods that your sensitive to. After eating do not lie down, allow 3-4 hours before in lie down. And keep the head of bed above 30 degrees to avoid the acid from going up. Orders: Referrals Nutrition/Dietitian Referral E11.65 - Type 2 diabetes mellitus with hyperglycemia Medications: New lisinopril 5 mg PO DAILY 30 tabs 3RF I10 - Essential (primary) hypertension
== END 2024-05-03 10:27 | disposition home or self-care (01) ==
PROVIDERS: PCP Internal Medicine; Visit Provider Internal Medicine
DX: E11.65 Type 2 diabetes mellitus with hyperglycemia (principal); I10 Essential (primary) hypertension; I25.10 Atherosclerotic heart disease of native coronary artery without angina pectoris; E78.00 Pure hypercholesterolemia, unspecified; K21.9 Gastro-esophageal reflux disease without esophagitis

== ENCOUNTER → 2024-05-03 10:00 | Outpatient (BNVA) | payer OTHER, SELFPAY | PROVIDERS: PCP Internal Medicine; Visit Provider Internal Medicine | DX: E11.65 Type 2 diabetes mellitus with hyperglycemia (principal); I10 Essential (primary) hypertension; I25.10 Atherosclerotic heart disease of native coronary artery without angina pectoris; E78.00 Pure hypercholesterolemia, unspecified; K21.9 Gastro-esophageal reflux disease without esophagitis | CPT/HCPCS: 96127; 99212 ==

== ENCOUNTER 2024-05-16 10:17 | Outpatient (AMB) | payer OTHER, SELFPAY ==
[2024-05-16 10:33] VITALS: BMI 31.0
--- NOTE | 2024-05-16 10:33 | A.OFFVIS_ITS ---
VS Expanded 05/16/24 10:33 05/16/24 11:04 Height 5 ft 10 in 5 ft 10 in Weight 216 lb 4.375 oz 216 lb BMI 31.0 31.0 Intake Visit Reasons: T2DM w hyperglycemia/ Confirmed Allergies penicillin V Allergy (Severe, Verified 05/03/24 10:03) rash adalimumab [From Humira] Allergy (Intermediate, Verified 05/03/24 10:03) leg pain atorvastatin Allergy (Intermediate, Verified 05/03/24 10:03) leg pain leflunomide Allergy (Intermediate, Verified 05/03/24 10:03) kidney failure tocilizumab [From Actemra] Allergy (Intermediate, Verified 05/03/24 10:03) frequent nail infection Nutrition Presentation Details: Pt presents for MNT for T2DM Pt admits to increase intake of sugary foods food frequency fruits: 3+/d coffee 4+ with 7 sugars/creamer vex/wk fried foods 3 x/wk dairy: 2/d starches> 20 physical activity: sedentary r/t arthritis typical meal 8-9 am coffee 5-7 sugar and boston kreme donut or bcon cheese and crossaint 2pm: bologna on a ilene or tuna or ham/cheese/mustard and ketchup or peanut butter sandw , pink lemonade regular , water , regular soda burgers/fries 5pm: potato/fish/veg 8-10 juices/pastries BS Monitoring Most Recent Diabetes Results: No Data to Display TKN-Rjnufsc-Cp.Jeor Equation Height: 5 ft 10 in Weight: 216 lb Resting Metabolic Rate: 1799.83 Calculated Activity Level: Sedentary Calories Needed to Maintain Weight: 2159.80 Diagnosis Nutrition problem #1: excessive energy intake As related to (etiology) #1: diagnosis As evidenced by (sign/symptom) #1: knowledge deficit of diet PFSH Medical History Pre-op examination Frequency of micturition Right wrist pain Annual physical exam Lower urinary tract symptoms Immunization counseling Screening for viral disease Bilateral carpal tunnel syndrome Screening for colon cancer Screening for prostate cancer New onset type 2 diabetes mellitus Depression Adult general medical exam Precordial chest pain Right hip pain Acute sinusitis Right rotator cuff tear Atherosclerotic cardiovascular disease Left rotator cuff tear Gastritis determined by endoscopy Lip cancer Erectile dysfunction Anxiety Degenerative disc disease, lumbar Horseshoe kidney Coronary artery disease GERD (gastroesophageal reflux disease) Hypercholesterolemia Cervical radiculopathy 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 Osteoarthritis Surgical History History of carpal tunnel surgery of right wrist History of rotator cuff surgery S/P left rotator cuff repair Hx of colonoscopy History of coronary artery stent placement History of cervical spinal surgery History of shoulder surgery History of lip cancer H/O left knee surgery History of tonsillectomy Family History Father Lung cancer CAD (coronary artery disease) CVD (cardiovascular disease) Hx of CABG Mother Colon cancer Mental health disorder Maternal Uncle Lung cancer Maternal Uncle Substance abuse Substance use disorder Social History Housing: Other Housing Other:: Rents a room in a house Are you a primary long term care phlebotomist to a significant other at home: No Do you presently have visiting nurse or other home services: No Alcohol intake: current Alcohol intake frequency: holidays/special occasions only Alcohol type: beer and hard liquor Comment: once a month glass Patient Tobacco Use Status: Former Tobacco user Tobacco use type: Cigarette Years Smoked: quit 2005 smokes marijuana e-Cigarette/Vaping Use: Never Used Second Hand Smoke Exposure: No Substance Use Type: Marijuana service: No Current occupational status: unemployed Current occupation: right handed Cognitive needs: No Hearing needs: No Vision needs: Yes Assessment & Plan Assessment & Plan (1) Type 2 diabetes mellitus with hyperglycemia: Code(s): E11.65 - Type 2 diabetes mellitus with hyperglycemia Category: Medical Plan: Wt: 97 Kg ( 06/04 ) Est kcal needs as per MSJ: 2100 (40% carb, 30% protein/fat) Est fluid needs as per 25-30 ml/d: 2900 Est prot per day as per 1 g/kg bw: 97 Recommend fiber intake : 8-10 g per day and gradually increase to 25-28 g per day for women and 35-38 g for men or as tolerated Recommend sodium intake per day : less than 2300 mg Educated patient on: ( R = reviewed V = verbalizes understanding N/R = needs review N/A = not applicable * Food sources of carbohydrate, adequate serving sizes and its role in various health conditions: R V N/R * Differences between complex carbohydrates a simple carbohydrates, role of fiber in diet: R * Lean protein sources of foods: R V NR * Differences between types of fats and role in diet (mono on saturated fat fatty acids, saturated fatty acids, trans fats): R V N/R * Food sources of sodium in salt and healthy modifications for heart health in kidney health: R V R/V * Vitamins and minerals: R V N/R * Healthy plate method concept: R V N/R * Physical activity: Benefits a precaution: R V N/R * Hypoglycemia protocol (rule of 15): R V N/R * Dietary prevention of Hyperglycemia: R V R/V Patient Instructions: Work on reducing sugars (less sugar in coffee, reducing on regular sodas and sugary beverages, pastries and similar foods Have a meal replacement once a day Coding Level of Care Code Nutr Indiv Intake (75551) Diagnoses Type 2 diabetes mellitus with hyperglycemia E11.65 Time Spent (min) 30
[2024-05-16 11:04] VITALS: BMI 31.0
== END 2024-05-16 11:05 | disposition home or self-care (01) ==
PROVIDERS: PCP Internal Medicine; Visit Provider Dietitian, Registered
DX: E11.65 Type 2 diabetes mellitus with hyperglycemia (principal)

== ENCOUNTER → 2024-05-16 10:17 | Outpatient (BNVA) | payer OTHER, SELFPAY | PROVIDERS: PCP Internal Medicine; Visit Provider Dietitian, Registered | DX: E11.65 Type 2 diabetes mellitus with hyperglycemia (principal); Z71.3 Dietary counseling and surveillance | CPT/HCPCS: 97802 ==

== ENCOUNTER 2024-06-26 09:49 | Outpatient (AMB) | payer OTHER, SELFPAY ==
[2024-06-26 10:07] VITALS: BP 154/82; PULSE 85; O2SAT 98; BMI 30.8
--- NOTE | 2024-06-26 10:07 | A.OFFPC_ITS ---
Vital Signs 06/26/24 10:07 06/26/24 10:34 Height 5 ft 10 in Weight 215 lb BMI 30.8 BP 154/82 H 144/80 H Blood Pressure Location Lt brachial Lt brachial Position Sitting Sitting Pulse 85 Pulse Source Pulse Oximeter Pulse Oximetry (%) 98 Oxygen Delivery Method Room Air Intake Visit Reasons: DM Intake Note: Patient feels since taking the Lisinopril he has been very agitated and on edge. Allergies penicillin V Allergy (Severe, Verified 06/26/24 10:08) rash adalimumab [From Humira] Allergy (Intermediate, Verified 06/26/24 10:08) leg pain atorvastatin Allergy (Intermediate, Verified 06/26/24 10:08) leg pain leflunomide Allergy (Intermediate, Verified 06/26/24 10:08) kidney failure tocilizumab [From Actemra] Allergy (Intermediate, Verified 06/26/24 10:08) frequent nail infection lisinopril Adverse Reaction (Intermediate, Unverified 06/26/24 10:35) Anxiety Tobacco use date assessed: 06/26/24 Dental Screening Dental Screen Date: 06/26/24 Did you have a dental visit in the last 12 months?: No Did you have a dental problem in the last 6 months where you did not have access to dental care?: No Was dental information given to patient?: Patient has dentist HPI DM HPI Details The patient is a 58-year-old male presenting with the need for medication management and follow-up of multiple chronic conditions. The patient has a history of hyperlipidemia, managed with rosuvastatin, which requires refills. He also has Type 2 Diabetes Mellitus, with a recent hemoglobin A1c of 6.9, and is currently attempting dietary changes, including reducing sugar intake with the assistance of a first line production supervisor. The patient has not initiated medication for diabetes management as he prefers to observe the effects of dietary changes first. The patient also experiences rheumatoid arthritis, with occasional symptoms in the hands, including soreness and difficulty squeezing objects. The patient notes he has been managing some symptoms with rest and wrist support, though he experiences occasional flare-ups. The second carpal tunnel surgery is pending due to negligible current hand area bother, but pain and popping upon squeezing persist bilaterally, notably aggravated over the past two days. The patient is on lisinopril for essential hypertension, though he reports feeling more anxious and agitated since starting the medication. The blood pressure reading during the visit was 144/80, which is slightly elevated. The patient expressed concern over potential side effects of lisinopril, and cessation of the medication was discussed. Additionally, the patient declined a flu shot, citing previous experiences with illnesses and a preference for managing his immune health conservatively. [facility]LY [facility] Medical History Pre-op examination Frequency of micturition Right wrist pain Annual physical exam Lower urinary tract symptoms Immunization counseling Screening for viral disease Bilateral carpal tunnel syndrome Screening for colon cancer Screening for prostate cancer New onset type 2 diabetes mellitus Depression Adult general medical exam Precordial chest pain Right hip pain Acute sinusitis Right rotator cuff tear Atherosclerotic cardiovascular disease Left rotator cuff tear Gastritis determined by endoscopy Lip cancer Erectile dysfunction Anxiety Degenerative disc disease, lumbar Horseshoe kidney Coronary artery disease GERD (gastroesophageal reflux disease) Hypercholesterolemia Cervical radiculopathy 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 Osteoarthritis Surgical History History of carpal tunnel surgery of right wrist History of rotator cuff surgery S/P left rotator cuff repair Hx of colonoscopy History of coronary artery stent placement History of cervical spinal surgery History of shoulder surgery History of lip cancer H/O left knee surgery History of tonsillectomy Family History Father Lung cancer CAD (coronary artery disease) CVD (cardiovascular disease) Hx of CABG Mother Colon cancer Mental health disorder Maternal Uncle Lung cancer Maternal Uncle Substance abuse Substance use disorder Social History Housing: Other Housing Other:: Rents a room in a house Are you a primary healthcare project manager to a significant other at home: No Do you presently have visiting nurse or other home services: No Alcohol intake: current Alcohol intake frequency: holidays/special occasions only Alcohol type: beer and hard liquor Comment: once a month glass Patient Tobacco Use Status: Former Tobacco user Tobacco use type: Cigarette Years Smoked: quit 2005 smokes marijuana e-Cigarette/Vaping Use: Never Used Second Hand Smoke Exposure: No Substance Use Type: Marijuana service: No Current occupational status: unemployed Current occupation: right handed Cognitive needs: No Hearing needs: No Vision needs: Yes Questionnaire PHQ-9 Over the last 2 weeks, how often have you been bothered by any of the following problems? 1. Little interest or pleasure in doing things: not at all 2. Feeling down, depressed, or hopeless: not at all 3. Trouble falling or staying asleep, or sleeping too much: not at all 4. Feeling tired or having little energy: not at all 5. Poor appetite or overeating: not at all 6. Feeling bad about yourself - or that you are a failure or have let yourself or your family down: not at all 7. Trouble concentrating on things, such as reading the newspaper or watching television: not at all 8. Moving or speaking so slowly that other people could have noticed. Or the opposite - being so fidgety or restless that you have been moving around a lot more than usual: not at all 9. Thoughts that you would be better off or of hurting yourself in some way: not at all Total score: 0 Depression Screening Interpretation: Negative Depression Screening Done: Yes Source: Developed by Drs. Souleymane Cox, Aline Kay, Damion Lieberman and colleagues, with an educational zulema from [employer]. Thrive Questionnaire Date Thrive assessed: 06/26/24 I am a: Patient What is your living situation today?: I have a steady place to live Within the past 12 months, did the food you bought not last and you didn't have the money to get more?: Never true Within the past 12 months, did you worry whether your food would run out before you got money to buy more?: Never true Do you have trouble paying for medicines?: No Do you have trouble getting transportation to medical appointments?: No Do you have trouble paying your heating and electricity bill?: No Do you have trouble taking care of your child, family member or friend?: No Do you have trouble with day-to-day activities such as bathing, preparing meals, shopping, managing finances, etc.?: No Are you currently unemployed and looking for a job?: No Are you interested in more education?: No Currently or been in a relationship where the following occur: No concerns reported THRIVE Score: 0 AUDIT C Alcohol Use Questionnaire (AUDIT-C) 1. How often do you have a drink containing alcohol?: Monthly or less 2. How many drinks containing alcohol do you have on a typical day when you are drinking?: 1 or 2 3. How often do you have six or more drinks on one occasion?: Never Total Score: 1 Score Reviewed/Action Taken: No SARAI-7 AMB Questionnaire SARAI-7 Date SARAI - 7 assessed: 06/26/24 Feeling nervous, anxious, or on edge: 0 = Not at all Not being able to stop or control worryin = Not at all Worrying too much about different things: 0 = Not at all Trouble relaxin = Not at all Being so restless that it is hard to sit still: 0 = Not at all Becoming easily annoyed or irritable: 0 = Not at all Feeling afraid as if something awful might happen: 0 = Not at all Total SARAI-7 score (0-4 normal; 5-9 mild; 10-14 moderate; 15-21 severe): 0 Source: Developed by Drs. Souleymane Cox, Aline Kay, Damion Lieberman and colleagues, with an educational zulema from [employer]. Physical exam (Primary Care) Vital Signs: Last Vital Signs Pulse 85 06/26/24 10:07 BP 154/82 H 06/26/24 10:07 Pulse Ox 98 06/26/24 10:07 Oxygen Delivery Method Room Air 06/26/24 10:07 BMI result Body Mass Index 30.8 Tobacco/Smoking Status: Tobacco use Status Tobacco use date assessed 06/26/24 06/26/24 10:09 Patient Tobacco Use Status Former Tobacco user 06/26/24 10:09 Tobacco use type Cigarette 06/26/24 10:09 e-Cigarette/Vaping Use Never Used 06/26/24 10:09 PHQ-9: PHQ-9 Score PHQ-9: Total score 0 06/26/24 10:30 Depression Screening Interpretation: Negative Thrive Assessment: Date of Thrive Assessment Date Thrive assessed 06/26/24 06/26/24 10:09 Currently or been in a relationship where the following occur: No concerns reported Const General: alert; No acute distress Eyes Conjunctivae: conjunctivae normal Resp Auscultation: clear to auscultation bilaterally Cardio Rate: regular rate Rhythm: regular rhythm GI Inspection: Yes normal to inspection Extrem General: Yes normal to inspection and No edema Results AMB Hemoglobin A1c AMB Hemoglobin A1c 6.9 % Last Edit by Yanira Escobedo CMA on 06/26/24 10 :31 Results Reviewed Results Reviewed: Laboratory Last Values Hgb A1c (Clinic) 6.9 % (4.0-6.0) H 06/26/24 10:11 Coding Level of Care Code Est Pt Level 4 (92013) Complex EM visit Add On G2211 Diagnoses Type 2 diabetes mellitus with hyperglycemia E11.65 Essential hypertension I10 Atherosclerotic cardiovascular disease I25.10 Hypercholesterolemia E78.00 Seropositive rheumatoid arthritis M05.9 BPH (benign prostatic hyperplasia) N40.0 Assessment & Plan Assessment & Plan (1) Type 2 diabetes mellitus with hyperglycemia: Code(s): E11.65 - Type 2 diabetes mellitus with hyperglycemia Category: Medical (2) Essential hypertension: Code(s): I10 - Essential (primary) hypertension Category: Medical (3) Atherosclerotic cardiovascular disease: Code(s): I25.10 - Atherosclerotic heart disease of [place] coronary artery without angina pectoris Category: Medical (4) Hypercholesterolemia: Code(s): E78.00 - Pure hypercholesterolemia, unspecified Category: Medical (5) Seropositive rheumatoid arthritis: Comment: ++RF -ve CCP Orencia: March 2021- present Leflunomide: December 2020 - March 2021 urinary frequency Actemra: January 2020- December 2020 -Had surgery did not want to restart after, frequent nail infections. Enbrel: January- denied by insurance Humira: October 2019- January 2020 - active disease on exam/ listed with allergy leg pain Code(s): M05.9 - Rheumatoid arthritis with rheumatoid factor, unspecified Category: Medical (6) BPH (benign prostatic hyperplasia): Comment: 04/2023 44 cc Code(s): N40.0 - Benign prostatic hyperplasia without lower urinary tract symptoms Category: Medical Plan - For hyperlipidemia, continue rosuvastatin therapy as previously prescribed. Consider ensuring medication access with prompt refills. - For Type 2 Diabetes Mellitus, continue with dietary modification and monitor hemoglobin A1c with a re-evaluation in approximately three months. Initiate pharmacological intervention if no significant improvement is noted. - For rheumatoid arthritis, continue non-pharmacological interventions such as wrist support; however, consider re-assessment for persistent or exacerbated symptoms, including possible orthopedic consultation. - Lisinopril will be discontinued due to possible mood-related side effects. Alternate antihypertensive therapy to be considered if needed. - Monitor blood glucose levels and maintain low-sugar and low-sodium dietary adjustments for better glycemic control. - The patient has declined influenza vaccination; a review of this decision may be warranted in future visits owing to seasonal viral risks. Orders: Orders AMB Hemoglobin A1c Today Z13.9 - Encounter for screening, unspecified Medications: New losartan 50 mg PO DAILY 30 tabs 5RF I10 - Essential (primary) hypertension Refilled nitroglycerin do not exceed 3 doses per episode 0.4 mg sublingual Q5M PRN 30 tabs 5RF chest pain D12.6 - Benign neoplasm of colon, unspecified Discontinued lisinopril Discontinued Reason: Doctor's Order 5 mg PO DAILY 30 tabs 3RF I10 - Ess ential (primary) hypertension
[2024-06-26 10:34] VITALS: BP 144/80
== END 2024-06-26 10:43 | disposition home or self-care (01) ==
PROVIDERS: PCP Internal Medicine; Visit Provider Internal Medicine
DX: E11.65 Type 2 diabetes mellitus with hyperglycemia (principal); M05.9 Rheumatoid arthritis with rheumatoid factor, unspecified; I10 Essential (primary) hypertension; I25.10 Atherosclerotic heart disease of native coronary artery without angina pectoris; E78.00 Pure hypercholesterolemia, unspecified; N40.0 Benign prostatic hyperplasia without lower urinary tract symptoms

== ENCOUNTER → 2024-06-26 09:49 | Outpatient (BNVA) | payer OTHER, SELFPAY | PROVIDERS: PCP Internal Medicine; Visit Provider Internal Medicine | DX: E11.65 Type 2 diabetes mellitus with hyperglycemia (principal); I10 Essential (primary) hypertension; I25.10 Atherosclerotic heart disease of native coronary artery without angina pectoris; E78.00 Pure hypercholesterolemia, unspecified; M05.9 Rheumatoid arthritis with rheumatoid factor, unspecified; N40.0 Benign prostatic hyperplasia without lower urinary tract symptoms | CPT/HCPCS: 83036; 96127; 99212 ==

== ENCOUNTER 2024-07-11 09:50 | Outpatient (AMB) | payer OTHER, SELFPAY ==
--- NOTE | 2024-07-11 10:08 | A.OFFVIS_ITS ---
VS Expanded 07/11/24 10:09 Height 5 ft 10 in Weight 213 lb 2.992 oz BMI 30.6 Intake Visit Reasons: T2DM/Confirmed Allergies penicillin V Allergy (Severe, Verified 06/26/24 10:08) rash adalimumab [From Humira] Allergy (Intermediate, Verified 06/26/24 10:08) leg pain atorvastatin Allergy (Intermediate, Verified 06/26/24 10:08) leg pain leflunomide Allergy (Intermediate, Verified 06/26/24 10:08) kidney failure tocilizumab [From Actemra] Allergy (Intermediate, Verified 06/26/24 10:08) frequent nail infection lisinopril Adverse Reaction (Intermediate, Unverified 06/26/24 10:35) Anxiety Nutrition Presentation Details: Pt presents for f/u for t2dm diet controlled Pt reports working on diet modifications, reducing pastries /sugary foods Not monitoring bg BS Monitoring Most Recent Diabetes Results: No Data to Display PFSH Medical History Pre-op examination Frequency of micturition Right wrist pain Annual physical exam Lower urinary tract symptoms Immunization counseling Screening for viral disease Bilateral carpal tunnel syndrome Screening for colon cancer Screening for prostate cancer New onset type 2 diabetes mellitus Depression Adult general medical exam Precordial chest pain Right hip pain Acute sinusitis Right rotator cuff tear Atherosclerotic cardiovascular disease Left rotator cuff tear Gastritis determined by endoscopy Lip cancer Erectile dysfunction Anxiety Degenerative disc disease, lumbar Horseshoe kidney Coronary artery disease GERD (gastroesophageal reflux disease) Hypercholesterolemia Cervical radiculopathy 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 Osteoarthritis Surgical History History of carpal tunnel surgery of right wrist History of rotator cuff surgery S/P left rotator cuff repair Hx of colonoscopy History of coronary artery stent placement History of cervical spinal surgery History of shoulder surgery History of lip cancer H/O left knee surgery History of tonsillectomy Family History Father Lung cancer CAD (coronary artery disease) CVD (cardiovascular disease) Hx of CABG Mother Colon cancer Mental health disorder Maternal Uncle Lung cancer Maternal Uncle Substance abuse Substance use disorder Social History (Reviewed 03/18/24 @ 10:07 by DONNY Cintron Housing: Other Housing Other:: Rents a room in a house Are you a primary pediatric acute care unit nurse to a significant other at home: No Do you presently have visiting nurse or other home services: No Alcohol intake: current Alcohol intake frequency: holidays/special occasions only Alcohol type: beer and hard liquor Comment: once a month glass Patient Tobacco Use Status: Former Tobacco user Tobacco use type: Cigarette Years Smoked: quit 2004 smoke marijuana e-Cigarette/Vaping Use: Never Used Second Hand Smoke Exposure: No Substance Use Type: Marijuana service: No Current occupational status: unemployed Current occupation: right handed Cognitive needs: No Hearing needs: No Vision needs: Yes Assessment & Plan Assessment & Plan (1) Type 2 diabetes mellitus with hyperglycemia: Code(s): E11.65 - Type 2 diabetes mellitus with hyperglycemia Category: Medical Plan: Wt: 97 Kg ( 06/04 ), 97 kg (07/06) Est kcal needs as per MSJ: 2100 (40% carb, 30% protein/fat) Est fluid needs as per 25-30 ml/d: 2900 Est prot per day as per 1 g/kg bw: 97 Recommend fiber intake : 8-10 g per day and gradually increase to 25-28 g per day for women and 35-38 g for men or as tolerated Recommend sodium intake per day : less than 2300 mg Educated patient on: ( R = reviewed V = verbalizes understanding N/R = needs review N/A = not applicable * Food sources of carbohydrate, adequate serving sizes and its role in various health conditions: R V N/R * Differences between complex carbohydrates a simple carbohydrates, role of fiber in diet: R * Lean protein sources of foods: R * Differences between types of fats and role in diet (mono on saturated fat fatty acids, saturated fatty acids, trans fats): R V N/R * Food sources of sodium in salt and healthy modifications for heart health in kidney health: R V R/V * Vitamins and minerals: R V N/R * Healthy plate method concept: R V N/R * Physical activity: Benefits a precaution: R V N/R * Hypoglycemia protocol (rule of 15): R V N/R * Dietary prevention of Hyperglycemia: R Patient Instructions: Choose high fiber foods : whole wheat bread , bran flakes, fruits (fruit cups, applesauce, berries, oranges, carrots, spinach) in place of pastries Drink water , fruit/herb flavor infused water Practice mindful eating keep physically active as able, gradually goal 30 minutes (try senior center activities) Coding Level of Care Code Nutr Indiv Subseq (98257) Diagnoses Type 2 diabetes mellitus with hyperglycemia E11.65 Time Spent (min) 30
[2024-07-11 10:09] VITALS: BMI 30.6
--- OUTSIDE RECORDS SUMMARY | 2024-07-11 12:54 | XMS_ITS | Patient Health Record ---
Author Organization [facility] Address [address] [place] [address] Care Team Providers Care Fluoroscope Operator Name Role Phone Clive Chaidez Primary Care Provider Traci Juarez Unavailable [phone] Allergies Allergen (clinical drug ingredient) Drug/Non Drug Allergy documented on EMR Reaction Allergy Type Onset Date Status cortisone Cortisone Acetate headache Drug Allergy Active Humira Unknown Drug Allergy Active leflunomide Leflunomide Unknown Drug Allergy Act jude acetaminophen Tylenol rash Drug Allergy Act jude tocilizumab Actemra Unknown Drug Allergy Activ e abatacept Orencia ClickJect Unknown Drug Allergy Active atorvastatin Atorvastatin Unknown Drug Allergy A ctive Penicillin rash Drug Allergy Active Results Component Value Reference Range Notes HEMOGLOBIN A1C (GLYCOHEMOGLO BIN) Reviewed date:07/03/2024 09:18:50 AM Interpretation: Performing Lab: Notes/Report: HEMOGLOBIN A1C % (HH) 6.2 HEMOGLOBIN A1C (GLYCOHEMOGLO BIN) Reviewed date:04/16/2024 08:54:15 AM Interpretation: Performing Lab: Notes/Report: TOTAL HEMOGLOBIN (HGBA1C) 6.2 Reason For Referral No Information Medications Medication SIG (Take, Route, Frequency, Duration) Notes Start Date End Date Status Carvedilol 6.25 MG TAKE 1 TABLET BY TWICE DAILY Oral for 90 Days Active Rosuvastatin Calcium 40 MG TAKE 1 TABLET BY MOUTH DAILY Oral for 90 Days Active FreeStyle Lancets - for 90 Days Active Tolterodine Tartrate ER 2 MG TAKE 1 CAPSULE BY MOUTH EVERY 24 HOURS Oral for 90 Days Active Losartan Potassium 50 MG TAKE 1 TABLET B Y MOUTH DAILY Oral for 30 Days Active FreeStyle Lite Test - USE DIRECTED TO TEST BLOOD GLUCOSE EVERY DAY In Vitro for 90 Days Active Orencia ClickJect 125 MG/ML Subcutaneous for 28 Days Not -Taking -81 Active Pregabalin 75 MG Oral for 45 Days Active Sertraline HCl 100 MG Oral for 30 Days Active Social History Tobacco Use: Social History Observation Description Date Details (start date - stop date) Never Smoker NA - NA Alcohol Screen Question Answer Notes Did you have a drink containing alcohol in the p ast year? Yes Points 0 Interpretation Negative Tobacco use other than smoking: Question Answer Notes Are you an other tobacco user? No Tobacco Control (Standard) Question Answer Notes Tobacco use: Nonsmoker Problems Problem Type SNOMED Code ICD Code Onset Dates Problem Status W/U Status Risk Notes Problem Acquired hammer toe of right foot ([id number] ) Other hammer toe(s) (acquired), right foot (M20.41) Active confirmed Problem Acquired hammer toe of left foot ([id number] ) Other hammer toe(s) (acquired), left foot (M20.42) Active confirmed Problem Polyneuropathy due to type 2 diabetes mellitus (507428346) Type 2 diabetes mellitus with diabetic polyneuropathy (E11.42) Active confirmed Vital Signs Blood pressure diastolic 80 mm Hg 07/03/2024 Height [id number] in 07/03/2024 Blood pressure systolic 140 mm Hg 07/03/2024 Weight 214 lbs 07/03/2024 BMI 30.7 kg/m2 07/03/2024 Encounters Encounter Location Date Provider [facility] [address] 04/16/2024 Traci Jewell Type 2 diabetes mellitus with diabetic polyneuropathy E11.42 ; Tinea unguium B35.1 ; Other hammer toe(s) (acquired), right foot M20.41 and Other hammer toe(s) (acquired), left foot M20.[address] [facility] [address] 07/03/2024 Traci Jewell Type 2 diabetes mellitus with diabetic polyneuropathy E11.42 ; Other hammer toe(s) (acquired), right foot M20.41 ; Tinea unguium B35.1 and Other hammer toe(s) (acquired), left foot M20.42 Assessments Encounter Date Diagnosis (ICD Code) Assessment Notes Treatment Notes Treatment Clinical Notes Section Notes 07/03/2024 Type 2 diabetes mellitus with diabetic polyneuropathy (ICD-10 - E11.42) 07/03/2024 Other hammer toe(s) (acquired), right foot (ICD-10 - M20.41) Patient Educated with: DIABETIC FOOT CARE INSTRUCTIONS. pdf (DIABETIC FOOT CARE INSTRUCTIONS. pdf) 04/16/2024 Type 2 diabetes mellitus with diabetic polyneuropathy (ICD-10 - E11.42) 04/16/2024 Tinea unguium (ICD-10 - B35.1) 07/03/2024 Tinea unguium (ICD-10 - B35.1) 04/16/2024 Other hammer toe(s) (acquired), right foot (ICD-10 - M20.41) Patient Educated with: DIABETIC FOOT CARE INSTRUCTIONS. pdf (DIABETIC FOOT CARE INSTRUCTIONS. pdf) 04/16/2024 Other hammer toe(s) (acquired), left foot (ICD-10 - M20.42) 07/03/2024 Other hammer toe(s) (acquired), left foot (ICD-10 - M20.42) Plan Of Treatment Next Appt Details Provider Name:Traci oliva, 09/10/2024 11:00:00 AM, [address] [place] [address], [id number], Insurance Providers Payer Name Payer Address Payer Phone Subscriber Number Group Number Insured Name Patient Relationship to Insured Coverage Start Date Coverage End Date [facility] [employer] Claims [address] [place] [id number] Issa Cerna Self - patient is the insured Medical (General) History Medical History History ICD Code Anxiety Arthritis Back,Hip,and Knee pain Broken bones CAD (Cholesterol) Cancer covid-19 Diabetic Diverticulosis Fibromyalgia Gout Heart disease High Blood Pressure Numbness/ Neuropathy Paralysis Reflux ( GERD) Sciatica Measles Joint implants/screws Surgical History Surgery Date(Month/Year) Med Lx Fusion / right arm loss 11 yrs
--- OUTSIDE RECORDS SUMMARY | 2024-07-11 12:54 | XMS_ITS ---
Author Organization [facility] Address [address] [facility] [place] [id number] Care Team Providers Care Plastics Scientist Name Role Phone Clive Chaidez Primary Care Provider Traci Juarez Unavailable [phone] Allergies Allergen (clinical drug ingredient) Drug/Non Drug Allergy documented on EMR Reaction Allergy Type Onset Date Status cortisone Cortisone Acetate headache Drug Allergy Active Humira Unknown Drug Allergy Active leflunomide Leflunomide Unknown Drug Allergy Act jude acetaminophen Tylenol rash Drug Allergy Act jude tocilizumab Actemra Unknown Drug Allergy Activ e atorvastatin Atorvastatin Unknown Drug Allergy A ctive Penicillin rash Drug Allergy Active REASON FOR VISIT PCP: 03/2024, At Risk Footcare, Toe Irritation Medications Medication SIG (Take, Route, Frequency, Duration) Notes Start Date End Date Status Rosuvastatin Calcium 40 MG TAKE 1 TABLET BY MOUTH DAILY Oral for 90 Days Active Carvedilol 6.25 MG TAKE 1 TABLET BY DONTRELL TH TWICE DAILY Oral for 90 Days Active Tolterodine Tartrate ER 2 MG TAKE 1 CAPSULE BY MOUTH EVERY 24 HOURS Oral for 90 Days Active FreeStyle Lancets - for 90 Days Active FreeStyle Lite Test - USE DIRECTED TO TEST BLOOD GLUCOSE EVERY DAY In Vitro for 90 Days Active Sertraline HCl 100 MG Oral for 30 Days Active Orencia ClickJect 125 MG/ML Subcutaneous for 28 Days Act jude Pregabalin 75 MG Oral for 45 Days Active Aspir-81 Active Social History Tobacco Use: Social History Observation Description Date Details (start date - stop date) Former Smoker NA - NA Tobacco Use/Smoking Question Answer Notes Are you a: former smoker Additional Findings: Tobacco Non-User Current no n-smoker Alcohol Screen Question Answer Notes Did you have a drink containing alcohol in the p ast year? Yes Points 0 Interpretation Negative Tobacco use other than smoking: Question Answer Notes Are you an other tobacco user? No Problems Problem Type SNOMED Code ICD Code Onset Dates Problem Status W/U Status Risk Notes Problem Polyneuropathy due to type 2 diabetes mellitus (594898950) Type 2 diabetes mellitus with diabetic polyneuropathy (E11.42) Active confirmed Problem Acquired hammer toe of right foot (7713466904336679 ) Other hammer toe(s) (acquired), right foot (M20.41) Active confirmed Problem Acquired hammer toe of left foot (7868449995762953 ) Other hammer toe(s) (acquired), left foot (M20.42) Active confirmed Vital Signs Height 5ft 10in in 04/16/2024 Weight 208 lbs lbs 04/16/2024 BMI 29.84 kg/m2 04/16/2024 Encounters Encounter Location Date Provider Diagnosis [facility] [address] [address] 04/16/2024 Traci Jewell Type 2 diabetes mellitus with diabetic polyneuropathy E11.42 ; Tinea unguium B35.1 ; Other hammer toe(s) (acquired), right foot M20.41 and Other hammer toe(s) (acquired), left foot M20.42 Assessments Encounter Date Diagnosis (ICD Code) Assessment Notes Treatment Notes Treatment Clinical Notes Section Notes 04/16/2024 Type 2 diabetes mellitus with diabetic polyneuropathy (ICD-10 - E11.42) 04/16/2024 Tinea unguium (ICD-10 - B35.1) 04/16/2024 Other hammer toe(s) (acquired), right foot (ICD-10 - M20.41) Patient Educated with: DIABETIC FOOT CARE INSTRUCTIONS. pdf (DIABETIC FOOT CARE INSTRUCTIONS. pdf) 04/16/2024 Other hammer toe(s) (acquired), left foot (ICD-10 - M20.42) Plan Of Treatment Treatment Notes Assessment Notes Other hammer toe(s) (acquired), right fo ot Patient Educated with: DIABETIC FOOT CARE INSTRUCTIONS.pdf (DIABETIC FOOT CARE INSTRUCTIONS.pdf) Next Appt Details Follow Up: 2 Months, Reason: Provider Name:Traci oliva, 09/10/2024 11:00:00 AM, [address] [place], [address], Procedure Notes * Category Sub-Category Detail Notes Debride Nail 6-10 Nail debridement Performance o f this nail treatment by a nonprofessional would put this patients foot and overall health at risk. Therefore, nail debridement was performed extensively to reduce/remove overall nail length, girth, thickness, subungual debris, and necrotic tissue, by manual and/or electrical means through the use of a nail nipper and/or dremel-type diamond grinder, to a more viable healthy nail plate or bed tissue 6-10. Silver nitrate used for any petechial bleeding as necessary. Definitive antifungal treatment options have been reviewed and discussed with the patient. The patient chooses, no pharmaceutical tx - [address]64 Keratoma Treatment Parring or Cutting o f Benign Hyperkeratotic Lesion(s) (-56) 2-4 Lesions - The Benign hyperkeratotic lesions, as described above were pared, and/or cut utilizing a sterile 15 blade, tissue nippers, and/or dremel - 73324 Progress Notes * Issa DUKE LDOB: [birth year] (58 yo M)Acc No.[id number]:04/16/2024 Progress Notes Patient:?Issa Duke Provider:?Traci Jewell DPM :1965???Age:58 Y???Sex:Male Sean e:04/16/2024 Address:[address] [place] [address] [address] [facility] Pcp:Clive Chaidez Subjective: * Chief Complaints: * ???PCP: t Risk Footc areToe Irritation * HPI: ???At Risk footcare:?Pt States Last PCP Visit:?Date?03/19/2024 ???Toe pain:?Location:?B/L feet.?Duration:?several years.?Course:?worse.?Aggravated by:?shoes, any pressure.?Treatments:?change in shoes.? * ROS:?General/Constitutional:?Nausea?denies.?Vomiting?denies.?Hunger Thirst?denies.?Loss appetite?denies.?Chills?denies.?Fatigue?admits.?Fever?denies.?Night Sweats?denies.?Unexplained weight loss?denies.?Unexplained weight gain?denies.?HEENTM:?Dentures?admits.?Dizziness?denies.?Glasses/contacts?admits.?Retinopathy?den ies.?Blurred/double vision?admits.?TMJ?denies.?Discharge/drainage?denies.?Implants?denies.?Sore throat?denies.?Dental implants?denies.?Hard of hearing ?admits.?Difficulty chewing/swallowing/speaking?admits.?Nose bleeds?denies.?Sore mouth?denies.?Respiratory:?On O xygen?denies.?Pneumonia/pleurisy?denies.?Bronchitis?denies.?Emphysema?denies.?Co ughing?denies.?Cough blood?denies.?Shortness of breath?denies.?Wheezing?denies.?Cardiovascular:?Pacemaker?denies.?MVP?denies.?WPW?denies.?CHF?denies.?Heart attack?denies.?Septal defect?denies.?Rapid beat?denies.?Chest pain ?denies.?Atrial Fib.?denies.?Murmur/Palpitations?denies.?Gastrointestinal:?Hemorrhoids?denies.?Stomach/Abdominal pain?denies.?Dark blood stool?denies.?Irritable bowel ?denies.?Constipation?admits.?Diarrhea?admits.?Hematology:?Swelling?admits.?Clots?denies.?Varicose Veins?denies.?Bruising?admits.?Bleeding problem?admits.?Genitourinary:?Blood urine?denies.?Frequent/Painfu/urination/bladder control?denies.?Kidney stones?admits.?Infection (UTI)?denies.?Nephropathy?denies.?sex trans dis (STD)?denies.?Prostate?admits.?Musculoskeletal:?Hammertoes?admits.?Bunions?denies.?Back Pain?denies.?Muscle Cramps/ Resting?admits.?Muscle cramps / walking?denies.?Generalized aches and pains?denies.?Weakness?denies.?Integ.:?Lucero?denies.?Scars?denies.?Corns/calluses?admits.?Ingrown nails?admits.?Painful nails?admits.?Open Sores?denies.?Rashes?denies.?Neurologic:?Difficulty sleeping?admits.?Brain disorder?denies.?Numbness?admits.?Balance t rouble?admits.?Confusion?admits.?Fainting/blackouts?denies.?Tingling?admits.?Remy mors?denies.? * Medical History:? * Surgical History:?Med Lx Fus ion / right arm loss 13 yrs * Hospitalization/Major Diagno stic Procedure:?Denies Past Hospitalization * Family History:?Mother: dece ased, diagnosed with Other malignant neoplasm of unspecified site.?Father: , diagnosed with Diabetic - NIDDM.? * Social History:?Tobacco Use:?Tobacco Use/Smoking?Are you a:?former smoker ?Additional Findings: Tobacco Non-User?Current non-smoker ?Tobacco use other than smoking?Are you an other tobacco user??No ???Drugs/Alcohol:?Drugs?Have you used drugs other than those for medical reasons in the past 12 months??Yes ?Alcohol Screen?Did you have a drink containing alcohol in the past year??Yes ?Points?0 ?Interpretation?Negative ???Miscellaneous:?Caffeine: yes, frequency:. ?no Exercise. ?Marital status: single. ?Occupation: Retired. * Medications:?TakingAspir-81 Sertraline HCl 100 MG Tablet Oral Orencia ClickJect 125 MG/ML Solution Auto-injector Subcutaneous Pregabalin 75 MG Capsule Oral Rosuvastatin Calcium 40 MG Tablet TAKE 1 TABLET BY MOUTH DAILY Oral Carvedilol 6.25 MG Tablet TAKE 1 TABLET BY MOUTH TWICE DAILY Oral Tolterodine Tartrate ER 2 MG Capsule Extended Release 24 Hour TAKE 1 CAPSULE BY MOUTH EVERY 24 HOURS Oral FreeStyle Lancets - Miscellaneous FreeStyle Lite Test - Strip USE DIRECTED TO TEST BLOOD GLUCOSE EVERY DAY In Vitro Medication List reviewed and reconciled with the patientTaking Aspir-81 Taking Sertraline HCl 100 MG Tablet Oral Taking Orencia ClickJect 125 MG/ML Solution Auto-injector Subcutaneous Taking Pregabalin 75 MG Capsule Oral Taking Rosuvastatin Calcium 40 MG Tablet TAKE 1 TABLET BY MOUTH DAILY Oral Taking Carvedilol 6.25 MG Tablet TAKE 1 TABLET BY MOUTH TWICE DAILY Oral Taking Tolterodine Tartrate ER 2 MG Capsule Extended Release 24 Hour TAKE 1 CAPSULE BY MOUTH EVERY 24 HOURS Oral Taking FreeStyle Lancets - Miscellaneous Taking FreeStyle Lite Test - Strip USE DIRECTED TO TEST BLOOD GLUCOSE EVERY DAY In Vitro Medication List reviewed and reconciled with the patient * Allergies:?Penicillin: rashT ylenol: rashCortisone Acetate: headacheAtorvastatinActemraHumiraLeflunomideyes[Allergies Verified] Objective: * Vitals:?Ht: 5ft 10in, Wt:208 lbs, BMI:29.84, Shoe size: 10.5, BS:119, Ht-cm: 177.8 cm, Wt-k.35 kg. * ???Past Orders: ???Lab:HEMOGLOBIN A1C (GLYCO HEMOGLOBIN) (Order Date - 04/16/2024) (Collection Date - 03/12/2024) ? Value Reference Range ?TOTAL HEMOGLOBIN (HGBA1C) 6.2 * Examination: ???Ophthalmology Referral: ?DIABETES EYE EXAM?Neurological: ?SENSORY:? Neurological exam demonstrates, reduced light touch sensation, reduced sharp/dull pin prick discrimination , B/L, 5.07 monofilament test performed at plantar aspects of 5 varied sites per foot shows sensation, reduced , B/L.?Nails: ?NAILS are:?Elongated, overgrown, dystrophic, lytic, greater than 3mm thick, discolored and friable with crumbly malodorous subungual debris , with dull to no pain on palpation due to neuropathy , 1-5 B/L.?Dermatologic: ?SKIN FINDINGS:?Skin exam reveals Keratotic lesion(s) located at , TA , T5.?Vascular: ?DP PULSES(B):?3/4, B/L.?PT PULSES(B):?3/4, B/L.?CAPILLARY FILL TIME:?immediate, all digits, B/L.?TROPHIC CONDITION-TEXTURE/ELASTICITY/TURGOR/HAIR GROWTH(B):?normal, B/L.?TEMPERTURE GRADIENT(C):?normal, warm to cool, proximal to distal, B/L, B/L.?Orthopedic: ?MUSCLE STRENGTH:?5/5 all groups in a symmetrical fashion, B/L.?DIGITAL DEFORMITIES:?Digital contracture, PIPJ, 2-5 B/L, incompl-reducible to push-up test, no over, nor underlapping,?there is?evidence of shoe producing skin irritation.?FOOTWEAR:?worn, non-supportive, shoe gear properties exacerbate patient's foot/toe deformity.?General Examination: ?GENERAL APPEARANCE:?Reveals a pleasant, alert, well nourished, well- developed, well hydrated individual, who demonstrates proper attention to hygiene/body habitus, and is in no acute distress, Pt serves as own historian for office visit today.?ORIENTED:?person, place, and time.?FOOT EXAM:?Footwear Evaluation? Assessment: * Assessment: 1.?Type 2 diabetes mellitus with diabetic polyneuropathy - E11.42 (Primary)?2.?Tinea unguium - B35.1?3.?Other hammer toe(s) (acquired), right foot - M20.41, Chronic problem, Worse (4),Rx Management (4)?4.?Other hammer toe(s) (acquired), left foot - M20.42, Chronic problem, Worse (4),Rx Management (4)? Plan: * Treatment: * Procedures:?Debride Nail 6-10:?Nail debridement?Performance of this nail treatment by a nonprofessional would put this patients foot and overall health at risk. Therefore, nail debridement was performed extensively to reduce/remove overall nail length, girth, thickness, subungual debris, and necrotic tissue, by manual and/or electrical means through the use of a nail nipper and/or dremel-type diamond grinder, to a more viable healthy nail plate or bed tissue 6-10. Silver nitrate used for any petechial bleeding as necessary. Definitive antifungal treatment options have been reviewed and discussed with the patient. The patient chooses, no pharmaceutical tx - 45597.?Keratoma Treatment:?Parring or Cutting of Benign Hyperkeratotic Lesion(s)?(-56) 2-4 Lesions - The Benign hyperkeratotic lesions, as described above were pared, and/or cut utilizing a sterile 15 blade, tissue nippers, and/or dremel - 04154.? * Procedure Codes:?40279 DEBRI DE NAIL, 6 OR MORE, Modifiers: XS 93981 TRIM SKIN LESIONS, 2 TO 4, Modifiers: XS * Preventive Medicine:? ??Counseling:?Discussion:?-03: Office or other outpatient visit for the evaluation and management of a new patient, which required a medically appropriate history and/or examination and LOW level of DECISION MAKING for: 1 STABLE ACUTE UNCOMPLICATED PROBLEM, 2 OR MORE MINOR PROBLEMS, OR 1 STABLE CHRONIC PROBLEM, THAT POSE(S) A LOW RISK FOR MORBIDITY/MORTALITY. The visit on the day of the encounter encompassed interpreting the data and educating the patient as to the nature of their condition, treatment options available according to their individual PMH, meds, allergies, and overall health/living conditions, as well as any potential risks or complications that may occur from a failure to adhere to, and participate in, the recommended course of therapy. The discussion included a complete verbal, and/or written explanation of the examination results, any x-rays taken, the proposed diagnosis, and outline of the treatment plan. A schedule for future care needs was also explained. The patient verbalized an understanding of the instructions at this time and agreed to be an active participant in their treatment. If the patient should think of any questions or concerns after the visit, I have encouraged the patient to call the office.?Abscess/Paraonychia/Ingrown Nails:?We discussed the possible etiologies (genetic, improper nail care, shoe gear, nail trauma) which may lead to ingrown nails and/or paronychial infections. We discussed and reviewed palliative/nonsurgical/deferring definitive treatment (vs) undergoing the treatment procedures of nail avulsion(s) or PNA, which may prevent recurrence and give more lasting results. The possible risks/complications such as worsened condition/delayed healing/nonhealing/failure/recurrence/infection, the potential benefits/advantages of decreased pain/deformity, as well as alterative treatment options including applying nail softening agents/nail groove packing were discussed. No guarantees were given regarding any outcome for any procedure. The patient was educated in the length of time for the affected nail to regrow once completely healed from a nail avulsion procedure. Once the condition has completely healed, the patient was consulted on proper nail care. Patient questions such as details of each procedure, varying time to heal, activity post procedure, and shoe gear were discussed and the answers were verbally confirmed fully understood.?Digital Surgery:?Digital surgery was discussed with the patient, We elected to try conservative treatment at the present time, due to the patients medical history and increased asssociated post-operative risks.?Digital Treatment:?HT- I explained to the patient the possible etiologies of Hammertoes, including genetics/foot type/shoegear/activity level/exercise routine and the risks/benefits of all the different treatment options for their pain including: No treatment at all, Rest, Ice, New/supportive/wider/deeper Shoegear, Digital Padding/Strapping/Taping/Bracing/Gel protective sleeves, Foot/Ankle AFO Bracing, Stretching exercises, Deep Tissue Massage, Arch support/shoe inserts with splay metatarsal padding, and Custom orthoses. I insisted that any digital devices be removed daily and not worn overnight for safety. The patient is to carefully examine the toes daily for any skin irritation while using any splinting or padding device. The advantages and disadvantages of each option were discussed and the patients questions re: shoegear, padding, custom vs prefabricated inserts, activity level, and consistency in home treatment regimens for optimal success were answered to their verbally confirmed satisfaction.?Shoe Gear Counseling:?SHOE Rx - The patient was counseled in great detail on their muscoloskeletal foot and toe deformities which coincided with the dermatological presentations visualized on exam. We discussed how their deformities put the integrity of their feet at risk for potential pedal complications which makes the accomidative diabetic shoes and cutomizable inserts medically necessary. We discussed the different shoe and insert treatment types and options, as well as the important advantages for adhering to regularly wearing these accomidative devices daily. The patient was made aware of the fact that a failure to abide by these recommedations may be deleterious to their foot health as they are able to prevent many pedal complications such as skin irritation, skin ulceration, infection, and even loss of toe/foot/leg/or life. Time was also spent with the patient dispensing and discussing proper diabetic footcare techniques including daily skin moisturization, daily foot inspection for any interruption in skin integrity including open lesions, or sign of infection such as redness/malodor/drainage/swelling. Also discussed and recommended were procedures regarding daily shoe inspection for the presence of internal foreign bodies as well as any visualized irregular shoe or insert wear. Patient questions re: shoes, inserts, and self foot inspections were answered to their satisfaction as the patient verbally confirmed a full understanding of the above information. Pt defers A Rx for Extra Depth Orthopedic Shoes with 3 pair of custom heat-molded inserts.? * Follow Up:?2 Months * Images: * Sign off status: Completed true * Provider:?Traci Jewell DPM Date:?10/2023 Generated for Castillo galarza/Denita/Jose Miguel on:?07/11/2024 12:54 PM EST History and Physical Notes * HPI (History of Present Illness) Category Sub-Category Detail Notes Category Not es Toe pain Location: B/L feet Duration: several years Course: worse Aggravated by: shoes, any pressure Treatments: change in shoes At Risk footcare Pt States Last PCP Visit: Date: Examination Category Sub-Category Detail Notes Category Not es Neurological SENSORY: Neurological exa m demonstrates, reduced light touch sensation, reduced sharp/dull pin prick discrimination , B/L, 5.07 monofilament test performed at plantar aspects of 5 varied sites per foot shows sensation, reduced , B/L Dermatologic SKIN FINDINGS: Skin exam reveal s Keratotic lesion(s) located at , TA , T5 Orthopedic FOOTWEAR: worn, non-suppor tive, shoe gear properties exacerbate patient's foot/toe deformity DIGITAL DEFORMITIES: Digital contracture , PIPJ, 2-5 B/L, incompl-reducible to push-up test, no over, nor underlapping, there is evidence of shoe producing skin irritation MUSCLE STRENGTH: 5/5 all groups in a symmetrical fashion, B/L General Examination GENERAL APPEARANCE: Reveals a pleasant, alert, well nourished, well-developed, well hydrated individual, who demonstrates proper attention to hygiene/body habitus, and is in no acute distress, Pt serves as own historian for office visit today FOOT EXAM: Lower Extremity Neurological Exa m performed:: Yes ORIENTED: person, place, and t mega Footwear Evaluation Footwear Evaluation performe d:: Yes Ophthalmology Referral DIABETES EYE EXAM Procedure Perform ed:: Yes ?Date of Exam Performed: 03/13/2024 Diabetic Retinopathy Screening:: No Vascular DP PULSES (B): 3/4, B/L PT PULSES (B): 3/4, B/L CAPILLARY FILL TIME: immediate, all digi ts, B/L TEMPERTURE GRADIENT (C): normal, warm to cool, proximal to distal, B/L, B/L TROPHIC CONDITION-TEXTURE/ELASTICITY/TURGOR/HAIR GROWTH (B): normal, B/L Nails NAILS are: Elongated, overg rown, dystrophic, lytic, greater than 3mm thick, discolored and friable with crumbly malodorous subungual debris , with dull to no pain on palpation due to neuropathy , 1-5 B/L
--- OUTSIDE RECORDS SUMMARY | 2024-07-11 12:54 | XMS_ITS ---
Author Organization [facility] Address [address] [place] [address] Care Team Providers Care Blower Installer Name Role Phone Clive Chaidez Primary Care Provider Traci Juarez Unavailable [phone] Allergies Allergen (clinical drug ingredient) Drug/Non Drug [...] rash Drug Allergy Active REASON FOR VISIT At Risk Footcare, Toe Irritation Medications Medication SIG (Take, Route, Frequency, Duration) Notes Start Date End Date Status FreeStyle Lancets - for 90 Days Active [...] MG/ML Subcutaneous for 28 Days Not -Taking Carvedilol 6.25 MG TAKE 1 TABLET BY TWICE DAILY Oral for 90 Days Active Rosuvastatin Calcium 40 MG TAKE 1 TABLET BY MOUTH DAILY Oral for 90 Days Active Aspir-81 Active Pregabalin 75 MG Oral for 45 Days Active Sertraline HCl 100 MG Oral for 30 Days Active Social History Tobacco Use: Social History Observation Description Date Details (start date - stop date) Never Smoker NA - NA Tobacco use other than smoking: Question Answer Notes Are you an other tobacco user? No Tobacco Control (Standard) Question Answer Notes Tobacco use: Nonsmoker Vital Signs Blood pressure systolic 140 mm Hg 07/03/19 25 Blood pressure diastolic 80 mm Hg 025 Height [id number] in 07/03/2024 Weight 214 lbs 07/03/2024 BMI 30.7 kg/m2 07/03/2024 Encounters Encounter Location Date Provider Diagnosis [facility] [place] [address] [place] [address] 07/03/2024 Traci Jewell Type 2 diabetes mellitus [...] INSTRUCTIONS. pdf (DIABETIC FOOT CARE INSTRUCTIONS. pdf) 07/03/2024 Tinea unguium (ICD-10 - B35.1) 07/03/2024 Other hammer toe(s) (acquired), left foot (ICD-10 - M20.42) Plan Of Treatment Treatment Notes Assessment Notes Other hammer toe(s) (acquired), right fo ot Patient Educated with: DIABETIC FOOT CARE INSTRUCTIONS.pdf (DIABETIC FOOT CARE INSTRUCTIONS.pdf) Next Appt Details Follow Up: 2 Months, Reason: Provider Name:Traciharry oliva, 09/10/2024 11:00:00 AM, [address] [place] [address], [phone], Procedure Notes * Category Sub-Category Detail Notes Debride Nail 6-10 Nail debridement Due to the cl inical pathology outlined in the exam findings, performance of this nail treatment is medically necessary as its management by an unskilled/untrained nonprofessional would put this patients foot and overall health at risk. Therefore, debridement to affected nail(s), as described in exam (TA, T1, T2, T3, T4, T5, T6, T7, T8, T9, ), was performed exclusively by the physician of record to reduce/remove overall nail length, girth, thickness, subungual debris, and necrotic tissue, by manual and/or electrical means through the use of a nail nipper and/or dremel-type paint grinder stone mill, to a more viable healthy nail plate or bed tissue 6-10 nails in total. Silver nitrate was used for any petechial bleeding as necessary. Definitive antifungal treatment options, both pharmaceutical and surgical, have been reviewed and discussed with the patient. The patient solely prefers the use of intermittent/as needed professional debridement services for their nail condition and understands the need for additional periodic treatments to maintain effectiveness in symptomatic relief - 89711 Keratoma Treatment Parring or Cutting o f Benign Hyperkeratotic Lesion(s) (-56) 2-4 Lesions - Due to the at risk nature of the patients medical condition as documented in the exam findings, performance of this keratoderma treatment is medically necessary as its management by an unskilled/untrained nonprofessional would put this patients foot and overall health at risk. Therefore, the benign hyperkeratotic lesions, ( 4 ) in total, locations as stated and described in the exam ( TA , T5, T4, T9 ), were pared, and/or cut utilizing a sterile 15 blade, tissue nippers, and/or power dremel instrumentation by the physician of record - 18277 Progress Notes * Issa DUKE LDOB: 4 (58 yo M)Acc No.[id number]:07/03/2024 Progress Note Patient:?Issa DUKE Provider:?Traci Jewell DPM :1965???Age:58 Y???Sex:Male Sean e:07/03/2024 Address:[address] [place] [address] Dr Collette Zazueta, [facility] Pcp:Clive Chaidez Subjective: * Chief Complaints: * ???At Risk FootcareToe Irrit ation * HPI: ???At Risk footcare:?Pt States Last PCP Visit:?Date?05/12/2024 ???Toe pain:?Location:?B/L feet.?Duration:?several years.?Course:?worse.?Aggravated by:?shoes, any pressure.?Treatments:?change [...] Diabetic - NIDDM.? * Social History:?Tobacco Use:?Tobacco use other than smoking?Are you an other tobacco user??No ?Tobacco Control (Standard)?Tobacco use:?Nonsmoker ???Miscellaneous:?Caffeine: yes, frequency:. ?Children: no. ?Exercise: no. ?Marital status: single. 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 * Medications:?TakingAspir-81 Sertraline HCl 100 MG Tablet Oral Pregabalin 75 MG Capsule Oral Rosuvastatin Calcium [...] TEST BLOOD GLUCOSE EVERY DAY In Vitro Losartan Potassium 50 MG Tablet TAKE 1 TABLET BY MOUTH DAILY Oral Taking Aspir-81 Taking Sertraline HCl 100 MG Tablet Oral Taking Pregabalin 75 MG Capsule Oral Taking [...] TEST BLOOD GLUCOSE EVERY DAY In Vitro Taking Losartan Potassium 50 MG Tablet TAKE 1 TABLET BY MOUTH DAILY Oral Not-Taking/PRNOrencia ClickJect 125 MG/ML Solution Auto- injector Subcutaneous Medication List reviewed and reconciled with the patientNot- Taking/PRN Orencia ClickJect 125 MG/ML Solution Auto-injector Subcutaneous Medication List reviewed and reconciled with the patient * Allergies:?Penicillin: rashT ylenol: rashCortisone Acetate: headacheAtorvastatinActemraHumiraLeflunomideOrencia ClickJectyes[Allergies Verified] Objective: * Vitals:?Ht: 3hm15sb, Wt:214, BMI:30.7, Shoe size: 10.5, BP:140/80mm Hg, BS: not taken, Ht-cm: 177.8 cm, Wt-k.07 kg. * ???Past Orders: ???Lab:HEMOGLOBIN A1C (GLYCO HEMOGLOBIN) (Order Date - 05/12/2024) (Collection Date & Time - 05/12/2024 09:18 AM) ? Value Reference Range ?HEMOGLOBIN A1C % (HH) 6.2 * Examination: ???Ophthalmology Referral: ?DIABETES EYE [...] pain on palpation due to neuropathy , TA, T1, T2, T3, T4, T5, T6, T7, T8, T9.?Dermatologic: ?SKIN FINDINGS:?Skin exam reveals Keratotic lesion(s) located at , TA , T5, T4, T9.?Vascular: ?DP PULSES (B):?3/4, B/L.?PT PULSES (B):?3/4, B/L.?CAPILLARY FILL TIME:?immediate, all digits, B/L.?TROPHIC CONDITION-TEXTURE/ELASTICITY/TURGOR/HAIR GROWTH (B):?normal, B/L.?TEMPERTURE GRADIENT (C):?normal, warm to cool, proximal to distal, B/L, [...] and time.?FOOT EXAM:?Footwear Evaluation? Assessment: * Assessment: 1.?Other hammer toe(s) (acqu ired), right foot - M20.41 (Primary)???2.?Type 2 diabetes mellitus with diabetic polyneuropathy - E11.42???3.?Tinea unguium - B35.1???4.?Other hammer toe(s) (acquired), left foot - M20.42??? Plan: * Treatment: * Procedures:?Debride Nail 6-10:?Nail debridement?Due to the clinical pathology outlined in the exam findings, performance of this nail treatment is medically necessary as its management by an unskilled/untrained nonprofessional would put this patients foot and overall health at risk. Therefore, debridement to affected nail(s), as described in exam (TA, T1, T2, T3, T4, T5, T6, T7, T8, T9, ), was performed exclusively by the physician of record to reduce/remove overall nail length, girth, thickness, subungual debris, and necrotic tissue, by manual and/or electrical means through the use of a nail nipper and/or dremel-type paint grinder stone mill, to a more viable healthy nail plate or bed tissue 6- 10 nails in total. Silver nitrate was used for any petechial bleeding as necessary. Definitive antifungal treatment options, both pharmaceutical and surgical, have been reviewed and discussed with the patient. The patient solely prefers the use of intermittent/as needed professional debridement services for their nail condition and understands the need for additional periodic treatments to maintain effectiveness in symptomatic relief - 16854.?Keratoma Treatment:?Parring or Cutting of Benign Hyperkeratotic Lesion(s)?(-56) 2-4 Lesions - Due to the at risk nature of the patients medical condition as documented in the exam findings, performance of this keratoderma treatment is medically necessary as its management by an unskilled/untrained nonprofessional would put this patients foot and overall health at risk. Therefore, the benign hyperkeratotic lesions, ( 4 ) in total, locations as stated and described in the exam (??TA?,?T5,?T4,?T9?), were pared, and/or cut utilizing a sterile 15 blade, tissue nippers, and/or power dremel instrumentation by the physician of record - 90279.? * Procedure Codes:?45305 DEBRI DE NAIL, 6 OR MORE, Modifiers: XS 64855 TRIM SKIN LESIONS, 2 TO 4, Modifiers: XS * Preventive Medicine:? ??Counseling:?Discussion:?-13: Office or other outpatient visit for the evaluation and management of an established patient, which required a medically appropriate history [...] have encouraged the patient to call the office.?Digital Surgery:?Digital surgery was discussed with the patient, [...] Sign off status: Completed true * Provider:?Traci Jewell, DPM Date:? Generated for Printi ng/Faandreiag/eTransmitting on:?07/11/2024 12:53 PM EST History and Physical Notes * HPI (History of Present Illness) Category Sub-Category Detail Notes Category Not es Toe pain Location: B/L feet Duration: several years Course: worse Aggravated by: shoes, any pressure Treatments: change in shoes At Risk footcare Pt States Last PCP Visit: Date: 4 Examination Category Sub-Category Detail Notes Category Not es Neurological SENSORY: Neurological exa m demonstrates, reduced light touch sensation, reduced sharp/dull pin prick discrimination , B/L, 5.07 monofilament test performed at plantar aspects of 5 varied sites per foot shows sensation, reduced , B/L Dermatologic SKIN FINDINGS: Skin exam reveal s Keratotic lesion(s) located at , TA , T5, T4, T9 Orthopedic FOOTWEAR: worn, non-suppor tive, shoe gear [...] Lower Extremity Neurological Exa m performed:: Yes Visual exam of foot performed:: Yes Date: 07/03/2024 ORIENTED: person, place, and t mega Footwear Evaluation Footwear Evaluation performe d:: Yes Ophthalmology Referral DIABETES EYE EXAM Procedure Perform ed:: Yes ?Date of Exam Performed: 11/11/2023 Findings of Diabetic Eye Exam:: no retin opathy Vascular DP PULSES (B): 3/4, B/L PT [...] pain on palpation due to neuropathy , TA, T1, T2, T3, T4, T5, T6, T7, T8, T9
== END 2024-07-11 10:38 | disposition home or self-care (01) ==
PROVIDERS: PCP Internal Medicine; Visit Provider Dietitian, Registered
DX: E11.65 Type 2 diabetes mellitus with hyperglycemia (principal)

== ENCOUNTER → 2024-07-11 09:50 | Outpatient (BNVA) | payer OTHER, SELFPAY | PROVIDERS: PCP Internal Medicine; Visit Provider Dietitian, Registered | DX: E11.65 Type 2 diabetes mellitus with hyperglycemia (principal) | CPT/HCPCS: 97803 ==

== ENCOUNTER 2024-07-24 12:51 | Outpatient (REF) | payer OTHER, SELFPAY ==
[2024-07-24 13:06] LABS: MANUAL DIFF FLAG NO
--- OUTSIDE RECORDS SUMMARY | 2024-07-24 14:13 | XMS_ITS | Patient Health Record ---
Author Organization [facility] Address [address] [place] [address] Care Team Providers Care Primer Charger Name Role Phone Clive Chaidez Primary Care Provider Traci Juarez Unavailable [phone] Allergies Allergen (clinical drug ingredient) Drug/Non Drug [...] Problem Acquired hammer toe of right foot (3533385789399299 ) Other hammer toe(s) (acquired), right foot (M20.41) Active confirmed Problem Acquired hammer toe of left foot (4662437657107771 ) Other hammer toe(s) (acquired), left foot (M20.42) Active confirmed Problem Polyneuropathy due to type 2 diabetes mellitus (355165848) Type 2 diabetes mellitus with diabetic polyneuropathy (E11.42) Active confirmed Vital Signs Blood pressure diastolic 80 mm Hg 07/03/2024 Height 7ci47xh in 07/03/2024 Blood pressure systolic 140 mm Hg 07/03/2024 Weight 214 lbs 07/03/2024 BMI 30.7 kg/m2 07/03/2024 Encounters Encounter [facility] Date [facility] [address] [facility]/16/[facility]24 Traci Jewell Type 2 diabetes mellitus with diabetic polyneuropathy E11.42 ; Tinea unguium B35.1 ; Other hammer toe(s) (acquired), right foot M20.41 and Other hammer toe(s) (acquired), left foot M20.42 [facility] [address] 07/03/2024 Traci Jewell Type 2 diabetes mellitus [...] 04/16/2024 Tinea unguium (ICD-10 - B35.1) 07/03/2024 Other hammer toe(s) (acquired), right foot (ICD-10 - M20.41) Patient Educated with: DIABETIC FOOT CARE INSTRUCTIONS. pdf (DIABETIC FOOT CARE INSTRUCTIONS. pdf) 07/03/2024 Type 2 diabetes mellitus with diabetic polyneuropathy (ICD-10 - E11.42) 07/03/2024 Tinea unguium (ICD-10 - B35.1) 04/16/2024 Other hammer toe(s) (acquired), right foot (ICD-10 - M20.41) Patient Educated with: DIABETIC FOOT CARE INSTRUCTIONS. pdf (DIABETIC FOOT CARE INSTRUCTIONS. pdf) 04/16/2024 Other hammer toe(s) (acquired), left foot (ICD-10 - M20.42) 07/03/2024 Other hammer toe(s) (acquired), left foot (ICD-10 - M20.42) Plan Of Treatment Next Appt Details Provider Name:Traci oliva, 09/10/2024 11:00:00 AM, [address] [place] [address], [phone], Insurance Providers Payer Name Payer Address Payer Phone Subscriber Number Group Number Insured Name Patient Relationship to Insured Coverage Start Date Coverage End Date [facility] [employer] Claims [address] [place] [id number] Issa Cerna Self - patient is the [...]
--- OUTSIDE RECORDS SUMMARY | 2024-07-24 14:13 | XMS_ITS ---
Author Organization [facility] Address [address] [place] [address] Care Team Providers Care Wood Repatcher Name Role Phone Clive Chaidez Primary Care Provider Traci Juarez Unavailable [phone] Allergies Allergen (clinical drug ingredient) Drug/Non Drug [...] Answer Notes Tobacco use: Nonsmoker Vital Signs Height 6oy74kl in 07/03/2024 Weight 214 lbs 07/03/2024 BMI 30.7 kg/m2 07/03/2024 Blood pressure systolic 140 mm Hg 07/03/19 25 Blood pressure diastolic 80 mm Hg 025 Encounters Encounter Location Date Provider Diagnosis [facility] [place] [address] [place] [address] 07/03/2024 Traci Jewell Type 2 diabetes mellitus [...] Reason: Provider Name:Traciharry oliva, 09/10/2024 11:00:00 AM, [address] [place] [address], [phone], Procedure Notes * Category Sub-Category Detail Notes [...] use of a nail nipper and/or dremel-type crankshaft grinder, to a more viable healthy nail [...] to maintain effectiveness in symptomatic relief - 78832 Keratoma Treatment Parring or Cutting o f [...] instrumentation by the physician of record - 54849 Progress Notes * Issa DUKE LDOB: 4 (58 yo M)Acc No.[id number]:07/03/2024 Progress Note Patient:?Issa DUKE Provider:?Traci Jewell DPM :1965???Age:58 Y???Sex:Male Sean e:07/03/2024 Address:[address] [place] [address] [address] Collette Zazueta, [facility] Pcp:Clive Chaidez Subjective: * Chief Complaints: * [...] Acetate: headacheAtorvastatinActemraHumiraLeflunomideOrencia ClickJectyes[Allergies Verified] Objective: * Vitals:?Ht: 2rz65mz, Wt:214, BMI:30.7, Shoe size: 10.5, BP:140/80mm Hg, [...] use of a nail nipper and/or dremel-type crankshaft grinder, to a more viable healthy nail [...] to maintain effectiveness in symptomatic relief - 48603.?Keratoma Treatment:?Parring or Cutting of Benign Hyperkeratotic Lesion(s)?(-56) [...] instrumentation by the physician of record - 75961.? * Procedure Codes:?96848 DEBRI DE NAIL, 6 OR MORE, Modifiers: XS 66967 TRIM SKIN LESIONS, 2 TO 4, Modifiers: [...] Provider:?Traci Jewell, DPM Date:? Generated for Printi ng/Ingridg/eTransmitting on:?07/24/2024 02:13 PM EST History and Physical Notes * [...]
--- OUTSIDE RECORDS SUMMARY | 2024-07-24 14:14 | XMS_ITS ---
Author Organization [facility] Address [address] [place] [address] Care Team Providers Care Buffing Machine Operator Semiautomatic Name Role Phone Clive Chaidez Primary Care Provider Traci Juarez Unavailable [phone] Allergies Allergen (clinical drug ingredient) Drug/Non Drug [...] 125 MG/ML Subcutaneous for 28 Days Act jued Pregabalin 75 MG Oral for 45 Days [...] Polyneuropathy due to type 2 diabetes mellitus (670374528) Type 2 diabetes mellitus with diabetic polyneuropathy (E11.42) Active confirmed Problem Acquired hammer toe of right foot (6768334432403956 ) Other hammer toe(s) (acquired), right foot (M20.41) Active confirmed Problem Acquired hammer toe of left foot (6039503453168449 ) Other hammer toe(s) (acquired), left foot (M20.42) Active confirmed Vital Signs Height 5ft 10in in 04/16/2024 Weight 208 lbs lbs 04/16/2024 BMI 29.84 kg/m2 04/16/2024 Encounters Encounter Location Date Provider Diagnosis [facility] [address] [address] 04/16/2024 Traci Jewell Type 2 diabetes mellitus [...] Provider Name:Traci oliva, 09/10/2024 11:00:00 AM, [address] [place], [address], Procedure Notes * Category Sub-Category Detail Notes Debride Nail 6-10 Nail debridement Performance o f this nail treatment by a nonprofessional would put this patients foot and overall health at risk. Therefore, nail debridement was performed extensively to reduce/remove overall nail length, girth, thickness, subungual debris, and necrotic tissue, by manual and/or electrical means through the use of a nail nipper and/or dremel-type grinder and honer operator automatic, to a more viable healthy nail plate or bed tissue 6-10. Silver nitrate used for any petechial bleeding as necessary. Definitive antifungal treatment options have been reviewed and discussed with the patient. The patient chooses, no pharmaceutical tx - 10139 Keratoma Treatment Parring or Cutting o f Benign Hyperkeratotic Lesion(s) (-56) 2-4 Lesions - The Benign hyperkeratotic lesions, as described above were pared, and/or cut utilizing a sterile 15 blade, tissue nippers, and/or dremel - 70184 Progress Notes * Issa DUKE LDOB: 4 (58 yo M)Acc No.[id number]:04/16/2024 Progress Notes Patient:?Issa Duke Provider:?Traci Jewell DPM :1965???Age:58 Y???Sex:Male Sean e:04/16/2024 Address:[address] [place] [address] [facility] Pcp:Clive Chaidez Subjective: * Chief Complaints: * [...] use of a nail nipper and/or dremel-type grinder and honer operator automatic, to a more viable healthy nail plate or bed tissue 6-10. Silver nitrate used for any petechial bleeding as necessary. Definitive antifungal treatment options have been reviewed and discussed with the patient. The patient chooses, no pharmaceutical tx - 98540.?Keratoma Treatment:?Parring or Cutting of Benign Hyperkeratotic Lesion(s)?(-56) 2-4 Lesions - The Benign hyperkeratotic lesions, as described above were pared, and/or cut utilizing a sterile 15 blade, tissue nippers, and/or dremel - 02271.? * Procedure Codes:?15365 DEBRI DE NAIL, 6 OR MORE, Modifiers: XS 34616 TRIM SKIN LESIONS, 2 TO 4, Modifiers: [...] DPM Date:?10/2023 Generated for Castillo galarza/Denita/Jose Miguel on:?07/24/2024 02:13 PM EST History and Physical [...]
[2024-07-24 14:20] LABS: Basophils Absolute Auto 0.1 X10*3/uL (0.0-0.2); Eosinophils Absolute Auto 0.3 X10*3/uL (0.0-0.4); Eosinophils Percent Auto 3.5 % (0-4); Hematocrit 39.8 % (42.0-52.0); Hemoglobin 13.5 g/dl (14.0-18.0); Imm Gran Abs Auto 0.04 X10*3/uL (0.00-0.03); Imm Gran Pct Auto 0.5 % (0.0-0.4); Lymphocytes Absolute Auto 3.3 X10*3/uL (1.2-4.9); Lymphocytes Percent Auto 40.8 % (20-40); Mean Corpuscular HGB Conc 33.9 g/dl (31.0-36.0); Mean Corpuscular Hemoglobin 29.5 pg (27.0-33.0); Mean Corpuscular Volume 86.9 fL (80.0-98.0); Mean Platelet Volume 9.8 fL (9.4-12.4); Monocytes Absolute Auto 0.6 X10*3/uL (0.1-1.2); Monocytes Percent Auto 7.8 % (2-11); Neutrophils Absolute Auto 3.7 x10*3/uL (2.0-8.3); Neutrophils Percent Auto 46.4 % (45-73); Platelet Count 173 X10*3/uL (160-400); Red Blood Count 4.58 X10*6/uL (4.60-5.80); Red Cell Distribution Width 13.2 % (11.0-16.0)
[2024-07-24 14:59] LABS: Alanine Aminotransferase 30 U/L (0-40); Albumin Level 4.1 g/dL (3.5-5.0); Alkaline Phosphatase 75 U/L (39-117); Anion Gap 9 (12-20); Aspartate Amino Transferase 24 U/L (5-37); Bilirubin Total 0.2 mg/dL (0.0-1.0); Blood Urea Nitrogen 13 mg/dL (9-16); C Reactive Protein 0.18 mg/dL (< or = 0.50); Calcium 8.8 mg/dL (8.4-10.2); Carbon Dioxide 28 mmol/L (22-29); Chloride 110 mmol/L (96-108); Estimated Glomerular Filt Rate > 60; Glucose Random 147 mg/dL (60-115); Sodium 143 mmol/L (135-145)
[2024-07-24 15:14] LABS: Erythrocyte Sedimentation Rate 3 MM/HR (0-15)
== END 2024-07-24 12:52 | disposition home or self-care (01) ==
LOC: HO.LAB 12:51
PROVIDERS: Absent Provider Internal Medicine; PCP Internal Medicine; Visit Provider Student in an Organized Health Care Education/Training Program
DX: M05.9 Rheumatoid arthritis with rheumatoid factor, unspecified (principal)
CPT/HCPCS: 36415; 80053; 85025; 85652; 86140

== ENCOUNTER 2024-07-26 12:22 | Outpatient (AMB) | payer OTHER, SELFPAY ==
--- NOTE | 2024-07-26 12:28 | A.OFFVIS_ITS ---
Vital Signs 07/26/24 12:35 Height 5 ft 10 in Weight 214 lb 15.211 oz BMI 30.8 BP 142/80 H Blood Pressure Location Lt brachial Position Sitting Pulse 54 Pulse Source Pulse Oximeter Pulse Oximetry (%) 98 Oxygen Delivery Method Room Air Intake Visit Reasons: RA/OA/FMS Intake Note: Patient presents for RA/OA/FMS. Allergies penicillin V Allergy (Severe, Verified 07/26/24 12:32) rash adalimumab [From Humira] Allergy (Intermediate, Verified 07/26/24 12:32) leg pain atorvastatin Allergy (Intermediate, Verified 07/26/24 12:32) leg pain leflunomide Allergy (Intermediate, Verified 07/26/24 12:32) kidney failure tocilizumab [From Actemra] Allergy (Intermediate, Verified 07/26/24 12:32) frequent nail infection lisinopril Adverse Reaction (Intermediate, Verified 07/26/24 12:32) Anxiety losartan Adverse Reaction (Intermediate, Verified 07/26/24 12:32) Nausea Medication List - Last Reconciled 07/26/24 by Serina Franz MD amlodipine 5 mg PO DAILY aspirin 81 mg PO DAILY blood sugar diagnostic (FreeStyle Lite Strips) test daily blood-glucose meter (FreeStyle Lite Meter kit) test daily carvedilol 6.25 mg PO BID diclofenac sodium 1% (Voltaren) 2 grams topical QID diclofenac sodium 1% 4 grams topical QID hydroxychloroquine (Plaquenil) 200 mg PO BID lancets (FreeStyle Lancets) test daily lancets (FreeStyle Lancets) As directed check BS QD nitroglycerin 0.4 mg sublingual Q5M PRN pregabalin 75 mg PO BID rosuvastatin 40 mg PO DAILY sennosides (senna) 8.6 mg PO BEDTIME sertraline 150 mg PO DAILY tolterodine ER (Detrol LA) 2 mg PO Q24H [wrist cock up splint Wear on each wrist at night. ] HPI Comments Details: Patient is a 58-year-old male with hypertension complicated by CAD, hyperlipidemia, diabetes, history of tubular adenoma of the colon, BPH, polyarticular osteoarthritis and seropositive rheumatoid arthritis here today for follow up Interval History: Patient last seen 12/26/2023. At that time he reported that he was doing about the same with ongoing aches and pains and difficulties with certain activities. He was also complaining of triggering of his 3rd, 4th and 5th fingers and he was advised by his PCP to speak with his hand surgeon. Since then patient stopped the Orencia 2-3 months due to adverse effects Patient feels like all these medications have been causing worse effects than the arthritis He currently feels like he may be better off not on any medication Today complains of right ankle pain, hands/wrists, hip pain/popping Rheumatologic History: Seropositive rheumatoid arthritis diagnosed in 2019 ++RF -ve CCP Leflunomide: December 2020 - March 2021 urinary frequency Actemra: January 2020- December 2020 -Had surgery did not want to restart after, frequent nail infections. Enbrel: January- denied by insurance Humira: October 2019- January 2020 - active disease on exam/ listed with allergy leg pain Orencia: March 2021 - 05/2024 Current Rheumatology Medication(s): Orencia 125 mg weekly (no longer taking) [facility] Medical History (Updated 07/26/24 @ 13:14 by Serina Franz MD) Encounter for monitoring of hydroxychloroquine therapy Pre-op examination Frequency of micturition Right wrist pain Annual physical exam Lower urinary tract symptoms Immunization counseling Screening for viral disease Bilateral carpal tunnel syndrome Screening for colon cancer Screening for prostate cancer New onset type 2 diabetes mellitus Depression Adult general medical exam Precordial chest pain Right hip pain Acute sinusitis Right rotator cuff tear Atherosclerotic cardiovascular disease Left rotator cuff tear Gastritis determined by endoscopy Lip cancer Erectile dysfunction Anxiety Degenerative disc disease, lumbar Horseshoe kidney Coronary artery disease GERD (gastroesophageal reflux disease) Hypercholesterolemia Cervical radiculopathy 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 Osteoarthritis Surgical History History of carpal tunnel surgery of right wrist History of rotator cuff surgery S/P left rotator cuff repair Hx of colonoscopy History of coronary artery stent placement History of cervical spinal surgery History of shoulder surgery History of lip cancer H/O left knee surgery History of tonsillectomy Family History Father Lung cancer CAD (coronary artery disease) CVD (cardiovascular disease) Hx of CABG Mother Colon cancer Mental health disorder Maternal Uncle Lung cancer Maternal Uncle Substance abuse Substance use disorder Social History Housing: Other Housing Other:: Rents a room in a house Are you a primary care specialist to a significant other at home: No Do you presently have visiting nurse or other home services: No Alcohol intake: current Alcohol intake frequency: holidays/special occasions only Alcohol type: beer and hard liquor Comment: once a month glass Patient Tobacco Use Status: Former Tobacco user Tobacco use type: Cigarette Years Smoked: quit 2004 smokes marijuana e-Cigarette/Vaping Use: Never Used Second Hand Smoke Exposure: No Substance Use Type: Marijuana service: No Current occupational status: unemployed Current occupation: right handed Cognitive needs: No Hearing needs: No Vision needs: Yes Review of Systems Const Details: Review of Systems Constitutional: Denies fever, chills, weight loss ENT: Denies vision changes, eye pain or eye redness, dental caries, dry mouth GI: Denies nausea, vomiting, diarrhea, abdominal pain, change in BM Pulm: Denies SOB, VIVEROS, hemoptysis, wheezing Cards: Denies chest pain, palpitations Skin: Denies Raynaud's, rash, nail changes, photosensitivity, TAP PULLER: Denies headaches, weakness, paresthesias, recurrent falls MSK: as per HPI All other systems reviewed and are unremarkable except noted above Physical Exam Vital Signs: Last Vital Signs Pulse 54 07/26/24 12:35 BP 142/80 H 07/26/24 12:35 Pulse Ox 98 07/26/24 12:35 Oxygen Delivery Method Room Air 07/26/24 12:35 BMI result Body Mass Index 30.8 Vital signs reviewed Physical Examination CONSTITUITIONAL Patient alert and cooperative. Well appearing and in no apparent painful distress HEENT Conjunctiva and sclera clear. ?Pupils equal round and reactive to light. ?No lymphadenopathy. ? CHEST/RESPIRATORY SYSTEM Normal respiratory effort and able to speak in complete sentences. ?Clear to auscultation bilaterally. ?No crackles, rales, rhonchi, wheezes heard. CARDIAC SYSTEM Regular rate and rhythm. ?S1 and S2 heard no murmurs. ?Radial pulses intact bilaterally MSK Hands: ?Able to make a fist. Has significant herbedens and bouchards nodes. TTP of the 2nd and 3rd MCPs bilaterally Wrists: ?Full range of motion at the wrists without pain. ?No tenderness to palpation or synovitis noted to the wrists. Elbows: Full range of motion without pain. No tenderness, weakness, swelling, increased warmth or erythema. Shoulders: Full range of motion without pain. No tenderness, weakness, swelling, increased warmth or erythema. Hips: Full range of motion without pain. Knees: ?Full range of motion. ?No tenderness, swelling, increased warmth or erythema.?Bilateral crepitations Ankles: Full range of motion. ?TTP of the right ankle Feet: ?Negative squeeze test. ?No tenderness to palpation or swelling of the MTPs. SKIN Scattered actinic keratosis and seborrheic dermatoses Results Reviewed Results Reviewed: Laboratory Tests 04/21/23 07/24/24 09:38 13:05 WBC 8.0 RBC 4.58 L Hgb 13.5 L Hct 39.8 L Plt Count 173 ESR 3 Sodium 143 Potassium 4.0 Chloride 110 H Carbon Dioxide 28 BUN 13 Creatinine 0.80 Calcium 8.8 Total Bilirubin 0.2 AST 24 ALT 30 Alkaline Phosphatase 75 C-Reactive Protein 0.18 Total Protein 7.0 Albumin 4.1 Hepatitis A IgM Ab Nonreactive Hep Bs Antigen Negative Hep Bs Antibody NONREACTIVE Hep B Core Total Ab Nonreactive Hepatitis C Ab (EIA) Nonreactive TB Test (T-Spot) Com Negative Assessment & Plan Assessment & Plan (1) Seropositive rheumatoid arthritis: Comment: ++RF -ve CCP Leflunomide: December 2020 - March 2021 urinary frequency Actemra: January 2020- December 2020 -Had surgery did not want to restart after, frequent nail infections. Enbrel: January- denied by insurance Humira: October 2019- January 2020 - active disease on exam/ listed with allergy leg pain Orencia: March 2021- 05/2024 Code(s): M05.9 - Rheumatoid arthritis with rheumatoid factor, unspecified Category: Medical Plan: #Seropositive RA Patient is a 58-year-old male with seropositive rheumatoid arthritis here today for follow up. Stopped Orencia about 1-2 months ago due to ineffectiveness and side effects. On exam today he has some evidence of rheumatoid arthritis act ivity but I really do think most of his pain is coming from his osteoarthritis. Let us try Plaquenil to see if it will help to reduce some of his rheumatoid arthritis pain but I did let him know that it is likely that his osteoarthritis is the bigger contributed to his issues. Plan - Plaquenil 200mg bid - Ophthalmology referral at next visit if there is efficacy - If no improvement or mild improvement on the Plaquenil maybe we can consider methotrexate - RTC 3 months - Labs before visit: CBC, CMP, ESR, CRP, hepatitis panel, T spot (2) Osteoarthritis of hands, bilateral: Code(s): M19.041 - Primary osteoarthritis, right hand; M19.042 - Primary osteoarthritis, left hand Category: Medical Qualifiers: Osteoarthritis type: primary Qualified Code(s): M19.041 - Primary osteoarthritis, right hand; M19.042 - Primary osteoarthritis, left hand Plan: #Polyarticular OA Patient with polyarticular OA but right now of concern is OA related to his bilateral hands. Continue with home remedy of paraffin waxes Add topical diclofenac gel 4 times a day to bilateral hands. Plan - Topical diclofenac gel 1% qid - Continue home management with paraffin wax baths, stretches and exercises (3) Encounter for monitoring of hydroxychloroquine therapy: Code(s): Z51.81 - Encounter for therapeutic drug level monitoring; Z79.899 - Other prison (current) drug therapy Category: Medical Plan: #Long-term Use of Hydroxychloroquine Discussed with patient the risks and benefits of hydroxychloroquine in managing the rheumatic condition Benefits include: - Reduced pain, reduce mortality, maintenance of remission and reduction of flares Risks include: - GI upset, skin hyperpigmentation, retinal toxicity (especially after more than 5 years of use), myopathy Advised yearly ophthalmology visits Plan I spent 30 minutes reviewing the record and labs, taking a history, examining the patient, discussing the treatment plan and documenting in the medical record Orders: Orders Comprehensive Met. Panel 3 Months M05.9 - Rheumatoid arthritis with rheumatoid factor, unspecified, Z79.899 - Other prison (current) drug therapy Complete Blood Count Auto Diff 3 Months M05.9 - Rheumatoid arthritis with rheumatoid factor, unspecified, Z79.899 - Other prison (current) drug therapy C Reactive Protein 3 Months M05.9 - Rheumatoid arthritis with rheumatoid factor, unspecified, Z79.899 - Other terminal make up operator (current) drug therapy Erythrocyte Sedimentation Rate 3 Months M05.9 - Rheumatoid arthritis with rheumatoid factor, unspecified, Z79.899 - Other terminal make up operator (current) drug therapy Hepatitis A,B,C Profile 3 Months M05.9 - Rheumatoid arthritis with rheumatoid factor, unspecified, Z79.899 - Other terminal make up operator (current) drug therapy T Spot TB 3 Months M05.9 - Rheumatoid arthritis with rheumatoid factor, unspecified, Z79.899 - Other terminal make up operator (current) drug therapy Medications: New hydroxychloroquine (Plaquenil) 200 mg PO BID 180 tabs 1RF M05.9 - Rheumatoid arthritis with rheumatoid factor, unspecified, M19.041 - Primary osteoarthritis, right hand, M19.042 - Primary osteoarthritis, left hand diclofenac sodium 1% Apply to bilateral hands 4 times a day 4 grams topical QID 100 grams 4RF M19.041 - Primary osteoarthritis, right hand, M19.042 - Primary osteoarthritis, left hand Coding Level of Care Code Est Pt Level 4 (86620) Complex EM visit Add On G2211 Diagnoses Seropositive rheumatoid arthritis M05.9 Primary osteoarthritis of both hands M19.041; M19.042 Osteoarthritis type: primary Encounter for monitoring of hydroxychloroquine therapy Z51.81; Z79.899
[2024-07-26 12:35] VITALS: BP 142/80; PULSE 54; O2SAT 98; BMI 30.8
--- OUTSIDE RECORDS SUMMARY | 2024-07-26 12:50 | XMS_ITS | Patient Health Record ---
Author Organization [facility] Address [address] [place] [address] Care Team Providers Care Customer Service Operator Name Role Phone Clive Chaidez Primary Care Provider Traci Juarez Unavailable [phone] Allergies Allergen (clinical drug ingredient) Drug/Non Drug [...] Range Notes HEMOGLOBIN A1C (GLYCOHEMOGLO BIN) Reviewed date:04/16/2024 08:54:15 AM Interpretation: Performing Lab: Notes/Report: TOTAL HEMOGLOBIN (HGBA1C) 6.2 HEMOGLOBIN A1C (GLYCOHEMOGLO BIN) Reviewed date:07/03/2024 09:18:50 AM Interpretation: Performing Lab: Notes/Report: HEMOGLOBIN A1C % (HH) 6.2 Reason For Referral No Information Medications [...] Problem Acquired hammer toe of right foot (0078426381111261 ) Other hammer toe(s) (acquired), right foot (M20.41) Active confirmed Problem Acquired hammer toe of left foot (4721929951133227 ) Other hammer toe(s) (acquired), left foot (M20.42) Active confirmed Problem Polyneuropathy due to type 2 diabetes mellitus (189581111) Type 2 diabetes mellitus with diabetic polyneuropathy (E11.42) Active confirmed Vital Signs Blood pressure diastolic 80 mm Hg 07/03/2024 Height 5ui86bn in 07/03/2024 Blood pressure systolic 140 mm Hg 07/03/2024 Weight 214 lbs 07/03/2024 BMI 30.7 kg/m2 07/03/2024 Encounters Encounter Location Date Provider Diagnosis [facility] [address] 04/16/2024 Traci Jewell Type 2 diabetes mellitus with diabetic polyneuropathy E11.42 ; Tinea unguium B35.1 ; Other hammer toe(s) (acquired), right foot M20.41 and Other hammer toe(s) (acquired), left foot M20.[address] [facility] [address] 07/03/2024 Traci Jewell Type 2 diabetes mellitus [...] Details Provider Name:Traci oliva, 09/10/2024 11:00:00 AM, [address] [place] [address], [id number], Insurance Providers Payer Name Payer Address Payer Phone Subscriber Number Group Number Insured Name Patient Relationship to Insured Coverage Start Date Coverage End Date [facility] [employer] Claims [address] [place] [id number] Issa Cerna Self - patient is the [...]
--- OUTSIDE RECORDS SUMMARY | 2024-07-26 12:50 | XMS_ITS ---
Author Organization [facility] Address [address] [place] [address] Care Team Providers Care Billiard Table Assembler Name Role Phone Clive Chaidez Primary Care Provider Traci Juarez Unavailable [phone] Allergies Allergen (clinical drug ingredient) Drug/Non Drug [...] Notes Tobacco use: Nonsmoker Vital Signs Height 9ev81ih in 07/03/2024 Weight 214 lbs 07/03/2024 BMI 30.7 kg/m2 07/03/2024 Blood pressure systolic 140 mm Hg 07/03/19 25 Blood pressure diastolic 80 mm Hg 025 Encounters Encounter Location Date Provider Diagnosis [facility] [address] [place] [address] 07/03/2024 Traci Jewell Type 2 diabetes mellitus [...] Reason: Provider Name:Traciharry oliva, 09/10/2024 11:00:00 AM, [address] [place] [address], [phone], Procedure Notes * Category Sub-Category Detail Notes [...] use of a nail nipper and/or dremel-type lens grinder and polisher, to a more viable healthy nail plate [...] to maintain effectiveness in symptomatic relief - 28427 Keratoma Treatment Parring or Cutting o f [...] instrumentation by the physician of record - 68697 Progress Notes * Issa DUKE LDOB: 4 (58 yo M)Acc No.[id number]:07/03/2024 Progress Note Patient:?Issa DUKE Provider:?Traci Jewell DPM :1965???Age:58 Y???Sex:Male Sean e:07/03/2024 Address:[address] [place] [address] [address]lette Zazueta, [facility] Pcp:Clive Chaidez Subjective: * Chief Complaints: * [...] Acetate: headacheAtorvastatinActemraHumiraLeflunomideOrencia ClickJectyes[Allergies Verified] Objective: * Vitals:?Ht: 0ek00af, Wt:214, BMI:30.7, Shoe size: 10.5, BP:140/80mm Hg, [...] use of a nail nipper and/or dremel-type lens grinder and polisher, to a more viable healthy nail plate [...] to maintain effectiveness in symptomatic relief - 55993.?Keratoma Treatment:?Parring or Cutting of Benign Hyperkeratotic Lesion(s)?(-56) [...] instrumentation by the physician of record - 56957.? * Procedure Codes:?40332 DEBRI DE NAIL, 6 OR MORE, Modifiers: XS 20977 TRIM SKIN LESIONS, 2 TO 4, Modifiers: [...] Jewell, DPM Date:? Generated for Printi ng/Ingridg/eTransmitting on:?07/26/2024 12:49 PM EST History and Physical Notes * [...]
--- OUTSIDE RECORDS SUMMARY | 2024-07-26 12:50 | XMS_ITS ---
Author Organization [facility] Address [address] [facility] [place] [address] Care Team Providers Care Sheet Pile Driver Operator Name Role Phone Clive Chaidez Primary Care Provider Traci Juarez Unavailable [phone] Allergies Allergen (clinical drug ingredient) Drug/Non Drug [...] Polyneuropathy due to type 2 diabetes mellitus (426240009) Type 2 diabetes mellitus with diabetic polyneuropathy (E11.42) Active confirmed Problem Acquired hammer toe of right foot (1524594280902192 ) Other hammer toe(s) (acquired), right foot (M20.41) Active confirmed Problem Acquired hammer toe of left foot (9944905032695918 ) Other hammer toe(s) (acquired), left foot (M20.42) Active confirmed Vital Signs Height 5ft 10in in 04/16/2024 Weight 208 lbs lbs 04/16/2024 BMI 29.84 kg/m2 04/16/2024 Encounters Encounter Location Date Provider Diagnosis [facility] [address] [address] 04/16/2024 Traci Jewell Type 2 diabetes mellitus [...] Provider Name:Traci oliva, 09/10/2024 11:00:00 AM, [address] [place], [address], Procedure Notes * Category Sub-Category Detail Notes Debride Nail 6-10 Nail debridement Performance o f this nail treatment by a nonprofessional would put this patients foot and overall health at risk. Therefore, nail debridement was performed extensively to reduce/remove overall nail length, girth, thickness, subungual debris, and necrotic tissue, by manual and/or electrical means through the use of a nail nipper and/or dremel-type cinnamon grinder, to a more viable healthy nail plate or bed tissue 6-10. Silver nitrate used for any petechial bleeding as necessary. Definitive antifungal treatment options have been reviewed and discussed with the patient. The patient chooses, no pharmaceutical tx - 70403 Keratoma Treatment Parring or Cutting o f Benign Hyperkeratotic Lesion(s) (-56) 2-4 Lesions - The Benign hyperkeratotic lesions, as described above were pared, and/or cut utilizing a sterile 15 blade, tissue nippers, and/or dremel - 37060 Progress Notes * Issa DUKE LDOB: 4 (58 yo M)Acc No.[id number]:04/16/2024 Progress Notes Patient:?Issa Duke Provider:?Traci Jewell DPM :1965???Age:58 Y???Sex:Male Sean e:04/16/2024 Address:[address] [place] [address] [facility] Pcp:Clive Chaidez Subjective: * Chief Complaints: * [...] use of a nail nipper and/or dremel-type cinnamon grinder, to a more viable healthy nail plate or bed tissue 6-10. Silver nitrate used for any petechial bleeding as necessary. Definitive antifungal treatment options have been reviewed and discussed with the patient. The patient chooses, no pharmaceutical tx - 41866.?Keratoma Treatment:?Parring or Cutting of Benign Hyperkeratotic Lesion(s)?(-56) 2-4 Lesions - The Benign hyperkeratotic lesions, as described above were pared, and/or cut utilizing a sterile 15 blade, tissue nippers, and/or dremel - 96971.? * Procedure Codes:?25112 DEBRI DE NAIL, 6 OR MORE, Modifiers: XS 34034 TRIM SKIN LESIONS, 2 TO 4, Modifiers: [...] DPM Date:?10/2023 Generated for Castillo galarza/Denita/Jose Miguel on:?07/26/2024 12:50 PM EST History and Physical Notes * [...]
== END 2024-07-26 13:15 | disposition home or self-care (01) ==
PROVIDERS: PCP Internal Medicine; Visit Provider Student in an Organized Health Care Education/Training Program
DX: M05.79 Rheumatoid arthritis with rheumatoid factor of multiple sites without organ or systems involvement (principal); M19.041 Primary osteoarthritis, right hand; M19.042 Primary osteoarthritis, left hand; Z51.81 Encounter for therapeutic drug level monitoring; Z79.899 Other long term (current) drug therapy
CPT/HCPCS: 99214; G2211

== ENCOUNTER → 2024-07-26 12:22 | Outpatient (BNVA) | payer OTHER, SELFPAY | PROVIDERS: PCP Internal Medicine; Visit Provider Student in an Organized Health Care Education/Training Program | DX: M05.9 Rheumatoid arthritis with rheumatoid factor, unspecified (principal); M19.042 Primary osteoarthritis, left hand; M19.041 Primary osteoarthritis, right hand; I10 Essential (primary) hypertension; I25.10 Atherosclerotic heart disease of native coronary artery without angina pectoris; E78.5 Hyperlipidemia, unspecified; Z51.81 Encounter for therapeutic drug level monitoring; Z79.899 Other long term (current) drug therapy | CPT/HCPCS: 99212 ==

== ENCOUNTER 2024-08-22 09:49 | Outpatient (AMB) | payer OTHER, SELFPAY ==
[2024-08-22 10:04] VITALS: BMI 31.6
--- NOTE | 2024-08-22 10:04 | A.OFFVIS_ITS ---
VS Expanded 08/22/24 10:04 Height 5 ft 10 in Weight 220 lb 7.396 oz BMI 31.6 Intake Visit Reasons: T2DM Allergies penicillin V Allergy (Severe, Verified 07/26/24 12:32) rash adalimumab [From Humira] Allergy (Intermediate, Verified 07/26/24 12:32) leg pain atorvastatin Allergy (Intermediate, Verified 07/26/24 12:32) leg pain leflunomide Allergy (Intermediate, Verified 07/26/24 12:32) kidney failure tocilizumab [From Actemra] Allergy (Intermediate, Verified 07/26/24 12:32) frequent nail infection lisinopril Adverse Reaction (Intermediate, Verified 07/26/24 12:32) Anxiety losartan Adverse Reaction (Intermediate, Verified 07/26/24 12:32) Nausea Nutrition Presentation Details: Pt presents for MNT f/u for T2DM Pt reports not monitoring bg Reports increasing on snacks, choosing high sugar foods d/t increased appetite Fluids: 16 oz/d yogurt/probiotic/prebiotic foods : 0-2x/wk Fiber rich foods: limited, prefers low fiber food options) fruits 1/d ve-3 x/wk BS Monitoring Most Recent Diabetes Results: Creatinine 0.80 mg/dL (0.5-1.4) 07/24/24 Blood Urea Nitrogen 13 mg/dL (9-16) 07/24/24 Sodium 143 mmol/L (135-145) 07/24/24 Potassium 4.0 mmol/L (3.3-5.1) 07/24/24 Chloride 110 mmol/L (96-108) H 07/24/24 Carbon Dioxide 28 mmol/L (22-29) 07/24/24 Calcium 8.8 mg/dL (8.4-10.2) 07/24/24 AST 24 U/L (5-37) 07/24/24 ALT 30 U/L (0-40) 07/24/24 Total Protein 7.0 g/dL (6.5-8.0) 07/24/24 Albumin 4.1 g/dL (3.5-5.0) 07/24/24 [facility] History (Updated 07/26/24 @ 13:14 by Serina Franz MD) Encounter for monitoring of hydroxychloroquine therapy Pre-op examination Frequency of micturition Right wrist pain Annual physical exam Lower urinary tract symptoms Immunization counseling Screening for viral disease Bilateral carpal tunnel syndrome Screening for colon cancer Screening for prostate cancer New onset type 2 diabetes mellitus Depression Adult general medical exam Precordial chest pain Right hip pain Acute sinusitis Right rotator cuff tear Atherosclerotic cardiovascular disease Left rotator cuff tear Gastritis determined by endoscopy Lip cancer Erectile dysfunction Anxiety Degenerative disc disease, lumbar Horseshoe kidney Coronary artery disease GERD (gastroesophageal reflux disease) Hypercholesterolemia Cervical radiculopathy 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 Osteoarthritis Surgical History History of carpal tunnel surgery of right wrist History of rotator cuff surgery S/P left rotator cuff repair Hx of colonoscopy History of coronary artery stent placement History of cervical spinal surgery History of shoulder surgery History of lip cancer H/O left knee surgery History of tonsillectomy Family History Father Lung cancer CAD (coronary artery disease) CVD (cardiovascular disease) Hx of CABG Mother Colon cancer Mental health disorder Maternal Uncle Lung cancer Maternal Uncle Substance abuse Substance use disorder Social History Housing: Other Housing Other:: Rents a room in a house Are you a primary rn palliative care to a significant other at home: No Do you presently have visiting nurse or other home services: No Alcohol intake: current Alcohol intake frequency: holidays/special occasions only Alcohol type: beer and hard liquor Comment: once a month glass Patient Tobacco Use Status: Former Tobacco user Tobacco use type: Cigarette Years Smoked: quit 2004 smokes marijuana e-Cigarette/Vaping Use: Never Used Second Hand Smoke Exposure: No Substance Use Type: Marijuana service: No Current occupational status: unemployed Current occupation: right handed Cognitive needs: No Hearing needs: No Vision needs: Yes Assessment & Plan Assessment & Plan (1) Type 2 diabetes mellitus with hyperglycemia: Code(s): E11.65 - Type 2 diabetes mellitus with hyperglycemia Category: Medical Plan: Wt: 97 Kg ( 06/04 ), 97 kg (07/06), 100kg (09/03) Est kcal needs as per MSJ: 2100 (40% carb, 30% protein/fat) Est fluid needs as per 25-30 ml/d: 2900 Est prot per day as per 1 g/kg bw: 97 Recommend fiber intake : 8-10 g per day and gradually increase to 25-28 g per day for women and 35-38 g for men or as tolerated Recommend sodium intake per day : less than 2300 mg Educated patient on: ( R = reviewed V = verbalizes understanding N/R = needs review N/A = not applicable * Food sources of carbohydrate, adequate serving sizes and its role in various health conditions: R V N/R * Differences between complex carbohydrates a simple carbohydrates, role of fiber in diet: R * Lean protein sources of foods: R * Differences between types of fats and role in diet (mono on saturated fat fatty acids, saturated fatty acids, trans fats): R * Food sources of sodium in salt and healthy modifications for heart health in kidney health: R V R/V * Vitamins and minerals: R V N/R * Healthy plate method concept: R V N/R * Physical activity: Benefits a precaution: R V N/R * Hypoglycemia protocol (rule of 15): R V N/R * Dietary prevention of Hyperglycemia: R Patient Instructions: HAve yogurt with fruit at bedtime snack (including probiotic/prebiotic) include high fiber cereal (oatmeal/wheaties) once a day Keep hydrated have 6- 8 cups of water a day choose low sugar foods with high water content (celery, orange, cucumbers, peppers, applesauce) Coding Level of Care Code Nutr Indiv Subseq (87333) Diagnoses Type 2 diabetes mellitus with hyperglycemia E11.65 Time Spent (min) 30
--- OUTSIDE RECORDS SUMMARY | 2024-08-22 11:57 | XMS_ITS ---
Author Organization [facility] Address [address] [place] [address] Care Team Providers Care Consulting Database Administrator Name Role Phone Clive Chaidez Primary Care Provider Traci Juarez Unavailable [phone] Allergies Allergen (clinical drug ingredient) Drug/Non Drug [...] Notes Tobacco use: Nonsmoker Vital Signs Height 7mu16jc in 07/03/2024 Weight 214 lbs 07/03/2024 BMI 30.7 kg/m2 07/03/2024 Blood pressure systolic 140 mm Hg 07/03/19 25 Blood pressure diastolic 80 mm Hg 025 Encounters Encounter Location Date Provider Diagnosis [facility] [address] [place] [address] 07/03/2024 Trcai Jewell Type 2 diabetes mellitus with diabetic [...] Reason: Provider Name:Traciharry oliva, 09/10/2024 11:00:00 AM, [address] [place] [address], [phone], Procedure Notes * Category Sub-Category Detail Notes [...] to maintain effectiveness in symptomatic relief - 37798 Keratoma Treatment Parring or Cutting o f [...] instrumentation by the physician of record - 65070 Progress Notes * Issa DUKE LDOB: 4 (58 yo M)Acc No.[id number]:07/03/2024 Progress Note Patient:?Issa DUKE Provider:?Traci Jewell DPM :1965???Age:58 Y???Sex:Male Sean e:07/03/2024 Address:[address] [place] [address] [address], [facility] Pcp:Clive Chaidez Subjective: * Chief Complaints: * [...] Acetate: headacheAtorvastatinActemraHumiraLeflunomideOrencia ClickJectyes[Allergies Verified] Objective: * Vitals:?Ht: 9xf39fi, Wt:214, BMI:30.7, Shoe size: 10.5, BP:140/80mm Hg, BS: not taken, Ht-cm: 177.8 cm, Wt-k.07 kg. * ???Past Orders: ???Lab:HEMOGLOBIN A1C (GLYCO HEMOGLOBIN) (Order Date - 05/12/2024) (Collection Date & Time - 05/12/2024 09:18 AM) ? Value Reference Range ?HEMOGLOBIN A1C % (HH) 6.2 * Examination: ???Ophthalmology Referral: ?DIABETES EYE EXAM?Procedure Performed:?Yes ?Date of Exam Performed?11/11/2023 ?Findings of Diabetic Eye Exam:?no retinopathy?Neurological: ?SENSORY:? Neurological exam demonstrates, reduced light touch [...] for office visit today.?ORIENTED:?person, place, and time.?FOOT EXAM:?Lower Extremity Neurological Exam performed:?Yes ?Visual exam of foot performed:?Yes ?Date?07/03/2024 ?Footwear Evaluation?Footwear Evaluation performed:?Yes??? Assessment: * Assessment: 1.?Other hammer toe(s) (acqu [...] to maintain effectiveness in symptomatic relief - 72976.?Keratoma Treatment:?Parring or Cutting of Benign Hyperkeratotic Lesion(s)?(-56) [...] instrumentation by the physician of record - 10170.? * Procedure Codes:?55349 DEBRI DE NAIL, 6 OR MORE, Modifiers: XS 48604 TRIM SKIN LESIONS, 2 TO 4, Modifiers: [...] status: Completed true * Provider:?Traci Jewell DPM Date:? Generated for Castillo galarza/Denita/Jose Miguel on:?08/22/2024 11:57 AM EDT History and Physical Notes * HPI (History [...]
--- OUTSIDE RECORDS SUMMARY | 2024-08-22 11:57 | XMS_ITS | Patient Health Record ---
Author Organization [facility] Address [address] [place] [address] Care Team Providers Care Body Sander Name Role Phone Clive Chaidez Primary Care Provider Traci Juarez Unavailable [phone] Allergies Allergen (clinical drug ingredient) Drug/Non Drug [...] Problem Acquired hammer toe of right foot (2664718074158449 ) Other hammer toe(s) (acquired), right foot (M20.41) Active confirmed Problem Acquired hammer toe of left foot (0348102159381936 ) Other hammer toe(s) (acquired), left foot (M20.42) Active confirmed Problem Polyneuropathy due to type 2 diabetes mellitus (572212435) Type 2 diabetes mellitus with diabetic polyneuropathy (E11.42) Active confirmed Vital Signs Blood pressure diastolic 80 mm Hg 07/03/2024 Height 5zl91ut in 07/03/2024 Blood pressure systolic 140 mm Hg 07/03/2024 Weight 214 lbs 07/03/2024 BMI 30.7 kg/m2 07/03/2024 Encounters Encounter Location Date Provider Diagnosis [facility] [address] 04/16/2024 Traci Jewell Type 2 diabetes mellitus with diabetic polyneuropathy E11.42 ; Tinea unguium B35.1 ; Other hammer toe(s) (acquired), right foot M20.41 and Other hammer toe(s) (acquired), left foot M20.42 [facility] [address] 07/03/2024 Traci Jewell Type 2 diabetes mellitus [...] Details Provider Name:Traci oliva, 09/10/2024 11:00:00 AM, [address] [place] [address], [id number], Insurance Providers Payer Name Payer Address Payer Phone Subscriber Number Group Number Insured Name Patient Relationship to Insured Coverage Start Date Coverage End Date [facility] [employer] Claims [address] [place] [id number] Issa Cerna Self - patient is the [...]
--- OUTSIDE RECORDS SUMMARY | 2024-08-22 11:58 | XMS_ITS ---
Author Organization [facility] Address [address] [place] [address] Care Team Providers Care Patient Account Specialist Name Role Phone Clive Chaidez Primary Care Provider Traci Juarez Unavailable [phone] Allergies Allergen (clinical drug ingredient) Drug/Non Drug [...] Polyneuropathy due to type 2 diabetes mellitus (232156296) Type 2 diabetes mellitus with diabetic polyneuropathy (E11.42) Active confirmed Problem Acquired hammer toe of right foot (1215092657281534 ) Other hammer toe(s) (acquired), right foot (M20.41) Active confirmed Problem Acquired hammer toe of left foot (8682263681663857 ) Other hammer toe(s) (acquired), left foot (M20.42) Active confirmed Vital Signs Height 5ft 10in in 04/16/2024 Weight 208 lbs lbs 04/16/2024 BMI 29.84 kg/m2 04/16/2024 Encounters Encounter Location Date Provider Diagnosis [facility] [address] [address] 04/16/2024 Traci Jewell Type 2 diabetes mellitus [...] Provider Name:Traci oliva, 09/10/2024 11:00:00 AM, [address] [place], [address], Procedure Notes * Category Sub-Category Detail Notes [...] of a nail nipper and/or dremel-type grinder machine setter, to a more viable healthy nail plate or bed tissue 6-10. Silver nitrate used for any petechial bleeding as necessary. Definitive antifungal treatment options have been reviewed and discussed with the patient. The patient chooses, no pharmaceutical tx - 40720 Keratoma Treatment Parring or Cutting o f Benign Hyperkeratotic Lesion(s) (-56) 2-4 Lesions - The Benign hyperkeratotic lesions, as described above were pared, and/or cut utilizing a sterile 15 blade, tissue nippers, and/or dremel - 53404 Progress Notes * Issa DUKE LDOB: 4 (58 yo M)Acc No.[id number]:04/16/2024 Progress Notes Patient:?Issa Duke Provider:?Traci Jewell DPM :1965???Age:58 Y???Sex:Male Sean e:04/16/2024 Address:[address] [place] [address] [facility] Pcp:Clive Chaidez Subjective: * Chief Complaints: * [...] ?DIABETES EYE EXAM?Procedure Performed:?Yes ?Date of Exam Performed?03/13/2024 ?Diabetic Retinopathy Screening:?No?Neurological: ?SENSORY:? Neurological exam demonstrates, reduced light touch [...] and time.?FOOT EXAM:?Lower Extremity Neurological Exam performed:?Yes ?Footwear Evaluation?Footwear Evaluation performed:?Yes??? Assessment: * Assessment: 1.?Type 2 diabetes mellitus [...] of a nail nipper and/or dremel-type grinder machine setter, to a more viable healthy nail plate or bed tissue 6-10. Silver nitrate used for any petechial bleeding as necessary. Definitive antifungal treatment options have been reviewed and discussed with the patient. The patient chooses, no pharmaceutical tx - 21884.?Keratoma Treatment:?Parring or Cutting of Benign Hyperkeratotic Lesion(s)?(-56) 2-4 Lesions - The Benign hyperkeratotic lesions, as described above were pared, and/or cut utilizing a sterile 15 blade, tissue nippers, and/or dremel - 85136.? * Procedure Codes:?89893 DEBRI DE NAIL, 6 OR MORE, Modifiers: XS 37821 TRIM SKIN LESIONS, 2 TO 4, Modifiers: [...] DPM Date:?10/2023 Generated for Castillo galarza/Denita/Jose Miguel on:?08/22/2024 11:57 [...]
== END 2024-08-22 10:31 | disposition home or self-care (01) ==
LOC: HO.ENCR 09:49
PROVIDERS: PCP Internal Medicine; Visit Provider Dietitian, Registered
DX: E11.65 Type 2 diabetes mellitus with hyperglycemia (principal)

== ENCOUNTER → 2024-08-22 09:49 | Outpatient (BNVA) | payer OTHER, SELFPAY | PROVIDERS: PCP Internal Medicine; Visit Provider Dietitian, Registered | DX: E11.65 Type 2 diabetes mellitus with hyperglycemia (principal); Z79.4 Long term (current) use of insulin | CPT/HCPCS: 97803 ==

== ENCOUNTER 2024-09-27 09:25 | Outpatient (AMB) | payer OTHER, SELFPAY ==
--- NOTE | 2024-09-27 09:28 | A.OFFPC_ITS ---
Vital Signs 09/27/24 09:29 Height 5 ft 10 in Weight 212 lb 6 oz BMI 30.5 BP 124/64 Blood Pressure Location Lt brachial Position Sitting Pulse 75 Pulse Source Pulse Oximeter Temp 96.8 F Temp Source Temporal Artery Scan Pulse Oximetry (%) 96 Oxygen Delivery Method Room Air Intake Visit Reasons: DM, HTN Intake Note: Patient is here to follow up on DM, HTN. Guest Experience Specialist Required: No Restaurant Hourly Team Member: Not Required per policy Accompanied by: Self / Same As Patient Allergies penicillin V Allergy (Severe, Verified 09/27/24 09:29) rash adalimumab [From Humira] Allergy (Intermediate, Verified 09/27/24 09:29) leg pain atorvastatin Allergy (Intermediate, Verified 09/27/24 09:29) leg pain leflunomide Allergy (Intermediate, Verified 09/27/24 09:29) kidney failure tocilizumab [From Actemra] Allergy (Intermediate, Verified 09/27/24 09:29) frequent nail infection lisinopril Adverse Reaction (Intermediate, Verified 09/27/24 09:29) Anxiety losartan Adverse Reaction (Intermediate, Verified 09/27/24 09:29) Nausea Medication List - Last Reconciled 09/27/24 by Clive Chaidez MD amlodipine 5 mg PO DAILY aspirin 81 mg PO DAILY blood sugar diagnostic (FreeStyle Lite Strips) test daily blood-glucose meter (FreeStyle Lite Meter kit) test daily carvedilol 6.25 mg PO BID diclofenac sodium 1% (Voltaren) 2 grams topical QID diclofenac sodium 1% 4 grams topical QID hydroxychloroquine (Plaquenil) 200 mg PO BID lancets (FreeStyle Lancets) test daily lancets (FreeStyle Lancets) As directed check BS QD nitroglycerin 0.4 mg sublingual Q5M PRN pregabalin 75 mg PO BID rosuvastatin 40 mg PO DAILY sennosides (senna) 8.6 mg PO BEDTIME sertraline 150 mg PO DAILY tolterodine ER (Detrol LA) 2 mg PO Q24H [wrist cock up splint Wear on each wrist at night. ] Tobacco use date assessed: 09/27/24 Dental Screening Dental Screen Date: 06/26/24 [facility] Medical History (Updated 09/27/24 @ 10:01 by Clive Chaidez MD) Encounter for monitoring of hydroxychloroquine therapy Pre-op examination Frequency of micturition Right wrist pain Annual physical exam Lower urinary tract symptoms Immunization counseling Screening for viral disease Bilateral carpal tunnel syndrome Screening for colon cancer Screening for prostate cancer New onset type 2 diabetes mellitus Depression Adult general medical exam Precordial chest pain Right hip pain Acute sinusitis Right rotator cuff tear Atherosclerotic cardiovascular disease Left rotator cuff tear Gastritis determined by endoscopy Lip cancer Erectile dysfunction Anxiety Degenerative disc disease, lumbar Horseshoe kidney Coronary artery disease GERD (gastroesophageal reflux disease) Hypercholesterolemia Cervical radiculopathy 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 Osteoarthritis Surgical History History of carpal tunnel surgery of right wrist History of rotator cuff surgery S/P left rotator cuff repair Hx of colonoscopy History of coronary artery stent placement History of cervical spinal surgery History of shoulder surgery History of lip cancer H/O left knee surgery History of tonsillectomy Family History Father Lung cancer CAD (coronary artery disease) CVD (cardiovascular disease) Hx of CABG Mother Colon cancer Mental health disorder Maternal Uncle Lung cancer Maternal Uncle Substance abuse Substance use disorder Social History Housing: Other Housing Other:: Rents a room in a house Are you a primary career representative to a significant other at home: No Do you presently have visiting nurse or other home services: No Alcohol intake: current Alcohol intake frequency: holidays/special occasions only Alcohol type: beer and hard liquor Comment: once a month glass Patient Tobacco Use Status: Former Tobacco user Tobacco use type: Cigarette Years Smoked: quit 2005 smokes marijuana e-Cigarette/Vaping Use: Never Used Second Hand Smoke Exposure: Yes Substance Use Type: Marijuana service: No Current occupational status: unemployed Current occupation: right handed Cognitive needs: No Hearing needs: No Vision needs: Yes Questionnaire Thrive Questionnaire Date Thrive assessed: 06/26/24 SARAI-7 AMB Questionnaire SARAI-7 Date SARAI - 7 assessed: 06/26/24 Source: Developed by Drs. Souleymane Cox, Aline Kay, Damion Lieberman and colleagues, with an educational zulema from [employer] Physical exam (Primary Care) Vital Signs: Last Vital Signs Temp 96.8 F 09/27/24 09:29 Pulse 75 09/27/24 09:29 BP 124/64 09/27/24 09:29 Pulse Ox 96 09/27/24 09:29 Oxygen Delivery Method Room Air 09/27/24 09:29 BMI result Body Mass Index 30.5 Tobacco/Smoking Status: Tobacco use Status Tobacco use date assessed 09/27/24 09/27/24 09:36 Patient Tobacco Use Status Former Tobacco user 09/27/24 09:36 Tobacco use type Cigarette 09/27/24 09:36 e-Cigarette/Vaping Use Never Used 09/27/24 09:36 Thrive Assessment: Date of Thrive Assessment Date Thrive assessed 06/26/24 09/27/24 09:36 Const General: alert; No acute distress Eyes Conjunctivae: conjunctivae normal Resp Auscultation: clear to auscultation bilaterally Cardio Rate: regular rate Rhythm: regular rhythm GI Inspection: Yes normal to inspection Extrem General: Yes normal to inspection and No edema Results AMB Hemoglobin A1c AMB Hemoglobin A1c 6.5 % Last Edit by KRISTIN Cintron on 09/27/24 09:42 Results Reviewed Results Reviewed: Laboratory Last Values Hgb A1c (Clinic) 6.5 % (4.0-6.0) H 09/27/24 09:28 Coding Level of Care Code Est Pt Level 4 (62526) Complex EM visit Add On G2211 Diagnoses Type 2 diabetes mellitus with hyperglycemia E11.65 Atherosclerotic cardiovascular disease I25.10 Hypercholesterolemia E78.00 Essential hypertension I10 Gastroesophageal reflux disease without esophagitis K21.9 Esophagitis presence: without esophagitis Seropositive rheumatoid arthritis M05.9 RSV (respiratory syncytial virus infection) B33.8 Pulmonary nodule R91.1 Assessment & Plan Assessment & Plan (1) Type 2 diabetes mellitus with hyperglycemia: Code(s): E11.65 - Type 2 diabetes mellitus with hyperglycemia Category: Medical Plan: Decrease the amount of carbohydrate intake, pasta, bread, rice and potatoes are all sugar and that is aside from all the sweet stuff, remember that fruits are good but they are Sweet also. Hemoglobin A1c goal of less than 6.5 patient is diet controlled (2) Atherosclerotic cardiovascular disease: Code(s): I25.10 - Atherosclerotic heart disease of [place] coronary artery without angina pectoris Category: Medical Plan: Control the cholesterol, weight, blood pressure, diabetes patient on aspirin 81 mg once a day (3) Hypercholesterolemia: Code(s): E78.00 - Pure hypercholesterolemia, unspecified Category: Medical Plan: Avoid fried foods, chicken skin, eggs, butter margarine, pastries and meat. Be it pork or beef they have a lot of cholesterol LDL goal of less than December last blood work will request for blood work in 3 months continue with rosuvastatin 40 mg once a day (4) Essential hypertension: Code(s): I10 - Essential (primary) hypertension Category: Medical Plan: Continue with blood pressure medication. Decrease salt intake and exercise continue with amlodipine 5 mg once a day carvedilol 6.25 mg twice a day (5) GERD (gastroesophageal reflux disease): Code(s): K21.9 - Gastro-esophageal reflux disease without esophagitis Category: Medical Qualifiers: Esophagitis presence: without esophagitis Qualified Code(s): K21.9 - Gastro-esophageal reflux disease without esophagitis Plan: Avoid the foods that causes that usually spicy foods, tomato products, juices, coffee, soda and foods that your sensitive to. After eating do not lie down, allow 3-4 hours before in lie down. And keep the head of bed above 30 degrees to avoid the acid from going up. (6) Seropositive rheumatoid arthritis: Comment: ++RF -ve CCP Leflunomide: December 2020 - March 2021 urinary frequency Actemra: January 2020- December 2020 -Had surgery did not want to restart after, frequent nail infections. Enbrel: January- denied by insurance Humira: October 2019- January 2020 - active disease on exam/ listed with allergy leg pain Orencia: March 2021- 05/2024 Code(s): M05.9 - Rheumatoid arthritis with rheumatoid factor, unspecified Category: Medical Plan: Patient has seen Rheumatology on Plaquenil and possibly later on methotrexate. Also feels joint pain from osteoarthritis (7) RSV (respiratory syncytial virus infection): Code(s): B33.8 - Other specified viral diseases Category: Medical Plan: resolving (8) Pulmonary nodule: Comment: 2022 Code(s): R91.1 - Solitary pulmonary nodule Category: Medical Plan History of Present Illness The patient is a 58-year-old male presenting for follow-up of multiple chronic conditions, including rheumatoid arthritis, diabetes mellitus, and cardiovascular disease, combined with new respiratory symptoms. The patient has a history of stopping Orencia due to ineffectiveness for rheumatoid arthritis, and has started Plaquenil to address ongoing joint pain primarily attributed to osteoarthritis. Despite persistent, though manageable, joint discomfort, inflammation appears controlled with improved sedimentation rate results. In terms of acute concerns, the patient has experienced respiratory symptoms reminiscent of a viral infection, potentially RSV, after contact with individuals displaying similar symptoms. The cough has been significant, causing temporary voice loss but currently showing signs of improvement. Routine management has shown effective blood glucose and cholesterol control, bolstered by dietary changes aimed at improving overall health through nutrition. These lifestyle adjustments were made under nutritional counseling and have contributed to the successful current management of his chronic conditions. Health Maintenance - Scheduled follow-up blood work for cholesterol and comprehensive metabolic profile in 3 months. - Hemoglobin A1c maintenance below 6.5% for diabetes management. - Encouraged continuation of dietary management consisting of fruits and whole grains. - Encouraged participation in regular exercise as tolerated. - Continued monitoring of blood pressure and lipid levels with current medication regimen: amlodipine 5 mg weekly and rosuvastatin 40 mg daily. - Cholesterol LDL maintenance goal below 70 mg/dL. - Discussed potential preventive measures, including RSV precautions and vaccination options, including shingles vaccine. Social History - History of smoking, quit in 2004 after 35 years of use. - Engages in dietary management including fruit and whole grain consumption for health improvement. - Experiences significant family influence and interactions, especially with recent RSV exposure through social contacts. Review of Systems Physical Exam Results - Labs: Hemoglobin A1c at 6.5%; mild anemia noted with hemoglobin of 13.5; LDL of 54 mg/dL from last cholesterol test. - Tests and Diagnostics: Sed rate indicating low inflammation levels consistent with good control of inflammatory arthritis. Plan The patient's management focuses on sustaining chronic condition control and addressing acute respiratory symptoms. I have reaffirmed current regimens for rheumatoid arthritis with Plaquenil, while preparing discussions towards potential methotrexate integration depending on symptom progression. Diabetes management remains robust with HbA1c within target due to dietary strategies, and cardiovascular risk management involves adjustments aiming for an LDL below 70 mg/dL. Wheezing and cough associated with suspected RSV are managed symptomatically with inhaler usage for relief. Progress in resolving acute respiratory symptoms needs continued observation. Health Maintenance discussions continue to underscore lifestyle adjustments and encourage scheduled testing in 3 months to closely monitor metabolic health. Patient was informed and verbally consented to the use of an ambient scribe for clinic note documentation during this visit. Discussion Notes During the visit, I reviewed the patient's longstanding issue of rheumatoid arthritis management, considering the shift from Orencia to Plaquenil due to treatment efficacy concerns. We evaluated potential methotrexate addition as part of coordinated care. I advised on RSV symptom management for current acute respiratory issues, highlighting the role of environmental exposures in exacerbating symptoms. The patient was reassured about the effectiveness of current management strategies for diabetes and hyperlipidemia, with advice to continue diet and exercise habits crucial for maintenance. Discussion of preventive health measures and options for vaccination, including the shingles vaccine, were emphasized. Future blood work and diagnostic follow-up were confirmed to maintain vigilant monitoring of chronic conditions. All risks and benefits concerning treatment adjustments were discussed openly to ensure informed patient agreement. Patient Instructions - Continue taking all prescribed medications as directed. - Use the inhaler as prescribed when experiencing wheezing or tightness in the chest. - Stick to the current dietary plan with fruit and whole grain inclusion. - Attend scheduled follow-up and lab work appointments in 3 months. - Monitor for worsening respiratory symptoms; seek medical attention if symptoms exacerbate. - Maintain regular physical activity as tolerable. - Consider vaccination options, including shingles, and discuss with pharmacist. - Report any unusual or new symptoms to the clinic promptly. Orders: Orders AMB Hemoglobin A1c Today E11.65 - Type 2 diabetes mellitus with hyperglycemia Thyroid Stimulating Hormone 3 Months E11. - Type 2 diabetes mellitus with hyperglycemia Microalbumin, Random (w Creat) 3 Months E11. - Type 2 diabetes mellitus with hyperglycemia Creatinine Urine 3 Months E11.65 - Type 2 diabetes mellitus with hyperglycemia Vitamin B12 and Folate 3 Months E11. - Type 2 diabetes mellitus with hyperglycemia Uric Acid 3 Months E11.65 - Type 2 diabetes mellitus with hyperglycemia Reticulocyte Count 3 Months E11.65 - Type 2 diabetes mellitus with hyperglycemia UA CC w/rflx Micro + Cult 3 Months E11.65 - Type 2 diabetes mellitus with hyperglycemia, R30.0 - Dysuria Complete Blood Count Auto Diff 3 Months E11.65 - Type 2 diabetes mellitus with hyperglycemia Comprehensive Met. Panel 3 Months E11. - Type 2 diabetes mellitus with h yperglycemia Free T4 (Free Thyroxine) 3 Months E11.65 - Type 2 diabetes mellitus with hyperglycemia Lipid Panel 3 Months E11.65 - Type 2 diabetes mellitus with hyperglycemia, E78.00 - Pure hypercholesterolemia, unspecified Hemoglobin A1c 3 Months E11.65 - Type 2 diabetes mellitus with hyperglycemia Prostate Specific Antigen Scr 3 Months E11.65 - Type 2 diabetes mellitus with hyperglycemia Ferritin 3 Months E11.65 - Type 2 diabetes mellitus with hyperglycemia IRON PROFILE 3 Months E11.65 - Type 2 diabetes mellitus with hyperglycemia Medications: New albuterol sulfate 90 mcg/actuation 2 puffs inhalation Q4-6H PRN 8.5 grams 0RF Shortness Of Breath B33.8 - Other specified viral diseases, J45.909 - Unspecified asthma, uncomplicated
[2024-09-27 09:29] VITALS: BP 124/64; PULSE 75; TEMP 36; O2SAT 96; BMI 30.5
--- OUTSIDE RECORDS SUMMARY | 2024-09-27 09:56 | XMS_ITS ---
Author Organization [facility] Address [address] [facility] [place] [address] Care Team Providers Care Storage Manager Name Role Phone Clive Chaidez Primary Care Provider Traci Juarez Unavailable [phone] Allergies Allergen (clinical drug ingredient) Drug/Non Drug [...] Notes Tobacco use: Nonsmoker Vital Signs Height 5hz76ed in 07/03/2024 Weight 214 lbs 07/03/2024 BMI 30.7 kg/m2 07/03/2024 Blood pressure systolic 140 mm Hg 07/03/19 25 Blood pressure diastolic 80 mm Hg 025 Encounters Encounter Location Date Provider Diagnosis [facility] [address] [place] [address] 07/03/2024 Traci Jewell Type 2 diabetes mellitus [...] Up: 2 Months, Reason: Provider Name:Traciharry oliva, 11/27/2024 11:15:00 AM, [address] [place] [address], [phone], Procedure Notes * Category Sub-Category Detail Notes [...] use of a nail nipper and/or dremel-type sausage grinder, to a more viable healthy nail [...] to maintain effectiveness in symptomatic relief - 06371 Keratoma Treatment Parring or Cutting o f [...] instrumentation by the physician of record - 95629 Progress Notes * Issa DUKE LDOB: 4 (58 yo M)Acc No.[id number]:07/03/2024 Progress Note Patient:?Issa DUKE Provider:?Traci Jewell DPM :1965???Age:58 Y???Sex:Male Sean e:07/03/2024 Address:[address] [place] [address] [address]lette [address]azueta, [facility] Pcp:Clive Chaidez Subjective: * Chief Complaints: * [...] Acetate: headacheAtorvastatinActemraHumiraLeflunomideOrencia ClickJectyes[Allergies Verified] Objective: * Vitals:?Ht: 9jj71cl, Wt:214, BMI:30.7, Shoe size: 10.5, BP:140/80mm Hg, [...] use of a nail nipper and/or dremel-type sausage grinder, to a more viable healthy nail [...] to maintain effectiveness in symptomatic relief - 54343.?Keratoma Treatment:?Parring or Cutting of Benign Hyperkeratotic Lesion(s)?(-56) [...] instrumentation by the physician of record - 03319.? * Procedure Codes:?65574 DEBRI DE NAIL, 6 OR MORE, Modifiers: XS 25330 TRIM SKIN LESIONS, 2 TO 4, Modifiers: [...] DPM Date:? Generated for Castillo galarza/Denita/Jose Miguel on:?09/27/2024 09:56 AM EDT History and Physical Notes * [...] , TA , T5, T4, T9 Orthopedic FOOTWEAR EVALUATION: worn, non-s upportive, shoe gear properties exacerbate patient's foot/toe deformity [...]
--- OUTSIDE RECORDS SUMMARY | 2024-09-27 09:56 | XMS_ITS | Patient Health Record ---
Author Organization [facility] Address [address] [place] [address] Care Team Providers Care Station Tender Name Role Phone Clive Chaidez Primary Care Provider Traci Juarez Unavailable [phone] Allergies Allergen (clinical drug ingredient) Drug/Non Drug [...] Duration) Notes Start Date End Date Status Sertraline HCl 100 MG Oral for 30 Days Active Aspir-81 Active Rosuvastatin Calcium 40 MG TAKE 1 TABLET BY MOUTH DAILY Oral for 90 Days Active Pregabalin 75 MG Oral for 45 Days Active Tolterodine Tartrate ER 2 MG TAKE 1 CAPSULE BY MOUTH EVERY 24 HOURS Oral for 90 Days Active Carvedilol 6.25 MG TAKE 1 TABLET BY DONTRELL TH TWICE DAILY Oral for 90 Days Active FreeStyle Lite Test - USE DIRECTED TO TEST BLOOD GLUCOSE EVERY DAY In Vitro for 90 Days Active FreeStyle Lancets - for 90 Days Active Losartan Potassium 50 MG TAKE 1 TABLET B Y MOUTH DAILY Oral for 30 Days Not-Moe coon Extra Depth Orthopedic Shoes (1 Pair) with Customized Heat Molded Multidensity Innersoles (3 Pair) as directed Dx: NIDDM/Polyneuropathy (E11.42), Hammertoe Foot Deformity (M20.41,M20.42), Preulcerative Skin Lesion(s) (L85.1 09/10/2024 Active Lisinopril Active Orencia ClickJect 125 MG/ML Subcutaneous for 28 Days Not -Taking Social History Tobacco Use: Social History Observation [...] Problem Acquired hammer toe of right foot (2896042370157845 ) Other hammer toe(s) (acquired), right foot (M20.41) Active confirmed Problem Acquired hammer toe of left foot (6730569936998949 ) Other hammer toe(s) (acquired), left foot (M20.42) Active confirmed Problem Polyneuropathy due to type 2 diabetes mellitus (415194222) Type 2 diabetes mellitus with diabetic polyneuropathy (E11.42) Active confirmed Vital Signs Blood pressure diastolic 80 mm Hg 09/10/2024 Height 3np06hy in 09/10/2024 Blood pressure systolic 140 mm Hg 09/10/2024 Weight 214 lbs 09/10/2024 BMI 30.7 kg/m2 09/10/2024 Encounters Encounter Location Date Provider Diagnosis [facility] [address] [place] [address] 04/16/2024 Traci Jewell Type 2 diabetes mellitus with diabetic polyneuropathy E11.42 ; Tinea unguium B35.1 ; Other hammer toe(s) (acquired), right foot M20.41 and Other hammer toe(s) (acquired), left foot M20.[address] [facility] [address] 07/03/2024 Traci Jewell Type 2 diabetes mellitus with diabetic polyneuropathy E11.42 ; Other hammer toe(s) (acquired), right foot M20.41 ; Tinea unguium B35.1 and Other hammer toe(s) (acquired), left foot M20.[address] [address] 09/10/2024 Traci Jewell Type 2 diabetes mellitus with [...] mellitus with diabetic polyneuropathy (ICD-10 - E11.42) 09/10/2024 Type 2 diabetes mellitus with diabetic polyneuropathy (ICD-10 - E11.42) 09/10/2024 Tinea unguium (ICD-10 - B35.1) 04/16/2024 Other hammer toe(s) (acquired), right foot (ICD-10 - M20.41) Patient Educated with: DIABETIC FOOT CARE INSTRUCTIONS. pdf (DIABETIC FOOT CARE INSTRUCTIONS. pdf) 07/03/2024 Tinea unguium (ICD-10 - B35.1) 09/10/2024 Other hammer toe(s) (acquired), right foot (ICD-10 - M20.41) Patient Educated with: DIABETIC FOOT CARE INSTRUCTIONS. pdf (DIABETIC FOOT CARE INSTRUCTIONS. pdf) 07/03/2024 Other hammer toe(s) (acquired), left foot (ICD-10 - M20.42) 04/16/2024 Other hammer toe(s) (acquired), left foot (ICD-10 - M20.42) 09/10/2024 Other hammer toe(s) (acquired), left foot (ICD-10 - M20.42) 09/10/2024 Other Patient Educated with: DIABETIC FOOT CARE INSTRUCTIONS. pdf (DIABETIC FOOT CARE INSTRUCTIONS. pdf) Plan Of Treatment Next Appt Details Provider Name:Traci oliva, 11/27/2024 11:15:00 AM, [address] [place] [address], [phone], Insurance Providers Payer Name Payer Address Payer Phone Subscriber Number Group Number Insured Name Patient Relationship to Insured Coverage Start Date Coverage End Date [facility] [employer] Claims [address] [place] [id number] Issa Cerna Self - patient is the [...]
--- OUTSIDE RECORDS SUMMARY | 2024-09-27 09:57 | XMS_ITS ---
Author Organization [facility] Address [address] [place] [address] Care Team Providers Care Mandarin Speaking Nanny Name Role Phone Clive Chaidez Primary Care Provider Traci Juarez Unavailable [phone] Allergies Allergen (clinical drug ingredient) Drug/Non Drug [...] FreeStyle Lancets - for 90 Days Active Sertraline HCl 100 MG Oral for 30 Days Active Aspir-81 Active Extra Depth Orthopedic Shoes (1 Pair) with Customized Heat Molded Multidensity Innersoles (3 Pair) as directed Dx: NIDDM/Polyneuropathy (E11.42), Hammertoe Foot Deformity (M20.41,M20.42), Preulcerative Skin Lesion(s) (L85.1 09/10/2024 Active Lisinopril Active Orencia ClickJect 125 MG/ML Subcutaneous for 28 Days Not -Taking FreeStyle Lite Test - USE DIRECTED TO TEST BLOOD GLUCOSE EVERY DAY In Vitro for 90 Days Active Losartan Potassium 50 MG TAKE 1 TABLET B Y MOUTH DAILY Oral for 30 Days Not-Moe coon Social History Tobacco Use: Social History Observation Description Date Details (start date - stop date) Never Smoker NA - NA Tobacco use other than smoking: Question Answer Notes Are you an other tobacco user? No Tobacco Control (Standard) Question Answer Notes Tobacco use: Nonsmoker Vital Signs Height 3rm31gu in 09/10/2024 Weight 214 lbs 09/10/2024 BMI 30.7 kg/m2 09/10/2024 Blood pressure systolic 140 mm Hg 09/11/19 25 Blood pressure diastolic 80 mm Hg 025 Encounters Encounter Location Date Provider Diagnosis [facility] [place] [address] [place] [address] 09/10/2024 Traci Jewell Type 2 diabetes mellitus with diabetic polyneuropathy E11.42 ; Tinea unguium B35.1 ; Other hammer toe(s) (acquired), right foot M20.41 and Other hammer toe(s) (acquired), left foot M20.42 Assessments Encounter Date Diagnosis (ICD Code) Assessment Notes Treatment Notes Treatment Clinical Notes Section Notes 09/10/2024 Type 2 diabetes mellitus with diabetic polyneuropathy (ICD-10 - E11.42) 09/10/2024 Tinea unguium (ICD-10 - B35.1) 09/10/2024 Other hammer toe(s) (acquired), right foot (ICD-10 - M20.41) Patient Educated with: DIABETIC FOOT CARE INSTRUCTIONS. pdf (DIABETIC FOOT CARE INSTRUCTIONS. pdf) 09/10/2024 Other hammer toe(s) (acquired), left foot (ICD-10 - M20.42) 09/10/2024 Other Patient Educated with: DIABETIC FOOT CARE INSTRUCTIONS. pdf (DIABETIC FOOT CARE INSTRUCTIONS. pdf) Plan Of Treatment Medication Medication Name Sig Start Date Stop Date Notes Extra Depth Orthopedic Shoes (1 Pair) with Customized Heat Molded Multidensity Innersoles (3 Pair) as directed Dx: NIDDM/Polyneuropathy (E11.42), Hammertoe Foot Deformity (M20.41,M20.42), Preulcerative Skin Lesion(s) (L85.1 09/10/2024 Treatment Notes Assessment Notes Other hammer toe(s) (acquired), right fo ot Patient Educated with: DIABETIC FOOT CARE INSTRUCTIONS.pdf (DIABETIC FOOT CARE INSTRUCTIONS.pdf) Other Patient Educated wit h: DIABETIC FOOT CARE INSTRUCTIONS.pdf (DIABETIC FOOT CARE INSTRUCTIONS.pdf) Next Appt Details Follow Up: 2 Months, Reason: Provider Name:Traci oliva, 11/27/2024 11:15:00 AM, [address] [place] [address], [phone], Procedure Notes * Category Sub-Category Detail Notes [...] use of a nail nipper and/or dremel-type rail grinder, to a more viable healthy nail [...] to maintain effectiveness in symptomatic relief - 53864 Keratoma Treatment Parring or Cutting o f [...] stated and described in the exam ( Medial plantar, TA , T5, SUB MTH (s), 1, B/L ), were pared, and/or cut utilizing a sterile 15 blade, tissue nippers, and/or power dremel instrumentation by the physician of [facility] - 21518 Progress Notes * Issa DUKE LDOB: 4 (58 yo M)Acc No.[id number]:09/10/2024 Progress Note Patient:Issa HARTMANN Provider:?Traci Jewell DPM :1965???Age:58 Y???Sex:Male Sean e:09/10/2024 Address:[address] [place] [address] [address], [facility] Pcp:Clive Chaidez Subjective: * Chief Complaints: * [...] ?Marital status: single. 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 * Medications:?TakingLisinopri l Aspir-81 Sertraline HCl 100 MG Tablet Oral Pregabalin [...] BLOOD GLUCOSE EVERY DAY In Vitro Taking Lisinopril Taking -81 Taking Sertraline HCl 100 MG Tablet Oral [...] TEST BLOOD GLUCOSE EVERY DAY In Vitro Not-Taking/PRNLosartan Potassium 50 MG Tablet TAKE 1 TABLET BY MOUTH DAILY Oral Orencia ClickJect 125 MG/ML Solution Auto-injector Subcutaneous Medication List reviewed and reconciled with the patientNot-Taking/PRN Losartan Potassium 50 MG Tablet TAKE 1 TABLET BY MOUTH DAILY Oral Not-Taking/PRN Orencia ClickJect 125 MG/ML Solution Auto-injector Subcutaneous Medication List reviewed and reconciled with the patient * Allergies:?Penicillin: rashT ylenol: rashCortisone Acetate: headacheAtorvastatinActemraHumiraLeflunomideOrencia ClickJectyes[Allergies Verified] Objective: * Vitals:?Ht: 3zb32no, Wt:214, BMI:30.7, Shoe size: 10.5, BP:140/80mm Hg, BS: not taken, Ht-cm: 177.8 cm, Wt-k.07 kg. * ???Past Orders: ???Lab:HEMOGLOBIN A1C (GLYCO HEMOGLOBIN) (Order Date - 05/12/2024) (Collection Date & Time - 05/12/2024 09:18 AM) ? Value Reference Range ?HEMOGLOBIN A1C % (HH) 6.2 * Examination: ???Ophthalmology Referral: ?DIABETES EYE EXAM?Procedure Performed:?Yes ?Date of Exam Performed?06/12/2024 ?Findings of Diabetic Eye Exam:?retinopathy?Neurological: ?SENSORY:?(DM/Neuro) Neurological exam demonstrates reduced sharp/dull pin prick discrimination reduced light touch sensation reduced vibration sensation reduced proprioception sensation in a stocking fashion 5.07 monofilament test performed at plantar aspects of 5 varied sites per foot shows sensation plantar aspects absent at Forefoot B/L.?Nails: ?NAILS are:?Elongated, overgrown, dystrophic, lytic, greater than 3mm thick, discolored and friable with crumbly malodorous subungual debris , with dull to no pain on palpation due to neuropathy , TA, T1, T2, T3, T4, T5, T6, T7, T8, T9.?Dermatologic: ?SKIN FINDINGS:?Skin exam reveals Keratotic lesion(s) located at , Medial plantar, TA , T5, SUB MTH (s), 1, B/L.?Vascular: ?DP PULSES (B):?3/4, B/L.?PT PULSES (B):?3/4, B/L.?CAPILLARY FILL TIME:?immediate, all digits, B/L.?TROPHIC CONDITION-TEXTURE/ELASTICITY/TURGOR/HAIR GROWTH (B):?normal, B/L.?TEMPERTURE GRADIENT (C):?normal, warm to cool, proximal to distal, B/L, B/L.?Orthopedic: ?MUSCLE STRENGTH:?5/5 all groups in a symmetrical fashion, B/L.?DIGITAL DEFORMITIES:?Digital contracture, PIPJ, 2-5 B/L, incompl-reducible to push-up test, no over, nor underlapping,?there is?evidence of shoe producing skin irritation.?FOOTWEAR EVALUATION:?worn, non-supportive, shoe gear properties exacerbate patient's foot/toe deformity.?General Examination: ?GENERAL APPEARANCE:?Reveals a pleasant, alert, well nourished, well- developed, well hydrated individual, who demonstrates proper attention to hygiene/body habitus, and is in no acute distress, Pt serves as own historian for office visit today.?ORIENTED:?person, place, and time.?FOOT EXAM:?Lower Extremity Neurological Exam performed:?Yes ?Visual exam of foot performed:?Yes ?Date?09/10/2024 ?Footwear Evaluation?Footwear Evaluation performed:?Yes??? Assessment: * Assessment: 1.?Type 2 diabetes mellitus with diabetic polyneuropathy - E11.42???2.?Tinea unguium - B35.1???3.?Other hammer toe(s) (acquired), right foot - M20.41 (Primary)???Specify :Chronic problem, Worse (4),Rx Management (4)???4.?Other hammer toe(s) (acquired), left foot - M20.42???Specify :Chronic problem, Worse (4),Rx Management (4)??? Plan: * Treatment: 2.?Others? Start Extra Depth Orthopedic Shoes (1 Pair) with Customized Heat Molded Multidensity Innersoles (3 Pair), as directed, Dx: NIDDM/Polyneuropathy (E11.42), Hammertoe Foot Deformity (M20.41,M20.42), Preulcerative Skin Lesion(s) (L85.1, 1, Refills 0.?? Notes: Patient Educated with: DIABETIC FOOT CARE INSTRUCTIONS.pdf (DIABETIC FOOT CARE INSTRUCTIONS.pdf)?? * Procedures:?Debride Nail 6-10:?Nail debridement?Due to the [...] use of a nail nipper and/or dremel-type rail grinder, to a more viable healthy nail [...] to maintain effectiveness in symptomatic relief - 84615.?Keratoma Treatment:?Parring or Cutting of Benign Hyperkeratotic Lesion(s)?(-56) [...] stated and described in the exam ( Medial plantar, TA , T5, SUB MTH (s), 1, B/L ), were pared, and/or cut utilizing a sterile 15 blade, tissue nippers, and/or power dremel instrumentation by the physician of record - 77944.? * Procedure Codes:?93329 DEBRI DE NAIL, 6 OR MORE, Modifiers: XS 34674 TRIM SKIN LESIONS, 2 TO 4, Modifiers: XS * Preventive Medicine:? ??Counseling:?Discussion:?-14: Office or other outpatient visit for the evaluation and management of an established patient, which required a medically appropriate history and/or examination and MODERATE level of DECISION MAKING for: 1 OR MORE CHRONIC PROBLEM(S) THATS WORSENING, 2 STABLE CHRONIC PROBLEMS, A NEWLY DIAGNOSED PROBLEM WITH UNCERTAIN PROGNOSIS, AN ACUTE COMPLICATED INJURY WITH MULTIPLE TREATMENT OPTIONS, OR AN ACUTE PROBLEM WITH ACCOMPANYING SYSTEMIC SYMPTOMS, THAT POSE(S) A MODERATE RISK OF MORBIDITY. THIS CONDITION MAY ALSO INCLUDE RX DRUG MANAGEMENT, OR A DECISON FOR MINOR SURGERY. The visit on the day of the [...] patients medical history and increased asssociated post-operative risks, Digital surgery was discussed with the patient, We [...] success were answered to their verbally confirmed satisfaction, HT- I explained to the patient the possible [...] a full understanding of the above information. A Rx for Extra Depth Orthopedic Shoes with 3 pair of custom heat-molded inserts was dispensed.? ??Screening/Special Tests:?Fall Risk?Screening:?No falls in the past year ?FALLS: Screening for Future Fall Risk?Have you had any falls with injury in the past year??No * Follow Up:?2 Months * Images: * Sign off status: Completed true * Provider:?Traci Jewell DPM Date:?06/2024 Generated for Castillo galarza/Denita/Jose Miguel on:?09/27/2024 09:56 [...] Detail Notes Category Not es Neurological SENSORY: (DM/Neuro) Neuro logical exam demonstrates reduced sharp/dull pin prick discrimination reduced light touch sensation reduced vibration sensation reduced proprioception sensation in a stocking fashion 5.07 monofilament test performed at plantar aspects of 5 varied sites per foot shows sensation plantar aspects absent at Forefoot B/L Dermatologic SKIN FINDINGS: Skin exam reveal s Keratotic lesion(s) located at , Medial plantar, TA , T5, SUB MTH (s), 1, B/L Orthopedic FOOTWEAR EVALUATION: worn, non-s upportive, shoe [...] Visual exam of foot performed:: Yes Date: 09/10/2024 ORIENTED: person, place, and t mega Footwear Evaluation Footwear Evaluation performe d:: Yes Ophthalmology Referral DIABETES EYE EXAM Procedure Perform ed:: Yes ?Date of Exam Performed: 06/12/2024 Findings of Diabetic Eye Exam:: retinopa thy Vascular DP PULSES (B): 3/4, B/L PT [...]
--- OUTSIDE RECORDS SUMMARY | 2024-09-27 09:57 | XMS_ITS ---
Author Organization [facility] Address [address] [facility] [address] Care Team Providers Care Nursing Information Systems Coordinator Name Role Phone Clive Chaidez Primary Care Provider Traci Juarez Unavailable [phone] Allergies Allergen (clinical drug ingredient) Drug/Non Drug [...] Polyneuropathy due to type 2 diabetes mellitus (090333197) Type 2 diabetes mellitus with diabetic polyneuropathy (E11.42) Active confirmed Problem Acquired hammer toe of right foot (5672503153119637 ) Other hammer toe(s) (acquired), right foot (M20.41) Active confirmed Problem Acquired hammer toe of left foot (1960096307305592 ) Other hammer toe(s) (acquired), left foot (M20.42) Active confirmed Vital Signs Height 5ft 10in in 04/16/2024 Weight 208 lbs lbs 04/16/2024 BMI 29.84 kg/m2 04/16/2024 Encounters Encounter Location Date Provider Diagnosis [facility] [address] [address] 04/16/2024 Traci Jewell Type 2 diabetes mellitus [...] Reason: Provider Name:Traci oliva, 11/27/2024 11:15:00 AM, [address] [place], [address], Procedure Notes * Category Sub-Category Detail Notes Debride Nail 6-10 Nail debridement Performance o f this nail treatment by a nonprofessional would put this patients foot and overall health at risk. Therefore, nail debridement was performed extensively to reduce/remove overall nail length, girth, thickness, subungual debris, and necrotic tissue, by manual and/or electrical means through the use of a nail nipper and/or dremel-type card grinder, to a more viable healthy nail plate or bed tissue 6-10. Silver nitrate used for any petechial bleeding as necessary. Definitive antifungal treatment options have been reviewed and discussed with the patient. The patient chooses, no pharmaceutical tx - 05345 Keratoma Treatment Parring or Cutting o f Benign Hyperkeratotic Lesion(s) (-56) 2-4 Lesions - The Benign hyperkeratotic lesions, as described above were pared, and/or cut utilizing a sterile 15 blade, tissue nippers, and/or dremel - 05809 Progress Notes * Issa DUKE LDOB: 4 (58 yo M)Acc No.[id number]:04/16/2024 Progress Notes Patient:?Issa Duke Provider:?Traci Jewell DPM :1965???Age:58 Y???Sex:Male Sean e:04/16/2024 Address:[address] [place] [address] [facility] Pcp:Clive Chaidez Subjective: * Chief Complaints: * [...] use of a nail nipper and/or dremel-type card grinder, to a more viable healthy nail plate or bed tissue 6-10. Silver nitrate used for any petechial bleeding as necessary. Definitive antifungal treatment options have been reviewed and discussed with the patient. The patient chooses, no pharmaceutical tx - 31254.?Keratoma Treatment:?Parring or Cutting of Benign Hyperkeratotic Lesion(s)?(-56) 2-4 Lesions - The Benign hyperkeratotic lesions, as described above were pared, and/or cut utilizing a sterile 15 blade, tissue nippers, and/or dremel - 65745.? * Procedure Codes:?91290 DEBRI DE NAIL, 6 OR MORE, Modifiers: XS 65116 TRIM SKIN LESIONS, 2 TO 4, Modifiers: [...] DPM Date:?10/2023 Generated for Castillo galarza/Denita/Jose Miguel on:?09/27/2024 09:57 AM EDT History and Physical Notes * [...] located at , TA , T5 Orthopedic FOOTWEAR EVALUATION: worn, non-s upportive, shoe [...]
== END 2024-09-27 10:06 | disposition home or self-care (01) ==
LOC: HO.HMCH 09:26
PROVIDERS: PCP Internal Medicine; Visit Provider Internal Medicine
DX: E11.65 Type 2 diabetes mellitus with hyperglycemia (principal); M05.9 Rheumatoid arthritis with rheumatoid factor, unspecified; I25.10 Atherosclerotic heart disease of native coronary artery without angina pectoris; E78.00 Pure hypercholesterolemia, unspecified; I10 Essential (primary) hypertension; K21.9 Gastro-esophageal reflux disease without esophagitis; B33.8 Other specified viral diseases; R91.1 Solitary pulmonary nodule

== ENCOUNTER → 2024-09-27 09:25 | Outpatient (BNVA) | payer OTHER, SELFPAY | PROVIDERS: PCP Internal Medicine; Visit Provider Internal Medicine | DX: E11.65 Type 2 diabetes mellitus with hyperglycemia (principal); I10 Essential (primary) hypertension; I25.10 Atherosclerotic heart disease of native coronary artery without angina pectoris; E78.00 Pure hypercholesterolemia, unspecified; K21.9 Gastro-esophageal reflux disease without esophagitis; M05.9 Rheumatoid arthritis with rheumatoid factor, unspecified; B33.8 Other specified viral diseases; R91.1 Solitary pulmonary nodule; R30.0 Dysuria | CPT/HCPCS: 83036; 99212 ==

== ENCOUNTER 2024-10-09 12:35 | Outpatient (AMB) | payer OTHER, SELFPAY ==
[2024-10-09 12:36] VITALS: BP 129/74; PULSE 83; O2SAT 96; BMI 30.2
--- NOTE | 2024-10-09 12:36 | MHC.OFFVIS ---
Vital Signs 10/09/24 12:36 Height 5 ft 10 in Weight 210 lb 5.136 oz BMI 30.2 BP 129/74 Blood Pressure Location Lt brachial Position Sitting Pulse 83 Pulse Source Pulse Oximeter Pulse Oximetry (%) 96 Oxygen Delivery Method Room Air Intake Visit Reasons: 8 months follow up Intake Note: Pt presents to the office today for an 8 month f/u. Pt states he is still having bouts of constipation. Allergies penicillin V Allergy (Severe, Verified 10/09/24 12:39) rash adalimumab [From Humira] Allergy (Intermediate, Verified 10/09/24 12:39) leg pain atorvastatin Allergy (Intermediate, Verified 10/09/24 12:39) leg pain leflunomide Allergy (Intermediate, Verified 10/09/24 12:39) kidney failure tocilizumab [From Actemra] Allergy (Intermediate, Verified 10/09/24 12:39) frequent nail infection lisinopril Adverse Reaction (Intermediate, Verified 10/09/24 12:39) Anxiety losartan Adverse Reaction (Intermediate, Verified 10/09/24 12:39) Nausea HPI HPI 8 months follow up: Details: Assessment & Plan (1) Tubular adenoma of colon: Code(s): D12.6 - Benign neoplasm of colon, unspecified Category: Medical (2) GERD (gastroesophageal reflux disease): Code(s): K21.9 - Gastro-esophageal reflux disease without esophagitis Category: Medical Qualifiers: Esophagitis presence: without esophagitis Qualified Code(s): K21.9 - Gastro-esophageal reflux disease without esophagitis (3) Constipation: Code(s): K59.00 - Constipation, unspecified Category: Medical (4) Dyspepsia: Code(s): R10.13 - Epigastric pain Category: Medical Plan He is agreeable to a 5 year recall. The procedure was well tolerated. The results were explained and the patient is agreeable to the follow-up interval as stated. Education was provided to tell any 1st degree relatives about their findings to be sure that they are screened by age 45. Educated that they will be put on a recall list when it is time for their repeat scope but should they move out of state or away from the hospital they will need to remember along with their primary to repeat the procedure in a timely fashion to avoid any adverse complications. He had some black stools and uses senna for CIC but only prn. I suggest he try using it qod since he has hard stools followed by watery stools. He has always had nervous stomach, his mother of stomach cancer. Will get HP breath test and consider if PPI or EGD needed. IT is really set off by emotional issues, acidy foods and when his stomach is empty. ROV 6 weeks. Orders: Orders H Pylori Breath Test Today R10.13 - Epigastric pain Laboratory Tests 02/07/24 09:46 H. pylori Breath Test Negative TODAY'S VISIT He seems very anxious. He has been struggling with his BP and various BP medications, but he has had a lot of s/e. He is currently on amlodipine but will have severe acid at night with many medications. He is also frustrated with the pill burden. He also has some ADHD that is c/t his trouble with compliance. He seems to remember that he did well in the past with famotidine. I will try rx'ing this. His mother had a partial gastrectomy and stomach cancer, so I think with his continued sx this is prudent. His cardiac disease is controlled although he is struggling with HTN, he denies any respiratory problems. He has had trouble with general anesthesia but not with procedure sedation. No ID problems. His mother had stomach cancer, his HP breath test was negative. ROV 3 mos. [facility] Medical History (Updated 10/09/24 @ 13:26 by SERGIO Collins) RSV (respiratory syncytial virus infection) Encounter for monitoring of hydroxychloroquine therapy Pre-op examination Frequency of micturition Right wrist pain Annual physical exam Lower urinary tract symptoms Immunization counseling Screening for viral disease Bilateral carpal tunnel syndrome Screening for colon cancer Screening for prostate cancer New onset type 2 diabetes mellitus Depression Adult general medical exam Precordial chest pain Right hip pain Acute sinusitis Right rotator cuff tear Atherosclerotic cardiovascular disease Left rotator cuff tear Gastritis determined by endoscopy Lip cancer Erectile dysfunction Anxiety Degenerative disc disease, lumbar Horseshoe kidney Coronary artery disease GERD (gastroesophageal reflux disease) Hypercholesterolemia Cervical radiculopathy 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 Osteoarthritis Surgical History History of carpal tunnel surgery of right wrist History of rotator cuff surgery S/P left rotator cuff repair Hx of colonoscopy History of coronary artery stent placement History of cervical spinal surgery History of shoulder surgery History of lip cancer H/O left knee surgery History of tonsillectomy Family History Father Lung cancer CAD (coronary artery disease) CVD (cardiovascular disease) Hx of CABG Mother Colon cancer Mental health disorder Maternal Uncle Lung cancer Maternal Uncle Substance abuse Substance use disorder Brother Lung cancer Social History Housing: Other Housing Other:: Rents a room in a house Are you a primary critical care clinical nurse specialist to a significant other at home: No Do you presently have visiting nurse or other home services: No Alcohol intake: current Alcohol intake frequency: holidays/special occasions only Alcohol type: beer and hard liquor Comment: once a month glass Patient Tobacco Use Status: Former Tobacco user Tobacco use type: Cigarette Years Smoked: quit 2005 smokes marijuana e-Cigarette/Vaping Use: Never Used Second Hand Smoke Exposure: Yes Substance Use Type: Marijuana service: No Current occupational status: unemployed Current occupation: right handed Cognitive needs: No Hearing needs: No Vision needs: Yes Review of Systems Const Reports fatigue, Denies fever(s), Reports malaise, Denies night sweats, Denies poor appetite and Denies weight loss Eyes Details: glasses Reports requires corrective lenses ENT Reports Normal hearing present, Denies dental pain, Denies dysphagia, Denies hearing loss, Denies mouth pain, Reports neck pain, Denies odynophagia, Denies throat swelling, Denies tongue swelling and Reports other (Dentition adequate) Card Reports no additional complaints Resp Reports no additional complaints and Reports wheezing GI Details: Reports abdominal pain, Denies melena, Denies bloating, Denies hematochezia, Reports constipation, Denies GI cramping, Denies dysphagia, Denies excessive flatus, Denies early satiety, Reports heartburn, Denies diarrhea, Denies nausea, Denies odynophagia, Denies vomiting and Denies hematemesis Musc Reports back pain, Reports myalgias, Reports arthralgias, Reports joint swelling, Reports neck pain and Reports stiffness Skin/Breast Denies pruritus, Denies lesions, Denies rash and Denies jaundice Neuro Reports Normal hearing present and Denies Abnormal speech present Psych Reports anxiety, Reports irritability, Denies homicidal ideation and Denies suicidal ideation Endo Reports fatigue Aller/Immun Denies throat swelling, Denies tongue swelling and Reports wheezing Physical Exam Vital Signs: Last Vital Signs Pulse 83 10/09/24 12:36 BP 129/74 10/09/24 12:36 Pulse Ox 96 10/09/24 12:36 Oxygen Delivery Method Room Air 10/09/24 12:36 BMI result Body Mass Index 30.2 Const General: cooperative, no acute distress, well developed and well groomed Nutritional Appearance: well nourished and overweight Orientation/consciousness: oriented to person, oriented to place and oriented to time Limitations: No language barrier HEENT Head: Yes normocephalic and Yes atraumatic Eyes General: appearance normal, both eyes and all related structures Pupils: Equal, round and reactive pupils present Neck Neck: Yes normal visual inspection and Yes no lymphadenopathy Thyroid: Thyroid normal Resp Effort & Inspection: normal respiratory effort and able to speak in complete sentences Auscultation: clear to auscultation bilaterally Cardio Rate: regular rate Rhythm: regular rhythm Heart sounds: Normal, physiologic split S2 sound present Peripheral pulses: radial pulses present and posterior tibial pulses present GI Inspection: No distended, No Abdominal panniculus present and Yes obesity Palpation (GI): Soft to palpation, nontender, no guarding, not rigid and No hepatosplenomegaly present Percussion: Yes normal to percussion Auscultation: normal bowel sounds Rectal Exam - Male: Yes deferred Skin General skin exam: no rashes or lesions noted, turgor normal, skin not dry, no jaundice, No spider nevi and no striae Rashes: no rashes Nails: normal Neuro General: oriented to person, oriented to place and oriented to time Cranial nerves: Yes Equal, round and reactive pupils present and Yes Normal hearing present Speech: No Abnormal speech present Extrem General: Yes normal to inspection, No clubbing, No cyanosis and No edema Psych Appearance: grossly normal and well kempt Mental Status: mental status grossly normal Speech and movement: Pressured speech present Affect: Anxious affect present Attitude: cooperative Thought process: not confabulating, Perseverating thought process present and Racing thoughts present Thought content: Normal thought content present Insight: Limited insight present (Psych) Judgement: Limited judgement present (Psych) Assessment & Plan Assessment & Plan (1) GERD (gastroesophageal reflux disease): Code(s): K21.9 - Gastro-esophageal reflux disease without esophagitis Category: Medical Qualifiers: Esophagitis presence: without esophagitis Qualified Code(s): K21.9 - Gastro-esophageal reflux disease without esophagitis (2) Dyspepsia: Code(s): R10.13 - Epigastric pain Category: Medical (3) Constipation: Code(s): K59.00 - Constipation, unspecified Category: Medical Plan He seems very anxious. He has been struggling with his BP and various BP medications, but he has had a lot of s/e. He is currently on amlodipine but will have severe acid at night with many medications. He is also frustrated with the pill burden. He also has some ADHD that is c/t his trouble with compliance. He seems to remember that he did well in the past with famotidine. I will try rx'ing this. His mother had a partial gastrectomy and stomach cancer, so I think with his continued sx this is prudent. His cardiac disease is controlled although he is struggling with HTN, he denies any respiratory problems. He has had trouble with general anesthesia but not with procedure sedation. No ID problems. His mother had stomach cancer, his HP breath test was negative. ROV 3 mos. Orders: Orders EGD - GI Use Only Today K21.9 - Gastro-esophageal reflux disease without esophagitis, R10.13 - Epigastric pain FL barium swallow Today K21.9 - Gastro-esophageal reflux disease without esophagitis, R10.13 - Epigastric pain Medications: New famotidine (Pepcid) 40 mg PO BEDTIME 30 tabs 6RF K21.9 - Gastro-esophageal reflux disease without esophagitis, R10.13 - Epigastric pain sennosides (senna) 8.6 mg PO BEDTIME 30 caps 6RF K59.00 - Constipation, unspecified Coding Level of Care Code Est Pt Level 4 (29279) Diagnoses Gastroesophageal reflux disease without esophagitis K21.9 Esophagitis presence: without esophagitis Dyspepsia R10.13 Constipation K59.00
--- OUTSIDE RECORDS SUMMARY | 2024-10-09 13:51 | XMS_ITS | Patient Health Record ---
[facility] Organization [facility] Address [address] [place] [address] Care Team Providers Care Log Deck Tender Name Role Phone Clive Chaidez Primary Care Provider Traci Juarez Unavailable [phone] Allergies Allergen (clinical drug ingredient) Drug/Non Drug [...] Problem Acquired hammer toe of right foot (1584807389827804 ) Other hammer toe(s) (acquired), right foot (M20.41) Active confirmed Problem Acquired hammer toe of left foot (7687223899678583 ) Other hammer toe(s) (acquired), left foot (M20.42) Active confirmed Problem Polyneuropathy due to type 2 diabetes mellitus (612060727) Type 2 diabetes mellitus with diabetic polyneuropathy (E11.42) Active confirmed Vital Signs Blood pressure diastolic 80 mm Hg 09/10/2024 Height 1cb79io in 09/10/2024 Blood pressure systolic 140 mm Hg 09/10/2024 Weight 214 lbs 09/10/2024 BMI 30.7 kg/m2 09/10/2024 Encounters Encounter Location Date Provider Diagnosis [facility] [address] [place] [address] 04/16/2024 Traci Jewell Type 2 diabetes mellitus with diabetic polyneuropathy E11.42 ; Tinea unguium B35.1 ; Other hammer toe(s) (acquired), right foot M20.41 and Other hammer toe(s) (acquired), left foot M20.42 [facility] [address] 07/03/2024 Traci Jewell Type 2 diabetes mellitus with diabetic polyneuropathy E11.42 ; Other hammer toe(s) (acquired), right foot M20.41 ; Tinea unguium B35.1 and Other hammer toe(s) (acquired), left foot M20.[address] [address] 09/10/2024 Traci Jewell Type 2 diabetes mellitus [...] Details Provider Name:Traci oliva, 11/27/2024 11:15:00 AM, [address] [place] [address], [id number], Insurance Providers Payer Name Payer Address Payer Phone Subscriber Number Group Number Insured Name Patient Relationship to Insured Coverage Start Date Coverage End Date [facility] [employer] Claims [address] [place] [phone] [id number] Issa Cerna Self - patient is the [...]
--- OUTSIDE RECORDS SUMMARY | 2024-10-09 13:51 | XMS_ITS ---
Author Organization [facility] Address [address] [place] [address] Care Team Providers Care Mobile Manager Name Role Phone Clive Chaidez Primary Care Provider Traci Juarez Unavailable [phone] Allergies Allergen (clinical drug ingredient) Drug/Non Drug [...] Notes Tobacco use: Nonsmoker Vital Signs Height 0ki13cw in 07/03/2024 Weight 214 lbs 07/03/2024 BMI 30.7 kg/m2 07/03/2024 Blood pressure systolic 140 mm Hg 07/03/19 25 Blood pressure diastolic 80 mm Hg 025 Encounters Encounter Location Date Provider Diagnosis [facility] [place] [address] [place] [address] 07/03/2024 Traci Jewell Type 2 diabetes mellitus [...] Reason: Provider Name:Traciharry oliva, 11/27/2024 11:15:00 AM, [address] [place] [address], [phone], Procedure Notes * Category Sub-Category Detail Notes [...] use of a nail nipper and/or dremel-type carbon grinder, to a more viable healthy nail [...] to maintain effectiveness in symptomatic relief - 39397 Keratoma Treatment Parring or Cutting o f [...] instrumentation by the physician of record - 50155 Progress Notes * Issa DUKE LDOB: 4 (58 yo M)Acc No.[id number]:07/03/2024 Progress Note Patient:?Issa DUKE Provider:?Traci Jewell DPM :1965???Age:58 Y???Sex:Male Sean e:07/03/2024 Address:[address] [place] [address] [address], [facility] Pcp:Clive Chaidez Subjective: * Chief Complaints: * [...] Acetate: headacheAtorvastatinActemraHumiraLeflunomideOrencia ClickJectyes[Allergies Verified] Objective: * Vitals:?Ht: 1gz12la, Wt:214, BMI:30.7, Shoe size: 10.5, BP:140/80mm Hg, [...] use of a nail nipper and/or dremel-type carbon grinder, to a more viable healthy nail [...] to maintain effectiveness in symptomatic relief - 97741.?Keratoma Treatment:?Parring or Cutting of Benign Hyperkeratotic Lesion(s)?(-56) [...] instrumentation by the physician of record - 08132.? * Procedure Codes:?17124 DEBRI DE NAIL, 6 OR MORE, Modifiers: XS 66579 TRIM SKIN LESIONS, 2 TO 4, Modifiers: [...] DPM Date:? Generated for Castillo galarza/Denita/Jose Miguel on:?10/09/2024 01:50 PM EDT History and Physical Notes * HPI [...]
--- OUTSIDE RECORDS SUMMARY | 2024-10-09 13:51 | XMS_ITS ---
Author Organization [facility] Address [address] [place] [address] Care Team Providers Care Lode Miner Blasting Name Role Phone Clive Chaidez Primary Care Provider Traci Juarez Unavailable [phone] Allergies Allergen (clinical drug ingredient) Drug/Non Drug [...] Polyneuropathy due to type 2 diabetes mellitus (435531197) Type 2 diabetes mellitus with diabetic polyneuropathy (E11.42) Active confirmed Problem Acquired hammer toe of right foot (3211321595220072 ) Other hammer toe(s) (acquired), right foot (M20.41) Active confirmed Problem Acquired hammer toe of left foot (2868907666030990 ) Other hammer toe(s) (acquired), left foot (M20.42) Active confirmed Vital Signs Height 5ft 10in in 04/16/2024 Weight 208 lbs lbs 04/16/2024 BMI 29.84 kg/m2 04/16/2024 Encounters Encounter Location Date Provider Diagnosis [facility] [address] [address] 04/16/2024 Traci Jewell Type 2 diabetes mellitus [...] Provider Name:Traci oliva, 11/27/2024 11:15:00 AM, [address] [place], [address], Procedure Notes * Category Sub-Category Detail Notes Debride Nail 6-10 Nail debridement Performance o f this nail treatment by a nonprofessional would put this patients foot and overall health at risk. Therefore, nail debridement was performed extensively to reduce/remove overall nail length, girth, thickness, subungual debris, and necrotic tissue, by manual and/or electrical means through the use of a nail nipper and/or dremel-type blade grinder, to a more viable healthy nail plate or bed tissue 6-10. Silver nitrate used for any petechial bleeding as necessary. Definitive antifungal treatment options have been reviewed and discussed with the patient. The patient chooses, no pharmaceutical tx - 09023 Keratoma Treatment Parring or Cutting o f Benign Hyperkeratotic Lesion(s) (-56) 2-4 Lesions - The Benign hyperkeratotic lesions, as described above were pared, and/or cut utilizing a sterile 15 blade, tissue nippers, and/or dremel - 97622 Progress Notes * Issa DUKE LDOB: 4 (58 yo M)Acc No.[id number]:04/16/2024 Progress Notes Patient:?Issa Duke Provider:?Traci Jewell DPM :1965???Age:58 Y???Sex:Male Sean e:04/16/2024 Address:[address] [place] [address] [facility] Pcp:Clive Chaidez Subjective: * Chief Complaints: * [...] use of a nail nipper and/or dremel-type blade grinder, to a more viable healthy nail plate or bed tissue 6-10. Silver nitrate used for any petechial bleeding as necessary. Definitive antifungal treatment options have been reviewed and discussed with the patient. The patient chooses, no pharmaceutical tx - 24475.?Keratoma Treatment:?Parring or Cutting of Benign Hyperkeratotic Lesion(s)?(-56) 2-4 Lesions - The Benign hyperkeratotic lesions, as described above were pared, and/or cut utilizing a sterile 15 blade, tissue nippers, and/or dremel - 68238.? * Procedure Codes:?67069 DEBRI DE NAIL, 6 OR MORE, Modifiers: XS 39571 TRIM SKIN LESIONS, 2 TO 4, Modifiers: [...] off status: Completed true * Provider:?Traci Jewell, WARREN Date:?10/2023 Generated for Castillo galarza/Denita/Jose Miguel on:?10/09/2024 01:51 PM EDT History and Physical Notes * [...]
--- OUTSIDE RECORDS SUMMARY | 2024-10-09 13:51 | XMS_ITS ---
Author Organization [facility] Address [address] [place] [address] Care Team Providers Care Gin Clerk Name Role Phone Clive Chaidez Primary Care Provider Traci Juarez Unavailable [phone] Allergies Allergen (clinical drug ingredient) Drug/Non Drug [...] Notes Tobacco use: Nonsmoker Vital Signs Height 2sn67jm in 09/10/2024 Weight 214 lbs 09/10/2024 BMI 30.7 kg/m2 09/10/2024 Blood pressure systolic 140 mm Hg 09/11/19 25 Blood pressure diastolic 80 mm Hg 025 Encounters Encounter Location Date Provider Diagnosis [facility] [place] [address] [place] [address] 09/10/2024 Traci Jewell Type 2 diabetes mellitus [...] Reason: Provider Name:Traci oliva, 11/27/2024 11:15:00 AM, [address] [place] [address], [phone], Procedure Notes * Category Sub-Category Detail Notes [...] use of a nail nipper and/or dremel-type ink grinder, to a more viable healthy nail [...] to maintain effectiveness in symptomatic relief - 85164 Keratoma Treatment Parring or Cutting o f [...] power dremel instrumentation by the physician of [facility] - [address]17 Progress Notes * Issa DUKE LDOB: 4 (58 yo M)Acc No.[id number]:09/10/2024 Progress Note Patient:Issa HARTMANN Provider:?Traci Jewell DPM :1965???Age:58 Y???Sex:Male Sean e:09/10/2024 Address:[address] [place] [address] [address], [facility] Pcp:Clive Chaidez Subjective: * Chief Complaints: * [...] Acetate: headacheAtorvastatinActemraHumiraLeflunomideOrencia ClickJectyes[Allergies Verified] Objective: * Vitals:?Ht: 8dx86fl, Wt:214, BMI:30.7, Shoe size: 10.5, BP:140/80mm Hg, [...] use of a nail nipper and/or dremel-type ink grinder, to a more viable healthy nail [...] to maintain effectiveness in symptomatic relief - 41112.?Keratoma Treatment:?Parring or Cutting of Benign Hyperkeratotic Lesion(s)?(-56) [...] instrumentation by the physician of record - 64608.? * Procedure Codes:?53604 DEBRI DE NAIL, 6 OR MORE, Modifiers: XS 66258 TRIM SKIN LESIONS, 2 TO 4, Modifiers: [...] DPM Date:?06/2024 Generated for Castillo galarza/Denita/Jose Miguel on:?10/09/2024 01:50 [...]
== END 2024-10-09 13:38 | disposition home or self-care (01) ==
LOC: HO.HGI 12:36
PROVIDERS: PCP Internal Medicine; Visit Provider Nurse Practitioner
DX: K21.9 Gastro-esophageal reflux disease without esophagitis (principal); R10.13 Epigastric pain; K59.00 Constipation, unspecified
CPT/HCPCS: 99214

== ENCOUNTER → 2024-10-09 12:35 | Outpatient (BNVA) | payer OTHER, SELFPAY | PROVIDERS: PCP Internal Medicine; Visit Provider Nurse Practitioner | DX: K21.9 Gastro-esophageal reflux disease without esophagitis (principal); K59.00 Constipation, unspecified; R10.13 Epigastric pain | CPT/HCPCS: 99212 ==

== ENCOUNTER 2024-10-10 10:30 | Outpatient (AMB) | payer OTHER, SELFPAY ==
--- NOTE | 2024-10-10 10:36 | A.OFFVIS_ITS ---
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 Required: No Accompanied by: Self / Same As Patient Allergies penicillin V Allergy (Severe, Verified 10/09/24 12:39) rash adalimumab [From Humira] Allergy (Intermediate, Verified 10/09/24 12:39) leg pain atorvastatin Allergy (Intermediate, Verified 10/09/24 12:39) leg pain leflunomide Allergy (Intermediate, Verified 10/09/24 12:39) kidney failure tocilizumab [From Actemra] Allergy (Intermediate, Verified 10/09/24 12:39) frequent nail infection lisinopril Adverse Reaction (Intermediate, Verified 10/09/24 12:39) Anxiety losartan Adverse Reaction (Intermediate, Verified 10/09/24 12:39) Nausea Medication List - Last Reconciled 10/10/24 by Fernando Goins MD albuterol sulfate 90 mcg/actuation 2 puffs inhalation Q4-6H PRN amlodipine 5 mg PO DAILY aspirin 81 mg PO DAILY blood sugar diagnostic (FreeStyle Lite Strips) test daily blood-glucose meter (FreeStyle Lite Meter kit) test daily carvedilol 6.25 mg PO BID diclofenac sodium 1% (Voltaren) 2 grams topical QID diclofenac sodium 1% 4 grams topical QID famotidine (Pepcid) 40 mg PO BEDTIME hydroxychloroquine (Plaquenil) 200 mg PO BID lancets (FreeStyle Lancets) test daily lancets (FreeStyle Lancets) As directed check BS QD nitroglycerin 0.4 mg sublingual Q5M PRN pregabalin 75 mg PO BID rosuvastatin 40 mg PO DAILY sennosides (senna) 8.6 mg PO BEDTIME sertraline 150 mg PO DAILY tolterodine ER (Detrol LA) 2 mg PO Q24H [wrist cock up splint Wear on each wrist at night. ] HPI Comments Details: Issa returns for follow-up regarding coronary artery disease. To recall, in 2018, he was admitted for unstable angina type symptoms and underwent cardiac catheterization and right coronary artery stenting. He also had moderate circumflex disease and 40% mid LAD disease. He states that his blood pressure was going high and then he was put on amlodipine and after that, he is apparently having lot of acid reflux type symptoms. Otherwise, he gets pains all over the body which are musculoskeletal/arthritic. However, no clear-cut exertional angina. FORMERLY [facility], [facility] Medical History (Updated 10/09/24 @ 13:26 by SERGIO Collins) RSV (respiratory syncytial virus infection) Encounter for monitoring of hydroxychloroquine therapy Pre-op examination Frequency of micturition Right wrist pain Annual physical exam Lower urinary tract symptoms Immunization counseling Screening for viral disease Bilateral carpal tunnel syndrome Screening for colon cancer Screening for prostate cancer New onset type 2 diabetes mellitus Depression Adult general medical exam Precordial chest pain Right hip pain Acute sinusitis Right rotator cuff tear Atherosclerotic cardiovascular disease Left rotator cuff tear Gastritis determined by endoscopy Lip cancer Erectile dysfunction Anxiety Degenerative disc disease, lumbar Horseshoe kidney Coronary artery disease GERD (gastroesophageal reflux disease) Hypercholesterolemia Cervical radiculopathy 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 Osteoarthritis Surgical History History of carpal tunnel surgery of right wrist History of rotator cuff surgery S/P left rotator cuff repair Hx of colonoscopy History of coronary artery stent placement History of cervical spinal surgery History of shoulder surgery History of lip cancer H/O left knee surgery History of tonsillectomy Family History Father Lung cancer CAD (coronary artery disease) CVD (cardiovascular disease) Hx of CABG Mother Colon cancer Mental health disorder Maternal Uncle Lung cancer Maternal Uncle Substance abuse Substance use disorder Brother Lung cancer Social History Housing: Other Housing Other:: Rents a room in a house Are you a primary career placement specialist to a significant other at home: No Do you presently have visiting nurse or other home services: No Alcohol intake: current Alcohol intake frequency: holidays/special occasions only Alcohol type: beer and hard liquor Comment: once a month glass Patient Tobacco Use Status: Former Tobacco user Tobacco use type: Cigarette Years Smoked: quit 2005 smokes marijuana e-Cigarette/Vaping Use: Never Used Second Hand Smoke Exposure: Yes Substance Use Type: Marijuana service: No Current occupational status: unemployed Current occupation: right handed Cognitive needs: No Hearing needs: No Vision needs: Yes Review of Systems Const Denies chills, Reports fatigue, Denies fever(s), Denies frequent falls, Denies weakness, Denies weight gain and Denies weight loss ENT Denies dizziness Card Denies chest pain, Denies leg edema, Denies lightheadedness, Denies palpitations, Denies dyspnea and Denies dyspnea on exertion Resp Denies cough, Denies dyspnea and Denies dyspnea on exertion GI Denies hematochezia Musc Denies abnormal gait, Denies muscle weakness, Denies numbness, Denies radiating pain into limb and Denies tingling Neuro Denies abnormal gait, Denies dizziness, Denies frequent falls, Denies numbness, Denies tingling and Denies weakness Endo Reports fatigue and Denies palpitations Physical Exam Vital Signs: Last Vital Signs Pulse 71 10/10/24 10:38 BP 124/70 10/10/24 10:38 BMI result Body Mass Index 30.7 Const General: comfortable and no acute distress Orientation/consciousness: patient oriented x3 HEENT Other: Unremarkable Head: Yes normal to inspection Neck Neck: Yes normal visual inspection Chest Chest palpation & inspection: normal inspection of the chest Resp Auscultation: clear to auscultation bilaterally Cardio Palpation: normal PMI Heart sounds: S1 normal heart sound present, S2 normal heart sound present, no gallops, no murmurs and no rubs GI Palpation (GI): Soft to palpation Back/Spine/Pelvis Other: unremarkable Skin General skin exam: no rashes or lesions noted Neuro General: patient oriented x3 Extrem General: Yes normal to inspection Psych Mental Status: mental status grossly normal Office Procedures EKG Details: EKG with underlying sinus rhythm at 71/Min; no significant ST-T changes and otherwise unremarkable[place] [address]-Sevqtepeofrcrxqch, Complete Assessment & Plan Assessment & Plan (1) Atherosclerotic cardiovascular disease: Code(s): I25.10 - Atherosclerotic heart disease of bois forte coronary artery without angina pectoris Category: Medical Plan: Cardiac catheterization 2017. Severe 95% mid RCA stenosis status post drug- eluting stenting; moderate circumflex disease; 40% mid LAD disease. Myocardial perfusion imaging 2021 unremarkable without any clear evidence of ischemia or infarction. Echocardiogram 2021 with LVEF 67%. No significant valvular issues. Continue medical therapy for stable coronary disease including aspirin, beta- blockers and statins. Last LDL is 54 mg/dL. Triglycerides 128 mg/dL. (2) Essential hypertension: Code(s): I10 - Essential (primary) hypertension Category: Medical Plan: Stable. (3) Type 2 diabetes mellitus with hyperglycemia: Code(s): E11.65 - Type 2 diabetes mellitus with hyperglycemia Category: Medical Plan: Most recently, hemoglobin A1c 6.5%. Does not seem to be on any medications. Plan Discussion Notes I discussed with the patient the management of his hypertension with amlodipine while addressing the associated GERD symptoms. We reviewed the timing adjustment and the adjunctive use of famotidine. Follow-up will depend on symptom progression and patient's response to this management strategy. The patient understands and agrees with the proposed plan, consenting to the ongoing management approach discussed. Patient was informed and verbally consented to the use of an ambient scribe for clinic note documentation during this visit. Patient Instructions: - Take amlodipine for high blood pressure management. - Use famotidine as directed to manage GERD symptoms. - Monitor your symptoms, and report any worsening of chest pain or new symptoms. - Maintain regular follow-up appointments to monitor blood pressure and overall health. - Avoid activities that worsen joint pain, and consult on safe ways to maintain mobility. - Contact the clinic if symptoms become more severe. Coding Level of Care Code Est Pt Level 4 (82221) Complex EM visit Add On G2211 Diagnoses Atherosclerotic cardiovascular disease I25.10 Essential hypertension I10 Type 2 diabetes mellitus with hyperglycemia E11.65 CPT Codes EKG - CPT: 88104-Vkaoaykomnydtflgs, Complete ([id number])
[2024-10-10 10:38] VITALS: BP 124/70; PULSE 71; BMI 30.7
--- OUTSIDE RECORDS SUMMARY | 2024-10-10 12:01 | XMS_ITS ---
Author Organization [facility] Address [address] [place] [address] Care Team Providers Care [employer] Dean Name Role Phone Clive Chaidez Primary Care Provider Traci Juarez Unavailable [phone] Allergies Allergen (clinical drug ingredient) Drug/Non Drug [...] Polyneuropathy due to type 2 diabetes mellitus (204873448) Type 2 diabetes mellitus with diabetic polyneuropathy (E11.42) Active confirmed Problem Acquired hammer toe of right foot (2276969048130307 ) Other hammer toe(s) (acquired), right foot (M20.41) Active confirmed Problem Acquired hammer toe of left foot (3608034963020469 ) Other hammer toe(s) (acquired), left foot (M20.42) Active confirmed Vital Signs Height 5ft 10in in 04/16/2024 Weight 208 lbs lbs 04/16/2024 BMI 29.84 kg/m2 04/16/2024 Encounters Encounter Location Date Provider Diagnosis [facility] [address] [address] 04/16/2024 Traci Jewell Type 2 diabetes mellitus [...] Provider Name:Traci oliva, 11/27/2024 11:15:00 AM, [address] [place], [address], Procedure Notes * Category Sub-Category Detail Notes Debride Nail 6-10 Nail debridement Performance o f this nail treatment by a nonprofessional would put this patients foot and overall health at risk. Therefore, nail debridement was performed extensively to reduce/remove overall nail length, girth, thickness, subungual debris, and necrotic tissue, by manual and/or electrical means through the use of a nail nipper and/or dremel-type cutter grinder operator, to a more viable healthy nail plate or bed tissue 6-10. Silver nitrate used for any petechial bleeding as necessary. Definitive antifungal treatment options have been reviewed and discussed with the patient. The patient chooses, no pharmaceutical tx - 37691 Keratoma Treatment Parring or Cutting o f Benign Hyperkeratotic Lesion(s) (-56) 2-4 Lesions - The Benign hyperkeratotic lesions, as described above were pared, and/or cut utilizing a sterile 15 blade, tissue nippers, and/or dremel - 90544 Progress Notes * Issa DUKE LDOB: 4 (58 yo M)Acc No.[id number]:04/16/2024 Progress Notes Patient:?Issa Duke Provider:?Traci Jewell DPM :1965???Age:58 Y???Sex:Male Sean e:04/16/2024 Address:[address] [place] [address] [address] [facility] Pcp:Clive Chaidez Subjective: * Chief Complaints: * [...] use of a nail nipper and/or dremel-type cutter grinder operator, to a more viable healthy nail plate or bed tissue 6-10. Silver nitrate used for any petechial bleeding as necessary. Definitive antifungal treatment options have been reviewed and discussed with the patient. The patient chooses, no pharmaceutical tx - 29943.?Keratoma Treatment:?Parring or Cutting of Benign Hyperkeratotic Lesion(s)?(-56) 2-4 Lesions - The Benign hyperkeratotic lesions, as described above were pared, and/or cut utilizing a sterile 15 blade, tissue nippers, and/or dremel - 43414.? * Procedure Codes:?93439 DEBRI DE NAIL, 6 OR MORE, Modifiers: XS 34078 TRIM SKIN LESIONS, 2 TO 4, Modifiers: [...] WARREN Date:?10/2023 Generated for Castillo galarza/Denita/Jose Miguel on:?10/10/2024 12:01 PM EDT History and Physical Notes * [...]
--- OUTSIDE RECORDS SUMMARY | 2024-10-10 12:01 | XMS_ITS ---
Author Organization [facility] Address [address] [place] [address] Care Team Providers Care Continuity Director Name Role Phone Clive Chaidez Primary Care Provider Traci Juarez Unavailable [phone] Allergies Allergen (clinical drug ingredient) Drug/Non Drug [...] Notes Tobacco use: Nonsmoker Vital Signs Height 5mk73gn in 07/03/2024 Weight 214 lbs 07/03/2024 BMI 30.7 kg/m2 07/03/2024 Blood pressure systolic 140 mm Hg 07/03/19 25 Blood pressure diastolic 80 mm Hg 025 Encounters Encounter Location Date Provider Diagnosis [facility] [place] [address] [place] [address] 07/03/2024 Traci Jewell Type 2 diabetes mellitus [...] Reason: Provider Name:Traciharry oliva, 11/27/2024 11:15:00 AM, [address] [place] [address], [address], Procedure Notes * Category Sub-Category Detail Notes [...] of a nail nipper and/or dremel-type lens edge grinder machine, to a more viable healthy nail plate [...] to maintain effectiveness in symptomatic relief - 92306 Keratoma Treatment Parring or Cutting o f [...] instrumentation by the physician of record - 92401 Progress Notes * Issa DUKE LDOB: 4 (58 yo M)Acc No.[id number]:07/03/2024 Progress Note Patient:?Issa DUKE Provider:?Traci Jewell DPM :1965???Age:58 Y???Sex:Male Sean e:07/03/2024 Address:[address] [place] [address] [address] Collette [address], [facility] Pcp:Clive Chaidez Subjective: * Chief Complaints: * [...] Acetate: headacheAtorvastatinActemraHumiraLeflunomideOrencia ClickJectyes[Allergies Verified] Objective: * Vitals:?Ht: 2ir36dv, Wt:214, BMI:30.7, Shoe size: 10.5, BP:140/80mm Hg, [...] of a nail nipper and/or dremel-type lens edge grinder machine, to a more viable healthy nail plate [...] to maintain effectiveness in symptomatic relief - 58080.?Keratoma Treatment:?Parring or Cutting of Benign Hyperkeratotic Lesion(s)?(-56) [...] instrumentation by the physician of record - 33773.? * Procedure Codes:?79639 DEBRI DE NAIL, 6 OR MORE, Modifiers: XS 41879 TRIM SKIN LESIONS, 2 TO 4, Modifiers: [...] DPM Date:? Generated for Castillo galarza/Denita/Jose Miguel on:?10/10/2024 12:01 [...]
--- OUTSIDE RECORDS SUMMARY | 2024-10-10 12:01 | XMS_ITS ---
Author Organization [facility] Address [address] [place] [address] Care Team Providers Care Dredge Boat Engineer Name Role Phone Clive Chaidez Primary Care Provider Traci Juarez Unavailable [phone] Allergies Allergen (clinical drug ingredient) Drug/Non Drug [...] Notes Tobacco use: Nonsmoker Vital Signs Height 1iv70xh in 09/10/2024 Weight 214 lbs 09/10/2024 BMI 30.7 kg/m2 09/10/2024 Blood pressure systolic 140 mm Hg 09/11/19 25 Blood pressure diastolic 80 mm Hg 025 Encounters Encounter Location Date Provider Diagnosis [facility] [place] [address] [place] [address] 09/10/2024 Traci Jewell Type 2 diabetes mellitus [...] Reason: Provider Name:Traci oliva, 11/27/2024 11:15:00 AM, [address] [place] [address], [phone], Procedure Notes * Category Sub-Category Detail Notes [...] use of a nail nipper and/or dremel-type universal grinder tool, to a more viable healthy nail plate [...] to maintain effectiveness in symptomatic relief - 68643 Keratoma Treatment Parring or Cutting o f [...] power dremel instrumentation by the physician of [facility] - 40054 Progress Notes * Issa DUKE LDOB: 4 (58 yo M)Acc No.[id number]:09/10/2024 Progress Note Patient:Issa HARTMANN Provider:?Traci Jewell DPM :1965???Age:58 Y???Sex:Male Sean e:09/10/2024 Address:[address] [place] [address] [address], [facility] Pcp:Clive Chaidez Subjective: * Chief Complaints: * [...] Acetate: headacheAtorvastatinActemraHumiraLeflunomideOrencia ClickJectyes[Allergies Verified] Objective: * Vitals:?Ht: 3iq80yr, Wt:214, BMI:30.7, Shoe size: 10.5, BP:140/80mm Hg, [...] use of a nail nipper and/or dremel-type universal grinder tool, to a more viable healthy nail plate [...] to maintain effectiveness in symptomatic relief - 20299.?Keratoma Treatment:?Parring or Cutting of Benign Hyperkeratotic Lesion(s)?(-56) [...] instrumentation by the physician of record - 29728.? * Procedure Codes:?33989 DEBRI DE NAIL, 6 OR MORE, Modifiers: XS 18559 TRIM SKIN LESIONS, 2 TO 4, Modifiers: [...] DPM Date:?06/2024 Generated for Castillo galarza/Denita/Jose Miguel on:?10/10/2024 12:01 [...]
--- OUTSIDE RECORDS SUMMARY | 2024-10-10 12:01 | XMS_ITS | Patient Health Record ---
Author Organization [facility] Address [address] [place] [address] Care Team Providers Care Milling Machine Set Up Operator Name Role Phone Clive Chaidez Primary Care Provider Traci Juarez Unavailable [phone] Allergies Allergen (clinical drug ingredient) Drug/Non Drug [...] Problem Acquired hammer toe of right foot (0614953298262115 ) Other hammer toe(s) (acquired), right foot (M20.41) Active confirmed Problem Acquired hammer toe of left foot (8802652915779544 ) Other hammer toe(s) (acquired), left foot (M20.42) Active confirmed Problem Polyneuropathy due to type 2 diabetes mellitus (176884259) Type 2 diabetes mellitus with diabetic polyneuropathy (E11.42) Active confirmed Vital Signs Blood pressure diastolic 80 mm Hg 09/10/2024 Height 0ss12ob in 09/10/2024 Blood pressure systolic 140 mm Hg 09/10/2024 Weight 214 lbs 09/10/2024 BMI 30.7 kg/m2 09/10/2024 Encounters Encounter Location Date Provider Diagnosis [facility] [address] [place] [address] 04/16/2024 Traci Jewell Type 2 diabetes mellitus with diabetic polyneuropathy E11.42 ; Tinea unguium B35.1 ; Other hammer toe(s) (acquired), right foot M20.41 and Other hammer toe(s) (acquired), left foot M20.[address] [facility] [address] 07/03/2024 Traci Jewell Type 2 diabetes mellitus with diabetic polyneuropathy E11.42 ; Other hammer toe(s) (acquired), right foot M20.41 ; Tinea unguium B35.1 and Other hammer toe(s) (acquired), left foot M20.[address] [address] 09/10/2024 Traci Jewell Type 2 diabetes mellitus [...] Details Provider Name:Traci oliva, 11/27/2024 11:15:00 AM, [address] [place] [address], [address], Insurance Providers Payer Name Payer Address Payer Phone Subscriber Number Group Number Insured Name Patient Relationship to Insured Coverage Start Date Coverage End Date [facility] [employer] Claims [address] [place] [id number] Issa Cerna Self - patient is the [...]
== END 2024-10-10 11:03 | disposition home or self-care (01) ==
LOC: HO.HCS 10:31
PROVIDERS: PCP Internal Medicine; Visit Provider Internal Medicine
DX: I25.10 Atherosclerotic heart disease of native coronary artery without angina pectoris (principal); I10 Essential (primary) hypertension; E11.65 Type 2 diabetes mellitus with hyperglycemia
CPT/HCPCS: 93010; 99214; G2211

== ENCOUNTER → 2024-10-10 10:30 | Outpatient (BNVA) | payer OTHER, SELFPAY | PROVIDERS: PCP Internal Medicine; Visit Provider Internal Medicine | DX: I25.10 Atherosclerotic heart disease of native coronary artery without angina pectoris (principal); I10 Essential (primary) hypertension; E11.65 Type 2 diabetes mellitus with hyperglycemia | CPT/HCPCS: 93005; 99212 ==

== ENCOUNTER 2024-10-31 10:39 | Outpatient (REF) | payer OTHER, SELFPAY ==
--- OUTSIDE RECORDS SUMMARY | 2024-10-31 11:19 | XMS_ITS | Patient Health Record ---
Author Organization [facility] Address [address] [place] [address] Care Team Providers Care Fraud Investigator Name Role Phone Clive Chaidez Primary Care Provider Traci Juarez Unavailable [phone] Allergies Allergen (clinical drug ingredient) Drug/Non Drug [...] Problem Acquired hammer toe of right foot (7740348125137898 ) Other hammer toe(s) (acquired), right foot (M20.41) Active confirmed Problem Acquired hammer toe of left foot (1483803058874180 ) Other hammer toe(s) (acquired), left foot (M20.42) Active confirmed Problem Polyneuropathy due to type 2 diabetes mellitus (973752445) Type 2 diabetes mellitus with diabetic polyneuropathy (E11.42) Active confirmed Vital Signs Blood pressure diastolic 80 mm Hg 09/10/2024 Height 4cm65od in 09/10/2024 Blood pressure systolic 140 mm Hg 09/10/2024 Weight 214 lbs 09/10/2024 BMI 30.7 kg/m2 09/10/2024 Encounters Encounter Location Date Provider Diagnosis [facility] [address] [place] [address] 04/16/2024 Traci Jewell Type 2 diabetes mellitus with diabetic polyneuropathy E11.42 ; Tinea unguium B35.1 ; Other hammer toe(s) (acquired), right foot M20.41 and Other hammer toe(s) (acquired), left foot M20.[address] [facility] [address] 07/03/2024 Traci Jewell Type 2 diabetes mellitus with diabetic polyneuropathy E11.42 ; Other hammer toe(s) (acquired), right foot M20.41 ; Tinea unguium B35.1 and Other hammer toe(s) (acquired), left foot M20.[address] [address] 09/10/2024 Traci Jewell Type 2 diabetes mellitus [...] Details Provider Name:Traci oliva, 11/27/2024 11:15:00 AM, [address] [place] [address], [address], Insurance Providers Payer Name Payer Address Payer Phone Subscriber Number Group Number Insured Name Patient Relationship to Insured Coverage Start Date Coverage End Date [facility] [employer] Claims [address] [place] [id number] Issa Cerna Self - patient is the [...]
--- OUTSIDE RECORDS SUMMARY | 2024-10-31 11:19 | XMS_ITS ---
Author Organization [facility] Address [address] [facility] [place] [address] Care Team Providers Care Director Mobile Name Role Phone Clive Chaidez Primary Care Provider Traci Juarez Unavailable [phone] Allergies Allergen (clinical drug ingredient) Drug/Non Drug [...] Notes Tobacco use: Nonsmoker Vital Signs Height 4az96fb in 09/10/2024 Weight 214 lbs 09/10/2024 BMI 30.7 kg/m2 09/10/2024 Blood pressure systolic 140 mm Hg 09/11/19 25 Blood pressure diastolic 80 mm Hg 025 Encounters Encounter Location Date Provider Diagnosis [facility] [place] [address] [place] [address] 09/10/2024 Traci Jewell Type 2 diabetes mellitus [...] Reason: Provider Name:Traci oliva, 11/27/2024 11:15:00 AM, [address] [place] [address], [address], Procedure Notes * Category Sub-Category Detail Notes [...] use of a nail nipper and/or dremel-type bark grinder, to a more viable healthy nail [...] to maintain effectiveness in symptomatic relief - 97323 Keratoma Treatment Parring or Cutting o f [...] power dremel instrumentation by the physician of [facility] - 60053 Progress Notes * Issa DUKE LDOB: 4 (58 yo M)Acc No.[id number]:09/10/2024 Progress Note Patient:Issa HARTMANN Provider:?Traci Jewell DPM :1965???Age:58 Y???Sex:Male Sean e:09/10/2024 Address:[address] [place] [address] [address] [facility] Pcp:Clive Chaidez Subjective: * Chief Complaints: * [...] Acetate: headacheAtorvastatinActemraHumiraLeflunomideOrencia ClickJectyes[Allergies Verified] Objective: * Vitals:?Ht: 2zc51xq, Wt:214, BMI:30.7, Shoe size: 10.5, BP:140/80mm Hg, [...] use of a nail nipper and/or dremel-type bark grinder, to a more viable healthy nail [...] to maintain effectiveness in symptomatic relief - 74619.?Keratoma Treatment:?Parring or Cutting of Benign Hyperkeratotic Lesion(s)?(-56) [...] instrumentation by the physician of record - 34537.? * Procedure Codes:?29424 DEBRI DE NAIL, 6 OR MORE, Modifiers: XS 45327 TRIM SKIN LESIONS, 2 TO 4, Modifiers: [...] DPM Date:?06/2024 Generated for Castillo galarza/Denita/Jose Miguel on:?10/31/2024 11:19 AM EDT History and Physical Notes * [...]
--- OUTSIDE RECORDS SUMMARY | 2024-10-31 11:19 | XMS_ITS ---
Author Organization [facility] Address [address] [facility] [place] [address] Care Team Providers Care Supervisor Color Making Name Role Phone Clive Chaidez Primary Care Provider Traci Juarez Unavailable [phone] Allergies Allergen (clinical drug ingredient) Drug/Non Drug [...] Polyneuropathy due to type 2 diabetes mellitus (370082809) Type 2 diabetes mellitus with diabetic polyneuropathy (E11.42) Active confirmed Problem Acquired hammer toe of right foot (5980871289223339 ) Other hammer toe(s) (acquired), right foot (M20.41) Active confirmed Problem Acquired hammer toe of left foot (7416516124023261 ) Other hammer toe(s) (acquired), left foot (M20.42) Active confirmed Vital Signs Height 5ft 10in in 04/16/2024 Weight 208 lbs lbs 04/16/2024 BMI 29.84 kg/m2 04/16/2024 Encounters Encounter Location Date Provider Diagnosis [facility] [address] [address] 04/16/2024 Traci Jewell Type 2 diabetes mellitus [...] Provider Name:Traci oliva, 11/27/2024 11:15:00 AM, [address] [place], [address], Procedure Notes * Category Sub-Category Detail Notes Debride Nail 6-10 Nail debridement Performance o f this nail treatment by a nonprofessional would put this patients foot and overall health at risk. Therefore, nail debridement was performed extensively to reduce/remove overall nail length, girth, thickness, subungual debris, and necrotic tissue, by manual and/or electrical means through the use of a nail nipper and/or dremel-type disk grinder, to a more viable healthy nail plate or bed tissue 6-10. Silver nitrate used for any petechial bleeding as necessary. Definitive antifungal treatment options have been reviewed and discussed with the patient. The patient chooses, no pharmaceutical tx - 68591 Keratoma Treatment Parring or Cutting o f Benign Hyperkeratotic Lesion(s) (-56) 2-4 Lesions - The Benign hyperkeratotic lesions, as described above were pared, and/or cut utilizing a sterile 15 blade, tissue nippers, and/or dremel - 30314 Progress Notes * Issa DUKE LDOB: 4 (58 yo M)Acc No.[id number]:04/16/2024 Progress Notes Patient:?Issa Duke Provider:?Traci Jewell DPM :1965???Age:58 Y???Sex:Male Sean e:04/16/2024 Address:[address] [place] [address] [facility] Pcp:Clive Chaidez Subjective: * Chief Complaints: * [...] use of a nail nipper and/or dremel-type disk grinder, to a more viable healthy nail plate or bed tissue 6-10. Silver nitrate used for any petechial bleeding as necessary. Definitive antifungal treatment options have been reviewed and discussed with the patient. The patient chooses, no pharmaceutical tx - 27311.?Keratoma Treatment:?Parring or Cutting of Benign Hyperkeratotic Lesion(s)?(-56) 2-4 Lesions - The Benign hyperkeratotic lesions, as described above were pared, and/or cut utilizing a sterile 15 blade, tissue nippers, and/or dremel - 47065.? * Procedure Codes:?64282 DEBRI DE NAIL, 6 OR MORE, Modifiers: XS 08102 TRIM SKIN LESIONS, 2 TO 4, Modifiers: [...] WARREN Date:?10/2023 Generated for Castillo galarza/Denita/Jose Miguel on:?10/31/2024 11:19 [...]
--- OUTSIDE RECORDS SUMMARY | 2024-10-31 11:19 | XMS_ITS ---
Author Organization [facility] Address [address] [facility] [place] [address] Care Team Providers Care Pickling Operator Name Role Phone Clive Chaidez Primary Care Provider Traci Juarez Unavailable [phone] Allergies Allergen (clinical drug ingredient) Drug/Non Drug [...] Notes Tobacco use: Nonsmoker Vital Signs Height 0gw93ix in 07/03/2024 Weight 214 lbs 07/03/2024 BMI 30.7 kg/m2 07/03/2024 Blood pressure systolic 140 mm Hg 07/03/19 25 Blood pressure diastolic 80 mm Hg 025 Encounters Encounter Location Date Provider Diagnosis [facility] [place] [address] [place] [address] 07/03/2024 Traci Jewell Type 2 diabetes mellitus [...] Reason: Provider Name:Traciharry oliva, 11/27/2024 11:15:00 AM, [address] [place] [address], [address], Procedure Notes * Category Sub-Category Detail Notes [...] use of a nail nipper and/or dremel-type air grinder, to a more viable healthy nail [...] to maintain effectiveness in symptomatic relief - 95184 Keratoma Treatment Parring or Cutting o f [...] instrumentation by the physician of record - 44169 Progress Notes * Issa DUKE LDOB: 4 (58 yo M)Acc No.[id number]:07/03/2024 Progress Note Patient:?Issa DUKE Provider:?Traci Jewell DPM :1965???Age:58 Y???Sex:Male Sean e:07/03/2024 Address:[address] [place] [address] Dr Collette Zazueta, [facility] Pcp:Clive Chaidez Subjective: * Chief Complaints: * [...] Acetate: headacheAtorvastatinActemraHumiraLeflunomideOrencia ClickJectyes[Allergies Verified] Objective: * Vitals:?Ht: 8ua94my, Wt:214, BMI:30.7, Shoe size: 10.5, BP:140/80mm Hg, [...] use of a nail nipper and/or dremel-type air grinder, to a more viable healthy nail [...] to maintain effectiveness in symptomatic relief - 85468.?Keratoma Treatment:?Parring or Cutting of Benign Hyperkeratotic Lesion(s)?(-56) [...] instrumentation by the physician of record - 68207.? * Procedure Codes:?65042 DEBRI DE NAIL, 6 OR MORE, Modifiers: XS 97163 TRIM SKIN LESIONS, 2 TO 4, Modifiers: [...] DPM Date:? Generated for Castillo galarza/Denita/Jose Miguel on:?10/31/2024 11:19 [...]
[2024-10-31 11:36] LABS: MANUAL DIFF FLAG NO
[2024-10-31 11:51] LABS: Basophils Absolute Auto 0.1 X10*3/uL (0.0-0.2); Basophils Percent Auto 0.7 % (0-2); Eosinophils Absolute Auto 0.3 X10*3/uL (0.0-0.4); Eosinophils Percent Auto 3.3 % (0-4); Hematocrit 42.8 % (42.0-52.0); Hemoglobin 14.6 g/dl (14.0-18.0); Imm Gran Abs Auto 0.04 X10*3/uL (0.00-0.03); Imm Gran Pct Auto 0.5 % (0.0-0.4); Lymphocytes Absolute Auto 3.5 X10*3/uL (1.2-4.9); Lymphocytes Percent Auto 41.5 % (20-40); Mean Corpuscular HGB Conc 34.1 g/dl (31.0-36.0); Mean Corpuscular Hemoglobin 29.8 pg (27.0-33.0); Mean Corpuscular Volume 87.3 fL (80.0-98.0); Mean Platelet Volume 9.3 fL (9.4-12.4); Monocytes Absolute Auto 0.6 X10*3/uL (0.1-1.2); Platelet Count 193 X10*3/uL (160-400); Red Cell Distribution Width 13.2 % (11.0-16.0); White Blood Count 8.5 X10*3/uL (4.8-10.8)
[2024-10-31 12:30] LABS: Erythrocyte Sedimentation Rate 8 MM/HR (0-15)
[2024-10-31 12:37] LABS: Alanine Aminotransferase 28 U/L (0-40); Albumin Level 4.6 g/dL (3.5-5.0); Alkaline Phosphatase 78 U/L (39-117); Anion Gap 10 (12-20); Aspartate Amino Transferase 25 U/L (5-37); Bilirubin Total 0.4 mg/dL (0.0-1.0); Blood Urea Nitrogen 13 mg/dL (9-16); C Reactive Protein 0.25 mg/dL (< or = 0.50); Calcium 9.2 mg/dL (8.4-10.2); Carbon Dioxide 28 mmol/L (22-29); Chloride 109 mmol/L (96-108); Estimated Glomerular Filt Rate > 60; Glucose Random 150 mg/dL (60-115); Potassium 4.1 mmol/L (3.3-5.1); Sodium 143 mmol/L (135-145); Total Protein 7.2 g/dL (6.5-8.0)
[2024-10-31 13:02] LABS: Creatinine Urine 171.48 mg/dL
[2024-11-01 03:51] LABS: Hepatitis A Antibody IgM 0.16 Index (0-0.79); ~Hepatitis A Antibody IgM Nonreactive (Nonreactive)
[2024-11-01 04:13] LABS: HBS Num1 1.41 mIU/mL (0-7.99); HBc Num1 0.08 S/CO (0.00-0.79); HBsAGNum1 0.37 S/CO (0.00-0.99); Hepatitis B Core Antibody Nonreactive (Nonreactive); Hepatitis B Surface Antigen Negative (Negative); ~HepC Num1 0.14 S/CO (0.00-0.79); ~Hepatitis B Surface Antibody NONREACTIVE (Nonreactive); ~Hepatitis C Antibody Nonreactive (Nonreactive)
[2024-11-02 21:13] LABS: TS Negative Control Passed; TS Panel A 1; TS Panel B 0; TS Positive Control Passed; TSpotTB Negative (Negative)
== END 2024-10-31 10:40 | disposition home or self-care (01) ==
LOC: HO.LAB 10:39
PROVIDERS: PCP Internal Medicine; Visit Provider Student in an Organized Health Care Education/Training Program
DX: M05.9 Rheumatoid arthritis with rheumatoid factor, unspecified (principal); E11.65 Type 2 diabetes mellitus with hyperglycemia; Z79.899 Other long term (current) drug therapy
CPT/HCPCS: 36415; 80053; 82570; 85025; 85652; 86140; 86481; 86704; 86706; 86709; 86803; 87340

== ENCOUNTER 2024-11-06 14:01 | Outpatient (AMB) | payer OTHER, SELFPAY ==
[2024-11-06 14:02] VITALS: BP 130/78; PULSE 78; O2SAT 97; BMI 30.5
--- NOTE | 2024-11-06 14:02 | A.OFFVIS_ITS ---
Vital Signs 11/06/24 14:02 Height 5 ft 10 in Weight 212 lb 8.41 oz BMI 30.5 BP 130/78 Blood Pressure Location Lt brachial Position Sitting Pulse 78 Pulse Source Pulse Oximeter Pulse Oximetry (%) 97 Oxygen Delivery Method Room Air Intake Visit Reasons: follow up Intake Note: Patient presents today for follow up on RA. Patient states he had not taken the Hydroxychloroquine yet, but does have some at home, he would like to talk about side effects with other certain medications. Allergies penicillin V Allergy (Severe, Verified 11/06/24 14:05) rash adalimumab [From Humira] Allergy (Intermediate, Verified 11/06/24 14:05) leg pain atorvastatin Allergy (Intermediate, Verified 11/06/24 14:05) leg pain leflunomide Allergy (Intermediate, Verified 11/06/24 14:05) kidney failure tocilizumab [From Actemra] Allergy (Intermediate, Verified 11/06/24 14:05) frequent nail infection lisinopril Adverse Reaction (Intermediate, Verified 11/06/24 14:05) Anxiety losartan Adverse Reaction (Intermediate, Verified 11/06/24 14:05) Nausea Medication List - Last Reconciled 11/06/24 by Serina Franz MD albuterol sulfate 90 mcg/actuation 2 puffs inhalation Q4-6H PRN amlodipine 5 mg PO DAILY aspirin 81 mg PO DAILY blood sugar diagnostic (FreeStyle Lite Strips) test daily blood-glucose meter (FreeStyle Lite Meter kit) test daily carvedilol 6.25 mg PO BID diclofenac sodium 1% (Voltaren) 2 grams topical QID diclofenac sodium 1% 4 grams topical QID famotidine (Pepcid) 40 mg PO BEDTIME hydroxychloroquine (Plaquenil) 200 mg PO BID lancets (FreeStyle Lancets) test daily lancets (FreeStyle Lancets) As directed check BS QD nitroglycerin 0.4 mg sublingual Q5M PRN pregabalin 75 mg PO BID rosuvastatin 40 mg PO DAILY sennosides (senna) 8.6 mg PO BEDTIME sertraline 150 mg PO DAILY tolterodine ER (Detrol LA) 2 mg PO Q24H [wrist cock up splint Wear on each wrist at night. ] HPI Comments Details: Patient is a 58-year-old male with hypertension complicated by CAD, hyperlipidemia, diabetes, history of tubular adenoma of the colon, BPH, polyarticular osteoarthritis and seropositive rheumatoid arthritis here today for follow up Interval History: Patient last seen 07/26/2024 with me. At that time he had stopped his Orencia due to concerns about side effects. He did have some evidence of RA activity on exam and so he was started on Plaquenil Patient did not start this medication because he was changing HTN medication and so he did not want to add any thing new to the mix. Still complaining mainly of hand pain Rheumatologic History: Seropositive rheumatoid arthritis diagnosed in 2019 ++RF -ve CCP Leflunomide: December 2020 - March 2021 urinary frequency Actemra: January 2020- December 2020 -Had surgery did not want to restart after, frequent nail infections. Enbrel: January- denied by insurance Humira: October 2019- January 2020 - active disease on exam/ listed with allergy leg pain Orencia: March 2021 - 05/2024 Current Rheumatology Medication(s): Plaquenil 200mg bid [facility] Medical History (Updated 10/09/24 @ 13:26 by SERGIO Collins) RSV (respiratory syncytial virus infection) Encounter for monitoring of hydroxychloroquine therapy Pre-op examination Frequency of micturition Right wrist pain Annual physical exam Lower urinary tract symptoms Immunization counseling Screening for viral disease Bilateral carpal tunnel syndrome Screening for colon cancer Screening for prostate cancer New onset type 2 diabetes mellitus Depression Adult general medical exam Precordial chest pain Right hip pain Acute sinusitis Right rotator cuff tear Atherosclerotic cardiovascular disease Left rotator cuff tear Gastritis determined by endoscopy Lip cancer Erectile dysfunction Anxiety Degenerative disc disease, lumbar Horseshoe kidney Coronary artery disease GERD (gastroesophageal reflux disease) Hypercholesterolemia Cervical radiculopathy 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 Osteoarthritis Surgical History History of carpal tunnel surgery of right wrist History of rotator cuff surgery S/P left rotator cuff repair Hx of colonoscopy History of coronary artery stent placement History of cervical spinal surgery History of shoulder surgery History of lip cancer H/O left knee surgery History of tonsillectomy Family History Father Lung cancer CAD (coronary artery disease) CVD (cardiovascular disease) Hx of CABG Mother Colon cancer Mental health disorder Maternal Uncle Lung cancer Maternal Uncle Substance abuse Substance use disorder Brother Lung cancer Social History Housing: Other Housing Other:: Rents a room in a house Are you a primary director of managed care to a significant other at home: No Do you presently have visiting nurse or other home services: No Alcohol intake: current Alcohol intake frequency: holidays/special occasions only Alcohol type: beer and hard liquor Comment: once a month glass Patient Tobacco Use Status: Former Tobacco user Tobacco use type: Cigarette Years Smoked: quit 2004 smoke marijuana e-Cigarette/Vaping Use: Never Used Second Hand Smoke Exposure: Yes Substance Use Type: Marijuana service: No Current occupational status: unemployed Current occupation: right handed Cognitive needs: No Hearing needs: No Vision needs: Yes Review of Systems Const Details: Review of Systems Constitutional: Denies fever, chills, weight loss ENT: Denies vision changes, eye pain or eye redness, dental caries, dry mouth GI: Denies nausea, vomiting, diarrhea, abdominal pain, change in BM Pulm: Denies SOB, VIVEROS, hemoptysis, wheezing Cards: Denies chest pain, palpitations Skin: Denies Raynaud's, rash, nail changes, photosensitivity, [employer]: Denies headaches, weakness, paresthesias, recurrent falls MSK: as per HPI All other systems reviewed and are unremarkable except noted above Physical Exam Vital Signs: Last Vital Signs Pulse 78 11/06/24 14:02 BP 130/78 11/06/24 14:02 Pulse Ox 97 11/06/24 14:02 Oxygen Delivery Method Room Air 11/06/24 14:02 BMI result Body Mass Index 30.5 Vital signs reviewed Physical Examination CONSTITUITIONAL Patient alert and cooperative. Well appearing and in no apparent painful distress HEENT Conjunctiva and sclera clear. ?Pupils equal round and reactive to light. ?No lymphadenopathy. ? CHEST/RESPIRATORY SYSTEM Normal respiratory effort and able to speak in complete sentences. ?Clear to auscultation bilaterally. ?No crackles, rales, rhonchi, wheezes heard. CARDIAC SYSTEM Regular rate and rhythm. ?S1 and S2 heard no murmurs. ?Radial pulses intact bilaterally MSK Hands: ?Able to make a fist, though complaining of a lot of stiffness. Has significant herbedens and bouchards nodes. No TTP of the MCPs or PIPs today Wrists: ?Full range of motion at the wrists without pain. ?No tenderness to palpation or synovitis noted to the wrists. Elbows: Full range of motion without pain. No tenderness, weakness, swelling, increased warmth or erythema. Shoulders: Full range of motion without pain. No tenderness, weakness, swelling, increased warmth or erythema. Hips: Full range of motion without pain. Knees: ?Full range of motion. ?No tenderness, swelling, increased warmth or erythema.?Bilateral crepitations Ankles: Full range of motion. ?No TTP or swelling Feet: ?Negative squeeze test. ?No tenderness to palpation or swelling of the MTPs. SKIN Scattered actinic keratosis and seborrheic dermatoses Results Reviewed Results Reviewed: Laboratory Tests 10/31/24 11:35 WBC 8.5 RBC 4.90 Hgb 14.6 Hct 42.8 Plt Count 193 ESR 8 Sodium 143 Potassium 4.1 Chloride 109 H Carbon Dioxide 28 BUN 13 Creatinine 0.78 AST 25 ALT 28 Alkaline Phosphatase 78 C-Reactive Protein 0.25 Infectious serology 10/31/24 11:35 Hepatitis A IgM Ab Nonreactive Hep Bs Antigen Negative Hep Bs Antibody NONREACTIVE Hep B Core Total Ab Nonreactive Hepatitis C Ab (EIA) Nonreactive TB Test (T-Spot) Com Negative Assessment & Plan Assessment & Plan (1) Seropositive rheumatoid arthritis: Comment: ++RF -ve CCP Leflunomide: December 2020 - March 2021 urinary frequency Actemra: January 2020- December 2020 -Had surgery did not want to restart after, frequent nail infections. Enbrel: January- denied by insurance Humira: October 2019- January 2020 - active disease on exam/ listed with allergy leg pain Orencia: March 2021- 05/2024 Code(s): M05.9 - Rheumatoid arthritis with rheumatoid factor, unspecified Category: Medical Plan: #Seropositive RA Patient is a 58-year-old male with seropositive rheumatoid arthritis here today for follow up. Self discontinued Orencia due to ineffectiveness and side effects. Did not start plaquenil due to concern for side effects with new medications for HTN. Willing to try the plaquenil now. Plan - Plaquenil 200mg bid - Ophthalmology referral at next visit if there is efficacy - If no improvement or mild improvement on the Plaquenil maybe we can consider methotrexate - RTC 4 months - Labs before visit: CBC, CMP, ESR, CRP (2) Osteoarthritis of hands, bilateral: Code(s): M19.041 - Primary osteoarthritis, right hand; M19.042 - Primary osteoarthritis, left hand Category: Medical Qualifiers: Osteoarthritis type: primary Qualified Code(s): M19.041 - Primary osteoarthritis, right hand; M19.042 - Primary osteoarthritis, left hand Plan: #Polyarticular OA Patient with polyarticular OA but right now of concern is OA related to his bilateral hands. Continue with home remedy of paraffin waxes Did not find much improvement with the diclofenac gel Plan - Continue home management with paraffin wax baths, stretches and exercises (3) Encounter for monitoring of hydroxychloroquine therapy: Code(s): Z51.81 - Encounter for therapeutic drug level monitoring; Z79.899 - Other assisted (current) drug therapy Category: Medical Plan: #Long-term Use of Hydroxychloroquine Discussed with patient the risks and benefits of hydroxychloroquine in managing the rheumatic condition Benefits include: - Reduced pain, reduce mortality, maintenance of remission and reduction of flares Risks include: - GI upset, skin hyperpigmentation, retinal toxicity (especially after more than 5 years of use), myopathy Advised yearly ophthalmology visits Plan I spent 20 minutes reviewing the record and labs, taking a history, examining the patient, discussing the treatment plan and documenting in the medical record Orders: Orders Complete Blood Count Auto Diff 4 Months M05.9 - Rheumatoid arthritis with rheumatoid factor, unspecified Comprehensive Met. Panel 4 Months M05.9 - Rheumatoid arthritis with rheumatoid factor, unspecified C Reactive Protein 4 Months M05.9 - Rheumatoid arthritis with rheumatoid factor, unspecified Erythrocyte Sedimentation Rate 4 Months M05.9 - Rheumatoid arthritis with rheumatoid factor, unspecified Coding Level of Care Code Est Pt Level 3 (96154) Diagnoses Seropositive rheumatoid arthritis M05.9 Primary osteoarthritis of both hands M19.041; M19.042 Osteoarthritis type: primary Encounter for monitoring of hydroxychloroquine therapy Z51.81; Z79.899
--- OUTSIDE RECORDS SUMMARY | 2024-11-06 14:56 | XMS_ITS ---
Author Organization [facility] Address [address] [place] [address] Care Team Providers Care Claims Adjuster Name Role Phone Clive Chaidez Primary Care Provider Traci Juarez Unavailable [phone] Allergies Allergen (clinical drug ingredient) Drug/Non Drug [...] Notes Tobacco use: Nonsmoker Vital Signs Height 0oe58kh in 07/03/2024 Weight 214 lbs 07/03/2024 BMI 30.7 kg/m2 07/03/2024 Blood pressure systolic 140 mm Hg 07/03/19 25 Blood pressure diastolic 80 mm Hg 025 Encounters Encounter Location Date Provider Diagnosis [facility] [place] [address] [place] [address] 07/03/2024 Traci Jewell Type 2 diabetes mellitus [...] Reason: Provider Name:Traciharry oliva, 11/27/2024 11:15:00 AM, [address] [place] [address], [address], Procedure Notes * Category Sub-Category Detail Notes [...] to maintain effectiveness in symptomatic relief - 93158 Keratoma Treatment Parring or Cutting o f [...] instrumentation by the physician of record - 23784 Progress Notes * Issa DUKE LDOB: 4 (58 yo M)Acc No.[id number]:07/03/2024 Progress Note Patient:?Issa DUKE Provider:?Traci Jewell DPM :1965???Age:58 Y???Sex:Male Sean e:07/03/2024 Address:[address] [place] [address] [address] Collette Zazueta, [facility] Pcp:Clive Chaidez Subjective: * Chief Complaints: * [...] Acetate: headacheAtorvastatinActemraHumiraLeflunomideOrencia ClickJectyes[Allergies Verified] Objective: * Vitals:?Ht: 3vv70aa, Wt:214, BMI:30.7, Shoe size: 10.5, BP:140/80mm Hg, [...] to maintain effectiveness in symptomatic relief - 46919.?Keratoma Treatment:?Parring or Cutting of Benign Hyperkeratotic Lesion(s)?(-56) [...] instrumentation by the physician of record - 65219.? * Procedure Codes:?14690 DEBRI DE NAIL, 6 OR MORE, Modifiers: XS 81136 TRIM SKIN LESIONS, 2 TO 4, Modifiers: [...] DPM Date:? Generated for Castillo galarza/Denita/Jose Miguel on:?11/06/2024 02:55 PM EDT History and Physical Notes * [...]
== END 2024-11-06 14:33 | disposition home or self-care (01) ==
LOC: HO.RHE 14:01
PROVIDERS: PCP Internal Medicine; Visit Provider Student in an Organized Health Care Education/Training Program
DX: M05.79 Rheumatoid arthritis with rheumatoid factor of multiple sites without organ or systems involvement (principal); M19.041 Primary osteoarthritis, right hand; M19.042 Primary osteoarthritis, left hand; Z51.81 Encounter for therapeutic drug level monitoring; Z79.899 Other long term (current) drug therapy
CPT/HCPCS: 99213

== ENCOUNTER → 2024-11-06 14:01 | Outpatient (BNVA) | payer OTHER, SELFPAY | PROVIDERS: PCP Internal Medicine; Visit Provider Student in an Organized Health Care Education/Training Program | DX: M05.9 Rheumatoid arthritis with rheumatoid factor, unspecified (principal); M19.041 Primary osteoarthritis, right hand; M19.042 Primary osteoarthritis, left hand; Z51.81 Encounter for therapeutic drug level monitoring; Z79.899 Other long term (current) drug therapy | CPT/HCPCS: 99212 ==

== ENCOUNTER 2024-11-07 12:31 | Outpatient (AMB) | payer OTHER, SELFPAY ==
--- OUTSIDE RECORDS SUMMARY | 2024-11-07 12:34 | XMS_ITS | Patient Health Record ---
[facility] Organization [facility] Address [address] [place] [address] Care Team Providers Care Wire Brusher Name Role Phone Clive Cahidez Primary Care Provider Traci Juarez Unavailable [phone] Allergies Allergen (clinical drug ingredient) Drug/Non Drug [...] Problem Acquired hammer toe of right foot (0531299372397992 ) Other hammer toe(s) (acquired), right foot (M20.41) Active confirmed Problem Acquired hammer toe of left foot (6953919559631266 ) Other hammer toe(s) (acquired), left foot (M20.42) Active confirmed Problem Polyneuropathy due to type 2 diabetes mellitus (419180676) Type 2 diabetes mellitus with diabetic polyneuropathy (E11.42) Active confirmed Vital Signs Blood pressure diastolic 80 mm Hg 09/10/2024 Height 4nr25ot in 09/10/2024 Blood pressure systolic 140 mm Hg 09/10/2024 Weight 214 lbs 09/10/2024 BMI 30.7 kg/m2 09/10/2024 Encounters Encounter Location Date Provider Diagnosis [facility] [address] [place] [address] 04/16/2024 Traci Jewell Type 2 diabetes mellitus with diabetic polyneuropathy E11.42 ; Tinea unguium B35.1 ; Other hammer toe(s) (acquired), right foot M20.41 and Other hammer toe(s) (acquired), left foot M20.[address] [facility] [address] 07/03/2024 Traci Jewell Type 2 diabetes mellitus with diabetic polyneuropathy E11.42 ; Other hammer toe(s) (acquired), right foot M20.41 ; Tinea unguium B35.1 and Other hammer toe(s) (acquired), left foot M20.[address] [address] 09/10/2024 Traci Jewell Type 2 diabetes mellitus [...] Details Provider Name:Traci oliva, 11/27/2024 11:15:00 AM, [address] [place] [address], [address], Insurance Providers Payer Name Payer Address Payer Phone Subscriber Number Group Number Insured Name Patient Relationship to Insured Coverage Start Date Coverage End Date [facility] [employer] Claims [address] [place] [id number] Issa Cerna Self - patient is the [...]
--- NOTE | 2024-11-07 12:38 | A.OFFVIS_ITS ---
VS Expanded 11/07/24 12:39 Height 5 ft 10 in Weight 214 lb 4.629 oz BMI 30.7 Intake Visit Reasons: T2DM Allergies penicillin V Allergy (Severe, Verified 11/06/24 14:05) rash adalimumab [From Humira] Allergy (Intermediate, Verified 11/06/24 14:05) leg pain atorvastatin Allergy (Intermediate, Verified 11/06/24 14:05) leg pain leflunomide Allergy (Intermediate, Verified 11/06/24 14:05) kidney failure tocilizumab [From Actemra] Allergy (Intermediate, Verified 11/06/24 14:05) frequent nail infection lisinopril Adverse Reaction (Intermediate, Verified 11/06/24 14:05) Anxiety losartan Adverse Reaction (Intermediate, Verified 11/06/24 14:05) Nausea Nutrition Presentation Details: Pt presents for MNT f/u for T2DM Pt reports working on diet modifications , reducing sugars/pastries/sugar containing beverages reports starting to choose ensure original in AM as a meal replacement Noted A1c at 6.5% on 10/04,(from 6.9%) pt working on diet modifications, does not want dm meds BS Monitoring Most Recent Diabetes Results: Creatinine 0.78 mg/dL (0.5-1.4) 10/31/24 Blood Urea Nitrogen 13 mg/dL (9-16) 10/31/24 Sodium 143 mmol/L (135-145) 10/31/24 Potassium 4.1 mmol/L (3.3-5.1) 10/31/24 Chloride 109 mmol/L (96-108) H 10/31/24 Carbon Dioxide 28 mmol/L (22-29) 10/31/24 Calcium 9.2 mg/dL (8.4-10.2) 10/31/24 AST 25 U/L (5-37) 10/31/24 ALT 28 U/L (0-40) 10/31/24 Total Protein 7.2 g/dL (6.5-8.0) 10/31/24 Albumin 4.6 g/dL (3.5-5.0) 10/31/24 [facility] Medical History (Updated 10/09/24 @ 13:26 by SERGIO Collins) RSV (respiratory syncytial virus infection) Encounter for monitoring of hydroxychloroquine therapy Pre-op examination Frequency of micturition Right wrist pain Annual physical exam Lower urinary tract symptoms Immunization counseling Screening for viral disease Bilateral carpal tunnel syndrome Screening for colon cancer Screening for prostate cancer New onset type 2 diabetes mellitus Depression Adult general medical exam Precordial chest pain Right hip pain Acute sinusitis Right rotator cuff tear Atherosclerotic cardiovascular disease Left rotator cuff tear Gastritis determined by endoscopy Lip cancer Erectile dysfunction Anxiety Degenerative disc disease, lumbar Horseshoe kidney Coronary artery disease GERD (gastroesophageal reflux disease) Hypercholesterolemia Cervical radiculopathy 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 Osteoarthritis Surgical History History of carpal tunnel surgery of right wrist History of rotator cuff surgery S/P left rotator cuff repair Hx of colonoscopy History of coronary artery stent placement History of cervical spinal surgery History of shoulder surgery History of lip cancer H/O left knee surgery History of tonsillectomy Family History Father Lung cancer CAD (coronary artery disease) CVD (cardiovascular disease) Hx of CABG Mother Colon cancer Mental health disorder Maternal Uncle Lung cancer Maternal Uncle Substance abuse Substance use disorder Brother Lung cancer Social History Housing: Other Housing Other:: Rents a room in a house Are you a primary palliative care nurse to a significant other at home: No Do you presently have visiting nurse or other home services: No Alcohol intake: current Alcohol intake frequency: holidays/special occasions only Alcohol type: beer and hard liquor Comment: once a month glass Patient Tobacco Use Status: Former Tobacco user Tobacco use type: Cigarette Years Smoked: quit 2004 smokes marijuana e-Cigarette/Vaping Use: Never Used Second Hand Smoke Exposure: Yes Substance Use Type: Marijuana service: No Current occupational status: unemployed Current occupation: right handed Cognitive needs: No Hearing needs: No Vision needs: Yes Assessment & Plan Assessment & Plan (1) Type 2 diabetes mellitus with hyperglycemia: Code(s): E11.65 - Type 2 diabetes mellitus with hyperglycemia Category: Medical Plan: Wt: 97 Kg ( 06/04 ), 97 kg (07/06), 100kg (09/03), 97 kg (11/03) Est kcal needs as per MSJ: 2100 (40% carb, 30% protein/fat) Est fluid needs as per 25-30 ml/d: 2900 Est prot per day as per 1 g/kg bw: 97 Recommend fiber intake : 8-10 g per day and gradually increase to 25-28 g per day for women and 35-38 g for men or as tolerated Recommend sodium intake per day : less than 2300 mg Educated patient on: ( R = reviewed V = verbalizes understanding N/R = needs review N/A = not applicable * Food sources of carbohydrate, adequate serving sizes and its role in various health conditions: R V N/R * Differences between complex carbohydrates a simple carbohydrates, role of fiber in diet: R * Lean protein sources of foods: R * Differences between types of fats and role in diet (mono on saturated fat fatty acids, saturated fatty acids, trans fats): R * Food sources of sodium in salt and healthy modifications for heart health in kidney health: R V R/V * Vitamins and minerals: R V N/R * Healthy plate method concept: R * Physical activity: Benefits a precaution: R V N/R * Hypoglycemia protocol (rule of 15): R V N/R * Dietary prevention of Hyperglycemia: R * Discussed probiotic sources of foods: R Patient Instructions: include yogurt 3 times a week as bedtime snack choose high protein ensure vs original ensure - read food labels Coding Level of Care Code Nutr Indiv Subseq (99646) Diagnoses Type 2 diabetes mellitus with hyperglycemia E11.65 Time Spent (min) 30
[2024-11-07 12:39] VITALS: BMI 30.7
== END 2024-11-07 13:03 | disposition home or self-care (01) ==
LOC: HO.ENCR 12:31
PROVIDERS: PCP Internal Medicine; Visit Provider Dietitian, Registered
DX: E11.65 Type 2 diabetes mellitus with hyperglycemia (principal)

== ENCOUNTER → 2024-11-07 12:31 | Outpatient (BNVA) | payer OTHER, SELFPAY | PROVIDERS: PCP Internal Medicine; Visit Provider Dietitian, Registered | DX: E11.65 Type 2 diabetes mellitus with hyperglycemia (principal) | CPT/HCPCS: 97803 ==

== ENCOUNTER 2024-11-30 11:31 | Inpatient (IN) | payer OTHER, SELFPAY ==
[2024-11-30] VITALS (9 sets, daily range): BP systolic 119–222; BP diastolic 70–114; PULSE 57–77; RESP 16–22; TEMP 36.3–37.2; O2SAT 94–100; BMI 22.1; BMI 30.9
--- NOTE | 2024-11-30 | ECG_ITS ---
Test Reason : CHEST PAIN Blood Pressure : */* mmHG Vent. Rate : 60 BPM Atrial Rate : 60 BPM P-R Int : 160 ms QRS Dur : 98 ms QT Int : 420 ms P-R-T Axes : 61 -20 32 degrees QTcB Int : 420 ms Normal sinus rhythm Normal ECG When compared with ECG of 30-Nov-2024 11:39, No significant change was found Referred By: Christiana Fermin Electronically Signed By: Jake Logan
--- NOTE | ~2024-11-30 | CT_ITS ---
CLINICAL HISTORY: cp CT angiography chest, abdomen and pelvis with contrast. 3-D postprocessing. Comparison: None provided Findings: Great vessels, thoracoabdominal aorta, mesenteric/renal arteries, and iliofemoral arteries are patent without aneurysm, dissection, hemodynamically significant stenoses, or occlusion. The visualized thyroid and mediastinum are unremarkable. The heart size is normal. The lungs are clear. 4 mm subpleural nodule of the right lower lobe series 8, image 29. Additional 4 mm pulmonary nodule of the right lower lobe on image 38 and 39. Unremarkable gallbladder and solid organs. No urolithiasis. Horseshoe kidney. No bowel obstruction, pneumoperitoneum, or pneumatosis. Pelvic contents unremarkable. Appendix is not visualized. Degenerative changes of the spine. IMPRESSION: 1. No systemic arterial aneurysm or dissection. 2. No acute pulmonary embolus. 3. Horseshoe kidney. 4. Small pulmonary nodules up to 4 mm in size. Fleischner Society 2017 Guidelines for incidentally detected indeterminate nodules in persons 35 years of age or older. Single Solid Nodules: 5 mm or smaller nodules need no follow-up in low risk, and [address] follow-up is optional in high risk patients. 6-8 mm nodules have optional [address] follow-up in low risk, and 6-[address] follow-up followed by 18-[address] follow-up if no change in high risk patients. 9 mm or larger nodules should consider CT, PET/CT, or biopsy at 3 months regardless of patient risk. Multiple Solid Nodules: 5 mm or smaller nodules need no follow-up in low risk, and [address] follow-up is optional in high risk patients. 6-8 mm nodules need 3-[address] follow-up followed by an optional 18-[address] follow-up regardless of patient risk. 9 mm or larger nodules should consider 3-[address] follow-up. For low risk 18-24 month follow-up is optional, whereas for high risk it is needed. Single Ground Glass Nodules: 5 mm or smaller nodules need no followup 6 mm and larger nodules need CT at 6-12 months to confirm persistence, then CT every 2 years until 5 years Single Subsolid Nodules: 5 mm or smaller nodules need no followup 6 mm and larger nodules need CT at 3-6 months to confirm persistence. If no change and solid component /T/lt;6 mm, then CT every year until 5 years Multiple Ground Glass or Subsolid Nodules: 5 mm or smaller nodules need CT at 3-6 months. If stable, optional CT at 2 and 4 years. 6 mm or larger nodules need CT at 3-6 months. Subsequent management based on most suspicious nodule This document has been electronically signed by: Juan Rollins MD on 11/30/2024 14:45:31
--- NOTE | ~2024-11-30 | CT_ITS ---
Please refer to combined report with the CT angiogram abdomen performed concurrently. Electronically signed by: Ki Parry MD 12/02/2024 08:24 AM EDT RP
[2024-11-30 11:52] LABS: MANUAL DIFF FLAG NO
[2024-11-30 11:53] LABS: Basophils Absolute Auto 0.1 X10*3/uL (0.0-0.2); Basophils Percent Auto 0.8 % (0-2); Eosinophils Absolute Auto 0.3 X10*3/uL (0.0-0.4); Eosinophils Percent Auto 3.4 % (0-4); Hematocrit 42.1 % (42.0-52.0); Hemoglobin 14.2 g/dl (14.0-18.0); Imm Gran Abs Auto 0.02 X10*3/uL (0.00-0.03); Imm Gran Pct Auto 0.3 % (0.0-0.4); Lymphocytes Absolute Auto 3.1 X10*3/uL (1.2-4.9); Lymphocytes Percent Auto 39.9 % (20-40); Mean Corpuscular HGB Conc 33.7 g/dl (31.0-36.0); Mean Corpuscular Hemoglobin 28.9 pg (27.0-33.0); Mean Corpuscular Volume 85.7 fL (80.0-98.0); Mean Platelet Volume 9.5 fL (9.4-12.4); Monocytes Absolute Auto 0.6 X10*3/uL (0.1-1.2); Monocytes Percent Auto 7.7 % (2-11); Neutrophils Absolute Auto 3.7 x10*3/uL (2.0-8.3); Neutrophils Percent Auto 47.9 % (45-73); Platelet Count 188 X10*3/uL (160-400); Red Blood Count 4.91 X10*6/uL (4.60-5.80); Red Cell Distribution Width 13.2 % (11.0-16.0); White Blood Count 7.6 X10*3/uL (4.8-10.8)
--- OUTSIDE RECORDS SUMMARY | 2024-11-30 12:02 | XMS_ITS | Patient Health Record ---
Author Organization [facility] Address [address] [place] [address] Care Team Providers Care Executive Vice President Name Role Phone Clive Chaidez Primary Care Provider Traci Juarez Unavailable [phone] Allergies Allergen (clinical drug ingredient) Drug/Non Drug [...] Duration) Notes Start Date End Date Status Lisinopril Active Orencia ClickJect 125 MG/ML Subcutaneous for 28 Days Not -Taking Losartan Potassium 50 MG TAKE 1 TABLET B Y MOUTH DAILY Oral for 30 Days Not-Takin g Sertraline HCl 100 MG Oral for 30 Days Active Aspir-81 Active Pregabalin 75 MG Oral for 45 Days Active Carvedilol 6.25 MG TAKE 1 TABLET BY DONTRELL TWICE DAILY Oral for 90 Days Active Rosuvastatin Calcium 40 MG TAKE 1 TABLET BY MOUTH DAILY Oral for 90 Days Active FreeStyle Lancets - for 90 Days Active Tolterodine Tartrate ER 2 MG TAKE 1 CAPSULE BY MOUTH EVERY 24 HOURS Oral for 90 Days Active Extra Depth Orthopedic Shoes (1 Pair) with Customized Heat Molded Multidensity Innersoles (3 Pair) as directed Dx: NIDDM/Polyneuropathy (E11.42), Hammertoe Foot Deformity (M20.41,M20.42), Preulcerative Skin Lesion(s) (L85.1 09/10/2024 Active FreeStyle Lite Test - USE DIRECTED TO TEST BLOOD GLUCOSE EVERY DAY In Vitro for 90 Days Active Immunizations Vaccine Route Administration Date Status Comme nts Influenza Unknown 11/27/2024 Refused Social History Tobacco Use: Social History Observation [...] Problem Acquired hammer toe of right foot (0155947270343044 ) Other hammer toe(s) (acquired), right foot (M20.41) Active confirmed Problem Acquired hammer toe of left foot ([id number] ) Other hammer toe(s) (acquired), left foot (M20.42) Active confirmed Problem Polyneuropathy due to type 2 diabetes mellitus (806940885) Type 2 diabetes mellitus with diabetic polyneuropathy (E11.42) Active confirmed Vital Signs Blood pressure diastolic 80 mm Hg 11/27/2024 Height 4em64ph in 11/27/2024 Blood pressure systolic 135 mm Hg 11/27/2024 Weight 215 lbs 11/27/2024 BMI 30.85 kg/m2 11/27/2024 Encounters Encounter Location Date Provider Diagnosis [facility] [address] [place] [address] 04/16/2024 Traci Jewell Type 2 diabetes mellitus with diabetic polyneuropathy E11.42 ; Tinea unguium B35.1 ; Other hammer toe(s) (acquired), right foot M20.41 and Other hammer toe(s) (acquired), left foot M20.[address] [address] 07/03/2024 Traci Jewell Type 2 diabetes mellitus with diabetic polyneuropathy E11.42 ; Other hammer toe(s) (acquired), right foot M20.41 ; Tinea unguium B35.1 and Other hammer toe(s) (acquired), left foot M20.[address] [address] 09/10/2024 Traci Jewell Type 2 diabetes mellitus with diabetic polyneuropathy E11.42 ; Tinea unguium B35.1 ; Other hammer toe(s) (acquired), right foot M20.41 and Other hammer toe(s) (acquired), left foot M20.[address] [address] 11/27/2024 Traci Jewell Type 2 diabetes mellitus with diabetic polyneuropathy E11.42 ; Ingrown nail L60.0 and Tinea unguium B35.1 Assessments Encounter Date Diagnosis (ICD Code) Assessment [...] mellitus with diabetic polyneuropathy (ICD-10 - E11.42) 11/27/2024 Type 2 diabetes mellitus with diabetic polyneuropathy (ICD-10 - E11.42) 11/27/2024 Ingrown nail (ICD-10 - L60.0) 11/27/2024 Tinea unguium (ICD-10 - B35.1) 09/10/2024 Tinea unguium (ICD-10 - B35.1) 04/16/2024 [...] INSTRUCTIONS. pdf (DIABETIC FOOT CARE INSTRUCTIONS. pdf) 11/27/2024 Other Plan Of Treatment Next Appt Details Provider Name:Traci oliva, 12/24/2024 01:45:00 PM, [address] [place] [address], [phone], Provider Name:Traci oliva, 01/07/2025 01:45:00 PM, [address] [place] [address], [phone], Provider Name:Traci oliva, 02/21/2025 12:30:00 PM, [address] [place] [address], [phone], Insurance Providers Payer Name Payer Address Payer Phone Subscriber Number Group Number Insured Name Patient Relationship to Insured Coverage Start Date Coverage End Date [facility] [employer] Claims [address] [place] [phone] [id number] Issa Cerna Self - patient is the [...]
[2024-11-30 12:08] LABS: Alanine Aminotransferase 25 U/L (0-40); Albumin Level 4.3 g/dL (3.5-5.0); Alkaline Phosphatase 71 U/L (39-117); Anion Gap 15 (12-20); Aspartate Amino Transferase 29 U/L (5-37); Bilirubin Total 0.5 mg/dL (0.0-1.0); Blood Urea Nitrogen 18 mg/dL (9-16); Calcium 8.9 mg/dL (8.4-10.2); Carbon Dioxide 22 mmol/L (22-29); Chloride 108 mmol/L (96-108); Creatinine Clr Calc Pharmacy 100.8; Estimated Glomerular Filt Rate > 60; Glucose Random 172 mg/dL (60-115); Potassium 4.5 mmol/L (3.3-5.1); Sodium 140 mmol/L (135-145); Total Protein 7.1 g/dL (6.5-8.0)
[2024-11-30 12:14] LABS: Troponin-I High Sensitivity 2.9 ng/L (<3.5-35.0)
--- NOTE | 2024-11-30 12:28 | ED_ITS ---
HPI - Chest Pain General Chief Complaint: Chest Pain Stated Complaint: chest pressure Time Seen by Provider: 11/30/24 11:36 History of Present Illness HPI narrative: Patient is a 59-year-old male presents today with having chest pain he claims it is sharp. Has a history of hypertension baseline is on amlodipine and carvedilol. History of coronary artery disease. Status post stent to the right coronary artery. Patient complains that is he had chest pain this morning. Going to his back. Supposed to be on carvedilol and amlodipine but did not take his medication. Patient denies any fever chills. Denies any coughing congestion upper respiratory symptoms. Positive history of coronary artery disease positive history of diabetes positive history of high cholesterol positive previous history of smoking patient is from home. Related Data Home Medications ?Medication ?Instructions ?Recorded ?Confirmed aspirin 81 mg tablet,delayed 81 mg PO DAILY 04/23/20 0 11/06/24 release sertraline 100 mg tablet 150 mg PO DAILY 06/26/23 Previous Rx's ?Medication ?Instructions ?Recorded diclofenac sodium 1 % topical gel 2 g topical QID #100 grams 04/23/20 (Voltaren) blood-glucose meter (FreeStyle #1 ea 12/10/21 Lite Meter kit) wrist cock up splint #2 ea 06/24/22 lancets 28 gauge (FreeStyle #100 ea 04/25/23 Lancets) blood sugar diagnostic (FreeStyle #100 ea 11/01/23 Lite Strips) lancets 28 gauge (FreeStyle #100 ea 12/21/23 Lancets) rosuvastatin 40 mg tablet 40 mg PO DAILY #90 tabs 01/02 carvedilol 6.25 mg tablet 6.25 mg PO BID #180 tabs 03/06 nitroglycerin 0.4 mg sublingual 0.4 mg sublingual Q5M PRN chest 06/26/24 tablet pain #30 tabs diclofenac sodium 1 % topical gel 4 g topical QID #100 grams 07/26/24 hydroxychloroquine 200 mg tablet 200 mg PO BID #180 ta bs 07/26/24 (Plaquenil) pregabalin 75 mg capsule 75 mg PO BID #180 caps 09/16 albuterol sulfate 90 mcg/actuation 2 puff inhalation Q 4-6H PRN 09/27/24 aerosol inhaler Shortness Of Breath #8.5 gra ms famotidine 40 mg tablet (Pepcid) 40 mg PO BEDTIME #30 tabs 10/09/24 sennosides 8.6 mg capsule (senna) 8.6 mg PO BEDTIME #3 0 caps 10/09/24 tolterodine 2 mg capsule,extended 2 mg PO Q24H #90 cap s 10/10/24 release 24 hr (Detrol LA) amlodipine 5 mg tablet 5 mg PO DAILY #30 tabs 11/13 Allergies Allergy/AdvReac Type Severity Reaction Status Date / Time penicillin V Allergy Severe rash Verified 11/30/24 11:39 adalimumab (From Humira) Allergy Intermediate leg pain Verified 11/30/24 11:39 atorvastatin Allergy Intermediate leg pain Verified 11/30/24 11:39 leflunomide Allergy Intermediate kidney Verified 11/30/24 11:39 failure tocilizumab (From Actemra) Allergy Intermediate frequent Verified 11/30/24 11:39 nail infection lisinopril AdvReac Intermediate Anxiety Verified 11/06/24 14:05 losartan AdvReac Intermediate Nausea Verified 11/06/24 14:05 Review of Systems 2 Review of Systems: Positive chest pain Yes all other systems are reviewed and are negative PMFSH Past Medical History Attestation statement: The following information was validated with the patient. Source: unable to obtain Medical History RSV (respiratory syncytial virus infection) Encounter for monitoring of hydroxychloroquine therapy Pre-op examination Frequency of micturition Right wrist pain Annual physical exam Lower urinary tract symptoms Immunization counseling Screening for viral disease Bilateral carpal tunnel syndrome Screening for colon cancer Screening for prostate cancer New onset type 2 diabetes mellitus Depression Adult general medical exam Precordial chest pain Right hip pain Acute sinusitis Right rotator cuff tear Atherosclerotic cardiovascular disease Left rotator cuff tear Gastritis determined by endoscopy Lip cancer Erectile dysfunction Anxiety Degenerative disc disease, lumbar Horseshoe kidney Coronary artery disease GERD (gastroesophageal reflux disease) Hypercholesterolemia Cervical radiculopathy 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 Osteoarthritis Surgical History History of carpal tunnel surgery of right wrist History of rotator cuff surgery S/P left rotator cuff repair Hx of colonoscopy History of coronary artery stent placement History of cervical spinal surgery History of shoulder surgery History of lip cancer H/O left knee surgery History of tonsillectomy Family History Family History Father Lung cancer CAD (coronary artery disease) CVD (cardiovascular disease) Hx of CABG Mother Colon cancer Mental health disorder Maternal Uncle Lung cancer Maternal Uncle Substance abuse Substance use disorder Brother Lung cancer Social History Social History Housing: Other Housing Other:: Rents a room in a house Are you a primary client care manager to a significant other at home: No Do you presently have visiting nurse or other home services: No Alcohol intake: current Alcohol intake frequency: holidays/special occasions only Alcohol type: beer and hard liquor Comment: once a month glass Patient Tobacco Use Status: Former Tobacco user Tobacco use type: Cigarette Years Smoked: quit 2004 smokes marijuana Smoked in Last 30 Days: No e-Cigarette/Vaping Use: Never Used Second Hand Smoke Exposure: Yes Use of substances other than those prescribed or required for medical reasons: No Substance Use Type: Marijuana Advance Directives: No Advance Directives Information Provided: Yes Do you have a plan to hurt others: No Plan service: No Current occupational status: unemployed Current occupation: right handed Cognitive needs: No Hearing needs: No Vision needs: Yes Physical Exam 2 Vital Signs: Vital Signs: Last Vital Signs Temp 97.8 F 11/30/24 14:00 Pulse 58 11/30/24 14:00 Resp 16 11/30/24 14:00 BP 160/73 H 11/30/24 14:00 Pulse Ox 98 11/30/24 14:00 O2 Del Method Room Air 11/30/24 14:00 BMI result Body Mass Index 22.1 Appearance: Alert. Oriented X3. No acute distress. Eyes: Pupils equal, round and reactive to light. ENT: Pharynx normal. Neck: Normal inspection. Neck supple. No lymph nodes noted. No crepitus CVS: Normal heart rate and rhythm. Pulses normal. Normal S1 and S2 Respiratory: No respiratory distress. Breath sounds normal. No Wheezing. No rales Abdomen: Soft and nontender. No rigidity. No distention. good BS x4 Skin: Skin warm and dry. Normal skin color. Normal skin turgor. Extremities: No lower extremity edema. Neurovascular intact to all extremities. No Lacerations. No Rash Neuro: Oriented X 3. No motor deficit. No sensory deficit. Moving all extermities. No slurred speech Medications Administered Discontinued Medications Generic Name Dose Route Start Last Admin Trade Name Vijay PRN Reason Stop Dose Admin Amlodipine Besylate 10 mg 11/30/24 12:25 11/30/24 12:32 Amlodipine Besylate 10 Mg Tablet PO 11/30/24 12:26 10 mg ONCE ONE Administration Protocol Carvedilol 6.25 mg 11/30/24 12:25 11/30/24 12:32 Carvedilol 6.25 Mg Tablet PO 11/30/24 12:26 6.25 mg ONCE ONE Administration Protocol Medical Decision Making Medical Decision Making [facility] Narrative: History of coronary artery disease status post stent to the right coronary in the past. Had a previous cardiac catheterization that showed a 40% lad lesion. Presented today with extreme blood pressure also not taking his blood pressure medication and having chest pain. Going to the back. Sharp. Patient EKG by my interpretation showed a sinus rhythm heart rate was 60 IN QRS QTC normal no acute ST segment elevation 1st set of troponin was negative. Patient is noncompliant with his medication was given back his blood pressure medicine including carvedilol and amlodipine. Taken to CT scanner for a acute dissection study of the chest abdomen pelvis. The CT chest abdomen pelvis by my interpretation was grossly negative for dissection I reviewed radiology's reading. On returning patient's blood pressure came down to 170/80. Repeat troponin was done it was elevated at over 30 at this point patient's chest pain has subsided. I discussed patient's case with Cardiology. Cardiology agreed patient should be admitted. Heparin was started. Hospitalist team was consulted. Question angina. In guarded condition awaiting admission. Differential Diagnosis Differential Diagnoses: The differential diagnosis associated with the presentation includes Angina, dissection, ACS, chest pain, PE Admission/Observation Consideration of admission/observation: Escalation of care including admission/observation considered Consult Healthcare Provider Management of the patient was discussed with: Hospitalist and Mobile Architect (Cardiology) Lab Data [facility] Lab Attestation statement: I reviewed the patient's lab results. 11/30/24 11:47 11/30/24 11:47 Labs: Lab Results 11/30/24 11/30/24 Range/Units 11:47 15:10 WBC 7.6 (4.8-10.8) X10*3/uL RBC 4.91 (4.60-5.80) X10*6/uL Hgb 14.2 (14.0-18.0) g/dl Hct 42.1 (42.0-52.0) % MCV 85.7 (80.0-98.0) fL MCH 28.9 (27.0-33.0) pg MCHC 33.7 (31.0-36.0) g/dl RDW 13.2 (11.0-16.0) % Plt Count 188 (160-400) X10*3/uL MPV 9.5 (9.4-12.4) fL Immature Gran % (Auto) 0.3 (0.0-0.4) % Neut % (Auto) 47.9 (45-73) % Lymph % (Auto) 39.9 (20-40) % [place] % (Auto) 7.7 (2-11) % Eos % (Auto) 3.4 (0-4) % Baso % (Auto) 0.8 (0-2) % Lymph # (Auto) 3.1 (1.2-4.9) X10*3/uL [place] # (Auto) 0.6 (0.1-1.2) X10*3/uL Eos # (Auto) 0.3 (0.0-0.4) X10*3/uL Baso # (Auto) 0.1 (0.0-0.2) X10*3/uL Abs Immat Gran (auto) 0.02 (0.00-0.03) X10*3/uL Absolute Neuts (auto) 3.7 (2.0-8.3) x10*3/uL Absolute Nucleated RBC 0.000 (0.0-0.012) X10*3/uL Nucleated RBC % (auto) 0.0 (0.0-0.2) /100WBC Sodium 140 (135-145) mmol/L Potassium 4.5 (3.3-5.1) mmol/L Chloride 108 (96-108) mmol/L Carbon Dioxide 22 (22-29) mmol/L Anion Gap 15 (12-20) BUN 18 H (9-16) mg/dL Creatinine 0.74 (0.5-1.4) mg/dL Estim Creat Clear Calc 100.8 Estimated GFR > 60 Random Glucose 172 H (60-115) mg/dL Calcium 8.9 (8.4-10.2) mg/dL Total Bilirubin 0.5 (0.0-1.0) mg/dL AST 29 (5-37) U/L ALT 25 (0-40) U/L Alkaline Phosphatase 71 (39-117) U/L Troponin I High Sens 2.9 35.2 H D (<3.5-35.0) ng/L Total Protein 7.1 (6.5-8.0) g/dL Albumin 4.3 (3.5-5.0) g/dL Independent Interpretation I performed an independent interpretation of an: EKG (My interpretation of patient's EKG showed a sinus rhythm heart rate is 60 IN QRS QTC normal no acute ST segment elevation) and CT Scan (CT angio grossly negative) Radiology Impression Discussion of test interpretation with radiology: I have reviewed the radiologist's reading. External Record Review External record reviewed: Office record Outpatient Cardiology record reviewed Chronic Conditions Patient?s care impacted by: Hypertension History of proven coronary disease status post stent Social Determinants Patient?s care significantly limited by Social Determinants of Health including: Problems related to primary support group Critical Care Time Critical Care Time Critical Care Time: Yes Total Critical Care Time: 40 Attestation: I have personally provided 40 minutes of critical care time exclusive of time spent on separately billable procedures. ?Time includes review of lab data, radiology results, discussion with consultants, and monitoring for potential decompensation. ?Interventions were performed as documented above Discharge Plan Discharge Clinical Impression: Angina at rest Patient Disposition: Admitted As Inpatient Print Language: Macedonian
[2024-11-30] MEDS: amLODIPine Besylate 10 MG TABLET PO (12:32)
[2024-11-30] MEDS: carvediloL 6.25 MG TABLET PO ×2 (12:32→22:26)
[2024-11-30 15:39] LABS: Troponin-I High Sensitivity 35.2 ng/L (<3.5-35.0)
--- NOTE | 2024-11-30 15:52 | ECG_ITS ---
Test Reason : CHEST PAIN Blood Pressure : */* mmHG Vent. Rate : 64 BPM Atrial Rate : 64 BPM P-R Int : 162 ms QRS Dur : 94 ms QT Int : 408 ms P-R-T Axes : 55 -20 43 degrees QTcB Int : 420 ms Normal sinus rhythm Normal ECG When compared with ECG of 05-Jul-2022 18:18, No significant change was found Referred By: Miriam Nugnet Electronically Signed By: Jake Logan
[2024-11-30 16:22] LABS: Hematocrit 41.3 % (42.0-52.0); Hemoglobin 14.2 g/dl (14.0-18.0); Mean Corpuscular HGB Conc 34.4 g/dl (31.0-36.0); Mean Corpuscular Hemoglobin 29.4 pg (27.0-33.0); Mean Corpuscular Volume 85.5 fL (80.0-98.0); Mean Platelet Volume 9.6 fL (9.4-12.4); Platelet Count 183 X10*3/uL (160-400); Red Blood Count 4.83 X10*6/uL (4.60-5.80); Red Cell Distribution Width 13.1 % (11.0-16.0); White Blood Count 8.7 X10*3/uL (4.8-10.8)
--- NOTE | 2024-11-30 16:23 | PM.IMHP ---
History of Present Illness Date of Service: 11/30/24 Attending physician on admission: [facility] Chief Complaint: chest pain 59-year-old male with history of mwy-ofwjxqk-xhhaiofjv type 2 diabetes, BPH, CAD s/p PCI with YESSICA RCA 2018, tubular adenoma, GERD, hypercholesterolemia, rheumatoid arthritis, chronic low back pain among others presents to the ED earlier today for evaluation of chest pain. He reports that he woke up this morning with retrosternal chest tightness that was nonradiating. No associated symptoms including shortness of breath, nausea, vomiting, palpitations. He has had headache however. Reportedly he has been noncompliant with his antihypertensive agents and did take his blood pressure upon waking with systolic pressures above 200. Upon arrival to the ED, EKG showed NSR, rate 60 without any acute ischemic changes. Initial troponin 2.9, repeat 35.2. Renal function and electrolyte levels normal. No leukocytosis or anemia. CTA chest/abdomen negative for PE or any systemic arterial aneurysm or dissection with small pulmonary nodules up to 4 mm in size noted. Denies cigarette smoking. Only occasional alcohol use. Occasional marijuana use but no illicit drug use. On arrival blood pressure elevated to 204/98 151/78 on admission following administration of amlodipine 10 mg and carvedilol 6.25 mg. Review of Systems Review of Systems: ROS: General: No fevers, malaise, unintentional weight loss HEENT: No blurred vision, diplopia. No sore throat, nasal congestion, rhinorrhea, sinus pain, ear pain Cardiovascular: No palpitations, or leg edema. see hpi Respiratory: No shortness of breath, wheezing, cough GI: No abdominal pain, nausea, vomiting, diarrhea, constipation, melena, hematochezia : No dysuria, hematuria, increased urinary frequency, decreased urinary output MSK: No myalgia, back pain Neuro: No headaches, weakness, paresthesias Skin: No rashes or lesions [facility] Medical History RSV (respiratory syncytial virus infection) Encounter for monitoring of hydroxychloroquine therapy Pre-op examination Frequency of micturition Right wrist pain Annual physical exam Lower urinary tract symptoms Immunization counseling Screening for viral disease Bilateral carpal tunnel syndrome Screening for colon cancer Screening for prostate cancer New onset type 2 diabetes mellitus Depression Adult general medical exam Precordial chest pain Right hip pain Acute sinusitis Right rotator cuff tear Atherosclerotic cardiovascular disease Left rotator cuff tear Gastritis determined by endoscopy Lip cancer Erectile dysfunction Anxiety Degenerative disc disease, lumbar Horseshoe kidney Coronary artery disease GERD (gastroesophageal reflux disease) Hypercholesterolemia Cervical radiculopathy 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 Osteoarthritis Family History Father Lung cancer CAD (coronary artery disease) CVD (cardiovascular disease) Hx of CABG Mother Colon cancer Mental health disorder Maternal Uncle Lung cancer Maternal Uncle Substance abuse Substance use disorder Brother Lung cancer Surgical History History of carpal tunnel surgery of right wrist History of rotator cuff surgery S/P left rotator cuff repair Hx of colonoscopy History of coronary artery stent placement History of cervical spinal surgery History of shoulder surgery History of lip cancer H/O left knee surgery History of tonsillectomy Social History Housing: Other Housing Other:: Rents a room in a house Are you a primary healthcare receptionist to a significant other at home: No Do you presently have visiting nurse or other home services: No Alcohol intake: current Alcohol intake frequency: holidays/special occasions only Alcohol type: beer and hard liquor Comment: once a month glass Patient Tobacco Use Status: Former Tobacco user Tobacco use type: Cigarette Years Smoked: quit 2004 smokes marijuana Smoked in Last 30 Days: No e-Cigarette/Vaping Use: Never Used Second Hand Smoke Exposure: Yes Use of substances other than those prescribed or required for medical reasons: No Substance Use Type: Marijuana Advance Directives: No Advance Directives Information Provided: Yes Do you have a plan to hurt others: No Plan service: No Current occupational status: unemployed Current occupation: right handed Cognitive needs: No Hearing needs: No Vision needs: Yes Meds Allergies Allergy/AdvReac Type Severity Reaction Status Date / Time penicillin V Allergy Severe rash Verified 11/30/24 11:39 adalimumab (From Humira) Allergy Intermediate leg pain Verified 11/30/24 11:39 atorvastatin Allergy Intermediate leg pain Verified 11/30/24 11:39 leflunomide Allergy Intermediate kidney Verified 11/30/24 11:39 failure tocilizumab (From Actemra) Allergy Intermediate frequent Verified 11/30/24 11:39 nail infection lisinopril AdvReac Intermediate Anxiety Verified 11/06/24 14:05 losartan AdvReac Intermediate Nausea Verified 11/06/24 14:05 Active Medications: Current Medications Acetaminophen (Acetaminophen 325 Mg Tablet) 650 mg PO Q6H PRN PRN Reason: Pain, Mild 1-3,fever,headache Calcium Carbonate (Calcium Carbonate 750 Mg Tab.Chew) 750 mg PO Q4H PRN PRN Reason: Heartburn Dextrose (Dextrose 50 % 25 Gm/50 Ml Syringe) 25 gm IVPUSH Q15M PRN; Protocol PRN Reason: per Hypoglycemia Standing Ord. Glucose (Glucose Gel 15 Gm Gel..Gram.) 15 gm PO Q15M PRN; Protocol PRN Reason: per Hypoglycemia Standing Ord. Heparin Sodium (Porcine) (Heparin Sodium,Porcine 5,000 Unit/Ml Vial) 3,800 unit 40 unit/kg (3800 unit) IVPUSH PROTOCOL BOLUS PRN; Protocol PRN Reason: 40 unit/kg - Heparin Protocol Heparin Sodium (Porcine) (Heparin Sodium,Porcine 5,000 Unit/Ml Vial) 7,600 unit 80 unit/kg (7600 unit) IVPUSH PROTOCOL BOLUS PRN; Protocol PRN Reason: 80 unit/kg - Heparin Protocol Heparin Sodium/Sodium Chloride (Heparin Sodium,Porcine/1/2ns) 25,000 unit in 250 mls @ 0 mls/hr IVCONT .Q0M [facility]; Protocol Insulin Human Lispro (Insulin Lispro 100 Unit/Ml 3 Ml Vial) 0 unit SUBCUT QIDACHS [facility]; Protocol Magnesium Hydroxide (Milk Of Magnesia 30 Ml Oral.Susp) 30 ml PO DAILY PRN PRN Reason: Constipation Melatonin (Melatonin 3 Mg Tablet) 6 mg PO BEDTIME PRN PRN Reason: Insomnia Sodium Chloride (0.9 % Sodium Chloride Flush 3 Ml Syringe) 3 ml IVFLUSH [facility] Home Medications ?Medication ?Instructions ?Recorded ?Confirmed ?Last Taken ?Type aspirin 81 mg tablet,delayed 81 mg PO DAILY 04/23/20 11/06/24 08/10/20 History release sertraline 100 mg tablet 150 mg PO DAILY 06/26/23 11/06/24 Unknown History Physical Exam Vital Signs and Narrative: Vital Signs: Last Vital Signs Temp 97.3 F 11/30/24 16:00 Pulse 58 11/30/24 16:00 Resp 16 11/30/24 16:00 BP 151/78 H 11/30/24 16:00 Pulse Ox 97 11/30/24 16:00 O2 Del Method Room Air 11/30/24 16:00 BMI result Body Mass Index 30.9 Constitutional - Awake and Alert, No apparent distress Eyes - PERRLA, EOMI Cardiovascular - S1S2, RRR, No edema Respiratory - Normal lung expansion, Normal respiratory effort, No respiratory distress, CTA bilaterally Gastrointestinal - NT / ND; +BS; No rebound or guarding Extremities - no calf tenderness bilaterally, no swelling Musculoskeletal - Normal inspection, normal ROM Skin - Warm/Dry Neurological - Alert & oriented x3 Psychological - Appropriate affect Results Labs 11/30/24 11:47 11/30/24 11:47 Labs: Laboratory Results - last 24 hr 11/30/24 11/30/24 11:47 15:10 MCV 85.7 MCH 28.9 MCHC 33.7 RDW 13.2 Plt Count 188 MPV 9.5 Immature Gran % (Auto) 0.3 Neut % (Auto) 47.9 Lymph % (Auto) 39.9 [place] % (Auto) 7.7 Eos % (Auto) 3.4 Baso % (Auto) 0.8 Lymph # (Auto) 3.1 [place] # (Auto) 0.6 Eos # (Auto) 0.3 Baso # (Auto) 0.1 Abs Immat Gran (auto) 0.02 Absolute Neuts (auto) 3.7 Absolute Nucleated RBC 0.000 Nucleated RBC % (auto) 0.0 Anion Gap 15 Estim Creat Clear Calc 100.8 Estimated GFR > 60 Random Glucose 172 H Calcium 8.9 Total Bilirubin 0.5 AST 29 ALT 25 Alkaline Phosphatase 71 Troponin I High Sens 2.9 35.2 H D Total Protein 7.1 Albumin 4.3 Assessment and Plan (1) NSTEMI (non-ST elevated myocardial infarction): Status: Acute (2) Hypertensive urgency: Status: Acute Plan 59-year-old male with history of pzi-utxevuc-cpqjlpfva type 2 diabetes, BPH, CAD s/p PCI with YESSICA RCA 2017, tubular adenoma, GERD, hypercholesterolemia, rheumatoid arthritis, chronic low back pain admitted for further management of NSTEMI NSTEMI History CAD s/p PCI 2018 possibly type II r/t hypertensive urgency Initial tropes 2.9 --> 35.2. Repeat 18:00 EKG without any acute ischemic changes Per cardiology, initiate heparin per protocol Continue beta-shelby, statin, ASA Echocardiogram Cardiac monitoring Cardiology consult Cardiac diet Msg-emlufyh-gkphhgjzf type 2 diabetes POC glucose, diabetic diet Sliding scale insulin HTN has been noncompliant with meds Continue amlodipine, Coreg RA Continue hydroxychloroquine BPH continue home meds GERD PPI Mood disorder Continue home meds Chronic low back pain Continue home meds DVT prophylaxis-heparin Full code Patient requires inpatient stay at least 2 midnights for management of NSTEMI on IV heparin per protocol requiring continuous cardiac monitoring, expert consultation, possible transfer to tertiary care facility Quality Stroke Does the patient have a stroke diagnosis?: No VTE Prior VTE?: No VTE Risk Level:: Medical - moderate - high VTE Device Contraindication: Treatment Not Indicated VTE Drug Contraindication: N/A - Med Ordered
[2024-11-30 16:28] LABS: Prothrombin Time 10.9 SEC (10.9-12.4)
[2024-11-30 16:31] LABS: PTT Heparin Drip 27.4 SEC (53-77.9)
--- NOTE | 2024-11-30 16:44 | PHA.MEDREC ---
Addendum entered by Alana Cruz [facility] 11/30/24 16:48: REVIEWED Original Note: Pharmacy Consult ? Medication Reconciliation Pharmacy has completed the medication reconciliation. Spoke with patient to confirm. He has not started hydroxychloroquine yet. He confirmed 1.5 tablets of sertraline at bedtime. He takes famotidine, sertraline, and amlodipine at bedtime. He has not taken any medications before coming in.
[2024-11-30] MEDS: Heparin Sodium,Porcine 5,000 UNIT/ML VIAL 4000 UNIT IVPUSH (16:49)
[2024-11-30] MEDS: Heparin Sodium,Porcine/1/2NS 25,000 UNIT/250 ML IV.SOLN 10 UNIT IVCONT (16:52)
[2024-11-30 17:09] LABS: Glucose, Whole Blood 135 mg/dL (60-115)
[2024-11-30 18:46] LABS: Troponin-I High Sensitivity 166.6 ng/L (<3.5-35.0)
[2024-11-30 21:42] LABS: Glucose, Whole Blood 131 mg/dL (60-115)
[2024-11-30] MEDS: Sertraline HCL 50 MG TABLET 150 MG PO (22:26)
[2024-11-30] MEDS: Tolterodine Tartrate LA 2 MG CAP.ER.24H PO (22:26)
[2024-11-30] MEDS: amLODIPine Besylate 5 MG TABLET PO (22:26)
[2024-11-30] MEDS: Famotidine 20 MG TABLET 40 MG PO (22:26)
[2024-11-30 23:28] LABS: PTT Heparin Drip 50.3 SEC (53-77.9)
[2024-11-30] MEDS: Heparin Sodium,Porcine 5,000 UNIT/ML VIAL 3800 UNIT IVPUSH (23:37)
[2024-11-30] MEDS: 0.9 % Sodium Chloride Flush 3 ML SYRINGE IVFLUSH (23:40)
[2024-12-01 03:09] VITALS: BP 130/74; PULSE 68; RESP 18; TEMP 36.6; O2SAT 95
[2024-12-01 05:46] LABS: MANUAL DIFF FLAG NO
[2024-12-01 05:49] LABS: Basophils Absolute Auto 0.1 X10*3/uL (0.0-0.2); Basophils Percent Auto 0.7 % (0-2); Eosinophils Absolute Auto 0.2 X10*3/uL (0.0-0.4); Eosinophils Percent Auto 2.3 % (0-4); Hemoglobin 14.2 g/dl (14.0-18.0); Imm Gran Abs Auto 0.03 X10*3/uL (0.00-0.03); Imm Gran Pct Auto 0.3 % (0.0-0.4); Lymphocytes Absolute Auto 3.8 X10*3/uL (1.2-4.9); Lymphocytes Percent Auto 43.4 % (20-40); Mean Corpuscular HGB Conc 34.6 g/dl (31.0-36.0); Mean Corpuscular Hemoglobin 29.5 pg (27.0-33.0); Mean Corpuscular Volume 85.2 fL (80.0-98.0); Mean Platelet Volume 9.5 fL (9.4-12.4); Monocytes Absolute Auto 0.7 X10*3/uL (0.1-1.2); Monocytes Percent Auto 8.1 % (2-11); Neutrophils Percent Auto 45.2 % (45-73); Platelet Count 167 X10*3/uL (160-400); Red Blood Count 4.81 X10*6/uL (4.60-5.80); Red Cell Distribution Width 13.2 % (11.0-16.0); White Blood Count 8.8 X10*3/uL (4.8-10.8)
[2024-12-01 05:55] LABS: Prothrombin Time 11.3 SEC (10.9-12.4)
[2024-12-01 06:04] LABS: Anion Gap 10 (12-20); Blood Urea Nitrogen 14 mg/dL (9-16); Calcium 8.7 mg/dL (8.4-10.2); Carbon Dioxide 24 mmol/L (22-29); Chloride 110 mmol/L (96-108); Creatinine Clr Calc Pharmacy 124.3; Estimated Glomerular Filt Rate > 60; Glucose Random 128 mg/dL (60-115); Potassium 4.1 mmol/L (3.3-5.1); Sodium 140 mmol/L (135-145)
[2024-12-01 06:17] LABS: Troponin-I High Sensitivity 1265.3 ng/L (<3.5-35.0)
[2024-12-01 07:41] LABS: Glucose, Whole Blood 135 mg/dL (60-115)
--- NOTE | 2024-12-01 07:46 | ECG_ITS ---
Test Reason : elevated trop Blood Pressure : */* mmHG Vent. Rate : 70 BPM Atrial Rate : 70 BPM P-R Int : 160 ms QRS Dur : 98 ms QT Int : 410 ms P-R-T Axes : 54 -32 9 degrees QTcB Int : 442 ms Normal sinus rhythm Left axis deviation Abnormal ECG When compared with ECG of 30-Nov-2024 16:06, No significant change was found Referred By: Miriam Nugent Electronically Signed By: ROXANA FIELD
[2024-12-01 08:00] VITALS: BP 126/58; PULSE 64; RESP 18; TEMP 36.3; O2SAT 96
[2024-12-01] MEDS: carvediloL 6.25 MG TABLET PO ×2 (08:12→20:24)
[2024-12-01] MEDS: Aspirin Enteric Coated 81 MG TABLET.DR PO (08:12)
[2024-12-01] MEDS: Pregabalin 75 MG CAPSULE PO ×2 (08:12→20:24)
--- NOTE | 2024-12-01 09:22 | MHC.CM.PN ---
IMM 12/01/24, Pt. lives alone, PCP confirmed: Dr. Chaidez, HCP is on file and will be updated and added to chart (lists his who has ). Pt. 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 He comes to [facility] out[facility]. [facility] for OT. He can arrange transport home at [place], DCP: home, self care or with services. CM to follow for DC needs.
[2024-12-01 11:33] LABS: Glucose, Whole Blood 140 mg/dL (60-115)
--- NOTE | 2024-12-01 11:49 | P.PNIM_ITS ---
Subjective Subjective Date of Service: 12/01/24 Interval History: Seen in follow-up for NSTEMI Interval history: Denies any complaints. No chest pain since 18:00 last night. No bleeding or easy bruisability, tolerating heparin. No overnight events on telemetry. BP stable Physical Exam 2 Vital Signs: Vital Signs: Last Vital Signs Temp 97.3 F 12/01/24 08:00 Pulse 64 12/01/24 08:00 Resp 18 12/01/24 08:00 BP 126/58 L 12/01/24 08:00 Pulse Ox 96 12/01/24 08:00 O2 Del Method Room Air 12/01/24 08:00 BMI result Body Mass Index 30.9 Constitutional - Awake and Alert, No apparent distress Eyes - PERRLA, EOMI Cardiovascular - S1S2, RRR, No edema Respiratory - Normal lung expansion, Normal respiratory effort, No respiratory distress, CTA bilaterally Extremities - no calf tenderness bilaterally, no swelling Musculoskeletal - Normal inspection, normal ROM Skin - Warm/Dry. Slightly diaphoretic on the scalp, otherwise warm and dry Neurological - Alert & oriented x3 Psychological - Appropriate affect Objective Data Active Medications Acetaminophen (Acetaminophen 325 Mg Tablet) 650 mg PO Q6H PRN PRN Reason: Pain, Mild 1-3,fever,headache Albuterol Sulfate (Albuterol Sulfate 90 Mcg 8 Gm Inhaler) 2 puff INHALE Q4H PRN PRN Reason: Shortness of Breath Amlodipine Besylate (Amlodipine Besylate 5 Mg Tablet) 5 mg PO BEDTIME [facility]; Protocol Last Admin: 11/30/24 22:26 Dose: 5 mg Documented By: JIMBO Aspirin (Aspirin Enteric Coated 81 Mg Tablet.) 81 mg PO DAILY [facility] Last Admin: 12/01/24 08:12 Dose: 81 mg Documented By: JEANNINE Atorvastatin Calcium (Atorvastatin Calcium 80 Mg Tablet) 80 mg PO BEDTIME [facility] Last Admin: 11/30/24 22:30 Dose: Not Given Documented By: JIMBO Non-Admin Reason: Patient Refused Calcium Carbonate (Calcium Carbonate 750 Mg Tab.Chew) 750 mg PO Q4H PRN PRN Reason: Heartburn Carvedilol (Carvedilol 6.25 Mg Tablet) 6.25 mg PO BID [facility]; Protocol Last Admin: 12/01/24 08:12 Dose: 6.25 mg Documented By: JEANNINE Dextrose (Dextrose 50 % 25 Gm/50 Ml Syringe) 25 gm IVPUSH Q15M PRN; Protocol PRN Reason: per Hypoglycemia Standing Ord. Famotidine (Famotidine 20 Mg Tablet) 40 mg PO BEDTIME [facility] Last Admin: 11/30/24 22:26 Dose: 40 mg Documented By: JIMBO Glucose (Glucose Gel 15 Gm Gel..Gram.) 15 gm PO Q15M PRN; Protocol PRN Reason: per Hypoglycemia Standing Ord. Heparin Sodium (Porcine) (Heparin Sodium,Porcine 5,000 Unit/Ml Vial) 3,800 unit 40 unit/kg (3800 unit) IVPUSH PROTOCOL BOLUS PRN; Protocol PRN Reason: 40 unit/kg - Heparin Protocol Last Admin: 11/30/24 23:37 Dose: 3,800 unit Documented By: JIMBO Heparin Sodium (Porcine) (Heparin Sodium,Porcine 5,000 Unit/Ml Vial) 7,600 unit 80 unit/kg (7600 unit) IVPUSH PROTOCOL BOLUS PRN; Protocol PRN Reason: 80 unit/kg - Heparin Protocol Heparin Sodium/Sodium Chloride (Heparin Sodium,Porcine/1/2ns) 25,000 unit in 250 mls @ 0 mls/hr IVCONT .Q0M [facility]; Protocol Last Titration: 12/01/24 06:10 Dose: 10.52 units/kg/hr, 10 mls/hr Documented By: JIMBO Co-signed By: GUIDO Insulin Human Lispro (Insulin Lispro 100 Unit/Ml 3 Ml Vial) 0 unit SUBCUT QIDACHS [facility]; Protocol Last Admin: 12/01/24 11:42 Dose: Not Given Documented By: JEANNINE Non-Admin Reason: No Insulin Coverage Magnesium Hydroxide (Milk Of Magnesia 30 Ml Oral.Susp) 30 ml PO DAILY PRN PRN Reason: Constipation Melatonin (Melatonin 3 Mg Tablet) 6 mg PO BEDTIME PRN PRN Reason: Insomnia Nitroglycerin (Nitroglycerin 0.4 Mg Tab.Subl) 0.4 mg SUBLINGUAL Q5M PRN PRN Reason: Chest Pain Pregabalin (Pregabalin 75 Mg Capsule) 75 mg PO BID [facility] Last Admin: 12/01/24 08:12 Dose: 75 mg Documented By: JEANNINE Senna (Sennosides 8.6 Mg Tablet) 8.6 mg PO BEDTIME [facility] Sertraline HCl (Sertraline Hcl 50 Mg Tablet) 150 mg PO BEDTIME [facility] Last Admin: 11/30/24 22:26 Dose: 150 mg Documented By: JIMBO Sodium Chloride (0.9 % Sodium Chloride Flush 3 Ml Syringe) 3 ml IVFLUSH QSHIFT [facility] Last Admin: 12/01/24 08:15 Dose: 3 ml Documented By: JEANNINE Tolterodine Tartrate (Tolterodine Tartrate La 2 Mg Cap.Er.24h) 2 mg PO Q24H [facility] Last Admin: 11/30/24 22:26 Dose: 2 mg Documented By: JIMBO Labs 12/01/24 05:40 12/01/24 05:40 Labs: Laboratory Results - last 24 hr 11/30/24 11/30/24 11/30/24 11:47 15:10 16:13 MCV 85.7 85.5 MCH 28.9 29.4 MCHC 33.7 34.4 RDW 13.2 13.1 Plt Count 188 183 MPV 9.5 9.6 Immature Gran % (Auto) 0.3 Neut % (Auto) 47.9 Lymph % (Auto) 39.9 [place] % (Auto) 7.7 Eos % (Auto) 3.4 Baso % (Auto) 0.8 Lymph # (Auto) 3.1 [place] # (Auto) 0.6 Eos # (Auto) 0.3 Baso # (Auto) 0.1 Abs Immat Gran (auto) 0.02 Absolute Neuts (auto) 3.7 Absolute Nucleated RBC 0.000 0.000 Nucleated RBC % (auto) 0.0 0.0 PT 10.9 INR 1.0 aPTT Heparin Protocol 27.4 L Anion Gap 15 Estim Creat Clear Calc 100.8 Estimated GFR > 60 POC Glucose Random Glucose 172 H Calcium 8.9 Total Bilirubin 0.5 AST 29 ALT 25 Alkaline Phosphatase 71 Troponin I High Sens 2.9 35.2 H D Total Protein 7.1 Albumin 4.3 11/30/24 11/30/24 11/30/24 17:04 17:42 21:39 MCV MCH MCHC RDW Plt Count MPV Immature Gran % (Auto) Neut % (Auto) Lymph % (Auto) [place] % (Auto) Eos % (Auto) Baso % (Auto) Lymph # (Auto) [place] # (Auto) Eos # (Auto) Baso # (Auto) Abs Immat Gran (auto) Absolute Neuts (auto) Absolute Nucleated RBC Nucleated RBC % (auto) PT INR aPTT Heparin Protocol Anion Gap Estim Creat Clear Calc Estimated GFR POC Glucose 135 H 131 H Random Glucose Calcium Total Bilirubin AST ALT Alkaline Phosphatase Troponin I High Sens 166.6 H* D Total Protein Albumin 11/30/24 12/01/24 12/01/24 23:11 05:40 07:14 MCV 85.2 MCH 29.5 MCHC 34.6 RDW 13.2 Plt Count 167 MPV 9.5 Immature Gran % (Auto) 0.3 Neut % (Auto) 45.2 Lymph % (Auto) 43.4 H [place] % (Auto) 8.1 Eos % (Auto) 2.3 Baso % (Auto) 0.7 Lymph # (Auto) 3.8 [place] # (Auto) 0.7 Eos # (Auto) 0.2 Baso # (Auto) 0.1 Abs Immat Gran (auto) 0.03 Absolute Neuts (auto) 4.0 Absolute Nucleated RBC 0.000 Nucleated RBC % (auto) 0.0 PT 11.3 INR 1.0 aPTT Heparin Protocol 50.3 L D 87.0 H D Anion Gap 10 L Estim Creat Clear Calc 124.3 Estimated GFR > 60 POC Glucose 135 H Random Glucose 128 H Calcium 8.7 Total Bilirubin AST ALT Alkaline Phosphatase Troponin I High Sens 1265.3 H* D Total Protein Albumin 12/01/24 11:15 MCV MCH MCHC RDW Plt Count MPV Immature Gran % (Auto) Neut % (Auto) Lymph % (Auto) [place] % (Auto) Eos % (Auto) Baso % (Auto) Lymph # (Auto) [place] # (Auto) Eos # (Auto) Baso # (Auto) Abs Immat Gran (auto) Absolute Neuts (auto) Absolute Nucleated RBC Nucleated RBC % (auto) PT INR aPTT Heparin Protocol Anion Gap Estim Creat Clear Calc Estimated GFR POC Glucose 140 H Random Glucose Calcium Total Bilirubin AST ALT Alkaline Phosphatase Troponin I High Sens Total Protein Albumin Assessment and Plan (1) NSTEMI (non-ST elevated myocardial infarction): Status: Acute Plan 59-year-old male with history of heo-tsuichq-nixrntokd type 2 diabetes, BPH, CAD s/p PCI with YESSICA RCA 2018, tubular adenoma, GERD, hypercholesterolemia, rheumatoid arthritis, chronic low back pain admitted for further management of NSTEMI NSTEMI History CAD s/p PCI 2017 Initial tropes 2.9 --> 35.2 --> 116 --> 1200 Repeat EKG without any acute ischemic changes, no significant change Continue heparin per protocol Continue beta-shelby, statin, ASA Echocardiogram Cardiac monitoring Cardiology consult Cardiac diet Mwd-kpqrgpi-elqmhacof type 2 diabetes POC glucose, diabetic diet Sliding scale insulin HTN has been noncompliant with meds Continue amlodipine, Coreg RA Continue hydroxychloroquine BPH continue home meds GERD PPI Mood disorder Continue home meds Chronic low back pain Continue home meds DVT prophylaxis-heparin Full code Ongoing inpatient stay-IV heparin per protocol and expert consultation with probable transfer to tertiary care facility Quality Stroke Does the patient have a stroke diagnosis?: No VTE Prior VTE?: No VTE Risk Level:: Medical - moderate - high VTE Device Contraindication: Treatment Not Indicated VTE Drug Contraindication: N/A - Med Ordered
--- NOTE | 2024-12-01 11:53 | PM.DS ---
DS: Providers Provider Date of Service: 12/01/24 Date of admission: 11/30/24 16:03 Date of discharge: 12/01/24 Primary care physician: Clive Chaidez MD Admitting clinician: Miriam Nugent Attending physician on admission: Daric Alexis Consults: 11/30/24 16:03 Consult to Cardiology Routine Consulting Provider: [facility] Reason for consultation: nstemi [facility]ing clinician: Miriam Nugent DS: Transfer Hospital Acceptance Reason for Transfer: NSTEMI Name of Facility: [facility] DS: Diagnosis Discharge Diagnosis (1) NSTEMI (non-ST elevated myocardial infarction): Status: Acute DS: Summary Hospital Course Hospital Course: HPI on admission by this provider 11/30: Chief Complaint: chest pain 59-year-old male with history of [id number] type 2 diabetes, BPH, CAD s/p PCI with YESSICA RCA 2018, tubular adenoma, GERD, hypercholesterolemia, rheumatoid arthritis, chronic low back pain among others presents to the ED earlier today for evaluation of chest pain. He reports that he woke up this morning with retrosternal chest tightness that was nonradiating. No associated symptoms including shortness of breath, nausea, vomiting, palpitations. He has had headache however. Reportedly he has been noncompliant with his antihypertensive agents and did take his blood pressure upon waking with systolic pressures above 200. Upon arrival to the ED, EKG showed NSR, rate 60 without any acute ischemic changes. Initial troponin 2.9, repeat 35.2. Renal function and electrolyte levels normal. No leukocytosis or anemia. CTA chest/abdomen negative for PE or any systemic arterial aneurysm or dissection with small pulmonary nodules up to 4 mm in size noted. Denies cigarette smoking. Only occasional alcohol use. Occasional marijuana use but no illicit drug use. On arrival blood pressure elevated to 204/98 151/78 on admission following administration of amlodipine 10 mg and carvedilol 6.25 mg. Hospital course: Patient admitted to [facility] on IV heparin per protocol for management of NSTEMI. Initially hisblood pressures significantly elevated with systolic pressure in the 200s. Normalized with the resumption of his amlodipine and Coreg. Initial troponin 2.9 -->35.2--> 116--> 1200. EKG x2 without any acute ischemic changes. Continued on IV heparin. Given ASA and continued on Coreg 6.25 mg b.i.d. as well as high-dose statin. Lipid panel pending. Seen by cardiology recommending transfer to tertiary care facility or cardiac catheterization NSTEMI History CAD s/p PCI with YESSICA RCA 2018 Initially with hypertensive urgency resolved with resumption of home antihypertensive agents Initial tropes 2.9 --> 35.2 --> 116 --> 1200 Repeat EKG without any acute ischemic changes, no significant change Continue heparin per protocol Continue beta-shelby, statin, ASA Cardiac diet Echocardiogram ordered but not completed prior to transfer Discussed with cardiology. Pt accepted to [facility] for ongoing management. Continue cardiac monitoring and IV heparin on transfer to [facility] Gpj-[id number] type 2 diabetes POC glucose, diabetic diet Sliding scale insulin HTN has been noncompliant with meds Continue amlodipine, Coreg RA Continue hydroxychloroquine BPH continue home meds GERD PPI Mood disorder Continue home meds Chronic low back pain Continue home meds Status at Discharge Functional status at discharge: independent ambulation Overall status at discharge: patient is progressing back to baseline Time Attestation Discharge Coordination Time (in mins): 40 Quality: Safe Use of Opioids Does Pt have an Active Cancer Diagnosis on the Problem List?: No Quality: Stroke Does the patient have a stroke diagnosis?: No Physical Exam Vital Signs: Vital Signs: Last Vital Signs Temp 97.3 F 12/01/24 08:00 Pulse 64 12/01/24 08:00 Resp 18 12/01/24 08:00 BP 126/58 L 12/01/24 08:00 Pulse Ox 96 12/01/24 08:00 O2 Del Method Room Air 12/01/24 08:00 BMI result Body Mass Index 30.9 DS: Data Data Completed and Pending Labs on day of discharge: Laboratory Results - last 24 hr 11/30/24 11/30/24 11/30/24 11:47 15:10 16:13 WBC 7.6 8.7 RBC 4.91 4.83 Hgb 14.2 14.2 Hct 42.1 41.3 L MCV 85.7 85.5 MCH 28.9 29.4 MCHC 33.7 34.4 RDW 13.2 13.1 Plt Count 188 183 MPV 9.5 9.6 Immature Gran % (Auto) 0.3 Neut % (Auto) 47.9 Lymph % (Auto) 39.9 [place] % (Auto) 7.7 Eos % (Auto) 3.4 Baso % (Auto) 0.8 Lymph # (Auto) 3.1 [place] # (Auto) 0.6 Eos # (Auto) 0.3 Baso # (Auto) 0.1 Abs Immat Gran (auto) 0.02 Absolute Neuts (auto) 3.7 Absolute Nucleated RBC 0.000 0.000 Nucleated RBC % (auto) 0.0 0.0 PT 10.9 INR 1.0 aPTT Heparin Protocol 27.4 L Sodium 140 Potassium 4.5 Chloride 108 Carbon Dioxide 22 Anion Gap 15 BUN 18 H Creatinine 0.74 Estim Creat Clear Calc 100.8 Estimated GFR > 60 POC Glucose Random Glucose 172 H Calcium 8.9 Total Bilirubin 0.5 AST 29 ALT 25 Alkaline Phosphatase 71 Troponin I High Sens 2.9 35.2 H D Total Protein 7.1 Albumin 4.3 11/30/24 11/30/24 11/30/24 17:04 17:42 21:39 WBC RBC Hgb Hct MCV MCH MCHC RDW Plt Count MPV Immature Gran % (Auto) Neut % (Auto) Lymph % (Auto) [place] % (Auto) Eos % (Auto) Baso % (Auto) Lymph # (Auto) [place] # (Auto) Eos # (Auto) Baso # (Auto) Abs Immat Gran (auto) Absolute Neuts (auto) Absolute Nucleated RBC Nucleated RBC % (auto) PT INR aPTT Heparin Protocol Sodium Potassium Chloride Carbon Dioxide Anion Gap BUN Creatinine Estim Creat Clear Calc Estimated GFR POC Glucose 135 H 131 H Random Glucose Calcium Total Bilirubin AST ALT Alkaline Phosphatase Troponin I High Sens 166.6 H* D Total Protein Albumin 11/30/24 12/01/24 12/01/24 23:11 05:40 07:14 WBC 8.8 RBC 4.81 Hgb 14.2 Hct 41.0 L MCV 85.2 MCH 29.5 MCHC 34.6 RDW 13.2 Plt Count 167 MPV 9.5 Immature Gran % (Auto) 0.3 Neut % (Auto) 45.2 Lymph % (Auto) 43.4 H [place] % (Auto) 8.1 Eos % (Auto) 2.3 Baso % (Auto) 0.7 Lymph # (Auto) 3.8 Morrison # (Auto) 0.7 Eos # (Auto) 0.2 Baso # (Auto) 0.1 Abs Immat Gran (auto) 0.03 Absolute Neuts (auto) 4.0 Absolute Nucleated RBC 0.000 Nucleated RBC % (auto) 0.0 PT 11.3 INR 1.0 aPTT Heparin Protocol 50.3 L D 87.0 H D Sodium 140 Potassium 4.1 Chloride 110 H Carbon Dioxide 24 Anion Gap 10 L BUN 14 Creatinine 0.71 Estim Creat Clear Calc 124.3 Estimated GFR > 60 POC Glucose 135 H Random Glucose 128 H Calcium 8.7 Total Bilirubin AST ALT Alkaline Phosphatase Troponin I High Sens 1265.3 H* D Total Protein Albumin 12/01/24 11:15 WBC RBC Hgb Hct MCV MCH MCHC RDW Plt Count MPV Immature Gran % (Auto) Neut % (Auto) Lymph % (Auto) [place] % (Auto) Eos % (Auto) Baso % (Auto) Lymph # (Auto) [place] # (Auto) Eos # (Auto) Baso # (Auto) Abs Immat Gran (auto) Absolute Neuts (auto) Absolute Nucleated RBC Nucleated RBC % (auto) PT INR aPTT Heparin Protocol Sodium Potassium Chloride Carbon Dioxide Anion Gap BUN Creatinine Estim Creat Clear Calc Estimated GFR POC Glucose 140 H Random Glucose Calcium Total Bilirubin AST ALT Alkaline Phosphatase Troponin I High Sens Total Protein Albumin Discharge Plan Discharge Anticipated Discharge Date/Time: 12/01/24 12:11 Patient Disposition: Xfer Acute Care Hospital Discharge Diagnosis: NSTEMI, hypertensive urgency Referrals: Po,Clive Lima MD [Primary Care Provider, Internal Medicine] - 1 Week Discharge Medications: Continued carvedilol 6.25 mg tablet 6.25 mg PO BID Qty: 180 2RF pregabalin 75 mg capsule 75 mg PO BID Qty: 180 1RF tolterodine [Detrol LA] 2 mg capsule,extended release 24hr 2 mg PO Q24H Qty: 90 1RF amlodipine 5 mg tablet 5 mg PO BEDTIME rosuvastatin 40 mg tablet 40 mg PO BEDTIME diclofenac sodium 1 % gel 4 g topical QID PRN (Reason: Pain) Rx Instructions: Apply to bilateral hands 4 times a day (DME) blood-glucose meter [FreeStyle Lite Meter] Kit See Rx Instructions .MEDSUPPLY Qty: 1 0RF Rx Instructions: test daily (DME) lancets [FreeStyle Lancets] 28 gauge misc See Rx Instructions .ROUTE .MEDSUPPLY Qty: 100 3RF Rx Instructions: As directed check BS QD (DME) lancets [FreeStyle Lancets] 28 gauge misc See Rx Instructions .MEDSUPPLY Qty: 100 2RF Rx Instructions: test daily (DME) FreeStyle Lite Strips Strip See Rx Instructions .MEDSUPPLY Qty: 100 2RF Rx Instructions: test daily aspirin 81 mg tablet,delayed release (DR/EC) 81 mg PO DAILY (DME) wrist cock up splint See Rx Instructions .Route .MEDSUPPLY Qty: 2 0RF Rx Instructions: Wear on each wrist at night. sertraline 100 mg tablet 150 mg PO BEDTIME nitroglycerin 0.4 mg tablet, sublingual 0.4 mg sublingual Q5M PRN (Reason: chest pain) Qty: 30 5RF Rx Instructions: do not exceed 3 doses per episode albuterol sulfate 90 mcg/actuation HFA aerosol inhaler 2 puff inhalation Q4-6H PRN (Reason: Shortness Of Breath) Qty: 8.5 0RF famotidine [Pepcid] 40 mg tablet 40 mg PO BEDTIME Qty: 30 6RF senna 8.6 mg capsule 8.6 mg PO BEDTIME Qty: 30 6RF Discharge Orders: Discharge Order (Routine); Ordered 12/01/24 Ordered By: Miriam Nugent Diet: Advance to usual diet Activity on Discharge: As tolerated Stand Alone Forms: Patient Portal Discharge page Print Language: Luxembourgish Care Plan Goals: Transferred to [facility] for cardiac catheterization per Cardiology. We will continue on cardiac monitoring and IV heparin drip Continue ASA, beta-shelby, statin Health Concerns: NSTEMI Hypertensive urgency Plan of Treatment: Transfer to [facility]. As above Assessment: See discharge summary. See above. See cardiology consult
--- NOTE | 2024-12-01 11:58 | P.CONCA_ITS ---
History of Present Illness History of Present Illness Date of Service: 12/01/24 Requesting physician: Miriam Nugent Chief complaint: NSTEMI Narrative: [age] year gentleman with known history of coronary artery disease with previous RCA PCI in 2018 presenting with chest discomfort. He said that he started feeling chest discomfort at rest yesterday. This was a pressure-like feeling. He previously had similar symptoms when he had RCA PCI but at that time he also had bilateral arm discomfort. He said he checked his blood pressure and it was elevated and are checking again it went up to 200s. At this stage he decided to call EMS and came to the emergency department. In the ER in his blood pressure initially was elevated but improved. He is currently getting his home medications and blood pressures are well controlled. He is saying his chest discomfort has improved. He has ruled in for NSTEMI. EKGs not showing any dynamic changes. He previously had 40% lad and a moderate circumflex stenosis which was med managed in 2018. He does not drink alcohol. He is a former smoker but does not carry a diagnosis of COPD. He was diabetic but with lifestyle changes his A1c has improved and he is currently off the metformin. [facility] Past Medical History Medical History RSV (respiratory syncytial virus infection) Encounter for monitoring of hydroxychloroquine therapy Pre-op examination Frequency of micturition Right wrist pain Annual physical exam Lower urinary tract symptoms Immunization counseling Screening for viral disease Bilateral carpal tunnel syndrome Screening for colon cancer Screening for prostate cancer New onset type 2 diabetes mellitus Depression Adult general medical exam Precordial chest pain Right hip pain Acute sinusitis Right rotator cuff tear Atherosclerotic cardiovascular disease Left rotator cuff tear Gastritis determined by endoscopy Lip cancer Erectile dysfunction Anxiety Degenerative disc disease, lumbar Horseshoe kidney Coronary artery disease GERD (gastroesophageal reflux disease) Hypercholesterolemia Cervical radiculopathy 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 Osteoarthritis Family History Family History Father Lung cancer CAD (coronary artery disease) CVD (cardiovascular disease) Hx of CABG Mother Colon cancer Mental health disorder Maternal Uncle Lung cancer Maternal Uncle Substance abuse Substance use disorder Brother Lung cancer Surgical History Surgical History History of carpal tunnel surgery of right wrist History of rotator cuff surgery S/P left rotator cuff repair Hx of colonoscopy History of coronary artery stent placement History of cervical spinal surgery History of shoulder surgery History of lip cancer H/O left knee surgery History of tonsillectomy Social History Social History Housing: Apartment Housing Other:: Rents a room in a house Are you a primary elderly caregiver to a significant other at home: No Do you presently have visiting nurse or other home services: No Alcohol intake: current Alcohol intake frequency: holidays/special occasions only Alcohol type: beer and hard liquor Comment: once a month glass Patient Tobacco Use Status: Former Tobacco user Tobacco use type: Cigarette Years Smoked: quit 2004 smoke marijuana e-Cigarette/Vaping Use: Never Used Second Hand Smoke Exposure: Yes Substance Use Type: Marijuana service: No Current occupational status: unemployed Current occupation: right handed Cognitive needs: No Hearing needs: No Vision needs: Yes Meds Allergies Allergy/AdvReac Type Severity Reaction Status Date / Time penicillin V Allergy Severe rash Verified 11/30/24 11:39 adalimumab (From Humira) Allergy Intermediate leg pain Verified 11/30/24 11:39 atorvastatin Allergy Intermediate leg pain Verified 11/30/24 11:39 leflunomide Allergy Intermediate kidney Verified 11/30/24 11:39 failure tocilizumab (From Actemra) Allergy Intermediate frequent Verified 11/30/24 11:39 nail infection lisinopril AdvReac Intermediate Anxiety Verified 11/06/24 14:05 losartan AdvReac Intermediate Nausea Verified 11/06/24 14:05 Active Medications: Current Medications Acetaminophen (Acetaminophen 325 Mg Tablet) 650 mg PO Q6H PRN PRN Reason: Pain, Mild 1-3,fever,headache Albuterol Sulfate (Albuterol Sulfate 90 Mcg 8 Gm Inhaler) 2 puff INHALE Q4H PRN PRN Reason: Shortness of Breath Amlodipine Besylate (Amlodipine Besylate 5 Mg Tablet) 5 mg PO BEDTIME [facility]; Protocol Last Admin: 11/30/24 22:26 Dose: 5 mg Aspirin (Aspirin Enteric Coated 81 Mg Tablet.) 81 mg PO DAILY [facility] Last Admin: 12/01/24 08:12 Dose: 81 mg Atorvastatin Calcium (Atorvastatin Calcium 80 Mg Tablet) 80 mg PO BEDTIME [facility] Last Admin: 11/30/24 22:30 Dose: Not Given Calcium Carbonate (Calcium Carbonate 750 Mg Tab.Chew) 750 mg PO Q4H PRN PRN Reason: Heartburn Carvedilol (Carvedilol 6.25 Mg Tablet) 6.25 mg PO BID [facility]; Protocol Last Admin: 12/01/24 08:12 Dose: 6.25 mg Dextrose (Dextrose 50 % 25 Gm/50 Ml Syringe) 25 gm IVPUSH Q15M PRN; Protocol PRN Reason: per Hypoglycemia Standing Ord. Famotidine (Famotidine 20 Mg Tablet) 40 mg PO BEDTIME [facility] Last Admin: 11/30/24 22:26 Dose: 40 mg Glucose (Glucose Gel 15 Gm Gel..Gram.) 15 gm PO Q15M PRN; Protocol PRN Reason: per Hypoglycemia Standing Ord. Heparin Sodium (Porcine) (Heparin Sodium,Porcine 5,000 Unit/Ml Vial) 3,800 unit 40 unit/kg (3800 unit) IVPUSH PROTOCOL BOLUS PRN; Protocol PRN Reason: 40 unit/kg - Heparin Protocol Last Admin: 11/30/24 23:37 Dose: 3,800 unit Heparin Sodium (Porcine) (Heparin Sodium,Porcine 5,000 Unit/Ml Vial) 7,600 unit 80 unit/kg (7600 unit) IVPUSH PROTOCOL BOLUS PRN; Protocol PRN Reason: 80 unit/kg - Heparin Protocol Heparin Sodium/Sodium Chloride (Heparin Sodium,Porcine/1/2ns) 25,000 unit in 250 mls @ 0 mls/hr IVCONT .Q0M [facility]; Protocol Last Titration: 12/01/24 06:10 Dose: 10.52 units/kg/hr, 10 mls/hr Insulin Human Lispro (Insulin Lispro 100 Unit/Ml 3 Ml Vial) 0 unit SUBCUT QIDACHS [facility]; Protocol Last Admin: 12/01/24 11:42 Dose: Not Given Magnesium Hydroxide (Milk Of Magnesia 30 Ml Oral.Susp) 30 ml PO DAILY PRN PRN Reason: Constipation Melatonin (Melatonin 3 Mg Tablet) 6 mg PO BEDTIME PRN PRN Reason: Insomnia Nitroglycerin (Nitroglycerin 0.4 Mg Tab.Subl) 0.4 mg SUBLINGUAL Q5M PRN PRN Reason: Chest Pain Pregabalin (Pregabalin 75 Mg Capsule) 75 mg PO BID [facility] Last Admin: 12/01/24 08:12 Dose: 75 mg Senna (Sennosides 8.6 Mg Tablet) 8.6 mg PO BEDTIME [facility] Sertraline HCl (Sertraline Hcl 50 Mg Tablet) 150 mg PO BEDTIME [facility] Last Admin: 11/30/24 22:26 Dose: 150 mg Sodium Chloride (0.9 % Sodium Chloride Flush 3 Ml Syringe) 3 ml IVFLUSH QSHIFT [facility] Last Admin: 12/01/24 08:15 Dose: 3 ml Tolterodine Tartrate (Tolterodine Tartrate La 2 Mg Cap.Er.24h) 2 mg PO Q24H [facility] Last Admin: 11/30/24 22:26 Dose: 2 mg Home Medications ?Medication ?Instructions ?Recorded ?Confirmed ?Last Taken ?Type aspirin 81 mg tablet,delayed 81 mg PO DAILY 04/23/20 0 11/30/24 08/10/20 History release sertraline 100 mg tablet 150 mg PO BEDTIME 06/26/23 0 11/30/24 Unknown History amlodipine 5 mg tablet 5 mg PO BEDTIME 11/30/24 Unknown History diclofenac sodium 1 % topical gel 4 g topical QID PRN Pain 11/30/24 11/30/24 Unknown History rosuvastatin 40 mg tablet 40 mg PO BEDTIME 11/30/24 Unknown History Physical Exam 2 Vital Signs: Vital Signs: Last Vital Signs Temp 97.3 F 12/01/24 08:00 Pulse 64 12/01/24 08:00 Resp 18 12/01/24 08:00 BP 126/58 L 12/01/24 08:00 Pulse Ox 96 12/01/24 08:00 O2 Del Method Room Air 12/01/24 08:00 BMI result Body Mass Index 30.9 GENERAL APPEARANCE: in no acute distress, anxious appearing. NECK: no carotid bruit, no jugular venous distention. SKIN: no suspicious lesions, warm and dry. HEART: no murmurs, regular rate and rhythm. LUNGS: clear to auscultation bilaterally. ABDOMEN: soft, nontender. EXTREMITIES: no edema. PERIPHERAL PULSES: equal. NEUROLOGIC: No gross deficits, AAO X 3 Objective Labs and Meds 12/01/24 05:40 12/01/24 05:40 Lab results: Laboratory Results - last 24 hr 11/30/24 11/30/24 11/30/24 11:47 15:10 16:13 WBC 8.7 RBC 4.83 Hgb 14.2 Hct 41.3 L MCV 85.5 MCH 29.4 MCHC 34.4 RDW 13.1 Plt Count 183 MPV 9.6 Immature Gran % (Auto) Neut % (Auto) Lymph % (Auto) [place] % (Auto) Eos % (Auto) Baso % (Auto) Lymph # (Auto) [place] # (Auto) Eos # (Auto) Baso # (Auto) Abs Immat Gran (auto) Absolute Neuts (auto) Absolute Nucleated RBC 0.000 Nucleated RBC % (auto) 0.0 PT 10.9 INR 1.0 aPTT Heparin Protocol 27.4 L Sodium 140 Potassium 4.5 Chloride 108 Carbon Dioxide 22 Anion Gap 15 BUN 18 H Creatinine 0.74 Estim Creat Clear Calc 100.8 Estimated GFR > 60 POC Glucose Random Glucose 172 H Calcium 8.9 Total Bilirubin 0.5 AST 29 ALT 25 Alkaline Phosphatase 71 Troponin I High Sens 2.9 35.2 H D Total Protein 7.1 Albumin 4.3 11/30/24 11/30/24 11/30/24 17:04 17:42 21:39 WBC RBC Hgb Hct MCV MCH MCHC RDW Plt Count MPV Immature Gran % (Auto) Neut % (Auto) Lymph % (Auto) [place] % (Auto) Eos % (Auto) Baso % (Auto) Lymph # (Auto) [place] # (Auto) Eos # (Auto) Baso # (Auto) Abs Immat Gran (auto) Absolute Neuts (auto) Absolute Nucleated RBC Nucleated RBC % (auto) PT INR aPTT Heparin Protocol Sodium Potassium Chloride Carbon Dioxide Anion Gap BUN Creatinine Estim Creat Clear Calc Estimated GFR POC Glucose 135 H 131 H Random Glucose Calcium Total Bilirubin AST ALT Alkaline Phosphatase Troponin I High Sens 166.6 H* D Total Protein Albumin 11/30/24 12/01/24 12/01/24 23:11 05:40 07:14 WBC 8.8 RBC 4.81 Hgb 14.2 Hct 41.0 L MCV 85.2 MCH 29.5 MCHC 34.6 RDW 13.2 Plt Count 167 MPV 9.5 Immature Gran % (Auto) 0.3 Neut % (Auto) 45.2 Lymph % (Auto) 43.4 H [place] % (Auto) 8.1 Eos % (Auto) 2.3 Baso % (Auto) 0.7 Lymph # (Auto) 3.8 [place] # (Auto) 0.7 Eos # (Auto) 0.2 Baso # (Auto) 0.1 Abs Immat Gran (auto) 0.03 Absolute Neuts (auto) 4.0 Absolute Nucleated RBC 0.000 Nucleated RBC % (auto) 0.0 PT 11.3 INR 1.0 aPTT Heparin Protocol 50.3 L D 87.0 H D Sodium 140 Potassium 4.1 Chloride 110 H Carbon Dioxide 24 Anion Gap 10 L BUN 14 Creatinine 0.71 Estim Creat Clear Calc 124.3 Estimated GFR > 60 POC Glucose 135 H Random Glucose 128 H Calcium 8.7 Total Bilirubin AST ALT Alkaline Phosphatase Troponin I High Sens 1265.3 H* D Total Protein Albumin 12/01/24 11:15 WBC RBC Hgb Hct MCV MCH MCHC RDW Plt Count MPV Immature Gran % (Auto) Neut % (Auto) Lymph % (Auto) [place] % (Auto) Eos % (Auto) Baso % (Auto) Lymph # (Auto) [place] # (Auto) Eos # (Auto) Baso # (Auto) Abs Immat Gran (auto) Absolute Neuts (auto) Absolute Nucleated RBC Nucleated RBC % (auto) PT INR aPTT Heparin Protocol Sodium Potassium Chloride Carbon Dioxide Anion Gap BUN Creatinine Estim Creat Clear Calc Estimated GFR POC Glucose 140 H Random Glucose Calcium Total Bilirubin AST ALT Alkaline Phosphatase Troponin I High Sens Total Protein Albumin Assessment and Plan (1) Essential hypertension: Status: Acute (2) NSTEMI (non-ST elevated myocardial infarction): Status: Acute Plan [age] year gentleman presenting with chest discomfort and non ST-elevation IA. He has background history of rheumatoid arthritis, diabetes currently diet controlled, hypertension and hyperlipidemia. He also has known history of coronary disease with previous RCA PCI in 2018. At that time he had circumflex and LAD stenosis which was med managed. Currently on heparin drip. Continue baby aspirin and rosuvastatin. Blood pressure is well controlled currently and it is possible that he had chest discomfort and became anxious and that is why blood pressure was elevated. We will transfer him to [facility] for potential cardiac catheterization by Monday. Thank you for allowing me to participate in the care of your patient. Please feel free to contact me if you have any questions. Procedures Date of Service Date of Service: 12/01/24
[2024-12-01 12:00] VITALS: BP 138/99; PULSE 83; RESP 18; TEMP 36.2; O2SAT 96
[2024-12-01 12:20] LABS: Cholesterol 122 mg/dL (<200); HDL Cholesterol 38 mg/dL (>40); LDL Cholesterol Calculated 56 mg/dL (<100); Triglycerides 141 mg/dL (<150)
[2024-12-01] MEDS: Heparin Sodium,Porcine 5,000 UNIT/ML VIAL 3800 UNIT IVPUSH (12:29)
--- NOTE | 2024-12-01 14:07 | MHC.CM.PN ---
Pt being transferrd to [facility] for treatment there.
[2024-12-01] MEDS: Heparin Sodium,Porcine/1/2NS 25,000 UNIT/250 ML IV.SOLN 11.9 UNIT IVCONT (14:29)
[2024-12-01 15:51] VITALS: BP 134/75; PULSE 73; RESP 18; O2SAT 96
[2024-12-01 16:32] LABS: Glucose, Whole Blood 116 mg/dL (60-115)
[2024-12-01 18:08] LABS: PTT Heparin Drip 84.8 SEC (53-77.9)
[2024-12-01 20:00] VITALS: BP 140/81; PULSE 70; RESP 16; TEMP 36.2
[2024-12-01 20:20] LABS: Glucose, Whole Blood 107 mg/dL (60-115)
[2024-12-01] MEDS: Famotidine 20 MG TABLET 40 MG PO (20:24)
[2024-12-01] MEDS: amLODIPine Besylate 5 MG TABLET PO (20:24)
[2024-12-01] MEDS: Sertraline HCL 50 MG TABLET 150 MG PO (20:24)
[2024-12-01] MEDS: Sennosides 8.6 MG TABLET PO (20:25)
[2024-12-01] MEDS: 0.9 % Sodium Chloride Flush 3 ML SYRINGE IVFLUSH (20:27)
--- NOTE | 2024-12-01 20:42 | PC.NURSE ---
Assumed care of this patient at 19:00. Pt is A&Ox4. Seen this admission for NSTEMI. Tele showing NSR. Pt denied chest pain, pressure, or palpitations. Continues on heparin gtt infusing at 10.52units/kg/hr (10ml/hr) per AUG. IVs assessed and functional, patent with good blood return. No signs of bleeding noted. Breathing even and unlabored without distress on room air, spo2 97% this evening. Pt denies sob. Patient transferred to [facility] via [facility] at ~20:38. Report was called at 20:08 to receiving MM5 RN at [facility] Warm handover report given to EMS, including gtt verification and next PTT due at 00:15 12/02. This pt was medicated with due/available evening meds per AUG just prior to EMS transport/assuming care. Atorvastatin held due to allergy. Patient left via EMS in stable condition with all belongings as confirmed with the patient.
== END 2024-12-01 20:38 | disposition short-term general hospital (02) | DRG 282 ==
LOC: HO.ED 16:09 → HO.EDOVER 16:24 → HO.IMC 19:32
PROVIDERS: Hospitalist; Admitting Provider Physician Assistant; Emergency Provider Emergency Medicine Emergency Medical Services; PCP Internal Medicine; Visit Provider Physician Assistant
DX: I21.4 Non-ST elevation (NSTEMI) myocardial infarction (principal); I10 Essential (primary) hypertension; I25.10 Atherosclerotic heart disease of native coronary artery without angina pectoris; K21.9 Gastro-esophageal reflux disease without esophagitis; E11.9 Type 2 diabetes mellitus without complications; M54.59 Other low back pain; F39 Unspecified mood [affective] disorder; G89.29 Other chronic pain; I16.0 Hypertensive urgency; M06.9 Rheumatoid arthritis, unspecified; N40.0 Benign prostatic hyperplasia without lower urinary tract symptoms; Z95.5 Presence of coronary angioplasty implant and graft; Z79.82 Long term (current) use of aspirin; Z79.899 Other long term (current) drug therapy
CPT/HCPCS: 36415; 71275; 74174; 80048; 80053; 80061; 82947; 84484; 85025; 85027; 85610; 85730; 93005; 99285; J1644

== ENCOUNTER → 2024-11-30 12:24 | Outpatient (BNV) | payer OTHER, SELFPAY | PROVIDERS: Emergency Provider Emergency Medicine Emergency Medical Services; PCP Internal Medicine; Visit Provider Nuclear Medicine | DX: R07.9 Chest pain, unspecified (principal) | CPT/HCPCS: 74174 ==

== ENCOUNTER 2024-11-30 16:03 | Outpatient (BNV) | payer OTHER, SELFPAY | END 2024-12-01 07:46 | PROVIDERS: Admitting Provider Physician Assistant; Emergency Provider Emergency Medicine Emergency Medical Services; PCP Internal Medicine; Visit Provider Internal Medicine | DX: R94.31 Abnormal electrocardiogram [ECG] [EKG] (principal); R79.89 Other specified abnormal findings of blood chemistry | CPT/HCPCS: 93010 ==

== ENCOUNTER → 2024-11-30 16:03 | Outpatient (BNV) | payer OTHER, SELFPAY | PROVIDERS: Admitting Provider Physician Assistant; Emergency Provider Emergency Medicine Emergency Medical Services; PCP Internal Medicine; Visit Provider Physician Assistant | DX: I21.4 Non-ST elevation (NSTEMI) myocardial infarction (principal) | CPT/HCPCS: 99223; 99239; 99499 ==

== ENCOUNTER → 2024-11-30 16:03 | Outpatient (BNV) | payer OTHER, SELFPAY | PROVIDERS: Admitting Provider Physician Assistant; Emergency Provider Emergency Medicine Emergency Medical Services; PCP Internal Medicine; Visit Provider Internal Medicine Cardiovascular Disease | DX: I21.4 Non-ST elevation (NSTEMI) myocardial infarction (principal); I10 Essential (primary) hypertension | CPT/HCPCS: 93010; 99223 ==

== ENCOUNTER → 2024-12-03 23:59 | Outpatient (BNV) | payer OTHER, SELFPAY | PROVIDERS: PCP Internal Medicine; Visit Provider Internal Medicine Cardiovascular Disease | DX: I21.4 Non-ST elevation (NSTEMI) myocardial infarction (principal) | CPT/HCPCS: 93458; 99152 ==

== ENCOUNTER 2024-12-06 10:45 | Outpatient (AMB) | payer OTHER, SELFPAY ==
[2024-12-06 10:56] VITALS: BP 114/62; PULSE 74; O2SAT 96; BMI 30.7
--- NOTE | 2024-12-06 10:56 | A.OFFPC_ITS ---
Vital Signs 12/06/24 10:56 Height 5 ft 9 in Weight 208 lb BMI 30.7 BP 114/62 Blood Pressure Location Lt brachial Position Sitting Pulse 74 Pulse Source Pulse Oximeter Pulse Oximetry (%) 96 Oxygen Delivery Method Room Air Intake Visit Reasons: [facility] 12/04 tightness in chest Allergies penicillin V Allergy (Severe, Verified 12/06/24 10:57) rash adalimumab (From Humira) Allergy (Intermediate, Verified 12/06/24 10:57) leg pain atorvastatin Allergy (Intermediate, Verified 12/06/24 10:57) leg pain leflunomide Allergy (Intermediate, Verified 12/06/24 10:57) kidney failure tocilizumab (From Actemra) Allergy (Intermediate, Verified 12/06/24 10:57) frequent nail infection lisinopril Adverse Reaction (Intermediate, Verified 12/06/24 10:57) Anxiety losartan Adverse Reaction (Intermediate, Verified 12/06/24 10:57) Nausea Medication List - Last Reconciled 12/06/24 by Clive Lima Po, albuterol sulfate 90 mcg/actuation 2 puffs inhalation Q4-6H PRN amlodipine 5 mg PO BEDTIME aspirin 81 mg PO DAILY blood sugar diagnostic (FreeStyle Lite Strips) test daily blood-glucose meter (FreeStyle Lite Meter kit) test daily carvedilol 6.25 mg PO BID diclofenac sodium 1% 4 grams topical QID PRN famotidine (Pepcid) 40 mg PO BEDTIME lancets (FreeStyle Lancets) test daily lancets (FreeStyle Lancets) As directed check BS QD nitroglycerin 0.4 mg sublingual Q5M PRN pregabalin 75 mg PO BID rosuvastatin 40 mg PO BEDTIME sennosides (senna) 8.6 mg PO BEDTIME sertraline 150 mg PO BEDTIME tolterodine ER (Detrol LA) 2 mg PO Q24H [wrist cock up splint Wear on each wrist at night. ] Tobacco use date assessed: 09/27/24 Dental Screening Dental Screen Date: 06/26/24 [facility] Medical History RSV (respiratory syncytial virus infection) Encounter for monitoring of hydroxychloroquine therapy Pre-op examination Frequency of micturition Right wrist pain Annual physical exam Lower urinary tract symptoms Immunization counseling Screening for viral disease Bilateral carpal tunnel syndrome Screening for colon cancer Screening for prostate cancer New onset type 2 diabetes mellitus Depression Adult general medical exam Precordial chest pain Right hip pain Acute sinusitis Right rotator cuff tear Atherosclerotic cardiovascular disease Left rotator cuff tear Gastritis determined by endoscopy Lip cancer Erectile dysfunction Anxiety Degenerative disc disease, lumbar [place] kidney Coronary artery disease GERD (gastroesophageal reflux disease) Hypercholesterolemia Cervical radiculopathy 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 Osteoarthritis Surgical History History of carpal tunnel surgery of right wrist History of rotator cuff surgery S/P left rotator cuff repair Hx of colonoscopy History of coronary artery stent placement History of cervical spinal surgery History of shoulder surgery History of lip cancer H/O left knee surgery History of tonsillectomy Family History Father Lung cancer CAD (coronary artery disease) CVD (cardiovascular disease) Hx of CABG Mother Colon cancer Mental health disorder Maternal Uncle Lung cancer Maternal Uncle Substance abuse Substance use disorder Brother Lung cancer Social History Housing: Apartment Housing Other:: Rents a room in a house Are you a primary direct support professional caregiver to a significant other at home: No Do you presently have visiting nurse or other home services: No Alcohol intake: current Alcohol intake frequency: holidays/special occasions only Alcohol type: beer and hard liquor Comment: once a month glass Patient Tobacco Use Status: Former Tobacco user Tobacco use type: Cigarette Years Smoked: quit 2005 smokes marijuana e-Cigarette/Vaping Use: Never Used Second Hand Smoke Exposure: Yes Substance Use Type: Marijuana service: No Current occupational status: unemployed Current occupation: right handed Cognitive needs: No Hearing needs: No Vision needs: Yes Questionnaire PHQ-9 Over the last 2 weeks, how often have you been bothered by any of the following problems? 1. Little interest or pleasure in doing things: several days 2. Feeling down, depressed, or hopeless: several days 3. Trouble falling or staying asleep, or sleeping too much: not at all 4. Feeling tired or having little energy: more than half the days 5. Poor appetite or overeating: not at all 6. Feeling bad about yourself - or that you are a failure or have let yourself or your family down: several days 7. Trouble concentrating on things, such as reading the newspaper or watching television: several days 8. Moving or speaking so slowly that other people could have noticed. Or the opposite - being so fidgety or restless that you have been moving around a lot more than usual: several days 9. Thoughts that you would be better off or of hurting yourself in some way: not at all Total score: 7 Depression Screening Interpretation: Positive Depression Screening Done: Yes Source: Developed by Drs. Souleymane Cox, Aline Kay, Damion Lieberman and colleagues, with an educational zulema from Contractually. Thrive Questionnaire Date Thrive assessed: 12/01/24 I am a: Patient What is your living situation today?: I have a steady place to live Within the past 12 months, did the food you bought not last and you didn't have the money to get more?: Often true Within the past 12 months, did you worry whether your food would run out before you got money to buy more?: Often true Do you have trouble paying for medicines?: Yes Do you have trouble getting transportation to medical appointments?: No Do you have trouble paying your heating and electricity bill?: Yes Do you have trouble taking care of your child, family member or friend?: Yes Do you have trouble with day-to-day activities such as bathing, preparing meals, shopping, managing finances, etc.?: No Are you currently unemployed and looking for a job?: Yes Are you interested in more education?: No Please select the resources that you would like help with: Food, Care for elder or disabled and Daily support Currently or been in a relationship where the following occur: I choose not to answer THRIVE Score: 3 AUDIT C Alcohol Use Questionnaire (AUDIT-C) 1. How often do you have a drink containing alcohol?: Never 3. How often do you have six or more drinks on one occasion?: Never Total Score: 0 SARAI-7 AMB Questionnaire SARAI-7 Date SARAI - 7 assessed: 06/26/24 Feeling nervous, anxious, or on edge: 0 = Not at all Not being able to stop or control worryin = Not at all Worrying too much about different things: 0 = Not at all Trouble relaxin = Not at all Being so restless that it is hard to sit still: 0 = Not at all Becoming easily annoyed or irritable: 0 = Not at all Feeling afraid as if something awful might happen: 0 = Not at all Total SARAI-7 score (0-4 normal; 5-9 mild; 10-14 moderate; 15-21 severe): 0 Source: Developed by Drs. Souleymane Cox, Aline Kay, Damion Lieberman and colleagues, with an educational zulema from Contractually. Physical exam (Primary Care) Vital Signs: Last Vital Signs Pulse 74 12/06/24 10:56 BP 114/62 12/06/24 10:56 Pulse Ox 96 12/06/24 10:56 Oxygen Delivery Method Room Air 12/06/24 10:56 BMI result Body Mass Index 30.7 Tobacco/Smoking Status: Tobacco use Status Tobacco use date assessed 09/27/24 12/06/24 11:03 Patient Tobacco Use Status Former Tobacco user 12/06/24 11:03 Tobacco use type Cigarette 12/06/24 11:03 e-Cigarette/Vaping Use Never Used 12/06/24 11:03 PHQ-9: PHQ-9 Score PHQ-9: Total score 7 12/06/24 11:03 Depression Screening Interpretation: Positive Thrive Assessment: Date of Thrive Assessment Date Thrive assessed 12/01/24 12/06/24 11:03 Currently or been in a relationship where the following occur: I choose not to answer Const General: alert; No acute distress Eyes Conjunctivae: conjunctivae normal Resp Auscultation: clear to auscultation bilaterally Cardio Rate: regular rate Rhythm: regular rhythm GI Inspection: Yes normal to inspection Extrem General: Yes normal to inspection and No edema Coding Level of Care Code Est Pt Level 4 (01274) Complex EM visit Add On G2211 Diagnoses Coronary artery disease involving [place] coronary artery of [place] heart without angina pectoris I25.10 Coronary Disease-Associated Artery/Lesion type: [place] artery [place] vs. transplanted heart: [place] heart Associated angina: without angina Essential hypertension I10 NSTEMI (non-ST elevated myocardial infarction) I21.4 Hypercholesterolemia E78.00 Type 2 diabetes mellitus with hyperglycemia E11.65 Gastroesophageal reflux disease without esophagitis K21.9 Esophagitis presence: without esophagitis Seropositive rheumatoid arthritis M05.9 Assessment & Plan Assessment & Plan (1) Coronary artery disease: Comment: 10/20/2017 angioplasty YESSICA, stent placement Dr. Tomeka Araya March 2018 echo 60-65% normal LV, Brilinta October 2018, nuclear stress ejection fraction 74% echo July 2019 60-65% Code(s): I25.10 - Atherosclerotic heart disease of [place] coronary artery without angina pectoris Category: Medical Qualifiers: Coronary Disease-Associated Artery/Lesion type: [place] artery [place] vs. transplanted heart: [place] heart Associated angina: without angina Qualified Code(s): I25.10 - Atherosclerotic heart disease of [place] coronary artery without angina pectoris Plan: Control the cholesterol, weight, blood pressure, diabetes patient had an STEMI secondary to uncontrolled hypertension (2) Essential hypertension: Code(s): I10 - Essential (primary) hypertension Category: Medical Plan: Continue with blood pressure medication. Decrease salt intake and exercise presently on amlodipine 5 mg once a day carvedilol 6.25 mg twice a day (3) NSTEMI (non-ST elevated myocardial infarction): Code(s): I21.4 - Non-ST elevation (NSTEMI) myocardial infarction Category: Medical Plan: Cardiac event secondary to uncontrolled blood pressure (4) Hypercholesterolemia: Code(s): E78.00 - Pure hypercholesterolemia, unspecified Category: Medical Plan: Avoid fried foods, chicken skin, eggs, butter margarine, pastries and meat. Be it pork or beef they have a lot of cholesterol LDL goal of less than 70 and triglyceride of less than 150 on rosuvastatin 40 mg once a day (5) Type 2 diabetes mellitus with hyperglycemia: Code(s): E11.65 - Type 2 diabetes mellitus with hyperglycemia Category: Medical Plan: Decrease the amount of carbohydrate intake, pasta, bread, rice and potatoes are all sugar and that is aside from all the sweet stuff, remember that fruits are good but they are Sweet also. Last hemoglobin A1c in September was 6.5 diet controlled (6) GERD (gastroesophageal reflux disease): Code(s): K21.9 - Gastro-esophageal reflux disease without esophagitis Category: Medical Qualifiers: Esophagitis presence: without esophagitis Qualified Code(s): K21.9 - Gastro-esophageal reflux disease without esophagitis Plan: Avoid the foods that causes that usually spicy foods, tomato products, juices, coffee, soda and foods that your sensitive to. After eating do not lie down, allow 3-4 hours before in lie down. And keep the head of bed above 30 degrees to avoid the acid from going up. (7) Seropositive rheumatoid arthritis: Comment: ++RF -ve CCP Leflunomide: December 2020 - March 2021 urinary frequency Actemra: January 2020- December 2020 -Had surgery did not want to restart after, frequent nail infections. Enbrel: January- denied by insurance Humira: October 2019- January 2020 - active disease on exam/ listed with allergy leg pain Orencia: March 2021- 05/2024 Code(s): M05.9 - Rheumatoid arthritis with rheumatoid factor, unspecified Category: Medical Plan: Patient has seen Rheumatology started on Plaquenil discussed about eye exams Plan History of Present Illness The patient is a 59-year-old male presenting for a follow-up visit. The patient has a history of coronary artery disease, having experienced a non- ST elevation myocardial infarction (NSTEMI) secondary to uncontrolled hypertension. A cardiac catheterization performed on December 03, 2024, revealed a patent stent in the mid right coronary artery, 50% proximal right coronary artery stenosis, stable disease, mild luminal irregularities in the circumflex artery, and no significant left anterior descending artery stenosis, with a mid LAD myocardial bridge. The patient was advised to continue aspirin 81 mg daily and engage in aggressive secondary risk modification. The patient has a history of hypertension and was noncompliant with antihyp ertensive medications, leading to a hospital admission for chest pain on November 30, 2024. Current medications include amlodipine 5 mg once daily and carvedilol 6.25 mg twice daily, with a plan to double the amlodipine dosage as per discharge instructions. The patient has rheumatoid arthritis and has been noncompliant with hydroxychloroquine, self-discontinuing Dorensia due to ineffectiveness. He is now willing to start Plaquenil 200 mg twice daily and has been advised to follow up with ophthalmology due to potential retinal toxicity. The patient also has a history of gastroesophageal reflux disease (GERD) and has been placed on famotidine, which appears to be effective. He has been advised to avoid alcohol as it exacerbates reflux symptoms. Health Maintenance - Advised to continue aspirin 81 mg daily for coronary artery disease management - Aggressive secondary risk modification for coronary artery disease - Follow-up with ophthalmology due to potential retinal toxicity from Plaquenil Social History - Alcohol: Occasional consumption, advised to avoid due to reflux exacerbation Review of Systems - Cardiovascular: Reports chest pain, history of NSTEMI - Gastrointestinal: Reports gastroesophageal reflux disease, controlled with famotidine - Musculoskeletal: Reports rheumatoid arthritis, noncompliance with hydroxychloroquine Physical Exam Results - Cardiac catheterization on December 03, 2024: Patent stent in mid RCA, 50% proximal RCA stenosis, stable disease, mild luminal irregularities in circumflex artery, no significant LAD stenosis, mid LAD myocardial bridge Plan The patient will continue aspirin 81 mg daily as part of the management for coronary artery disease, with an emphasis on aggressive secondary risk modification strategies. For hypertension, the patient is currently on amlodipine 5 mg once daily and carvedilol 6.25 mg twice daily, with plans to increase the amlodipine dosage as per discharge instructions to better control blood pressure. In terms of rheumatoid arthritis management, the patient is advised to start Plaquenil 200 mg twice daily and follow up with ophthalmology due to potential retinal toxicity. For gastroesophageal reflux disease, the patient is on famotidine, which has been effective, and is advised to avoid alcohol as it exacerbates symptoms. Patient was informed and verbally consented to the use of an ambient scribe for clinic note documentation during this visit. Discussion Notes I discussed with the patient the importance of continuing aspirin 81 mg daily for coronary artery disease management and emphasized the need for aggressive secondary risk modification. We reviewed the plan to increase the amlodipine dosage to better control hypertension, as per discharge instructions. I advised the patient to start Plaquenil 200 mg twice daily for rheumatoid arthritis and to follow up with ophthalmology due to potential retinal toxicity. We also discussed the effectiveness of famotidine for gastroesophageal reflux disease and the need to avoid alcohol to prevent symptom exacerbation. Patient Instructions - Take aspirin 81 mg daily as prescribed. - Increase amlodipine dosage as per discharge instructions to better control blood pressure. - Start Plaquenil 200 mg twice daily and schedule a follow-up with ophthalmology. - Continue taking famotidine for GERD and avoid alcohol to prevent symptom exacerbation. Medications: Changed From amlodipine 5 mg PO BEDTIME To amlodipine 5 mg PO BID
--- OUTSIDE RECORDS SUMMARY | 2024-12-06 11:46 | XMS_ITS | Patient Health Record ---
[facility] Organization [facility] Address [address] [place] [address] Care Team Providers Care Management Specialist Name Role Phone Clive Chaidez Primary Care Provider Traci Juarez Unavailable [phone] Allergies Allergen (clinical drug ingredient) Drug/Non Drug [...] Status Lisinopril Active Orencia ClickJect 125 MG/ML Subcutaneous; Duration: 28 Days Not-Taking Losartan Potassium 50 MG TAKE 1 TABLET B Y MOUTH DAILY Oral; Duration: 30 Days Not-Taking Sertraline HCl 100 MG Oral; Duration: 30 Days Active Aspir-81 Active Pregabalin 75 MG Oral; Duration: 45 Days Active Carvedilol 6.25 MG TAKE 1 TABLET BY TWICE DAILY Oral; Duration: 90 Days Active Rosuvastatin Calcium 40 MG TAKE 1 TABLET BY MOUTH DAILY Oral; Duration: 90 Days Active FreeStyle Lancets - ; Duration: 90 Days Active Tolterodine Tartrate ER 2 MG TAKE 1 CAPSULE BY MOUTH EVERY 24 HOURS Oral; Duration: 90 Days Active Extra Depth Orthopedic Shoes (1 Pair) with Customized Heat Molded Multidensity Innersoles (3 Pair) as directed Dx: NIDDM/Polyneuropathy (E11.42), Hammertoe Foot Deformity (M20.41,M20.42), Preulcerative Skin Lesion(s) (L85.1 09/10/2024 Active FreeStyle Lite Test - USE DIRECTED TO TEST BLOOD GLUCOSE EVERY DAY In Vitro; Duration: 90 Days Active Immunizations Vaccine Route Administration [...] Problem Acquired hammer toe of right foot ([id number] ) Other hammer toe(s) (acquired), right foot (M20.41) Active confirmed Problem Acquired hammer toe of left foot ([id number] ) Other hammer toe(s) (acquired), left foot (M20.42) Active confirmed Problem Polyneuropathy due to type 2 diabetes mellitus ([id number]) Type 2 diabetes mellitus with diabetic polyneuropathy (E11.42) Active confirmed Vital Signs Blood pressure diastolic 80 mm Hg 11/27/2024 Height [id number] in 11/27/2024 Blood pressure systolic 135 mm Hg 11/27/2024 Weight 215 lbs 11/27/2024 BMI 30.85 kg/m2 11/27/2024 Encounters Encounter Location Date Provider Diagnosis [facility] [address] [place] [address] 04/16/2024 Traci Jewell Type 2 diabetes mellitus with diabetic polyneuropathy E11.42 ; Tinea unguium B35.1 ; Other hammer toe(s) (acquired), right foot M20.41 and Other hammer toe(s) (acquired), left foot M20.[address] [address] 07/03/2024 Traci Jewell Type 2 diabetes mellitus with diabetic polyneuropathy E11.42 ; Other hammer toe(s) (acquired), right foot M20.41 ; Tinea unguium B35.1 and Other hammer toe(s) (acquired), left foot M20.[address] [address] 09/10/2024 rTaci Jewell Type 2 diabetes mellitus with diabetic polyneuropathy E11.42 ; Tinea unguium B35.1 ; Other hammer toe(s) (acquired), right foot M20.41 and Other hammer toe(s) (acquired), left foot M20.[address] [address] 11/27/2024 Traci Jewell Type 2 diabetes mellitus [...] Details Provider Name:Traci oliva, 12/24/2024 01:45:00 PM, [address] [place] [address], [id number], Provider Name:Traci oliva, 01/07/2025 01:45:00 PM, [address] [place] [address], [phone], Provider Name:Traci oliva, 02/21/2025 12:30:00 PM, [address] [place] [address], [phone], Insurance Providers Payer Name Payer Address Payer Phone Subscriber Number Group Number Insured Name Patient Relationship to Insured Coverage Start Date Coverage End Date [facility] [employer] Claims [address] [place] [id number] Issa Cerna Self - patient is the [...]
== END 2024-12-06 11:45 | disposition home or self-care (01) ==
LOC: HO.HMCH 10:46
PROVIDERS: PCP Internal Medicine; Visit Provider Internal Medicine
DX: E11.65 Type 2 diabetes mellitus with hyperglycemia (principal); M05.9 Rheumatoid arthritis with rheumatoid factor, unspecified; I25.2 Old myocardial infarction; I10 Essential (primary) hypertension; I25.10 Atherosclerotic heart disease of native coronary artery without angina pectoris; E78.00 Pure hypercholesterolemia, unspecified; K21.9 Gastro-esophageal reflux disease without esophagitis

== ENCOUNTER → 2024-12-06 10:45 | Outpatient (BNVA) | payer OTHER, SELFPAY | PROVIDERS: PCP Internal Medicine; Visit Provider Internal Medicine | DX: I25.10 Atherosclerotic heart disease of native coronary artery without angina pectoris (principal); I10 Essential (primary) hypertension; I21.4 Non-ST elevation (NSTEMI) myocardial infarction; E78.00 Pure hypercholesterolemia, unspecified; E11.65 Type 2 diabetes mellitus with hyperglycemia; K21.9 Gastro-esophageal reflux disease without esophagitis; M05.9 Rheumatoid arthritis with rheumatoid factor, unspecified; Z79.82 Long term (current) use of aspirin; Z79.899 Other long term (current) drug therapy | CPT/HCPCS: 96127; 99212 ==

== ENCOUNTER 2024-12-26 12:53 | Outpatient (AMB) | payer OTHER, SELFPAY ==
--- NOTE | 2024-12-26 13:05 | A.OFFVIS_ITS ---
Vital Signs 12/26/24 13:06 Height 5 ft 9 in Weight 207 lb 3.752 oz BMI 30.6 BP 122/68 Blood Pressure Location Lt brachial Position Sitting Pulse 78 Pulse Source Pulse Oximeter Intake Visit Reasons: [facility]- Follow up- Heart attack, Chest tightness Allergies penicillin V Allergy (Severe, Verified 12/06/24 10:57) rash adalimumab (From Humira) Allergy (Intermediate, Verified 12/06/24 10:57) leg pain atorvastatin Allergy (Intermediate, Verified 12/06/24 10:57) leg pain leflunomide Allergy (Intermediate, Verified 12/06/24 10:57) kidney failure tocilizumab (From Actemra) Allergy (Intermediate, Verified 12/06/24 10:57) frequent nail infection lisinopril Adverse Reaction (Intermediate, Verified 12/06/24 10:57) Anxiety losartan Adverse Reaction (Intermediate, Verified 12/06/24 10:57) Nausea Medication List - Last Reconciled 12/26/24 by Fernando Goins MD albuterol sulfate 90 mcg/actuation 2 puffs inhalation Q4-6H PRN amlodipine 5 mg PO BID aspirin 81 mg PO DAILY blood sugar diagnostic (FreeStyle Lite Strips) test daily blood-glucose meter (FreeStyle Lite Meter kit) test daily carvedilol 6.25 mg PO BID diclofenac sodium 1% 4 grams topical QID PRN famotidine (Pepcid) 40 mg PO BEDTIME lancets (FreeStyle Lancets) test daily lancets (FreeStyle Lancets) As directed check BS QD nitroglycerin 0.4 mg sublingual Q5M PRN pregabalin 75 mg PO BID rosuvastatin 40 mg PO BEDTIME sennosides (senna) 8.6 mg PO BEDTIME sertraline 150 mg PO BEDTIME tolterodine ER (Detrol LA) 2 mg PO Q24H [wrist cock up splint Wear on each wrist at night. ] HPI Comments Details: Issa returns for follow-up regarding coronary artery disease. To recall, in 2018, he was admitted for unstable angina type symptoms and underwent cardiac catheterization and right coronary artery stenting. He also had moderate circumflex disease and 40% mid LAD disease. Recently, he was again having chest pain and elevated biomarkers in the setting of very high blood pressures. Subsequently, underwent another catheterization but that showed no new findings. Seems that amlodipine dose was increased at that time. After that, blood pressures improved to the normal range. Otherwise, he states he feels well. No new concerns. [facility] Medical History RSV (respiratory syncytial virus infection) Encounter for monitoring of hydroxychloroquine therapy Pre-op examination Frequency of micturition Right wrist pain Annual physical exam Lower urinary tract symptoms Immunization counseling Screening for viral disease Bilateral carpal tunnel syndrome Screening for colon cancer Screening for prostate cancer New onset type 2 diabetes mellitus Depression Adult general medical exam Precordial chest pain Right hip pain Acute sinusitis Right rotator cuff tear Atherosclerotic cardiovascular disease Left rotator cuff tear Gastritis determined by endoscopy Lip cancer Erectile dysfunction Anxiety Degenerative disc disease, lumbar Horseshoe kidney Coronary artery disease GERD (gastroesophageal reflux disease) Hypercholesterolemia Cervical radiculopathy 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 Osteoarthritis Surgical History History of carpal tunnel surgery of right wrist History of rotator cuff surgery S/P left rotator cuff repair Hx of colonoscopy History of coronary artery stent placement History of cervical spinal surgery History of shoulder surgery History of lip cancer H/O left knee surgery History of tonsillectomy Family History Father Lung cancer CAD (coronary artery disease) CVD (cardiovascular disease) Hx of CABG Mother Colon cancer Mental health disorder Maternal Uncle Lung cancer Maternal Uncle Substance abuse Substance use disorder Brother Lung cancer Social History Housing: Apartment Housing Other:: Rents a room in a house Are you a primary health care marketing manager to a significant other at home: No Do you presently have visiting nurse or other home services: No Alcohol intake: current Alcohol intake frequency: holidays/special occasions only Alcohol type: beer and hard liquor Comment: once a month glass Patient Tobacco Use Status: Former Tobacco user Tobacco use type: Cigarette Years Smoked: quit 2004 smokes marijuana e-Cigarette/Vaping Use: Never Used Second Hand Smoke Exposure: Yes Substance Use Type: Marijuana service: No Current occupational status: unemployed Current occupation: right handed Cognitive needs: No Hearing needs: No Vision needs: Yes Review of Systems Const Denies weakness ENT Denies dizziness Card Denies chest pain, Denies chest pain with activity, Denies syncope, Denies rapid heart rate, Denies pedal edema, Denies edema, Denies leg edema, Denies lightheadedness, Denies palpitations, Denies dyspnea, Denies dyspnea on exertion and Denies orthopnea Resp Denies cough, Denies dyspnea and Denies dyspnea on exertion GI Denies hematochezia and Denies change in stool character Musc Denies abnormal gait, Denies muscle cramps, Denies muscle weakness, Denies numbness, Denies radiating pain into limb and Denies tingling Neuro Denies abnormal gait, Denies dizziness, Denies syncope, Denies numbness, Denies tingling and Denies weakness Endo Denies palpitations Physical Exam Vital Signs: Last Vital Signs Pulse 78 12/26/24 13:06 BP 122/68 12/26/24 13:06 BMI result Body Mass Index 30.6 Const General: comfortable and no acute distress Orientation/consciousness: patient oriented x3 HEENT Other: Unremarkable Head: Yes normal to inspection Neck Neck: Yes normal visual inspection Chest Chest palpation & inspection: normal inspection of the chest Resp Auscultation: clear to auscultation bilaterally Cardio Palpation: normal PMI Heart sounds: S1 normal heart sound present, S2 normal heart sound present, no gallops, no murmurs and no rubs GI Palpation (GI): Soft to palpation Back/Spine/Pelvis Other: unremarkable Skin General skin exam: no rashes or lesions noted Neuro General: patient oriented x3 Extrem General: Yes normal to inspection Psych Mental Status: mental status grossly normal Assessment & Plan Assessment & Plan (1) Atherosclerotic cardiovascular disease: Code(s): I25.10 - Atherosclerotic heart disease of [place] coronary artery without angina pectoris Category: Medical Plan: Cardiac catheterization 11/2024-patent mid RCA stent. Proximal RCA 50% stenosis. No significant disease elsewhere. Continue medical therapy for stable coronary disease including aspirin, beta- blockers and statins. Last LDL is 56 mg/dL. Triglycerides 141 mg/dL. (2) Essential hypertension: Code(s): I10 - Essential (primary) hypertension Category: Medical Plan: Recent hypertensive urgency type situation. Amlodipine dose has been increased. Today's blood pressure is completely normal. (3) Type 2 diabetes mellitus with hyperglycemia: Code(s): E11.65 - Type 2 diabetes mellitus with hyperglycemia Category: Medical Plan: Most recently, hemoglobin A1c 6.5%. Diet-controlled. Plan Discussion Notes I discussed with the patient the adjustment of his amlodipine dosage to 10 mg daily, which has improved his blood pressure control. We agreed on a follow-up in three months to monitor his blood pressure and overall health. Patient was informed and verbally consented to the use of an ambient scribe for clinic note documentation during this visit. Medications: Changed From amlodipine 5 mg PO BID To amlodipine 5 mg PO BID 180 tabs 3RF 90 days Patient Instructions: - Take the new dose of Amlodipine as prescribed. - Monitor blood pressure regularly and report any significant changes. - Follow up in three months for reassessment. - If any concerning symptoms like chest pain or uncontrolled blood pressure, report immediately and seek urgent care. Coding Level of Care Code Est Pt Level 4 (11391) Complex EM visit Add On G2211 Diagnoses Atherosclerotic cardiovascular disease I25.10 Essential hypertension I10 Type 2 diabetes mellitus with hyperglycemia E11.65
[2024-12-26 13:06] VITALS: BP 122/68; PULSE 78; BMI 30.6
--- OUTSIDE RECORDS SUMMARY | 2024-12-26 13:18 | XMS_ITS | Patient Health Record ---
Author Organization [facility] Address [address] [place] [address] Care Team Providers Care Glass Blowing Instructor Name Role Phone Clive Chaidez Primary Care Provider Traci Juarez Unavailable [phone] Allergies Allergen (clinical drug ingredient) Drug/Non Drug [...] Date End Date Status FreeStyle Lancets - ; Duration: 90 Days Active Lisinopril Active Orencia ClickJect 125 MG/ML Subcutaneous; Duration: 28 Days Not-Taking Amlodipine & Diet Manage Prod Active Losartan Potassium 50 MG TAKE 1 TABLET B Y MOUTH DAILY Oral; Duration: 30 Days Not-Taking Extra Depth Orthopedic Shoes (1 Pair) with Customized Heat Molded Multidensity Innersoles (3 Pair) as directed Dx: NIDDM/Polyneuropathy (E11.42), Hammertoe Foot Deformity (M20.41,M20.42), Preulcerative Skin Lesion(s) (L85.1 09/10/2024 Active FreeStyle Lite Test - USE DIRECTED TO TEST BLOOD GLUCOSE EVERY DAY In Vitro; Duration: 90 Days Active Rosuvastatin Calcium 40 MG TAKE 1 TABLET BY MOUTH DAILY Oral; Duration: 90 Days Active Pregabalin 75 MG Oral; Duration: 45 Days Active Sertraline HCl 100 MG Oral; Duration: 30 Days Active Aspir-81 Active Tolterodine Tartrate ER 2 MG TAKE 1 CAPSULE BY MOUTH EVERY 24 HOURS Oral; Duration: 90 Days Active Carvedilol 6.25 MG TAKE 1 TABLET BY DONTRELL TH TWICE DAILY Oral; Duration: 90 Days Active Immunizations Vaccine Route Administration Date Status Comme nts Influenza Unknown 11/27/2024 Refused Influenza Unknown 12/24/2024 Refused Social History Tobacco Use: Social History Observation Description Date Details (start date - stop date) Never Smoker NA - NA Tobacco use other than smoking: Question Answer Notes Are you an other tobacco user? No Tobacco Control (Standard) Question Answer Notes Tobacco use: Nonsmoker Additional Findings: Tobacco non-user Current no nsmoker AUDIT-C (Standard) Question Answer Notes Did you have a drink containing alcohol in the p ast year? No Points 0 Interpretation Negative Problems Problem Type SNOMED Code ICD Code Onset Dates Problem Status W/U Status Risk Notes Problem Acquired hammer toe of right foot (1125215435488948 ) Other hammer toe(s) (acquired), right foot (M20.41) Active confirmed Problem Acquired hammer toe of left foot (2594127551853880 ) Other hammer toe(s) (acquired), left foot (M20.42) Active confirmed Problem Polyneuropathy due to type 2 diabetes mellitus (680990208) Type 2 diabetes mellitus with diabetic polyneuropathy (E11.42) Active confirmed Vital Signs Blood pressure diastolic 80 mm Hg 12/24/2024 Height 5ft 10in in 12/24/2024 Blood pressure systolic 135 mm Hg 12/24/2024 Weight 215 lbs 12/24/2024 BMI 30.85 kg/m2 12/24/2024 Encounters Encounter Location Date Provider Diagnosis [facility] [address] [address] 04/16/2024 Traci Jewell Type 2 diabetes mellitus with diabetic polyneuropathy E11.42 ; Tinea unguium B35.1 ; Other hammer toe(s) (acquired), right foot M20.41 and Other hammer toe(s) (acquired), left foot M20.[address] [address] 07/03/2024 Traci Jewell Type 2 diabetes mellitus with diabetic polyneuropathy E11.42 ; Other hammer toe(s) (acquired), right foot M20.41 ; Tinea unguium B35.1 and Other hammer toe(s) (acquired), left foot M20.[address] [address] 09/10/2024 Traci Jewell Type 2 diabetes mellitus with diabetic polyneuropathy E11.42 ; Tinea unguium B35.1 ; Other hammer toe(s) (acquired), right foot M20.41 and Other hammer toe(s) (acquired), left foot M20.[address] [address] 11/27/2024 Traci Jewell Type 2 diabetes mellitus with diabetic polyneuropathy E11.42 ; Ingrown nail L60.0 and Tinea unguium B35.[address] [address] 12/24/2024 Traci Jewell Ingrown nail L60.0 a nd Type 2 diabetes mellitus with diabetic polyneuropathy E11.42 Assessments Encounter Date Diagnosis (ICD Code) Assessment [...] E11.42) 11/27/2024 Ingrown nail (ICD-10 - L60.0) 12/24/2024 Type 2 diabetes mellitus with diabetic polyneuropathy (ICD-10 - E11.42) 12/24/2024 Ingrown nail (ICD-10 - L60.0) 11/27/2024 Tinea [...] Treatment Next Appt Details Provider Name:Traci oliva, 01/07/2025 01:45:00 PM, [address] [place] [address], [phone], Provider Name:Traci oliva, 02/21/2025 12:30:00 PM, [address] [place] [address], [phone], Insurance Providers Payer Name Payer Address Payer Phone Subscriber Number Group Number Insured Name Patient Relationship to Insured Coverage Start Date Coverage End Date [facility] [employer] Claims [address] [place] [id number] [phone] [id number] Issa Cerna Self - patient is the insured Medical (General) History Medical History History ICD Code Anxiety Arthritis Back,Hip,and Knee pain Broken bones CAD (Cholesterol) Cancer covid-19 Diabetic Diverticulosis Fibromyalgia Gout Heart disease High Blood Pressure Numbness/ Neuropathy Paralysis Reflux ( GERD) Sciatica Measles Joint implants/screws Heart attack Surgical History Surgery Date(Month/Year) Med Lx Fusion / right arm loss 13 yrs
== END 2024-12-26 13:26 | disposition home or self-care (01) ==
LOC: HO.HCS 12:53
PROVIDERS: PCP Internal Medicine; Visit Provider Internal Medicine
DX: I25.10 Atherosclerotic heart disease of native coronary artery without angina pectoris (principal); I10 Essential (primary) hypertension; E11.65 Type 2 diabetes mellitus with hyperglycemia
CPT/HCPCS: 99214; G2211

== ENCOUNTER → 2024-12-26 12:53 | Outpatient (BNVA) | payer OTHER, SELFPAY | PROVIDERS: PCP Internal Medicine; Visit Provider Internal Medicine | DX: I25.10 Atherosclerotic heart disease of native coronary artery without angina pectoris (principal); I10 Essential (primary) hypertension; E11.65 Type 2 diabetes mellitus with hyperglycemia; Z79.899 Other long term (current) drug therapy | CPT/HCPCS: 99212 ==

== ENCOUNTER 2025-01-17 09:35 | Outpatient (REF) | payer OTHER, SELFPAY ==
--- NOTE | ~2025-01-17 | FL_ITS ---
EXAMINATION: XR BARIUM SWALLOW CLINICAL INFORMATION: Upper abdominal pain. Previous history of neck fusion and left shoulder surgery. COMPARISON: CTA chest, abdomen and pelvis 11/30/2024 . TECHNIQUE: Routine barium swallow was performed with thick barium and barium coated saltine crackers in upright view and thin barium in prone lying position. FINDINGS: On oral administration of thick barium in upright view in different positions there is normal propagation bolus from the oral cavity through the pharynx, esophagus into stomach. There is ventral plate and screws from C5 through C7 for ventral fusion. There is no indentation of obstruction of the pharyngeal esophagus secondary to plate or screws. There is no intraluminal filling defect or extrinsic compression. On oral administration of thick barium there is normal oral mastication and propagation of bolus from the oral cavity, pharynx, esophagus into stomach. On placing patient prone lying and oral administration of thin barium there is normal distention of esophagus without obstruction, narrowing or stricture. A small sliding hiatal hernia is noted without reflux. FLUOROSCOPY TIME: 1 minute 58 seconds DOSE AREA PRODUCT: 1859 uGy-m2 (microgray-meter squared) FL/FL barium swallow IMPRESSION: Small sliding hiatal hernia without reflux. There is ventral fusion plate from C5 to C7 vertebra causing no obstruction to the cervical esophagus. Electronically signed by: Mark Schmitt MD 01/17/2025 10:51 AM EDT
--- OUTSIDE RECORDS SUMMARY | 2025-01-17 09:38 | XMS_ITS | Patient Health Record ---
Author Organization [facility] Address [address] [place] [address] Care Team Providers Care Lay Out Helper Name Role Phone Clive Chaidez Primary Care Provider Traci Juarez Unavailable [phone] Allergies Allergen (clinical drug ingredient) Drug/Non Drug [...] Duration) Notes Start Date End Date Status Orencia ClickJect 125 MG/ML Subcutaneous; Duration: 28 Days Not-Taking Pregabalin 75 MG Oral; Duration: 45 Days Active Rosuvastatin Calcium 40 MG TAKE 1 TABLET BY MOUTH DAILY Oral; Duration: 90 Days Active Aspir-81 Active Sertraline HCl 100 MG Oral; Duration: 30 Days Active FreeStyle Lancets - ; Duration: 90 Days Active FreeStyle Lite Test - USE DIRECTED TO TEST BLOOD GLUCOSE EVERY DAY In Vitro; Duration: 90 Days Active Carvedilol 6.25 MG TAKE 1 TABLET BY DONTRELL TH TWICE DAILY Oral; Duration: 90 Days Active Tolterodine Tartrate ER 2 MG TAKE 1 CAPSULE BY MOUTH EVERY 24 HOURS Oral; Duration: 90 Days Active Lisinopril Active Extra Depth Orthopedic Shoes (1 Pair) with Customized Heat Molded Multidensity Innersoles (3 Pair) as directed Dx: NIDDM/Polyneuropathy (E11.42), Hammertoe Foot Deformity (M20.41,M20.42), Preulcerative Skin Lesion(s) (L85.1 09/10/2024 Active Amlodipine & Diet Manage Prod Active Losartan Potassium 50 MG TAKE 1 TABLET B Y MOUTH DAILY Oral; Duration: 30 Days Not-Taking Immunizations Vaccine Route Administration Date Status Comme [...] Problem Acquired hammer toe of right foot (5915229256808175 ) Other hammer toe(s) (acquired), right foot (M20.41) Active confirmed Problem Acquired hammer toe of left foot (6804702412130154 ) Other hammer toe(s) (acquired), left foot (M20.42) Active confirmed Problem Polyneuropathy due to type 2 diabetes mellitus (422365720) Type 2 diabetes mellitus with diabetic polyneuropathy (E11.42) Active confirmed Vital Signs Blood pressure diastolic 80 mm Hg 01/07/2025 Height [id number] in 01/07/2025 Blood pressure systolic 132 mm Hg 01/07/2025 Weight 215 lbs 01/07/2025 BMI 30.85 kg/m2 01/07/2025 Encounters Encounter Location Date Provider Diagnosis [facility] [place] [address] [place] [address] 04/16/2024 Traci Jewell Type 2 diabetes mellitus with diabetic polyneuropathy E11.42 ; Tinea unguium B35.1 ; Other hammer toe(s) (acquired), right foot M20.41 and Other hammer toe(s) (acquired), left foot M20.[address] [address] 07/03/2024 Traci Jewell Type 2 diabetes mellitus with diabetic polyneuropathy E11.42 ; Other hammer toe(s) (acquired), right foot M20.41 ; Tinea unguium B35.1 and Other hammer toe(s) (acquired), left foot M20.[address] [address] 09/10/2024 Traci Jewell Type 2 diabetes mellitus with diabetic polyneuropathy E11.42 ; Tinea unguium B35.1 ; Other hammer toe(s) (acquired), right foot M20.41 and Other hammer toe(s) (acquired), left foot M20.[address] [address] 11/27/2024 Traci Jewell Type 2 diabetes mellitus with diabetic polyneuropathy E11.42 ; Ingrown nail L60.0 and Tinea unguium B35.[address] [address] 12/24/2024 Traci Jewell Ingrown nail L60.0 a nd Type 2 diabetes mellitus with diabetic polyneuropathy E11.[address] [address] 01/07/2025 Traci Jewell Ulcer of left foot, limited to breakdown of skin L97.521 Assessments Encounter Date Diagnosis (ICD Code) Assessment [...] E11.42) 12/24/2024 Ingrown nail (ICD-10 - L60.0) 01/07/2025 Ulcer of left foot, limited to breakdown of skin (ICD-10 - L97.521) 11/27/2024 Type 2 diabetes mellitus with diabetic polyneuropathy (ICD-10 - E11.42) 11/27/2024 Tinea unguium (ICD-10 - B35.1) 09/10/2024 [...] (DIABETIC FOOT CARE INSTRUCTIONS. pdf) 11/27/2024 Other 01/07/2025 Other Plan Of Treatment Next Appt Details Provider Name:Traci oliva, 02/21/2025 12:30:00 PM, [address] [place] [address], [phone], Insurance Providers Payer Name Payer Address Payer Phone Subscriber Number Group Number Insured Name Patient Relationship to Insured Coverage Start Date Coverage End Date [facility] [employer] Claims [address] [place] [id number] Issa Cerna Self - patient is the insured Medical (General) History Medical History History ICD Code Anxiety Arthritis Back,Hip,and Knee pain Broken bones CAD (Cholesterol) Cancer covid-19 Diabetic Diverticulosis Fibromyalgia Gout Heart disease High Blood Pressure Numbness/ Neuropathy Paralysis Reflux ( GERD) Sciatica Measles Joint implants/screws Heart attack Surgical History Surgery Date(Month/Year) Med Lx Fusion / right arm loss 13 yrs Hospitalization History Reason Date(Month/Year) heart attack 01/03
== END 2025-01-17 09:36 | disposition home or self-care (01) ==
LOC: HO.XRAY 09:35
PROVIDERS: PCP Internal Medicine; Visit Provider Nurse Practitioner
DX: R10.13 Epigastric pain (principal); K21.9 Gastro-esophageal reflux disease without esophagitis
CPT/HCPCS: 74220

== ENCOUNTER → 2025-01-17 09:36 | Outpatient (BNV) | payer OTHER, SELFPAY | PROVIDERS: PCP Internal Medicine; Visit Provider Radiology Diagnostic Radiology | DX: K44.9 Diaphragmatic hernia without obstruction or gangrene (principal) | CPT/HCPCS: 74220 ==

== ENCOUNTER 2025-01-30 10:10 | Outpatient (AMB) | payer OTHER, SELFPAY ==
--- NOTE | 2025-01-30 10:11 | A.OFFPC_ITS ---
Vital Signs 01/30/25 10:14 Height 5 ft 9 in Weight 208 lb 4 oz BMI 30.7 BP 130/60 Blood Pressure Location Lt brachial Position Sitting Respiration 18 Pulse 64 Pulse Source Pulse Oximeter Temp 97.1 F Temp Source Temporal Artery Scan Pulse Oximetry (%) 97 Oxygen Delivery Method Room Air Intake Visit Reasons: 3 month f/u Nuclear Technician Required: No Accompanied by: Self / Same As Patient Allergies penicillin V Allergy (Severe, Verified 01/30/25 10:17) rash adalimumab (From Humira) Allergy (Intermediate, Verified 01/30/25 10:17) leg pain atorvastatin Allergy (Intermediate, Verified 01/30/25 10:17) leg pain leflunomide Allergy (Intermediate, Verified 01/30/25 10:17) kidney failure tocilizumab (From Actemra) Allergy (Intermediate, Verified 01/30/25 10:17) frequent nail infection lisinopril Adverse Reaction (Intermediate, Verified 01/30/25 10:17) Anxiety losartan Adverse Reaction (Intermediate, Verified 01/30/25 10:17) Nausea Medication List - Last Reconciled 01/30/25 by Clive Chaidez MD albuterol sulfate 90 mcg/actuation 2 puffs inhalation Q4-6H PRN amlodipine 5 mg PO BID 90 days aspirin 81 mg PO DAILY blood sugar diagnostic (FreeStyle Lite Strips) test daily blood-glucose meter (FreeStyle Lite Meter kit) test daily carvedilol 6.25 mg PO BID cyclobenzaprine 5 mg PO TID PRN diclofenac sodium 1% 4 grams topical QID PRN famotidine (Pepcid) 40 mg PO BEDTIME lancets (FreeStyle Lancets) test daily lancets (FreeStyle Lancets) As directed check BS QD nitroglycerin 0.4 mg sublingual Q5M PRN pregabalin 75 mg PO BID rosuvastatin 40 mg PO BEDTIME sennosides (senna) 8.6 mg PO BEDTIME sertraline 150 mg PO BEDTIME sertraline 150 mg PO BEDTIME tolterodine ER (Detrol LA) 2 mg PO Q24H [wrist cock up splint Wear on each wrist at night. ] Tobacco use date assessed: 01/30/25 Dental Screening Dental Screen Date: 01/30/25 Did you have a dental visit in the last 12 months?: No Did you have a dental problem in the last 6 months where you did not have access to dental care?: No Was dental information given to patient?: No PFSH Medical History RSV (respiratory syncytial virus infection) Encounter for monitoring of hydroxychloroquine therapy Pre-op examination Frequency of micturition Right wrist pain Annual physical exam Lower urinary tract symptoms Immunization counseling Screening for viral disease Bilateral carpal tunnel syndrome Screening for colon cancer Screening for prostate cancer New onset type 2 diabetes mellitus Depression Adult general medical exam Precordial chest pain Right hip pain Acute sinusitis Right rotator cuff tear Atherosclerotic cardiovascular disease Left rotator cuff tear Gastritis determined by endoscopy Lip cancer Erectile dysfunction Anxiety Degenerative disc disease, lumbar [place] kidney Coronary artery disease GERD (gastroesophageal reflux disease) Hypercholesterolemia Cervical radiculopathy 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 Osteoarthritis Surgical History History of carpal tunnel surgery of right wrist History of rotator cuff surgery S/P left rotator cuff repair Hx of colonoscopy History of coronary artery stent placement History of cervical spinal surgery History of shoulder surgery History of lip cancer H/O left knee surgery History of tonsillectomy Family History Father Lung cancer CAD (coronary artery disease) CVD (cardiovascular disease) Hx of CABG Mother Colon cancer Mental health disorder Maternal Uncle Lung cancer Maternal Uncle Substance abuse Substance use disorder Brother Lung cancer Social History Housing: Apartment Housing Other:: Rents a room in a house Are you a primary direct care counselor to a significant other at home: No Do you presently have visiting nurse or other home services: No Alcohol intake: current Alcohol intake frequency: holidays/special occasions only Alcohol type: beer and hard liquor Comment: once a month glass Patient Tobacco Use Status: Former Tobacco user Tobacco use type: Cigarette Years Smoked: quit 2004 smokes marijuana e-Cigarette/Vaping Use: Never Used Second Hand Smoke Exposure: Yes Substance Use Type: Marijuana service: No Current occupational status: unemployed Current occupation: right handed Cognitive needs: No Hearing needs: No Vision needs: Yes Questionnaire PHQ-9 Over the last 2 weeks, how often have you been bothered by any of the following problems? 1. Little interest or pleasure in doing things: several days 2. Feeling down, depressed, or hopeless: several days 3. Trouble falling or staying asleep, or sleeping too much: not at all 4. Feeling tired or having little energy: more than half the days 5. Poor appetite or overeating: not at all 6. Feeling bad about yourself - or that you are a failure or have let yourself or your family down: several days 7. Trouble concentrating on things, such as reading the newspaper or watching television: several days 8. Moving or speaking so slowly that other people could have noticed. Or the opposite - being so fidgety or restless that you have been moving around a lot more than usual: several days 9. Thoughts that you would be better off or of hurting yourself in some way: not at all Total score: 7 Depression Screening Interpretation: Positive Depression Screening Done: Yes 30063 - PHQ-9 Billing: Yes Source: Developed by Drs. Souleymane Cox, Aline Kay, Damion Lieberman and colleagues, with an educational zulema from [employer]. Thrive Questionnaire Date Thrive assessed: 01/30/25 I am a: Patient What is your living situation today?: I have a steady place to live Within the past 12 months, did the food you bought not last and you didn't have the money to get more?: Often true Within the past 12 months, did you worry whether your food would run out before you got money to buy more?: Often true Do you have trouble paying for medicines?: Yes Do you have trouble getting transportation to medical appointments?: No Do you have trouble paying your heating and electricity bill?: Yes Do you have trouble taking care of your child, family member or friend?: Yes Do you have trouble with day-to-day activities such as bathing, preparing meals, shopping, managing finances, etc.?: No Are you currently unemployed and looking for a job?: Yes Are you interested in more education?: No Currently or been in a relationship where the following occur: I choose not to answer THRIVE Score: 3 AUDIT C Alcohol Use Questionnaire (AUDIT-C) 1. How often do you have a drink containing alcohol?: Never 3. How often do you have six or more drinks on one occasion?: Never Total Score: 0 SARAI-7 AMB Questionnaire SARAI-7 Date SARAI - 7 assessed: 01/30/25 Feeling nervous, anxious, or on edge: 0 = Not at all Not being able to stop or control worryin = Not at all Worrying too much about different things: 0 = Not at all Trouble relaxin = Not at all Being so restless that it is hard to sit still: 0 = Not at all Becoming easily annoyed or irritable: 0 = Not at all Feeling afraid as if something awful might happen: 0 = Not at all Total SARAI-7 score (0-4 normal; 5-9 mild; 10-14 moderate; 15-21 severe): 0 Source: Developed by Drs. Souleymane Cox, Aline Kay, Damion Lieberman and colleagues, with an educational zulema from [employer]. SARAI-7 Assessment Billing SARAI-7 Assessment Tool: SARAI-7 Assessment 23236 Physical exam (Primary Care) Vital Signs: Last Vital Signs Temp 97.1 F 01/30/25 10:14 Pulse 64 01/30/25 10:14 Resp 18 01/30/25 10:14 BP 130/60 01/30/25 10:14 Pulse Ox 97 01/30/25 10:14 Oxygen Delivery Method Room Air 01/30/25 10:14 BMI result Body Mass Index 30.7 Tobacco/Smoking Status: Tobacco use Status Tobacco use date assessed 01/30/25 01/30/25 10:14 Patient Tobacco Use Status Former Tobacco user 01/30/25 10:14 Tobacco use type Cigarette 01/30/25 10:14 e-Cigarette/Vaping Use Never Used 01/30/25 10:14 PHQ-9: PHQ-9 Score PHQ-9: Total score 7 01/30/25 10:24 Depression Screening Interpretation: Positive Thrive Assessment: Date of Thrive Assessment Date Thrive assessed 01/30/25 01/30/25 10:14 Currently or been in a relationship where the following occur: I choose not to answer Const General: alert; No acute distress Eyes Conjunctivae: conjunctivae normal Resp Auscultation: clear to auscultation bilaterally Cardio Rate: regular rate Rhythm: regular rhythm GI Inspection: Yes normal to inspection Extrem General: Yes normal to inspection and No edema Coding Level of Care Code Est Pt Level 4 (12774) Complex EM visit Add On G2211 Diagnoses Coronary artery disease involving [place] coronary artery of [place] heart without angina pectoris I25.10 Associated angina: without angina Coronary Disease-Associated Artery/Lesion type: [place] artery [place] vs. transplanted heart: [place] heart Essential hypertension I10 Hypercholesterolemia E78.00 Type 2 diabetes mellitus with hyperglycemia E11.65 Gastroesophageal reflux disease without esophagitis K21.9 Esophagitis presence: without esophagitis BPH (benign prostatic hyperplasia) N40.0 Seropositive rheumatoid arthritis M05.9 Upper back pain on right side M54.9 Additional Codes SARAI-7 Assessment Billing - SARAI-7 Assessment Tool: SARAI-7 Assessment 35361 ([id number]) PHQ-9 - 42279 - PHQ-9 Billing: Yes ([id number]) Assessment & Plan Assessment & Plan (1) Coronary artery disease: Comment: 10/20/2017 angioplasty YESSICA, stent placement Dr. Tomeka Araya March 2018 echo 60-65% normal LV, Brilinta October 2018, nuclear stress ejection fraction 74% echo July 2019 60-65% Code(s): I25.10 - Atherosclerotic heart disease of [place] coronary artery without angina pectoris Category: Medical Qualifiers: Associated angina: without angina Coronary Disease-Associated Artery/Lesion type: [place] artery [place] vs. transplanted heart: [place] heart Qualified Code(s): I25.10 - Atherosclerotic heart disease of [place] coronary artery without angina pectoris Plan: Control the cholesterol, weight, blood pressure, diabetes continuing with aspirin 81 mg once a day (2) Essential hypertension: Code(s): I10 - Essential (primary) hypertension Category: Medical Plan: Continue with blood pressure medication. Decrease salt intake and exercise patient takes amlodipine 5 mg twice a day with carvedilol 6.25 mg twice a day (3) Hypercholesterolemia: Code(s): E78.00 - Pure hypercholesterolemia, unspecified Category: Medical Plan: Avoid fried foods, chicken skin, eggs, butter margarine, pastries and meat. Be it pork or beef they have a lot of cholesterol LDL goal of less than 70 and triglyceride of less than 150. Patient on rosuvastatin 40 mg at bedtime (4) Type 2 diabetes mellitus with hyperglycemia: Comment: shahzad Hartmann Code(s): E11.65 - Type 2 diabetes mellitus with hyperglycemia Category: Medical Plan: Decrease the amount of carbohydrate intake, pasta, bread, rice and potatoes are all sugar and that is aside from all the sweet stuff, remember that fruits are good but they are Sweet also. Hemoglobin A1c goal of less than 6.5. Last A1c in September of 6.5 (5) GERD (gastroesophageal reflux disease): Code(s): K21.9 - Gastro-esophageal reflux disease without esophagitis Category: Medical Qualifiers: Esophagitis presence: without esophagitis Qualified Code(s): K21.9 - Gastro-esophageal reflux disease without esophagitis Plan: Avoid the foods that causes that usually spicy foods, tomato products, juices, coffee, soda and foods that your sensitive to. After eating do not lie down, allow 3-4 hours before in lie down. And keep the head of bed above 30 degrees to avoid the acid from going up. (6) BPH (benign prostatic hyperplasia): Comment: 04/2023 44 cc Code(s): N40.0 - Benign prostatic hyperplasia without lower urinary tract symptoms Category: Medical Plan: Placed on tolterodine/Detrol LA (7) Seropositive rheumatoid arthritis: Comment: ++RF -ve CCP Leflunomide: December 2020 - March 2021 urinary frequency Actemra: January 2020- December 2020 -Had surgery did not want to restart after, frequent nail infections. Enbrel: January- denied by insurance Humira: October 2019- January 2020 - active disease on exam/ listed with allergy leg pain Orencia: March 2021- 05/2024 Code(s): M05.9 - Rheumatoid arthritis with rheumatoid factor, unspecified Category: Medical Plan: Continue to follow-up with Rheumatology (8) Upper back pain on right side: Code(s): M54.9 - Dorsalgia, unspecified Category: Medical Plan History of Present Illness The patient is a 59-year-old male presenting for a follow-up visit. He has a history of lumbar radiculopathy, rheumatoid arthritis, coronary artery disease, hypercholesterolemia, gastroesophageal reflux disease, diabetes mellitus, benign prostatic hyperplasia, and a history of tubular adenoma of the colon. The patient recently underwent a barium swallow which showed a small sliding hiatal hernia without reflux. An incidental finding of vertebral fusion at C5-7 was noted, with no obstruction. He continues to follow up with podiatry and cardiology, with the last cardiology visit on December 26. A cardiac catheterization in November 2024 revealed a patent mid RCA stent and a 50% stenosis in the proximal RCA. An echocardiogram done in November 2024 showed mild left ventricular hypertrophy with an ejection fraction of 56%, normal mitral annular TDI velocity suggesting normal left ventricular relaxation, and normal valvular function. Laboratory results from November 2024 indicated a blood sugar level of 412 mg/dL, mild anemia with hemoglobin at 13.1 g/dL and hematocrit at 38.8%, and an LDL cholesterol level of 47 mg/dL. Renal and liver functions were reported as normal. The patient has been managing his conditions with medications including amlodipine, carvedilol, and rosuvastatin, and has been advised to maintain an LDL goal of less than 70 mg/dL and a hemoglobin A1c goal of less than 6.5%. He has also been placed on tolterodine for urinary symptoms and continues to follow up with dermatology. Health Maintenance - LDL cholesterol goal of less than 70 mg/dL - Hemoglobin A1c goal of less than 6.5% Social History - Exercise: Patient engages in activities such as fishing and walking, although experiences pain due to lumbar radiculopathy. - Nutritional intake: Patient attempts to maintain a low-sodium and low-sugar diet, consuming yogurt with fruit and low-salt snacks. - Substance use: Patient has stopped drinking alcohol and is considering using edibles instead of smoking marijuana due to cardiovascular concerns. Review of Systems - Musculoskeletal: Reports pain in the shoulder blade and sciatic pain exacerbated by physical activity. - Cardiovascular: Denies chest pain currently, but reports past elevated blood pressure and chest pain during hospitalization. - Gastrointestinal: Reports no diarrhea from yogurt consumption, but experiences diarrhea with Nutra Slim shakes. - Neurological: Reports fatigue due to persistent muscle pain. Physical Exam Results - Labs: Blood sugar level of 412 mg/dL, mild anemia with hemoglobin at 13.1 g/dL and hematocrit at 38.8%, LDL cholesterol level of 47 mg/dL, normal renal and liver functions. - Imaging: Barium swallow showing small sliding hiatal hernia without reflux, incidental vertebral fusion at C5-7. - Cardiac Tests: Echocardiogram showing mild left ventricular hypertrophy, eje ction fraction of 56%, normal mitral annular TDI velocity, and normal valvular function. - Cardiac Catheterization: Patent mid RCA stent, 50% stenosis in proximal RCA. Plan The patient will continue with the current medication regimen, including amlodipine, carvedilol, and rosuvastatin, to manage his cardiovascular conditions. He is advised to maintain an LDL cholesterol level of less than 70 mg/dL and a hemoglobin A1c of less than 6.5%. For his musculoskeletal pain, physical therapy is recommended to address the persistent shoulder blade pain, and muscle relaxants may be considered to bill viate discomfort. The patient is encouraged to continue his low-sodium and low- sugar diet and to engage in regular physical activity, while being mindful of his lumbar radiculopathy. He is advised to avoid smoking marijuana due to cardiovascular risks and consider using edibles instead. Follow-up with cardiology and dermatology is recommended to monitor his ongoing conditions. Patient was informed and verbally consented to the use of an ambient scribe for clinic note documentation during this visit. Discussion Notes During the visit, I discussed with the patient the importance of maintaining his LDL cholesterol and hemoglobin A1c within target ranges to manage his cardiovascular and diabetic conditions effectively. We reviewed his current medication regimen and the need for adherence to prescribed doses. I advised him on the benefits of physical therapy and muscle relaxants for his musculoskeletal pain and emphasized the importance of a low-sodium and low-sugar diet. We also discussed the risks associated with smoking marijuana and the potential benefits of using edibles instead. Follow-up appointments with cardiology and dermatology were recommended to ensure ongoing monitoring of his conditions. Patient Instructions - Continue taking your medications as prescribed, including amlodipine, carvedilol, and rosuvastatin. - Maintain your LDL cholesterol below 70 mg/dL and hemoglobin A1c below 6.5%. - Engage in regular physical activity, but be cautious of your lumbar radiculopathy. - Follow a low-sodium and low-sugar diet. - Consider using edibles instead of smoking marijuana to reduce cardiovascular risks. - Attend follow-up appointments with cardiology and dermatology as scheduled. Orders: Orders PT Evaluation and Treatment Today M54.9 - Dorsalgia, unspecified Medications: New cyclobenzaprine 5 mg PO TID PRN 30 tabs 0RF muscle spasm M54.9 - Dorsalgia, unspecified
[2025-01-30 10:14] VITALS: BP 130/60; PULSE 64; RESP 18; TEMP 36.2; O2SAT 97; BMI 30.7
--- OUTSIDE RECORDS SUMMARY | 2025-01-30 11:36 | XMS_ITS | Patient Health Record ---
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 Name Role Phone Clive Chaidez Primary Care Provider Traci Juarez Unavailable [phone] Allergies Allergen (clinical drug ingredient) Drug/Non Drug [...] Problem Acquired hammer toe of right foot ([id number] ) Other hammer toe(s) (acquired), right foot (M20.41) Active confirmed Problem Acquired hammer toe of left foot ([id number] ) Other hammer toe(s) (acquired), left foot (M20.42) Active confirmed Problem Polyneuropathy due to type 2 diabetes mellitus (701313996) Type 2 diabetes mellitus with diabetic polyneuropathy (E11.42) Active confirmed Vital Signs Blood pressure diastolic 80 mm Hg 01/07/2025 Height [id number] in 01/07/2025 Blood pressure systolic 132 mm Hg 01/07/2025 Weight 215 lbs 01/07/2025 BMI 30.85 kg/m2 01/07/2025 Encounters Encounter Location Date Provider Diagnosis [facility] [place] [address] [place] [address] 04/16/2024 Traci Jewell Type 2 diabetes mellitus with diabetic polyneuropathy E11.42 ; Tinea unguium B35.1 ; Other hammer toe(s) (acquired), right foot M20.41 and Other hammer toe(s) (acquired), left foot M20.[address] [address] 07/03/2024 Traci eJwell Type 2 diabetes mellitus with diabetic polyneuropathy E11.42 ; Other hammer toe(s) (acquired), right foot M20.41 ; Tinea unguium B35.1 and Other hammer toe(s) (acquired), left foot M20.[address] [address] 09/10/2024 Traci Jewell Type 2 diabetes mellitus with diabetic polyneuropathy E11.42 ; Tinea unguium B35.1 ; Other hammer toe(s) (acquired), right foot M20.41 and Other hammer toe(s) (acquired), left foot M20.[address] [address] 11/27/2024 Traci Jewell Type 2 diabetes mellitus with diabetic polyneuropathy E11.42 ; Ingrown nail L60.0 and Tinea unguium B35.[address] [address] 12/24/2024 Traci Jewell Ingrown nail L60.0 a nd Type 2 diabetes mellitus with diabetic polyneuropathy E11.[address] [address] 01/07/2025 Traci Jewell Ulcer of left foot, [...] Details Provider Name:Traci oliva, 02/21/2025 12:30:00 PM, [address] [place] [address], [id number], Insurance Providers Payer Name Payer Address Payer Phone Subscriber Number Group Number Insured Name Patient Relationship to Insured Coverage Start Date Coverage End Date [facility] [employer] Claims [address] [place] [id number] Issa Cerna Self - patient is the [...]
== END 2025-01-30 10:39 | disposition home or self-care (01) ==
PROVIDERS: PCP Internal Medicine; Visit Provider Internal Medicine
DX: I25.10 Atherosclerotic heart disease of native coronary artery without angina pectoris (principal); E11.65 Type 2 diabetes mellitus with hyperglycemia; M05.9 Rheumatoid arthritis with rheumatoid factor, unspecified; I10 Essential (primary) hypertension; E78.00 Pure hypercholesterolemia, unspecified; K21.9 Gastro-esophageal reflux disease without esophagitis; N40.0 Benign prostatic hyperplasia without lower urinary tract symptoms; M54.9 Dorsalgia, unspecified

== ENCOUNTER → 2025-01-30 10:10 | Outpatient (BNVA) | payer OTHER, SELFPAY | PROVIDERS: PCP Internal Medicine; Visit Provider Internal Medicine | DX: I10 Essential (primary) hypertension (principal); I25.10 Atherosclerotic heart disease of native coronary artery without angina pectoris; E78.00 Pure hypercholesterolemia, unspecified; E11.65 Type 2 diabetes mellitus with hyperglycemia; K21.9 Gastro-esophageal reflux disease without esophagitis; N40.0 Benign prostatic hyperplasia without lower urinary tract symptoms; M05.9 Rheumatoid arthritis with rheumatoid factor, unspecified; M54.9 Dorsalgia, unspecified | CPT/HCPCS: 96127; 99212 ==

== ENCOUNTER 2025-02-11 11:47 | Outpatient (AMB) | payer OTHER, SELFPAY ==
--- NOTE | 2025-02-11 11:49 | MHC.OFFVIS ---
Vital Signs 02/11/25 11:57 Height 5 ft 9 in Weight 207 lb 3.752 oz BMI 30.6 BP 108/65 Blood Pressure Location Lt brachial Position Sitting Pulse 72 Intake Visit Reasons: Follow up Constipation/BA swallow Intake Note: Issa presents in the office as a follow up for constipation and ba swallow. CC: Here for results for the BA swallow. States that constipation is only when he does not take the senna regularly. 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 Allergies penicillin V Allergy (Severe, Verified 02/11/25 11:58) rash adalimumab (From Humira) Allergy (Intermediate, Verified 02/11/25 11:58) leg pain atorvastatin Allergy (Intermediate, Verified 02/11/25 11:58) leg pain leflunomide Allergy (Intermediate, Verified 02/11/25 11:58) kidney failure tocilizumab (From Actemra) Allergy (Intermediate, Verified 02/11/25 11:58) frequent nail infection lisinopril Adverse Reaction (Intermediate, Verified 02/11/25 11:58) Anxiety losartan Adverse Reaction (Intermediate, Verified 02/11/25 11:58) Nausea HPI HPI Follow up Constipation/BA swallow: Details: Assessment & Plan (1) GERD (gastroesophageal reflux disease): Code(s): K21.9 - Gastro-esophageal reflux disease without esophagitis Category: Medical Qualifiers: Esophagitis presence: without esophagitis Qualified Code(s): K21.9 - Gastro-esophageal reflux disease without esophagitis (2) Dyspepsia: Code(s): R10.13 - Epigastric pain Category: Medical (3) Constipation: Code(s): K59.00 - Constipation, unspecified Category: Medical Plan He seems very anxious. He has been struggling with his BP and various BP medications, but he has had a lot of s/e. He is currently on amlodipine but will have severe acid at night with many medications. He is also frustrated with the pill burden. He also has some ADHD that is c/t his trouble with compliance. He seems to remember that he did well in the past with famotidine. I will try rx'ing this. His mother had a partial gastrectomy and stomach cancer, so I think with his continued sx this is prudent. His cardiac disease is controlled although he is struggling with HTN, he denies any respiratory problems. He has had trouble with general anesthesia but not with procedure sedation. No ID problems. His mother had stomach cancer, his HP breath test was negative. ROV 3 mos. Orders: Orders EGD - GI Use Only Today K21.9 - Gastro-esophageal reflux disease without esophagitis, R10.13 - Epigastric pain FL barium swallow Today K21.9 - Gastro-esophageal reflux disease without esophagitis, R10.13 - Epigastric pain Medications: New famotidine (Pepcid) 40 mg PO BEDTIME 30 tabs 6RF K21.9 - Gastro-esophageal reflux disease without esophagitis, R10.13 - Epigastric pain sennosides (senna) 8.6 mg PO BEDTIME 30 caps 6RF K59.00 - Constipation, unspecified BARIUM SWALLOW 01/17/2025 FINDINGS: On oral administration of thick barium in upright view in different positions there is normal propagation bolus from the oral cavity through the pharynx, esophagus into stomach. There is ventral plate and screws from C5 through C7 for ventral fusion. There is no indentation of obstruction of the pharyngeal esophagus secondary to plate or screws. There is no intraluminal filling defect or extrinsic compression. On oral administration of thick barium there is normal oral mastication and propagation of bolus from the oral cavity, pharynx, esophagus into stomach. On placing patient prone lying and oral administration of thin barium there is normal distention of esophagus without obstruction, narrowing or stricture. A small sliding hiatal hernia is noted without reflux. FLUOROSCOPY TIME: 1 minute 58 seconds DOSE AREA PRODUCT: 1859 uGy-m2 (microgray-meter squared) FL/FL barium swallow IMPRESSION: Small sliding hiatal hernia without reflux. There is ventral fusion plate from C5 to C7 vertebra causing no obstruction to the cervical esophagus. EGD [facility]SY [facility] Medical History (Updated 02/11/25 @ 14:48 by SERGIO Collins) Dyspepsia RSV (respiratory syncytial virus infection) Encounter for monitoring of hydroxychloroquine therapy Pre-op examination Frequency of micturition Right wrist pain Annual physical exam Lower urinary tract symptoms Immunization counseling Screening for viral disease Bilateral carpal tunnel syndrome Screening for colon cancer Screening for prostate cancer New onset type 2 diabetes mellitus Depression Adult general medical exam Precordial chest pain Right hip pain Acute sinusitis Right rotator cuff tear Atherosclerotic cardiovascular disease Left rotator cuff tear Gastritis determined by endoscopy Lip cancer Erectile dysfunction Anxiety Degenerative disc disease, lumbar Horseshoe kidney Coronary artery disease GERD (gastroesophageal reflux disease) Hypercholesterolemia Cervical radiculopathy 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 Osteoarthritis Surgical History (Updated 02/11/25 @ 12:18 by SERGIO Collins) History of carpal tunnel surgery of right wrist History of rotator cuff surgery S/P left rotator cuff repair Hx of colonoscopy History of coronary artery stent placement History of cervical spinal surgery History of shoulder surgery History of lip cancer H/O left knee surgery History of tonsillectomy Family History Father Lung cancer CAD (coronary artery disease) CVD (cardiovascular disease) Hx of CABG Mother Colon cancer Mental health disorder Maternal Uncle Lung cancer Maternal Uncle Substance abuse Substance use disorder Brother Lung cancer Social History Housing: Apartment Housing Other:: Rents a room in a house Are you a primary acute care physical therapist to a significant other at home: No Do you presently have visiting nurse or other home services: No Alcohol intake: current Alcohol intake frequency: holidays/special occasions only Alcohol type: beer and hard liquor Comment: once a month glass Patient Tobacco Use Status: Former Tobacco user Tobacco use type: Cigarette Years Smoked: quit 2005 smokes marijuana e-Cigarette/Vaping Use: Never Used Second Hand Smoke Exposure: Yes Substance Use Type: Marijuana service: No Current occupational status: unemployed Current occupation: right handed Cognitive needs: No Hearing needs: No Vision needs: Yes Review of Systems Const Denies fatigue, Denies fever(s), Denies night sweats, Denies poor appetite and Denies weight loss Eyes Details: glasses Reports requires corrective lenses ENT Reports Normal hearing present, Denies dental pain, Reports dysphagia, Denies hearing loss, Denies mouth pain, Denies odynophagia, Denies throat swelling, Denies tongue swelling and Reports other (Dentition adequate) Card Reports chest pain Resp Reports no additional complaints GI Details: Denies abdominal pain, Denies melena, Denies bloating, Denies hematochezia, Denies constipation, Denies GI cramping, Reports dysphagia, Denies excessive flatus, Denies early satiety, Reports heartburn, Denies diarrhea, Denies nausea, Denies odynophagia, Denies vomiting and Denies hematemesis Musc Reports back pain, Reports myalgias, Reports arthralgias, Reports joint swelling and Reports stiffness Skin/Breast Denies pruritus, Denies lesions, Denies rash and Denies jaundice Neuro Reports Normal hearing present and Denies Abnormal speech present Endo Denies fatigue Aller/Immun Denies throat swelling and Denies tongue swelling Physical Exam Vital Signs: Last Vital Signs Pulse 72 02/11/25 11:57 BP 108/65 02/11/25 11:57 BMI result Body Mass Index 30.6 Const General: cooperative, no acute distress, well developed and well groomed Nutritional Appearance: well nourished and obese Orientation/consciousness: oriented to person, oriented to place and oriented to time Limitations: No language barrier HEENT Head: Yes normocephalic and Yes atraumatic Eyes General: appearance normal, both eyes and all related structures Pupils: Equal, round and reactive pupils present Neck Neck: Yes normal visual inspection and Yes no lymphadenopathy Thyroid: Thyroid normal Resp Effort & Inspection: normal respiratory effort and able to speak in complete sentences Auscultation: clear to auscultation bilaterally Cardio Rate: regular rate Rhythm: regular rhythm Heart sounds: Normal, physiologic split S2 sound present Peripheral pulses: radial pulses present and posterior tibial pulses present GI Inspection: No distended, No Abdominal panniculus present and Yes obesity Palpation (GI): Soft to palpation, nontender, no guarding, not rigid and No hepatosplenomegaly present Percussion: Yes normal to percussion Auscultation: normal bowel sounds Rectal Exam - Male: Yes deferred Skin General skin exam: no rashes or lesions noted, turgor normal, skin not dry, no jaundice, No spider nevi and no striae Rashes: no rashes Nails: normal Neuro General: oriented to person, oriented to place and oriented to time Cranial nerves: Yes Equal, round and reactive pupils present and Yes Normal hearing present Speech: No Abnormal speech present Extrem General: Yes normal to inspection, No clubbing, No cyanosis and No edema Psych Appearance: grossly normal and well kempt Mental Status: mental status grossly normal Speech and movement: Normal speech and movement present Affect: normal affect Attitude: cooperative Thought process: Normal thought process present and not confabulating Thought content: Normal thought content present Insight: Fair insight present (Psych) and Limited insight present (Psych) Judgement: Fair judgement present (Psych) and Limited judgement present (Psych) Results Reviewed Results Reviewed: BARIUM SWALLOW 01/17/2025 FINDINGS: On oral administration of thick barium in upright view in different positions there is normal propagation bolus from the oral cavity through the pharynx, esophagus into stomach. There is ventral plate and screws from C5 through C7 for ventral fusion. There is no indentation of obstruction of the pharyngeal esophagus secondary to plate or screws. There is no intraluminal filling defect or extrinsic compression. On oral administration of thick barium there is normal oral mastication and propagation of bolus from the oral cavity, pharynx, esophagus into stomach. On placing patient prone lying and oral administration of thin barium there is normal distention of esophagus without obstruction, narrowing or stricture. A small sliding hiatal hernia is noted without reflux. FLUOROSCOPY TIME: 1 minute 58 seconds DOSE AREA PRODUCT: 1859 uGy-m2 (microgray-meter squared) FL/FL barium swallow IMPRESSION: Small sliding hiatal hernia without reflux. There is ventral fusion plate from C5 to C7 vertebra causing no obstruction to the cervical esophagus. Assessment & Plan Assessment & Plan (1) GERD (gastroesophageal reflux disease): Code(s): K21.9 - Gastro-esophageal reflux disease without esophagitis Category: Medical Qualifiers: Esophagitis presence: without esophagitis Qualified Code(s): K21.9 - Gastro-esophageal reflux disease without esophagitis (2) Dysphagia: Code(s): R13.10 - Dysphagia, unspecified Category: Medical Plan - The patient is a 59-year-old male presenting with Gastroesophageal Reflux Disease (GERD). - since I saw him last he had a myocardial infarction! He was having trouble regulating his blood pressure and I can not help but wonder how much of his GERD was cardiac symptoms. In the past this was worsened when he was put on amlodipine although now he is on twice a day dosing and apparently is tolerating it well. - The patient reports acid regurgitation and vomiting, improved with famotidine that we started at the last visit. - we review his barium swallow which shows a sliding hiatal hernia that could contribute to episodic GERD exacerbation. - Persistent symptoms of esophageal dysphagia leading to consideration of endoscopy for further evaluation. Food tends to get stuck midsternally which could be esophageal spasm or could be esophageal stricture. - Use of turmeric noted with advisory regarding potential GI upset. This also might not be the best food with someone who has GERD. He was also educated that too high a dose of tumor can cause liver failure so even though it is ?natural? do not ever go over the recommended dosage. - Background of rheumatoid arthritis and gout, with prior biologic therapy terminated due to side effects. Return office visit in 3 months EGD BIOPSY Medications: Refilled famotidine (Pepcid) 40 mg PO BEDTIME 30 tabs 6RF K21.9 - Gastro-esophageal reflux disease without esophagitis, R10.13 - Epigastric pain Coding Level of Care Code Est Pt Level 3 (44068) Diagnoses Gastroesophageal reflux disease without esophagitis K21.9 Esophagitis presence: without esophagitis Dysphagia R13.10
[2025-02-11 11:57] VITALS: BP 108/65; PULSE 72; BMI 30.6
== END 2025-02-11 12:34 | disposition home or self-care (01) ==
LOC: HO.HGI 11:48
PROVIDERS: PCP Internal Medicine; Visit Provider Nurse Practitioner
DX: K21.9 Gastro-esophageal reflux disease without esophagitis (principal); R13.10 Dysphagia, unspecified
CPT/HCPCS: 99213

== ENCOUNTER → 2025-02-11 11:47 | Outpatient (BNVA) | payer OTHER, SELFPAY | PROVIDERS: PCP Internal Medicine; Visit Provider Nurse Practitioner | DX: K21.9 Gastro-esophageal reflux disease without esophagitis (principal); R13.10 Dysphagia, unspecified | CPT/HCPCS: 99212 ==

== ENCOUNTER 2025-03-04 13:52 | Outpatient (AMB) | payer OTHER, SELFPAY ==
--- NOTE | 2025-03-04 13:53 | A.OFFVIS_ITS ---
Vital Signs 03/04/25 14:00 Height 5 ft 9 in Weight 208 lb 15.971 oz BMI 30.9 BP 122/80 Blood Pressure Location Lt brachial Position Sitting Pulse 71 Pulse Source Pulse Oximeter Pulse Oximetry (%) 97 Oxygen Delivery Method Room Air Intake Visit Reasons: follow up Intake Note: Patient presents for RA follow up. Allergies penicillin V Allergy (Severe, Verified 03/04/25 13:59) rash adalimumab (From Humira) Allergy (Intermediate, Verified 03/04/25 13:59) leg pain atorvastatin Allergy (Intermediate, Verified 03/04/25 13:59) leg pain leflunomide Allergy (Intermediate, Verified 03/04/25 13:59) kidney failure tocilizumab (From Actemra) Allergy (Intermediate, Verified 03/04/25 13:59) frequent nail infection lisinopril Adverse Reaction (Intermediate, Verified 03/04/25 13:59) Anxiety losartan Adverse Reaction (Intermediate, Verified 03/04/25 13:59) Nausea Medication List - Last Reconciled 03/04/25 by Serina Franz MD albuterol sulfate 90 mcg/actuation 2 puffs inhalation Q4-6H PRN amlodipine 5 mg PO BID 90 days aspirin 81 mg PO DAILY blood sugar diagnostic (FreeStyle Lite Strips) test daily blood-glucose meter (FreeStyle Lite Meter kit) test daily carvedilol 6.25 mg PO BID cyclobenzaprine 5 mg PO TID PRN diclofenac sodium 1% 4 grams topical QID PRN famotidine (Pepcid) 40 mg PO BEDTIME lancets (FreeStyle Lancets) test daily lancets (FreeStyle Lancets) As directed check BS QD nitroglycerin 0.4 mg sublingual Q5M PRN pregabalin 75 mg PO BID rosuvastatin 40 mg PO BEDTIME sennosides (senna) 8.6 mg PO BEDTIME sertraline 150 mg PO BEDTIME sertraline 150 mg PO BEDTIME tolterodine ER (Detrol LA) 2 mg PO Q24H [wrist cock up splint Wear on each wrist at night. ] HPI Comments Details: Patient is a 59-year-old male with hypertension complicated by CAD, hyperlipidemia, diabetes, history of tubular adenoma of the colon, BPH, polyarticular osteoarthritis and seropositive rheumatoid arthritis here today for follow up Interval History: Patient last seen 11/06/24 with me - On Hydroxychloroquine 200mg bid - Patient did not start this medication because he was changing HTN medication and so he did not want to add any thing new to the mix. - Still complaining mainly of hand pain - Patient states that he was willing to start the HCQ Today - On Hydroxychloroquine 200mg bid - Still did not start the medication - Admitted the hospital 11/2024 for angina Rheumatologic History: Seropositive rheumatoid arthritis diagnosed in 2019 ++RF -ve CCP Leflunomide: December 2020 - March 2021 urinary frequency Actemra: January 2020- December 2020 -Had surgery did not want to restart after, frequent nail infections. Enbrel: January- denied by insurance Humira: October 2019- January 2020 - active disease on exam/ listed with allergy leg pain Orencia: March 2021 - 05/2024 Current Rheumatology Medication(s): Plaquenil 200mg bid PFSH Medical History (Updated 03/04/25 @ 14:33 by Serina Franz MD) Dyspepsia RSV (respiratory syncytial virus infection) Encounter for monitoring of hydroxychloroquine therapy Pre-op examination Frequency of micturition Right wrist pain Annual physical exam Lower urinary tract symptoms Immunization counseling Screening for viral disease Bilateral carpal tunnel syndrome Screening for colon cancer Screening for prostate cancer New onset type 2 diabetes mellitus Depression Adult general medical exam Precordial chest pain Right hip pain Acute sinusitis Right rotator cuff tear Atherosclerotic cardiovascular disease Left rotator cuff tear Gastritis determined by endoscopy Lip cancer Erectile dysfunction Anxiety Degenerative disc disease, lumbar Horseshoe kidney Coronary artery disease GERD (gastroesophageal reflux disease) Hypercholesterolemia Cervical radiculopathy 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 Osteoarthritis Surgical History History of carpal tunnel surgery of right wrist History of rotator cuff surgery S/P left rotator cuff repair Hx of colonoscopy History of coronary artery stent placement History of cervical spinal surgery History of shoulder surgery History of lip cancer H/O left knee surgery History of tonsillectomy Family History Father Lung cancer CAD (coronary artery disease) CVD (cardiovascular disease) Hx of CABG Mother Colon cancer Mental health disorder Maternal Uncle Lung cancer Maternal Uncle Substance abuse Substance use disorder Brother Lung cancer Social History Housing: Apartment Housing Other:: Rents a room in a house Are you a primary career services manager to a significant other at home: No Do you presently have visiting nurse or other home services: No Alcohol intake: current Alcohol intake frequency: holidays/special occasions only Alcohol type: beer and hard liquor Comment: once a month glass Patient Tobacco Use Status: Former Tobacco user Tobacco use type: Cigarette Years Smoked: quit 2004 smoke marijuana e-Cigarette/Vaping Use: Never Used Second Hand Smoke Exposure: Yes Substance Use Type: Marijuana service: No Current occupational status: unemployed Current occupation: right handed Cognitive needs: No Hearing needs: No Vision needs: Yes Review of Systems Const Details: Review of Systems Constitutional: Denies fever, chills, weight loss ENT: Denies vision changes, eye pain or eye redness, dental caries, dry mouth GI: Denies nausea, vomiting, diarrhea, abdominal pain, change in BM Pulm: Denies SOB, VIVEROS, hemoptysis, wheezing Cards: Denies chest pain, palpitations Skin: Denies Raynaud's, rash, nail changes, photosensitivity, LINE STAKER: Denies headaches, weakness, paresthesias, recurrent falls MSK: as per HPI All other systems reviewed and are unremarkable except noted above Physical Exam Exam Exam: Vital signs reviewed Physical Examination CONSTITUITIONAL Patient alert and cooperative. Well appearing and in no apparent painful distress MSK Hands * Right Hand: Not able to make a fist. No swelling or tenderness to palpation of the MCPs, PIPs or DIPs. * Left Hand: Not able to make a fist. No swelling or tenderness to palpation of the MCPs, PIPs or DIPs. * Herbedens and Bouchards nodes noted bilaterally Wrists * Right Wrist: Full ROM to flexion and extension. No swelling or TTP * Left Wrist: Full ROM to flexion and extension. No swelling or TTP Elbows * Right Elbow: Decreased ROM especially to extension. No swelling or TTP. No TTP of the medial epicondyle. No TTP of the lateral epicondyle * Left Elbow: Full ROM. No swelling or TTP. No TTP of the medial epicondyle. No TTP of the lateral epicondyle Shoulders * Right shoulder: Full ROM. No swelling noted. No TTP of the AC joint. No TTP of the subacromial bursa. No TTP of the posterior shoulder * Left shoulder: Full ROM. No swelling noted. No TTP of the AC joint. No TTP of the subacromial bursa. No TTP of the posterior shoulder Knees * Right knee: Full ROM. No swelling noted. No TTP of the knee joint line. No TTP of pes anserine bursa * Left knee: Full ROM. No swelling noted. No TTP of the knee joint line. No TTP of pes anserine bursa. * Crepitations felt bilaterally Ankles * Right ankle: Good ankle dorsiflexion and plantar flexion. No swelling. No TTP of the ankle joint * Left ankle: Good ankle dorsiflexion and plantar flexion. No swelling. No TTP of the ankle joint Feet * Right foot: Negative squeeze test * Left foot: Negative squeeze test Tender points? * No tenderness to palpation of the bilateral trapezius, supraspinatus, anterior costochondral junctions, bilateral suboccipital muscle insertions SKIN No rashes Vital Signs: Last Vital Signs Pulse 71 03/04/25 14:00 BP 122/80 03/04/25 14:00 Pulse Ox 97 03/04/25 14:00 Oxygen Delivery Method Room Air 03/04/25 14:00 BMI result Body Mass Index 30.9 Results Reviewed Results Reviewed: Laboratory Tests 10/31/24 12/01/24 11:35 05:40 WBC 8.8 RBC 4.81 Hgb 14.2 Hct 41.0 L Plt Count 167 ESR 8 Sodium 140 Potassium 4.1 Chloride 110 H Carbon Dioxide 24 BUN 14 Creatinine 0.71 Assessment & Plan Assessment & Plan (1) Seropositive rheumatoid arthritis: Comment: ++RF -ve CCP Leflunomide: December 2020 - March 2021 urinary frequency Actemra: January 2020- December 2020 -Had surgery did not want to restart after, frequent nail infections. Enbrel: January- denied by insurance Humira: October 2019- January 2020 - active disease on exam/ listed with allergy leg pain Orencia: March 2021- 05/2024 HCQ - ordered but patient did not take it Code(s): M05.9 - Rheumatoid arthritis with rheumatoid factor, unspecified Category: Medical Plan: #Seropositive RA Patient is a 59-year-old male with seropositive rheumatoid arthritis here today for follow up. Self discontinued Orencia due to ineffectiveness and side effects. Did not start plaquenil due to concern for side effects with new medications for HTN. Patien doing well withut DMARDs currently will monitor off medications Plan - Monitor off DMARDs - RTC 6 months - Labs before visit: CBC, CMP, ESR, CRP (2) Osteoarthritis of hands, bilateral: Code(s): M19.041 - Primary osteoarthritis, right hand; M19.042 - Primary osteoarthritis, left hand Category: Medical Qualifiers: Osteoarthritis type: primary Qualified Code(s): M19.041 - Primary osteoarthritis, right hand; M19.042 - Primary osteoarthritis, left hand Plan: #Polyarticular OA Patient with polyarticular OA but right now of concern is OA related to his bilateral hands. Continue with home remedy of paraffin waxes Did not find much improvement with the diclofenac gel Plan - Continue home management with paraffin wax baths, stretches and exercises Plan I spent 20 minutes reviewing the record and labs, taking a history, examining the patient, discussing the treatment plan and documenting in the medical record Coding Level of Care Code Est Pt Level 3 (79894) Complex EM visit Add On G2211 Diagnoses Seropositive rheumatoid arthritis M05.9 Primary osteoarthritis of both hands M19.041; M19.042 Osteoarthritis type: primary
[2025-03-04 14:00] VITALS: BP 122/80; PULSE 71; O2SAT 97; BMI 30.9
--- OUTSIDE RECORDS SUMMARY | 2025-03-04 17:04 | XMS_ITS | Patient Health Record ---
Author Organization [facility] Address [address] [place] [address] Care Team Providers Care Tool Storage Attendant Name Role Phone Clive Chaidez Primary Care Provider Traci Juarez Unavailable [phone] Allergies Allergen (clinical drug ingredient) Drug/Non Drug [...] (HH) 6.2 HEMOGLOBIN A1C (GLYCOHEMOGLO BIN) Reviewed date:02/21/2025 12:27:38 PM Interpretation: Performing Lab: Notes/Report: HEMOGLOBIN A1C % (HH) 6.3 Reason For Referral No Information Medications Medication SIG (Take, Route, Frequency, Duration) Notes Start Date End Date Status Carvedilol 6.25 MG TAKE 1 TABLET BY DONTRELL TH TWICE DAILY Oral; Duration: 90 Days Active Tolterodine Tartrate ER 2 MG TAKE 1 CAPSULE BY MOUTH EVERY 24 HOURS Oral; Duration: 90 Days Active FreeStyle Lancets - ; Duration: 90 Days Active FreeStyle Lite Test - USE DIRECTED TO TEST BLOOD GLUCOSE EVERY DAY In Vitro; Duration: 90 Days Active Extra Depth Orthopedic Shoes (1 Pair) with Customized Heat Molded Multidensity Innersoles (3 Pair) as directed Dx: NIDDM/Polyneuropathy (E11.42), Hammertoe Foot Deformity (M20.41,M20.42), Preulcerative Skin Lesion(s) (L85.1 09/10/2024 Active Amlodipine & Diet Manage Prod Active Losartan Potassium 50 MG TAKE 1 TABLET B Y MOUTH DAILY Oral; Duration: 30 Days Not-Taking Lisinopril Not-Takin g Orencia ClickJect 125 MG/ML Subcutaneous; Duration: 28 Days Not-Taking Aspir-81 Active Sertraline HCl 100 MG Oral; Duration: 30 Days Active Pregabalin 75 MG Oral; Duration: 45 Days Active Rosuvastatin Calcium 40 MG TAKE 1 TABLET BY MOUTH DAILY Oral; Duration: 90 Days Active Immunizations [...] Problem Acquired hammer toe of right foot (4014761036994571 ) Other hammer toe(s) (acquired), right foot (M20.41) Active confirmed Problem Acquired hammer toe of left foot (8617681027254816 ) Other hammer toe(s) (acquired), left foot (M20.42) Active confirmed Problem Polyneuropathy due to type 2 diabetes mellitus (566282171) Type 2 diabetes mellitus with diabetic polyneuropathy (E11.42) Active confirmed Vital Signs Blood pressure diastolic 65 mm Hg 02/21/2025 Height 5ft 10in in 02/21/2025 Blood pressure systolic 127 mm Hg 02/21/2025 Weight 198 lbs 02/21/2025 BMI 28.41 kg/m2 02/21/2025 Encounters Encounter Location Date Provider Diagnosis [address] [address] 04/16/2024 Traciharry Viverosa Type 2 diabetes mellitus with diabetic polyneuropathy E11.42 ; Tinea unguium B35.1 ; Other hammer toe(s) (acquired), right foot M20.41 and Other hammer toe(s) (acquired), left foot M20.[address] [address] 07/03/2024 Traciharry Viverosa Type 2 diabetes mellitus with diabetic polyneuropathy E11.42 ; Other hammer toe(s) (acquired), right foot M20.41 ; Tinea unguium B35.1 and Other hammer toe(s) (acquired), left foot M20.[address] [address] 09/10/2024 Traci Viverosa Type 2 diabetes mellitus with diabetic polyneuropathy E11.42 ; Tinea unguium B35.1 ; Other hammer toe(s) (acquired), right foot M20.41 and Other hammer toe(s) (acquired), left foot M20.[address] [address] 11/27/2024 Traci Jewell Type 2 diabetes mellitus with diabetic polyneuropathy E11.42 ; Ingrown nail L60.0 and Tinea unguium B35.[address] [address] 12/24/2024 Traci Viverosa Ingrown nail L60.0 a nd Type 2 diabetes mellitus with diabetic polyneuropathy E11.[address] [address] 01/07/2025 Traci Jewell Ulcer of left foot, limited to breakdown of skin L97.[address] [address] 02/21/2025 Traci Viverosa Type 2 diabetes mellitus with diabetic polyneuropathy E11.42 and Tinea unguium B35.1 Assessments Encounter Date [...] to breakdown of skin (ICD-10 - L97.521) 02/21/2025 Type 2 diabetes mellitus with diabetic polyneuropathy (ICD-10 - E11.42) 02/21/2025 Tinea unguium (ICD-10 - B35.1) 11/27/2024 Type 2 diabetes mellitus with diabetic [...] Treatment Next Appt Details Provider Name:Traci oliva, 05/30/2025 09:00:00 AM, [address] [place] [address], [phone], Insurance Providers Payer Name Payer Address Payer Phone Subscriber Number Group Number Insured Name Patient Relationship to Insured Coverage Start Date Coverage End Date [facility] [employer] Claims [address] [place], [place] [address] [phone] [id number] Issa eCrna Self - patient is the insured Medical [...]
== END 2025-03-04 14:38 | disposition home or self-care (01) ==
LOC: HO.RHES 13:52
PROVIDERS: PCP Internal Medicine; Visit Provider Student in an Organized Health Care Education/Training Program
DX: M05.9 Rheumatoid arthritis with rheumatoid factor, unspecified (principal); M19.041 Primary osteoarthritis, right hand; M19.042 Primary osteoarthritis, left hand
CPT/HCPCS: 99213; G2211

== ENCOUNTER 2025-03-04 13:52 | Outpatient (REF) | payer OTHER, SELFPAY ==
[2025-03-04 18:37] LABS: MANUAL DIFF FLAG NO
[2025-03-04 18:41] LABS: Hematocrit 38.4 % (42.0-52.0); Hemoglobin 12.9 g/dl (14.0-18.0); Imm Gran Abs Auto 0.02 X10*3/uL (0.00-0.03); Imm Gran Pct Auto 0.3 % (0.0-0.4); Lymphocytes Absolute Auto 3.5 X10*3/uL (1.2-4.9); Mean Corpuscular HGB Conc 33.6 g/dl (31.0-36.0); Mean Corpuscular Hemoglobin 29.3 pg (27.0-33.0); Mean Corpuscular Volume 87.1 fL (80.0-98.0); NRBC Abs Auto 0.000 X10*3/uL (0.0-0.012); NRBC Pct Auto 0.0 /100WBC (0.0-0.2); Platelet Count 187 X10*3/uL (160-400); Red Blood Count 4.41 X10*6/uL (4.60-5.80); White Blood Count 8.0 X10*3/uL (4.8-10.8)
[2025-03-04 18:52] LABS: Alanine Aminotransferase 23 U/L (0-40); Albumin Level 4.2 g/dL (3.5-5.0); Alkaline Phosphatase 73 U/L (39-117); Anion Gap 10 (12-20); Aspartate Amino Transferase 24 U/L (5-37); Blood Urea Nitrogen 18 mg/dL (9-16); Calcium 8.8 mg/dL (8.4-10.2); Carbon Dioxide 29 mmol/L (22-29); Chloride 107 mmol/L (96-108); Estimated Glomerular Filt Rate > 60; Potassium 4.0 mmol/L (3.3-5.1); Sodium 142 mmol/L (135-145); Total Protein 6.8 g/dL (6.5-8.0)
== END 2025-03-04 13:53 | disposition home or self-care (01) ==
LOC: HO.HKASLDS 13:52
PROVIDERS: PCP Internal Medicine; Visit Provider Student in an Organized Health Care Education/Training Program
DX: M05.9 Rheumatoid arthritis with rheumatoid factor, unspecified (principal); M19.041 Primary osteoarthritis, right hand; M19.042 Primary osteoarthritis, left hand; Z79.899 Other long term (current) drug therapy
CPT/HCPCS: 36415; 80053; 85025; 85652; 86140; 99212

== ENCOUNTER 2025-04-02 14:29 | Outpatient (AMB) | payer OTHER, SELFPAY ==
[2025-04-02 14:42] VITALS: BP 108/62; PULSE 62; BMI 30.7
--- NOTE | 2025-04-02 14:42 | A.OFFVIS_ITS ---
Vital Signs 04/02/25 14:42 Height 5 ft 9 in Weight 207 lb 10.807 oz BMI 30.7 BP 108/62 Blood Pressure Location Lt brachial Position Sitting Pulse 62 Pulse Source Pulse Oximeter Intake Visit Reasons: 3m follow up Interventional Radiology Rn Required: No Accompanied by: Self / Same As Patient Allergies penicillin V Allergy (Severe, Verified 04/02/25 14:45) rash adalimumab (From Humira) Allergy (Intermediate, Verified 04/02/25 14:45) leg pain atorvastatin Allergy (Intermediate, Verified 04/02/25 14:45) leg pain leflunomide Allergy (Intermediate, Verified 04/02/25 14:45) kidney failure tocilizumab (From Actemra) Allergy (Intermediate, Verified 04/02/25 14:45) frequent nail infection lisinopril Adverse Reaction (Intermediate, Verified 04/02/25 14:45) Anxiety losartan Adverse Reaction (Intermediate, Verified 04/02/25 14:45) Nausea Medication List - Last Reconciled 04/02/25 by Fernando Goins MD albuterol sulfate 90 mcg/actuation 2 puffs inhalation Q4-6H PRN amlodipine 5 mg PO BID 90 days aspirin 81 mg PO DAILY blood sugar diagnostic (FreeStyle Lite Strips) test daily blood-glucose meter (FreeStyle Lite Meter kit) test daily carvedilol 6.25 mg PO BID cyclobenzaprine 5 mg PO ONCE PRN diclofenac sodium 1% 4 grams topical QID PRN famotidine (Pepcid) 40 mg PO BEDTIME lancets (FreeStyle Lancets) test daily lancets (FreeStyle Lancets) As directed check BS QD nitroglycerin 0.4 mg sublingual Q5M PRN pregabalin 75 mg PO BID rosuvastatin 40 mg PO BEDTIME sennosides (senna) 8.6 mg PO BEDTIME sertraline 150 mg PO BEDTIME tolterodine ER (Detrol LA) 2 mg PO Q24H [wrist cock up splint Wear on each wrist at night. ] HPI Comments Details: Issa returns for follow-up regarding coronary artery disease. To recall, in 2018, he was admitted for unstable angina type symptoms and underwent cardiac catheterization and right coronary artery stenting. He also had moderate circumflex disease and 40% mid LAD disease. Recently, he was again having chest pain and elevated biomarkers in the setting of very high blood pressures. Subsequently, underwent another catheterization in november 2024, but that showed no new findings. Seems that amlodipine dose was increased at that time. After that, blood pressures improved to the normal range. He has got no cardiac symptoms but describes lot of GI issues like dyspepsia and he somewhat thinks it is all related to amlodipine. However, I am not entirely clear if that is truly the case. Any case, he is going to GI and there was an endoscopy coming up according to him. [facility] Medical History (Updated 03/04/25 @ 14:33 by Serina Franz MD) Dyspepsia RSV (respiratory syncytial virus infection) Encounter for monitoring of hydroxychloroquine therapy Pre-op examination Frequency of micturition Right wrist pain Annual physical exam Lower urinary tract symptoms Immunization counseling Screening for viral disease Bilateral carpal tunnel syndrome Screening for colon cancer Screening for prostate cancer New onset type 2 diabetes mellitus Depression Adult general medical exam Precordial chest pain Right hip pain Acute sinusitis Right rotator cuff tear Atherosclerotic cardiovascular disease Left rotator cuff tear Gastritis determined by endoscopy Lip cancer Erectile dysfunction Anxiety Degenerative disc disease, lumbar Horseshoe kidney Coronary artery disease GERD (gastroesophageal reflux disease) Hypercholesterolemia Cervical radiculopathy 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 Osteoarthritis Surgical History History of carpal tunnel surgery of right wrist History of rotator cuff surgery S/P left rotator cuff repair Hx of colonoscopy History of coronary artery stent placement History of cervical spinal surgery History of shoulder surgery History of lip cancer H/O left knee surgery History of tonsillectomy Family History Father Lung cancer CAD (coronary artery disease) CVD (cardiovascular disease) Hx of CABG Mother Colon cancer Mental health disorder Maternal Uncle Lung cancer Maternal Uncle Substance abuse Substance use disorder Brother Lung cancer Social History Housing: Apartment Housing Other:: Rents a room in a house Are you a primary care program resident to a significant other at home: No Do you presently have visiting nurse or other home services: No Alcohol intake: current Alcohol intake frequency: holidays/special occasions only Alcohol type: beer and hard liquor Comment: once a month glass Patient Tobacco Use Status: Former Tobacco user Tobacco use type: Cigarette Years Smoked: quit 2005 smokes marijuana e-Cigarette/Vaping Use: Never Used Second Hand Smoke Exposure: Yes Substance Use Type: Marijuana service: No Current occupational status: unemployed Current occupation: right handed Cognitive needs: No Hearing needs: No Vision needs: Yes Review of Systems Const Denies daytime sleepiness, Denies difficulty sleeping, Denies snoring, Denies stops breathing during sleep and Denies weakness Card Denies chest pain, Denies rapid heart rate, Denies irregular heart rhythm, Denies claudication, Denies leg edema, Denies lightheadedness, Denies palpitations, Denies dyspnea, Denies dyspnea on exertion, Denies orthopnea, Denies paroxysmal nocturnal dyspnea and Denies slow heart rate Resp Denies cough, Denies dyspnea, Denies dyspnea on exertion and Denies snoring GI Reports no additional complaints, Denies hematochezia, Denies change in stool character and Denies dyspepsia Musc Denies abnormal gait, Denies muscle weakness and Denies numbness Neuro Denies abnormal gait, Denies numbness and Denies weakness Endo Denies palpitations Physical Exam Vital Signs: Last Vital Signs Pulse 62 04/02/25 14:42 BP 108/62 04/02/25 14:42 BMI result Body Mass Index 30.7 Const General: comfortable and no acute distress Orientation/consciousness: patient oriented x3 HEENT Other: Unremarkable Head: Yes normal to inspection Neck Neck: Yes normal visual inspection Chest Chest palpation & inspection: normal inspection of the chest Resp Auscultation: clear to auscultation bilaterally Cardio Palpation: normal PMI Heart sounds: S1 normal heart sound present, S2 normal heart sound present, no gallops, no murmurs and no rubs GI Palpation (GI): Soft to palpation Back/Spine/Pelvis Other: unremarkable Skin General skin exam: no rashes or lesions noted Neuro General: patient oriented x3 Extrem General: Yes normal to inspection Psych Mental Status: mental status grossly normal Assessment & Plan Assessment & Plan (1) Atherosclerotic cardiovascular disease: Code(s): I25.10 - Atherosclerotic heart disease of [place] coronary artery without angina pectoris Category: Medical Plan: Cardiac catheterization 11/2024-patent mid RCA stent. Proximal RCA 50% stenosis. No significant disease elsewhere. Continue medical therapy for stable coronary disease including aspirin, beta- blockers and statins. Last LDL is 56 mg/dL. Triglycerides 141 mg/dL. (2) Essential hypertension: Code(s): I10 - Essential (primary) hypertension Category: Medical Plan: Recent hypertensive urgency type situation. His blood pressure seems normal but he believes that lot of his GI issues are because of amlodipine. However, amlodipine is not a common cause for dyspepsia. He does have GI workup pending with an endoscopy. (3) Type 2 diabetes mellitus with hyperglycemia: Comment: shahzad Hartmann Code(s): E11.65 - Type 2 diabetes mellitus with hyperglycemia Category: Medical Plan: Hemoglobin A1c from [facility] in November 7%. On diet control. Plan Discussion Notes During the consultation, we discussed the patient's gastrointestinal symptoms and the potential side effects of his current medications, particularly amlodipine. I explained the importance of continuing the medication until the scheduled endoscopy, which will help identify any underlying issues such as ulcers or gastritis. We also discussed the possibility of adjusting his medication regimen based on the endoscopy results to alleviate his symptoms. Patient was informed and verbally consented to the use of an ambient scribe for clinic note documentation during this visit. Medications: Changed From cyclobenzaprine 5 mg PO TID PRN 30 tabs 0RF muscle spasm M54.9 - Dorsalgia, unspecified To cyclobenzaprine 5 mg PO ONCE PRN M54.9 - Dorsalgia, unspecified Patient Instructions: - Continue taking medications as prescribed until after the endoscopy. - Monitor for any new or worsening symptoms and report them to the healthcare pr ovider. - Attend the scheduled endoscopy appointment to evaluate gastrointestinal symptoms. Coding Level of Care Code Est Pt Level 4 (29396) Complex EM visit Add On G2211 Diagnoses Atherosclerotic cardiovascular disease I25.10 Essential hypertension I10 Type 2 diabetes mellitus with hyperglycemia E11.65
--- OUTSIDE RECORDS SUMMARY | 2025-04-02 20:39 | XMS_ITS | Patient Health Record ---
Author Organization [facility] Address [address] [place] [address] Care Team Providers Care Typing Element Machine Operator Name Role Phone Clive Chaidez Primary Care Provider Traci Juarez Unavailable [phone] Allergies Allergen (clinical drug ingredient) Drug/Non Drug Allergy documented on EMR Reaction Allergy Type Onset Date Status cortisone Cortisone Acetate headache Drug Allergy Active Humira Unknown Drug Allergy Active leflunomide Leflunomide Unknown Drug Allergy Act jued acetaminophen Tylenol rash Drug Allergy Act jude [...] Problem Acquired hammer toe of right foot (4772733808734154 ) Other hammer toe(s) (acquired), right foot (M20.41) Active confirmed Problem Acquired hammer toe of left foot (9544029380710284 ) Other hammer toe(s) (acquired), left foot (M20.42) Active confirmed Problem Polyneuropathy due to type 2 diabetes mellitus (845550993) Type 2 diabetes mellitus with diabetic polyneuropathy (E11.42) Active confirmed Vital Signs Blood pressure diastolic 65 mm Hg 02/21/2025 Height 5ft 10in in 02/21/2025 Blood pressure systolic 127 mm Hg 02/21/2025 Weight 198 lbs 02/21/2025 BMI 28.41 kg/m2 02/21/2025 Encounters Encounter Location Date Provider Diagnosis [address] [address] 04/16/2024 Traciharry Viverosa Type 2 diabetes mellitus with diabetic polyneuropathy E11.42 ; Tinea unguium B35.1 ; Other hammer toe(s) (acquired), right foot M20.41 and Other hammer toe(s) (acquired), left foot M20.[address] [address] 07/03/2024 Traciharry Viverosa Type 2 diabetes mellitus with diabetic polyneuropathy E11.42 ; Other hammer toe(s) (acquired), right foot M20.41 ; Tinea unguium B35.1 and Other hammer toe(s) (acquired), left foot M20.[address] [address] 09/10/2024 Traci Viverosa Type 2 diabetes mellitus with diabetic polyneuropathy E11.42 ; Tinea unguium B35.1 ; Other hammer toe(s) (acquired), right foot M20.41 and Other hammer toe(s) (acquired), left foot M20.[address] [address] 11/27/2024 Traci Jewell Type 2 diabetes mellitus with diabetic polyneuropathy E11.42 ; Ingrown nail L60.0 and Tinea unguium B35.[address] [address] 12/24/2024 Traci Viverosa Ingrown nail L60.0 a nd Type 2 diabetes mellitus with diabetic polyneuropathy E11.[address] [address] 01/07/2025 Traci Jewell Ulcer of left foot, limited to breakdown of skin L97.[address] [address] 02/21/2025 Traci Viverosa Type 2 diabetes mellitus [...] Details Provider Name:Traci oliva, 05/30/2025 09:00:00 AM, [address] [place] [address], [phone], Insurance Providers Payer Name Payer Address Payer Phone Subscriber Number Group Number Insured Name Patient Relationship to Insured Coverage Start Date Coverage End Date [facility] [employer] Claims [address] [place] [id number] Issa Cerna Self - patient is the [...]
== END 2025-04-02 15:16 | disposition home or self-care (01) ==
LOC: HO.HCS 14:29
PROVIDERS: PCP Internal Medicine; Visit Provider Internal Medicine
DX: I25.10 Atherosclerotic heart disease of native coronary artery without angina pectoris (principal); I10 Essential (primary) hypertension; E11.65 Type 2 diabetes mellitus with hyperglycemia
CPT/HCPCS: 99214; G2211

== ENCOUNTER → 2025-04-02 14:29 | Outpatient (BNVA) | payer OTHER, SELFPAY | PROVIDERS: PCP Internal Medicine; Visit Provider Internal Medicine | DX: I25.10 Atherosclerotic heart disease of native coronary artery without angina pectoris (principal); I10 Essential (primary) hypertension; E11.65 Type 2 diabetes mellitus with hyperglycemia; Z95.5 Presence of coronary angioplasty implant and graft | CPT/HCPCS: 99212 ==

== ENCOUNTER 2025-04-22 06:03 | Day surgery (SDC) | payer OTHER, SELFPAY ==
--- OUTSIDE RECORDS SUMMARY | 2025-03-18 08:44 | XMS_ITS | Patient Health Record ---
Author Organization [facility] Address [address] [place] [address] Care Team Providers Care Freelance Patternmaker Name Role Phone lCive Chaidez Primary Care Provider Traci Juarez Unavailable [phone] Allergies Allergen (clinical drug ingredient) Drug/Non Drug [...] Problem Acquired hammer toe of right foot (4597076508722618 ) Other hammer toe(s) (acquired), right foot (M20.41) Active confirmed Problem Acquired hammer toe of left foot (3609448415015510 ) Other hammer toe(s) (acquired), left foot (M20.42) Active confirmed Problem Polyneuropathy due to type 2 diabetes mellitus (295976409) Type 2 diabetes mellitus with diabetic polyneuropathy (E11.42) Active confirmed Vital Signs Blood pressure diastolic 65 mm Hg 02/21/2025 Height 5ft 10in in 02/21/2025 Blood pressure systolic 127 mm Hg 02/21/2025 Weight 198 lbs 02/21/2025 BMI 28.41 kg/m2 02/21/2025 Encounters Encounter Location Date Provider Diagnosis [address] [address] 04/16/2024 Traciharry Viverosa Type 2 diabetes mellitus with diabetic polyneuropathy E11.42 ; Tinea unguium B35.1 ; Other hammer toe(s) (acquired), right foot M20.41 and Other hammer toe(s) (acquired), left foot M20.[address] [address] 07/03/2024 Traciharry Viverosa Type 2 diabetes mellitus with diabetic polyneuropathy E11.42 ; Other hammer toe(s) (acquired), right foot M20.41 ; Tinea unguium B35.1 and Other hammer toe(s) (acquired), left foot M20.[address] [address] 09/10/2024 Traci Viverosa Type 2 diabetes mellitus with diabetic polyneuropathy E11.42 ; Tinea unguium B35.1 ; Other hammer toe(s) (acquired), right foot M20.41 and Other hammer toe(s) (acquired), left foot M20.[address] [address] 11/27/2024 Traci Jewell Type 2 diabetes mellitus with diabetic polyneuropathy E11.42 ; Ingrown nail L60.0 and Tinea unguium B35.[address] [address] 12/24/2024 Traci Viverosa Ingrown nail L60.0 a nd Type 2 diabetes mellitus with diabetic polyneuropathy E11.[address] [address] 01/07/2025 Traci Jewell Ulcer of left foot, limited to breakdown of skin L97.[address] [address] 02/21/2025 Traci Viverosa Type 2 diabetes mellitus [...] E11.42) 09/10/2024 Tinea unguium (ICD-10 - B35.1) 11/27/2024 Tinea unguium (ICD-10 - B35.1) 07/03/2024 Tinea unguium (ICD-10 - B35.1) 04/16/2024 Other hammer toe(s) (acquired), right foot (ICD-10 - M20.41) Patient Educated with: DIABETIC FOOT CARE INSTRUCTIONS. pdf (DIABETIC FOOT CARE INSTRUCTIONS. pdf) 04/16/2024 Other hammer toe(s) (acquired), left foot (ICD-10 - M20.42) 07/03/2024 Other hammer toe(s) (acquired), left foot (ICD-10 - M20.42) 09/10/2024 Other hammer toe(s) (acquired), right foot [...] Details Provider Name:Traci oliva, 05/30/2025 09:00:00 AM, [address] [place] [address], [phone], Insurance Providers Payer Name Payer Address Payer Phone Subscriber Number Group Number Insured Name Patient Relationship to Insured Coverage Start Date Coverage End Date [facility] [employer] Claims [address] [place], [place] [address] [phone] [id number] Issa Cerna Self - patient is the [...]
--- NOTE | 2025-04-17 10:43 | HO.ANESPROP2 ---
Documented by User: Pascale Andrews NP 04/17/25 10:55 HPI - Anesthesia Eval Consult details Narrative: 59 yr old male for upper endoscopy CAD: follows [facility] [place] cardiology, last visit 04/02/25, cardiac cath updated 11/2024 after reports of CP-patent mid RCA stent. Proximal RCA 50% stenosis. No significant disease elsewhere. Cardiology recommending endoscopy for GI etiology of CP. [facility] Active Problems Active Problems: All Active Problems (Updated 03/04/25 @ 14:33 by Serina Franz MD) Dysphagia (Acute) Upper back pain on right side (Acute) NSTEMI (non-ST elevated myocardial infarction) (Acute) Angina at rest (Acute) Pulmonary nodule (Acute) Encounter for monitoring of hydroxychloroquine therapy (Acute) Trigger finger of left hand (Acute) Right ear impacted cerumen (Acute) Hearing difficulty (Acute) Breast swelling (Acute) High risk medication use (Acute) Tubular adenoma of colon (Acute) Nocturia (Acute) Osteoarthritis of hands, bilateral (Acute) BPH (benign prostatic hyperplasia) (Acute) Cubital tunnel syndrome, bilateral (Acute) Upper back pain (Acute) Right hip impingement syndrome (Acute) Low vitamin D level (Acute) Type 2 diabetes mellitus with hyperglycemia (Acute) Hip flexor tendon tightness (Acute) Essential hypertension (Acute) Atherosclerotic cardiovascular disease (Acute) Constipation (Acute) Insomnia (Acute) Coronary artery disease (Acute) GERD (gastroesophageal reflux disease) (Acute) Hypercholesterolemia (Acute) Seropositive rheumatoid arthritis (Acute) Spondylosis of lumbar region without myelopathy or radiculopathy (Acute) Osteoarthritis (Acute) Past Medical History Medical History CAD (coronary artery disease) Dyspepsia RSV (respiratory syncytial virus infection) Encounter for monitoring of hydroxychloroquine therapy Pre-op examination Frequency of micturition Right wrist pain Annual physical exam Lower urinary tract symptoms Immunization counseling Screening for viral disease Bilateral carpal tunnel syndrome Screening for colon cancer Screening for prostate cancer New onset type 2 diabetes mellitus Depression Adult general medical exam Precordial chest pain Right hip pain Acute sinusitis Right rotator cuff tear Atherosclerotic cardiovascular disease Left rotator cuff tear Gastritis determined by endoscopy Lip cancer Erectile dysfunction Anxiety Degenerative disc disease, lumbar Horseshoe kidney Coronary artery disease GERD (gastroesophageal reflux disease) Hypercholesterolemia Cervical radiculopathy 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 Osteoarthritis Family History Family History Father Lung cancer CAD (coronary artery disease) CVD (cardiovascular disease) Hx of CABG Mother Colon cancer Mental health disorder Maternal Uncle Lung cancer Maternal Uncle Substance abuse Substance use disorder Brother Lung cancer Family history of problems with anesthesia: No Surgical History Surgical History History of carpal tunnel surgery of right wrist History of rotator cuff surgery S/P left rotator cuff repair Hx of colonoscopy History of coronary artery stent placement History of cervical spinal surgery History of shoulder surgery History of lip cancer H/O left knee surgery History of tonsillectomy History of Problems with Anesthesia: No Social History Social History Housing: Apartment Housing Other:: Rents a room in a house Are you a primary memory care program resident to a significant other at home: No Do you presently have visiting nurse or other home services: No Alcohol intake: current Alcohol intake frequency: holidays/special occasions only Alcohol type: beer and hard liquor Comment: once a month glass Patient Tobacco Use Status: Former Tobacco user Tobacco use type: Cigarette Years Smoked: quit 2005 smokes marijuana e-Cigarette/Vaping Use: Never Used Second Hand Smoke Exposure: Yes Use of substances other than those prescribed or required for medical reasons: Yes Substance Use Type: Marijuana Substance Use Frequency: Occasionally Advance Directives: No Advance Directives Information Provided: Yes service: No Current occupational status: unemployed Current occupation: right handed Cognitive needs: No Hearing needs: No Vision needs: Yes Meds Allergies Allergy/AdvReac Type Severity Reaction Status Date / Time penicillin V Allergy Severe rash Verified 04/02/25 14:45 adalimumab (From Humira) Allergy Intermediate leg pain Verified 04/02/25 14:45 atorvastatin Allergy Intermediate leg pain Verified 04/02/25 14:45 leflunomide Allergy Intermediate kidney Verified 04/02/25 14:45 failure tocilizumab (From Actemra) Allergy Intermediate frequent Verified 04/02/25 14:45 nail infection lisinopril AdvReac Intermediate Anxiety Verified 04/02/25 14:45 losartan AdvReac Intermediate Nausea Verified 04/02/25 14:45 Home Medications ?Medication ?Instructions ?Recorded ?Confirmed ?Last Taken ?Type aspirin 81 mg tablet,delayed 81 mg PO DAILY 04/23/20 04/18/25 08/10/20 History release diclofenac sodium 1 % topical gel 4 g topical QID PRN Pain 11/30/24 04/18/25 Unknown History sertraline 50 mg tablet 150 mg PO BEDTIME 01/30/25 04/18/25 Unknown History cyclobenzaprine 5 mg tablet 5 mg PO ONCE PRN muscle spasm 04/02/25 04/18/25 Unknown History Exam Pertinent Lab Results Pertinent Lab Results: Laboratory Tests 03/04/25 14:45 WBC 8.0 RBC 4.41 L Hgb 12.9 L Hct 38.4 L Plt Count 187 Sodium 142 Potassium 4.0 BUN 18 H Creatinine 0.82 Narrative Narrative: EKG 11/2024 Vent. Rate : 70 BPM Atrial Rate : 70 BPM P-R Int : 160 ms QRS Dur : 98 ms QT Int : 410 ms P-R-T Axes : 54 -32 9 degrees QTcB Int : 442 ms Normal sinus rhythm Left axis deviation Abnormal ECG When compared with ECG of 30-Nov-2024 16:06, No significant change was found ECHO 11/2024 Assessment and Plan Final Anesthetic Review Family History of Problems with Anesthesia: No History of Problems with Anesthesia: No Documented by User: Rick Gonzales MD 04/22/25 07:21 [facility] Past Medical History Medical History CAD (coronary artery disease) Dyspepsia RSV (respiratory syncytial virus infection) Encounter for monitoring of hydroxychloroquine therapy Pre-op examination Frequency of micturition Right wrist pain Annual physical exam Lower urinary tract symptoms Immunization counseling Screening for viral disease Bilateral carpal tunnel syndrome Screening for colon cancer Screening for prostate cancer New onset type 2 diabetes mellitus Depression Adult general medical exam Precordial chest pain Right hip pain Acute sinusitis Right rotator cuff tear Atherosclerotic cardiovascular disease Left rotator cuff tear Gastritis determined by endoscopy Lip cancer Erectile dysfunction Anxiety Degenerative disc disease, lumbar Horseshoe kidney Coronary artery disease GERD (gastroesophageal reflux disease) Hypercholesterolemia Cervical radiculopathy 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 Osteoarthritis Cognitive capacity: [place] Functional capacity: independent ambulation Family History Family History Father Lung cancer CAD (coronary artery disease) CVD (cardiovascular disease) Hx of CABG Mother Colon cancer Mental health disorder Maternal Uncle Lung cancer Maternal Uncle Substance abuse Substance use disorder Brother Lung cancer Surgical History Surgical History History of carpal tunnel surgery of right wrist History of rotator cuff surgery S/P left rotator cuff repair Hx of colonoscopy History of coronary artery stent placement History of cervical spinal surgery History of shoulder surgery History of lip cancer H/O left knee surgery History of tonsillectomy Social History Social History Housing: Apartment Housing Other:: Rents a room in a house Are you a primary memory care program resident to a significant other at home: No Do you presently have visiting nurse or other home services: No Alcohol intake: current Alcohol intake frequency: holidays/special occasions only Alcohol type: beer and hard liquor Comment: once a month glass Patient Tobacco Use Status: Former Tobacco user Tobacco use type: Cigarette Years Smoked: quit 2005 smokes marijuana e-Cigarette/Vaping Use: Never Used Second Hand Smoke Exposure: Yes Use of substances other than those prescribed or required for medical reasons: Yes Substance Use Type: Marijuana Substance Use Frequency: Occasionally Advance Directives: No Advance Directives Information Provided: Yes service: No Current occupational status: unemployed Current occupation: right handed Cognitive needs: No Hearing needs: No Vision needs: Yes Meds Allergies Allergy/AdvReac Type Severity Reaction Status Date / Time penicillin V Allergy Severe rash Verified 04/02/25 14:45 adalimumab (From Humira) Allergy Intermediate leg pain Verified 04/02/25 14:45 atorvastatin Allergy Intermediate leg pain Verified 04/02/25 14:45 leflunomide Allergy Intermediate kidney Verified 04/02/25 14:45 failure tocilizumab (From Actemra) Allergy Intermediate frequent Verified 04/02/25 14:45 nail infection lisinopril AdvReac Intermediate Anxiety Verified 04/02/25 14:45 losartan AdvReac Intermediate Nausea Verified 04/02/25 14:45 Home Medications ?Medication ?Instructions ?Recorded ?Confirmed ?Last Taken ?Type aspirin 81 mg tablet,delayed 81 mg PO DAILY 04/23/20 04/18/25 08/10/20 History release diclofenac sodium 1 % topical gel 4 g topical QID PRN Pain 11/30/24 04/18/25 Unknown History sertraline 50 mg tablet 150 mg PO BEDTIME 01/30/25 04/18/25 Unknown History cyclobenzaprine 5 mg tablet 5 mg PO ONCE PRN muscle spasm 04/02/25 04/18/25 Unknown History Exam Exam Date and Time: 04/22/2025 Airway TM Dist: >3cm Neck ROM: Limited Heart: normal Lungs: normal Other: normal Assessment and Plan Assessment Anesthesia Assessment: Anesthesia Plan Discussed and Chart Reviewed Final Anesthetic Review NPO: Yes ASA Class: III Final Preanesthetic Review: No Changes in Pt Med Stat, Meds/Allgs Chart Reviewed, Consent Obtained/Reviewed and Anes Risks/Benef Reviewed Patient Risk: Intermediate Procedure Risk: Intermediate Anesthetic Plan Anesthetic Plan: MAC: Disposition: Standard PACU
[2025-04-18 09:51] VITALS: BMI 30.6
[2025-04-22 06:35] VITALS: BMI 30.5
[2025-04-22 06:47] VITALS: BP 152/74; PULSE 63; RESP 16; TEMP 36.6; O2SAT 96
[2025-04-22] MEDS: Lactated Ringers 1,000 ML 100 ML IVCONT (06:47)
--- NOTE | 2025-04-22 07:52 | MHC.SHP ---
Pre-Procedural Eval Section A - 24 Hr Update-Section A only Date of Service: 04/22/25 Section B - Complete if H&P > 30 days Chief Complaint: gerd, dysphagia Details of Present Illness: Dyspepsia RSV (respiratory syncytial virus infection) Encounter for monitoring of hydroxychloroquine therapy Pre-op examination Frequency of micturition Right wrist pain Annual physical exam Lower urinary tract symptoms Immunization counseling Screening for viral disease Bilateral carpal tunnel syndrome Screening for colon cancer Screening for prostate cancer New onset type 2 diabetes mellitus Depression Adult general medical exam Precordial chest pain Right hip pain Acute sinusitis Right rotator cuff tear Atherosclerotic cardiovascular disease Left rotator cuff tear Gastritis determined by endoscopy Lip cancer Erectile dysfunction Anxiety Degenerative disc disease, lumbar Horseshoe kidney Coronary artery disease GERD (gastroesophageal reflux disease) Hypercholesterolemia Cervical radiculopathy 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 Osteoarthritis Surgical History (Updated 02/11/25 @ 12:18 by SERGIO Collins) History of carpal tunnel surgery of right wrist History of rotator cuff surgery S/P left rotator cuff repair Hx of colonoscopy History of coronary artery stent placement History of cervical spinal surgery History of shoulder surgery History of lip cancer H/O left knee surgery History of tonsillectomy Present Medications: see Short Stay Collaborative assessment Allergies: Allergies Allergy/AdvReac Type Severity Reaction Status Date / Time penicillin V Allergy Severe rash Verified 04/02/25 14:45 adalimumab (From Humira) Allergy Intermediate leg pain Verified 04/02/25 14:45 atorvastatin Allergy Intermediate leg pain Verified 04/02/25 14:45 leflunomide Allergy Intermediate kidney Verified 04/02/25 14:45 failure tocilizumab (From Actemra) Allergy Intermediate frequent Verified 04/02/25 14:45 nail infection lisinopril AdvReac Intermediate Anxiety Verified 04/02/25 14:45 losartan AdvReac Intermediate Nausea Verified 04/02/25 14:45 Review of Systems Review of Systems Comment: Ten point ROS negative Exam Exam Comment: Gen appear: No acute distress HEENT: no icterus Chest: No overt resp distress Abd: soft, nontender, nondistended Psych: Stable affect, answering questions appropriately Neuro: A/Ox3 noted to move all extremities spontaneously Ext: no peripheral edema Plan Diagnosis/Plan: Unchanged I have reviewed the history and physical and performed a pertinent physical examination on my patient. No changes have occurred unless specified. Time Spent With Patient Time: Total time managing care of this patient today ____ minutes.
--- NOTE | 2025-04-22 08:13 | P.OP_ITS ---
Operative Note Operative Note Date of Service: 04/22/25 Narrative: Procedure: Esophagogastroduodenoscopy Endoscopist: Nilda Herndon MD Indication: GERD, dysphagia Anesthesia Provider: Dr Gonzales Anesthesia Type: MAC ?? EGD Procedure:?? The procedure, indications, preparation and potential complications were reviewed with the patient, who indicated understanding and gave written informed consent to proceed. A physical exam was performed. The endoscope was introduced through the mouth, and advanced to the second part of duodenum. The mucosa was carefully examined on slow withdrawal of the endoscope. The patient tolerated the procedure well. There were no immediate complications.? ? EGD Findings:? * Esophagus:? Erythema and ulcerations noted at GE junction involving 75% of circumference compatible with erosive esophagitis. The GE junction was at 37 cm. A small hiatal hernia was noted with diaphragmatic hiatus at 40 cm. * Stomach:? Mild erytheme and congestion noted in antrum. Retroflexion was performed in the cardia that shows Hill grade III hiatal hernia. A few polyps were noted in the fundus. Cold forceps biopsies were taken from body and antrum for histology. * Duodenum:? Normal mucosa was noted in the whole of the examined duodenum. Cold forceps biopsies were taken from duodenal bulb and second portion of the duodenum to rule out celiac sprue. ? EGD Impressions:? * Grade C esophagitis * Hiatal hernia * Gastritis (biopsy) * Gastric polyps * Normal duodenum (biopsy) ?? Recommendations:?? * Follow biopsy results. Our office will call or send a letter with results within 7-10 days. * Start omeprazole 20 mg BID x 8 weeks and then decrease to once daily. * If H pylori +, patient will be prescribed eradication therapy followed by test of cure. * Avoid NSAIDs. * Repeat EGD in 8-12 weeks to assess for healing of esophagitis and r/o BE. Above has been reviewed with the patient.
[2025-04-22 08:14] VITALS: BP 104/59; PULSE 68; RESP 16; TEMP 36.1; O2SAT 96
[2025-04-22 08:29] VITALS: BP 113/49; PULSE 64; RESP 16; O2SAT 95
[2025-04-22 08:44] VITALS: BP 105/55; PULSE 68; RESP 16; O2SAT 97
[2025-04-22 08:58] VITALS: BP 105/65; PULSE 68; RESP 16; TEMP 36.1; O2SAT 97
== END 2025-04-22 09:36 | disposition home or self-care (01) ==
PROVIDERS: PCP Internal Medicine; Visit Provider Internal Medicine
PROC: 0DJ08ZZ Inspection of Upper Intestinal Tract, Via Natural or Artificial Opening Endoscopic (ICD-10-PCS; CPT 43235; principal; 2025-04-22 07:30)
DX: K21.00 Gastro-esophageal reflux disease with esophagitis, without bleeding (principal); R13.10 Dysphagia, unspecified; E11.9 Type 2 diabetes mellitus without complications; K59.00 Constipation, unspecified; Z80.0 Family history of malignant neoplasm of digestive organs; K44.9 Diaphragmatic hernia without obstruction or gangrene; K31.7 Polyp of stomach and duodenum; K29.70 Gastritis, unspecified, without bleeding
CPT/HCPCS: 43239; 88305; 88313; 88342; J2003; J2704; J3010

== ENCOUNTER → 2025-04-22 06:03 | Outpatient (BNV) | payer OTHER, SELFPAY | PROVIDERS: PCP Internal Medicine; Visit Provider Internal Medicine | DX: K21.00 Gastro-esophageal reflux disease with esophagitis, without bleeding (principal); K29.70 Gastritis, unspecified, without bleeding; K31.7 Polyp of stomach and duodenum | CPT/HCPCS: 43239 ==

== ENCOUNTER 2025-05-15 11:24 | Outpatient (AMB) | payer OTHER, SELFPAY ==
[2025-05-15 11:28] VITALS: BP 124/68; PULSE 70; BMI 30.7
--- NOTE | 2025-05-15 11:28 | A.OFFVIS_ITS ---
Vital Signs 05/15/25 11:28 Height 5 ft 9 in Weight 207 lb 10.807 oz BMI 30.7 BP 124/68 Blood Pressure Location Lt brachial Position Sitting Pulse 70 Intake Visit Reasons: s/p EGD Intake Note: Issa presents to in office follow up s/p EGD. CC: Patient c/o constipation alternating with diarrhea, abd discomfort and cramps every morning, and nausea. He reports that he believes the lisinopril he was taking caused his symptoms to start, and it was switched to amlodipine but he continues having symptoms. . [employer] Required: No Accompanied by: Self / Same As Patient Allergies penicillin V Allergy (Severe, Verified 05/15/25 11:34) rash adalimumab (From Humira) Allergy (Intermediate, Verified 05/15/25 11:34) leg pain atorvastatin Allergy (Intermediate, Verified 05/15/25 11:34) leg pain leflunomide Allergy (Intermediate, Verified 05/15/25 11:34) kidney failure tocilizumab (From Actemra) Allergy (Intermediate, Verified 05/15/25 11:34) frequent nail infection lisinopril Adverse Reaction (Intermediate, Verified 05/15/25 11:34) Anxiety losartan Adverse Reaction (Intermediate, Verified 05/15/25 11:34) Nausea HPI HPI s/p EGD: Details: Assessment & Plan (1) GERD (gastroesophageal reflux disease): Code(s): K21.9 - Gastro-esophageal reflux disease without esophagitis Category: Medical Qualifiers: Esophagitis presence: without esophagitis Qualified Code(s): K21.9 - Gastro-esophageal reflux disease without esophagitis (2) Dysphagia: Code(s): R13.10 - Dysphagia, unspecified Category: Medical Plan - The patient is a 59-year-old male presenting with Gastroesophageal Reflux Disease (GERD). - since I saw him last he had a myocardial infarction! He was having trouble regulating his blood pressure and I can not help but wonder how much of his GERD was cardiac symptoms. In the past this was worsened when he was put on amlodi pine although now he is on twice a day dosing and apparently is tolerating it well. - The patient reports acid regurgitation and vomiting, improved with famotidine that we started at the last visit. - we review his barium swallow which shows a sliding hiatal hernia that could contribute to episodic GERD exacerbation. - Persistent symptoms of esophageal dysphagia leading to consideration of endoscopy for further evaluation. Food tends to get stuck midsternally which could be esophageal spasm or could be esophageal stricture. - Use of turmeric noted with advisory regarding potential GI upset. This also might not be the best food with someone who has GERD. He was also educated that too high a dose of turmeric can cause liver failure so even though it is ?natural? do not ever go over the recommended dosage. - Background of rheumatoid arthritis and gout, with prior biologic therapy terminated due to side effects. Return office visit in 3 months Medications: Refilled famotidine (Pepcid) 40 mg PO BEDTIME 30 tabs 6RF K21.9 - Gastro-esophageal reflux disease without esophagitis, R10.13 - Epigastric pain EGD EGD Findings:? * Esophagus:? Erythema and ulcerations noted at GE junction involving 75% of circumference compatible with erosive esophagitis. The GE junction was at 37 cm. A small hiatal hernia was noted with diaphragmatic hiatus at 40 cm. * Stomach:? Mild erytheme and congestion noted in antrum. Retroflexion was performed in the cardia that shows Hill grade III hiatal hernia. A few polyps were noted in the fundus. Cold forceps biopsies were taken from body and antrum for histology. * Duodenum:? Normal mucosa was noted in the whole of the examined duodenum. Cold forceps biopsies were taken from duodenal bulb and second portion of the duodenum to rule out celiac sprue. ? EGD Impressions:? * Grade C esophagitis * Hiatal hernia * Gastritis (biopsy) * Gastric polyps * Normal duodenum (biopsy)?? Recommendations:?? * Follow biopsy results. Our office will call or send a letter with results within 7-10 days. * Start omeprazole 20 mg BID x 8 weeks and then decrease to once daily. * If H pylori +, patient will be prescribed eradication therapy followed by test of cure. * Avoid NSAIDs. * Repeat EGD in 8-12 weeks to assess for healing of esophagitis and r/o BE. BIOPSY Received: 04/22/25 Diagnosis A. Duodenum, biopsy: Duodenal mucosa within normal limits. B. Stomach, antrum, biopsy: Antral-type and oxyntic mucosa with mild chronic inactive inflammation and intestinal metaplasia in the antrum (complete type); negative for dysplasia; no Helicobacter organisms seen. C. Stomach, biopsy: Oxyntic mucosa within normal limits; no Helicobacter organisms seen [facility] Medical History (Updated 05/15/25 @ 12:12 by SERGIO Collins) Nausea and vomiting CAD (coronary artery disease) Dyspepsia RSV (respiratory syncytial virus infection) Encounter for monitoring of hydroxychloroquine therapy Pre-op examination Frequency of micturition Right wrist pain Annual physical exam Lower urinary tract symptoms Immunization counseling Screening for viral disease Bilateral carpal tunnel syndrome Screening for colon cancer Screening for prostate cancer New onset type 2 diabetes mellitus Depression Adult general medical exam Precordial chest pain Right hip pain Acute sinusitis Right rotator cuff tear Atherosclerotic cardiovascular disease Left rotator cuff tear Gastritis determined by endoscopy Lip cancer Erectile dysfunction Anxiety Degenerative disc disease, lumbar Horseshoe kidney Coronary artery disease GERD (gastroesophageal reflux disease) Hypercholesterolemia Cervical radiculopathy 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 Osteoarthritis Surgical History (Updated 05/15/25 @ 11:37 by THIEN Adam) History of esophagogastroduodenoscopy (EGD) History of carpal tunnel surgery of right wrist History of rotator cuff surgery S/P left rotator cuff repair Hx of colonoscopy History of coronary artery stent placement History of cervical spinal surgery History of shoulder surgery History of lip cancer H/O left knee surgery History of tonsillectomy Family History Father Lung cancer CAD (coronary artery disease) CVD (cardiovascular disease) Hx of CABG Mother Colon cancer Mental health disorder Maternal Uncle Lung cancer Maternal Uncle Substance abuse Substance use disorder Brother Lung cancer Social History Housing: Apartment Housing Other:: Rents a room in a house Are you a primary gericare aide teacher to a significant other at home: No Do you presently have visiting nurse or other home services: No Alcohol intake: current Alcohol intake frequency: holidays/special occasions only Alcohol type: beer and hard liquor Comment: once a month glass Patient Tobacco Use Status: Former Tobacco user Tobacco use type: Cigarette Years Smoked: quit 2004 smokes marijuana e-Cigarette/Vaping Use: Never Used Second Hand Smoke Exposure: Yes Substance Use Type: Marijuana service: No Current occupational status: unemployed Current occupation: right handed Cognitive needs: No Hearing needs: No Vision needs: Yes Review of Systems Const Denies fatigue, Denies fever(s), Denies night sweats, Denies poor appetite and Denies weight loss Eyes Reports requires corrective lenses ENT Reports Normal hearing present, Denies dental pain, Denies dysphagia, Denies hearing loss, Denies mouth pain, Denies odynophagia, Denies throat swelling, Denies tongue swelling and Reports other (Dentition adequate) GI Details: Denies abdominal pain, Denies melena, Denies bloating, Denies hematochezia, Denies constipation, Denies GI cramping, Denies dysphagia, Denies excessive flatus, Denies early satiety, Denies heartburn, Denies diarrhea, Denies nausea, Denies odynophagia, Denies vomiting and Denies hematemesis Skin/Breast Denies pruritus, Denies lesions, Denies rash and Denies jaundice Neuro Reports Normal hearing present and Denies Abnormal speech present Endo Denies fatigue Aller/Immun Denies throat swelling and Denies tongue swelling Physical Exam Vital Signs: Last Vital Signs Pulse 70 05/15/25 11:28 BP 124/68 05/15/25 11:28 BMI result Body Mass Index 30.7 Const General: cooperative, no acute distress, well developed and well groomed Nutritional Appearance: well nourished, obese and overweight Orientation/consciousness: oriented to person, oriented to place and oriented to time Limitations: No language barrier, ambulation with cane, ambulation with walker and wheelchair HEENT Head: Yes normocephalic and Yes atraumatic Eyes General: appearance normal, both eyes and all related structures Pupils: Equal, round and reactive pupils present Neck Neck: Yes normal visual inspection and Yes no lymphadenopathy Thyroid: Thyroid normal Resp Effort & Inspection: normal respiratory effort and able to speak in complete sentences Auscultation: clear to auscultation bilaterally Cardio Rate: regular rate Rhythm: regular rhythm Heart sounds: Normal, physiologic split S2 sound present Peripheral pulses: radial pulses present and posterior tibial pulses present GI Inspection: No distended and No Abdominal panniculus present Palpation (GI): Soft to palpation, nontender, no guarding, not rigid, No hepatosplenomegaly present and Hepatosplenomegaly present Percussion: Yes normal to percussion Auscultation: normal bowel sounds Rectal Exam - Male: Yes deferred Skin General skin exam: no rashes or lesions noted, turgor normal, skin not dry, no jaundice, No spider nevi and no striae Rashes: no rashes Nails: normal Neuro General: oriented to person, oriented to place and oriented to time Cranial nerves: Yes Equal, round and reactive pupils present and Yes Normal hearing present Speech: No Abnormal speech present Extrem General: Yes normal to inspection, No clubbing, No cyanosis and No edema Psych Thought process: Normal thought process present and not confabulating Thought content: Normal thought content present Insight: Good insight present (Psych) Judgement: Good judgement present (Psych) Assessment & Plan Assessment & Plan (1) Erosive esophagitis: Code(s): K22.10 - Ulcer of esophagus without bleeding Category: Medical (2) Mcdowell grade C esophagitis: Code(s): K20.80 - Other esophagitis without bleeding Category: Medical (3) GERD (gastroesophageal reflux disease): Code(s): K21.9 - Gastro-esophageal reflux disease without esophagitis Category: Medical Qualifiers: Esophagitis presence: without esophagitis Qualified Code(s): K21.9 - Gastro-esophageal reflux disease without esophagitis (4) Dysphagia: Code(s): R13.10 - Dysphagia, unspecified Category: Medical (5) Nausea and vomiting: Code(s): R11.2 - Nausea with vomiting, unspecified Category: Medical (6) Constipation: Code(s): K59.00 - Constipation, unspecified Category: Medical Plan Subjective Patient here to review recent endoscopy and ongoing upper GI and bowel symptoms. Reports circumferential ulcers at the distal esophagus discussed today. Describes chronic constipation with painful lower abdominal cramping 5?10 minutes prior to bowel movements, initially passing very hard, pebble-like stools followed by softer, thinner stools in a single soft pile; feels incomplete evacuation with recurrent urges until softer stool passes, then relief. Nausea is prominent, worst in the mornings and also at night, often shortly after taking nighttime medications and preceding bowel movements; has awakened at night to vomit in the past. Notes onset of significant nausea and nocturnal bilious emesis after starting lisinopril following a cardiac event; symptoms improved after lisinopril was discontinued, though nausea persists to a lesser extent on amlodipine. Longstanding baseline constipation historically worsened by prior opioids. Senna taken nightly is intolerable due to taste and not effective. Fiber from foods (e.g., Mini-Wheats) has helped historically. Swallowing is still difficult until esophageal ulcers heal. Relevant Past Medical, Social, and Family History - Recent cardiac event with hospitalization and initiation of antihypertensives (lisinopril previously; now on amlodipine and carvedilol). - Current medications discussed relevant to symptoms: amlodipine, carvedilol, omeprazole, pregabalin, sertraline at night; rosuvastatin, low-dose enteric- coated aspirin, gabapentin, tolterodine in the morning. Long-term sertraline (dose increased to 150 mg ~2 years ago). Prior opioids (oxycodone/percocet) caused severe constipation. Objective - Completed endoscopy: circumferential ulcerations at the distal esophagus consistent with severe reflux-related erosive esophagitis. Assessment & Plan Severe reflux esophagitis with circumferential distal esophageal ulcerations: Endoscopic findings consistent with acid-related injury. Persistent dysphagia to pills until healing occurs; dilation deferred until mucosal healing. - Stop omeprazole. - Start pantoprazole twice daily to promote healing. - Short-term antiemetic therapy to reduce acid exposure from vomiting while healing (see below). - Follow-up endoscopy already scheduled for 08/04 to reassess healing. Nausea with episodic vomiting, worse mornings and at night; multifactorial (GERD-related; medication-associated): Nausea began after initiation of lisinopril (now discontinued) with partial improvement on amlodipine; ongoing symptoms likely exacerbating esophagitis. - Start metoclopramide: take at bedtime and again first thing in the morning; may also take in the evening when nausea occurs. - Continue enteric-coated low-dose aspirin as directed by cardiology; take with food. - Education provided on side effects context and short-term use at low dose. Chronic constipation with painful defecation and variable stool caliber/consistency: Longstanding, worsened by medications; senna not tolerated and ineffective; fiber intake historically helpful. - Stop senna. - Start fiber supplement tablets twice daily. - Start bisacodyl at bedtime as needed if inadequate response to fiber (avoid overuse to prevent diarrhea). - Reinforce dietary fiber strategies as tolerated. Follow-up: Return visit in approximately 5 weeks to reassess symptoms and treatment response; contact clinic sooner for worsening nausea/vomiting, inability to tolerate PO, GI bleeding, or lack of improvement so we can make timely adjustments. Medications: New psyllium husk (Daily Fiber) 0.4 grams PO BID 60 caps 6RF constipation metoclopramide HCl (Reglan) 5 mg PO QAM AND QHS 60 tabs 6RF R11.2 - Nausea with vomiting, unspecified pantoprazole (Protonix) 40 mg PO BID 60 tabs 6RF 30 days K20.80 - Other esophagitis without bleeding, K22.10 - Ulcer of esophagus without bleeding bisacodyl (Dulcolax (bisacodyl)) 5 mg PO BEDTIME 30 tabs 3RF 30 days K59.00 - Constipation, unspecified Discontinued omeprazole Discontinued Reason: Doctor's Order 20 mg PO BID 90 days 180 caps 0RF K20.80 - Other esophagitis without bleeding sennosides (senna) Discontinued Reason: Doctor's Order 8.6 mg PO BEDTIME 30 caps 6RF K59.00 - Constipation, unspecified Coding Level of Care Code Est Pt Level 3 (52060) Diagnoses Erosive esophagitis K22.10 Mcdowell grade C esophagitis K20.80 Gastroesophageal reflux disease without esophagitis K21.9 Esophagitis presence: without esophagitis Dysphagia R13.10 Nausea and vomiting R11.2 Constipation K59.00
== END 2025-05-15 12:30 | disposition home or self-care (01) ==
LOC: HO.HGI 11:25
PROVIDERS: PCP Internal Medicine; Visit Provider Nurse Practitioner
DX: K22.10 Ulcer of esophagus without bleeding (principal); K20.80 Other esophagitis without bleeding; K21.9 Gastro-esophageal reflux disease without esophagitis; R13.10 Dysphagia, unspecified; R11.2 Nausea with vomiting, unspecified; K59.00 Constipation, unspecified
CPT/HCPCS: 99213

== ENCOUNTER → 2025-05-15 11:24 | Outpatient (BNVA) | payer OTHER, SELFPAY | PROVIDERS: PCP Internal Medicine; Visit Provider Nurse Practitioner | DX: K22.10 Ulcer of esophagus without bleeding (principal); K21.9 Gastro-esophageal reflux disease without esophagitis; R13.10 Dysphagia, unspecified; R11.2 Nausea with vomiting, unspecified; K59.09 Other constipation; Z79.899 Other long term (current) drug therapy | CPT/HCPCS: 99212 ==

== ENCOUNTER 2025-05-26 09:45 | Outpatient (AMB) | payer OTHER, SELFPAY ==
--- NOTE | 2025-05-26 10:10 | MHC.PC.OV ---
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 Required: No Accompanied by: Self / Same As Patient Allergies penicillin V Allergy (Severe, Verified 05/26/25 10:11) rash adalimumab (From Humira) Allergy (Intermediate, Verified 05/26/25 10:11) leg pain atorvastatin Allergy (Intermediate, Verified 05/26/25 10:11) leg pain leflunomide Allergy (Intermediate, Verified 05/26/25 10:11) kidney failure tocilizumab (From Actemra) Allergy (Intermediate, Verified 05/26/25 10:11) frequent nail infection lisinopril Adverse Reaction (Intermediate, Verified 05/26/25 10:11) Anxiety losartan Adverse Reaction (Intermediate, Verified 05/26/25 10:11) Nausea Medication List - Last Reconciled 05/26/25 by Clive Chaidez MD albuterol sulfate 90 mcg/actuation 2 puffs inhalation Q4-6H PRN amlodipine 5 mg PO BID 90 days aspirin 81 mg PO DAILY bisacodyl (Dulcolax (bisacodyl)) 5 mg PO BEDTIME 30 days blood sugar diagnostic (FreeStyle Lite Strips) test daily blood-glucose meter (FreeStyle Lite Meter kit) test daily carvedilol 6.25 mg PO BID cyclobenzaprine 5 mg PO ONCE PRN diclofenac sodium 1% 4 grams topical QID PRN lancets (FreeStyle Lancets) test daily lancets (FreeStyle Lancets) As directed check BS QD metoclopramide HCl (Reglan) 5 mg PO QAM AND QHS nitroglycerin 0.4 mg sublingual Q5M PRN pantoprazole (Protonix) 40 mg PO BID 30 days pregabalin 75 mg PO BID psyllium husk (Daily Fiber) 0.4 grams PO BID rosuvastatin 40 mg PO BEDTIME sertraline 150 mg PO DAILY tolterodine ER (Detrol LA) 2 mg PO Q24H [wrist cock up splint Wear on each wrist at night. ] Tobacco use date assessed: 01/30/25 Dental Screening Dental Screen Date: 01/30/25 [facility] Medical History (Updated 05/15/25 @ 12:12 by SERGIO Collins) Nausea and vomiting CAD (coronary artery disease) Dyspepsia RSV (respiratory syncytial virus infection) Encounter for monitoring of hydroxychloroquine therapy Pre-op examination Frequency of micturition Right wrist pain Annual physical exam Lower urinary tract symptoms Immunization counseling Screening for viral disease Bilateral carpal tunnel syndrome Screening for colon cancer Screening for prostate cancer New onset type 2 diabetes mellitus Depression Adult general medical exam Precordial chest pain Right hip pain Acute sinusitis Right rotator cuff tear Atherosclerotic cardiovascular disease Left rotator cuff tear Gastritis determined by endoscopy Lip cancer Erectile dysfunction Anxiety Degenerative disc disease, lumbar [place] kidney Coronary artery disease GERD (gastroesophageal reflux disease) Hypercholesterolemia Cervical radiculopathy 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 Osteoarthritis Surgical History (Updated 05/15/25 @ 11:37 by THIEN Adam) History of esophagogastroduodenoscopy (EGD) History of carpal tunnel surgery of right wrist History of rotator cuff surgery S/P left rotator cuff repair Hx of colonoscopy History of coronary artery stent placement History of cervical spinal surgery History of shoulder surgery History of lip cancer H/O left knee surgery History of tonsillectomy Family History Father Lung cancer CAD (coronary artery disease) CVD (cardiovascular disease) Hx of CABG Mother Colon cancer Mental health disorder Maternal Uncle Lung cancer Maternal Uncle Substance abuse Substance use disorder Brother Lung cancer Social History Housing: Apartment Housing Other:: Rents a room in a house Are you a primary acute care certified nursing assistant to a significant other at home: No Do you presently have visiting nurse or other home services: No Alcohol intake: current Alcohol intake frequency: holidays/special occasions only Alcohol type: beer and hard liquor Comment: once a month glass Patient Tobacco Use Status: Former Tobacco user Tobacco use type: Cigarette Years Smoked: quit 2005 smokes marijuana e-Cigarette/Vaping Use: Never Used Second Hand Smoke Exposure: Yes Substance Use Type: Marijuana service: No Current occupational status: unemployed Current occupation: right handed Cognitive needs: No Hearing needs: No Vision needs: Yes Questionnaire Thrive Questionnaire Date Thrive assessed: 12/06/24 I am a: Patient What is your living situation today?: I have a steady place to live Within the past 12 months, did the food you bought not last and you didn't have the money to get more?: Often true Within the past 12 months, did you worry whether your food would run out before you got money to buy more?: Often true Do you have trouble paying for medicines?: Yes Do you have trouble getting transportation to medical appointments?: No Do you have trouble paying your heating and electricity bill?: Yes Do you have trouble taking care of your child, family member or friend?: Yes Do you have trouble with day-to-day activities such as bathing, preparing meals, shopping, managing finances, etc.?: No Are you currently unemployed and looking for a job?: Yes Are you interested in more education?: No Currently or been in a relationship where the following occur: I choose not to answer THRIVE Score: 3 SARAI-7 AMB Questionnaire SARAI-7 Date SARAI - 7 assessed: 01/30/25 Source: Developed by Drs. Souleymane Cox, Aline Kay, Damion Lieberman and colleagues, with an educational zulema from [email or web address]. Physical exam (Primary Care) Vital Signs: Last Vital Signs Temp 97.3 F 05/26/25 10:11 Pulse 76 05/26/25 10:11 Resp 16 05/26/25 10:11 BP 124/66 05/26/25 10:11 Pulse Ox 99 05/26/25 10:11 Oxygen Delivery Method Room Air 05/26/25 10:11 BMI result Body Mass Index 30.4 Tobacco/Smoking Status: Tobacco use Status Tobacco use date assessed 01/30/25 05/26/25 10:18 Patient Tobacco Use Status Former Tobacco user 05/26/25 10:18 Tobacco use type Cigarette 05/26/25 10:18 e-Cigarette/Vaping Use Never Used 05/26/25 10:18 Thrive Assessment: Date of Thrive Assessment Date Thrive assessed 12/06/24 05/26/25 10:18 Currently or been in a relationship where the following occur: I choose not to answer Const General: alert; No acute distress Eyes Conjunctivae: conjunctivae normal Resp Auscultation: clear to auscultation bilaterally Cardio Rate: regular rate Rhythm: regular rhythm GI Inspection: Yes normal to inspection Extrem General: Yes normal to inspection and No edema Coding Level of Care Code Est Pt Level 4 (60509) Add On Problem Visit Only Diagnoses Coronary artery disease involving [place] coronary artery of [place] heart without angina pectoris I25.10 Associated angina: without angina Coronary Disease-Associated Artery/Lesion type: [place] artery [place] vs. transplanted heart: [place] heart Essential hypertension I10 Hypercholesterolemia E78.00 Type 2 diabetes mellitus with hyperglycemia E11.65 Gastroesophageal reflux disease without esophagitis K21.9 Esophagitis presence: without esophagitis BPH (benign prostatic hyperplasia) N40.0 Seropositive rheumatoid arthritis M05.9 Constipation K59.00 Assessment & Plan Assessment & Plan (1) Coronary artery disease: Comment: 10/20/2017 angioplasty YESSICA, stent placement Dr. Tomeka Araya March 2018 echo 60-65% normal LV, Brilinta October 2018, nuclear stress ejection fraction 74% echo July 2019 60-65% Code(s): I25.10 - Atherosclerotic heart disease of [place] coronary artery without angina pectoris Category: Medical Qualifiers: Associated angina: without angina Coronary Disease-Associated Artery/Lesion type: [place] artery [place] vs. transplanted heart: [place] heart Qualified Code(s): I25.10 - Atherosclerotic heart disease of [place] coronary artery without angina pectoris Plan: Control the cholesterol, weight, blood pressure, diabetes patient on aspirin 81 mg once a day (2) Essential hypertension: Code(s): I10 - Essential (primary) hypertension Category: Medical Plan: Continue with blood pressure medication. Decrease salt intake and exercise on amlodipine 5 mg twice a day carvedilol 6.25 mg twice a day (3) Hypercholesterolemia: Code(s): E78.00 - Pure hypercholesterolemia, unspecified Category: Medical Plan: Avoid fried foods, chicken skin, eggs, butter margarine, pastries and meat. Be it pork or beef they have a lot of cholesterol LDL goal of less than 70 and preferably 55 below on rosuvastatin 40 mg once a day (4) Type 2 diabetes mellitus with hyperglycemia: Comment: shahzad Hartmann Code(s): E11.65 - Type 2 diabetes mellitus with hyperglycemia Category: Medical Plan: Decrease the amount of carbohydrate intake, pasta, bread, rice and potatoes are all sugar and that is aside from all the sweet stuff, remember that fruits are good but they are Sweet also. Hemoglobin A1c goal of less than 6.5. Patient on diet control (5) GERD (gastroesophageal reflux disease): Code(s): K21.9 - Gastro-esophageal reflux disease without esophagitis Category: Medical Qualifiers: Esophagitis presence: without esophagitis Qualified Code(s): K21.9 - Gastro-esophageal reflux disease without esophagitis Plan: Avoid the foods that causes that usually spicy foods, tomato products, juices, coffee, soda and foods that your sensitive to. After eating do not lie down, allow 3-4 hours before in lie down. And keep the head of bed above 30 degrees to avoid the acid from going up. Medication for the stomach change to pantoprazole 40 mg twice a day (6) BPH (benign prostatic hyperplasia): Comment: 04/2023 44 cc Code(s): N40.0 - Benign prostatic hyperplasia without lower urinary tract symptoms Category: Medical Plan: Continue with tolterodine (7) Seropositive rheumatoid arthritis: Comment: ++RF -ve CCP Leflunomide: December 2020 - March 2021 urinary frequency Actemra: January 2020- December 2020 -Had surgery did not want to restart after, frequent nail infections. Enbrel: January- denied by insurance Humira: October 2019- January 2020 - active disease on exam/ listed with allergy leg pain Orencia: March 2021- 05/2024 HCQ - ordered but patient did not take it Code(s): M05.9 - Rheumatoid arthritis with rheumatoid factor, unspecified Category: Medical Plan: Patient was seen by Rheumatology and was prescribed hydroxychloroquine but patient has not started. (8) Constipation: Code(s): K59.00 - Constipation, unspecified Category: Medical Plan: Three rules for constipation 1. Diet need to have a high fiber diet less of meat 2. Increase oral fluids 3. Exercise Medications: Refilled rosuvastatin 40 mg PO BEDTIME 90 tabs 2RF E11.65 - Type 2 diabetes mellitus with hyperglycemia
[2025-05-26 10:11] VITALS: BP 124/66; PULSE 76; RESP 16; TEMP 36.3; O2SAT 99; BMI 30.4
== END 2025-05-26 10:49 | disposition home or self-care (01) ==
LOC: HO.HMCH 09:46
PROVIDERS: PCP Internal Medicine; Visit Provider Internal Medicine
DX: I25.10 Atherosclerotic heart disease of native coronary artery without angina pectoris (principal); E11.65 Type 2 diabetes mellitus with hyperglycemia; M05.9 Rheumatoid arthritis with rheumatoid factor, unspecified; I10 Essential (primary) hypertension; E78.00 Pure hypercholesterolemia, unspecified; K21.9 Gastro-esophageal reflux disease without esophagitis; N40.0 Benign prostatic hyperplasia without lower urinary tract symptoms; K59.00 Constipation, unspecified

== ENCOUNTER → 2025-05-26 09:45 | Outpatient (BNVA) | payer OTHER, SELFPAY | PROVIDERS: PCP Internal Medicine; Visit Provider Internal Medicine | DX: I25.10 Atherosclerotic heart disease of native coronary artery without angina pectoris (principal); I10 Essential (primary) hypertension; E78.00 Pure hypercholesterolemia, unspecified; E11.65 Type 2 diabetes mellitus with hyperglycemia; K21.9 Gastro-esophageal reflux disease without esophagitis; N40.0 Benign prostatic hyperplasia without lower urinary tract symptoms; M05.9 Rheumatoid arthritis with rheumatoid factor, unspecified; K59.00 Constipation, unspecified | CPT/HCPCS: 99212 ==